=== PATIENT | female | born 1945 | race Caucasian/White ===

== ENCOUNTER → 2018-03-28 15:00 | Outpatient (CLI) | payer MEDICARE, SELFPAY ==
--- NOTE | 2018-03-28 15:30 | DI.RPTCT_ITS ---
SYMPTOMS/DIAGNOSIS: ACCIDENTAL FALL, LONG-TERM ANTICOAGULANT USE CRANIAL CT: A non-contrast enhanced examination was performed. There is no evidence of an intra/extra-axial hemorrhage. Atrophic changes consistent with age are demonstrated. Small regions of diminished absorption in the frontoparietal white matter bilaterally would be consistent with small vessel disease. The ventricles are intact. Incidental note is made of a cavum septum pellucidum, which is a normal variant. No skull fractures identified. The paranasal sinuses are unremarkable. The mastoid air cells are intact. SUMMARY: No acute intracranial abnormality is demonstrated. C-SPINE CT: There is straightening of the normal cervical lordosis. There is no evidence of a fracture or dislocation. Disc narrowing and associated degenerative bony changes are identified at C2 through C7. There is no evidence of significant foraminal compromise. The neural canal is widely patent. The posterior elements are intact. The odontoid is intact and is closely applied to the anterior arch of C1. SUMMARY: There is no evidence of a fracture or dislocation. Degenerative changes are noted as described above.
== END ==
PROVIDERS: PCP Internal Medicine Geriatric Medicine; Visit Provider Internal Medicine
DX: I67.9 Cerebrovascular disease, unspecified (principal); G31.1 Senile degeneration of brain, not elsewhere classified; M50.322 Other cervical disc degeneration at C5-C6 level; Z79.01 Long term (current) use of anticoagulants; W19.XXXA Unspecified fall, initial encounter
CPT/HCPCS: 70450; 72125

== ENCOUNTER → 2018-04-09 09:28 | Outpatient (CLI) | payer MEDICARE, SELFPAY | PROVIDERS: PCP Internal Medicine Geriatric Medicine; Visit Provider Orthopaedic Surgery | DX: M17.11 Unilateral primary osteoarthritis, right knee (principal); M16.11 Unilateral primary osteoarthritis, right hip | CPT/HCPCS: 99214 ==

== ENCOUNTER 2018-05-13 07:19 | Day surgery (SDC) | payer MEDICARE, SELFPAY ==
[2018-05-13 07:28] VITALS: BP 141/85; PULSE 89; RESP 16; TEMP 36.7; O2SAT 96
--- NOTE | 2018-05-13 08:37 | DI.RAD_ITS ---
SYMPTOM/DIAGNOSIS: ARTHRITIS RIGHT HIP INJECTION: Fluoroscopy Time: 7.7 seconds Fluoroscopy was utilized by Dr. Deras in the OR. Please refer to the procedure report for complete details.
--- NOTE | 2018-05-13 09:23 | W.PM.DSUDISC ---
Discharge Plan Disposition Patient Disposition: HOME Condition: Improving Discharge Details Attending Provider: Baljinder Deras Primary Care Provider: Ayla Brown Home Meds and New Rx's Prescriptions: No Action thyroid (pork) [[place] Thyroid] 60 MG tablet 90 mg PO DAILY RF: 0 [place]'s wort 150 MG capsule 1 tab PO . NEEDED RF: 0 cholecalciferol (vitamin D3) [Vitamin D3] 1,000 unit Capsule 1,000 unit PO DAILY RF: 0 rivaroxaban [Xarelto] 20 mg Tablet 20 mg PO DAILY RF: 0 cyanocobalamin (vitamin B-12) 1,000 mcg Tablet, Sublingual 5,000 mcg Sublingual DAILY RF: 0 Discharge Instructions Additional Instructions: You may be up today to get something to eat or to go to the bathroom. However try to limit your activity for the next 24 hours. You should notice a significant improvement in your hip and groin pain for the next 5-12 hours secondary to the local anesthetic effect of the injection. When that wears off you may have some return of the hip and groin pain for 24-48 hours until the steroid takes effect, which is usually 24-48 hours. You may use ice over the anterior hip region to help with that discomfort, usually 20-30 minutes every hour as needed. Plain tylenol is also helpful in regular doses. You only need to ice the knee if there is discomfort. The durolane's beneficiial effect takes a few weeks but should last 6 months. Stand Alone Forms: DSU Post op Chastity, Rosi Damon (DSU) Activity:: as described Shower/Bathe:: 24 hours Diet:: As Tolerated Discharge Orders Discharge Orders: Discharge Order (Routine); Ordered 05/13/18 Ordered By: Baljinder Deras
--- NOTE | 2018-05-13 09:32 | PDOC.DSDIS_ITS ---
Discharge Plan Disposition Patient Disposition: HOME Condition: Improving Discharge Details Attending Provider: Baljinder Deras Primary Care Provider: Ayla Brown Home Meds and New Rx's Prescriptions: No Action thyroid (pork) [[place] Thyroid] 60 MG tablet 90 mg PO DAILY RF: 0 [place]'s wort 150 MG capsule 1 tab PO . NEEDED RF: 0 cholecalciferol (vitamin D3) [Vitamin D3] 1,000 unit Capsule 1,000 unit PO DAILY RF: 0 rivaroxaban [Xarelto] 20 mg Tablet 20 mg PO DAILY RF: 0 cyanocobalamin (vitamin B-12) 1,000 mcg Tablet, Sublingual 5,000 mcg Sublingual DAILY RF: 0 Discharge Instructions Additional Instructions: You may be up today to get something to eat or to go to the bathroom. However try to limit your activity for the next 24 hours. You should notice a significant improvement in your hip and groin pain for the next 5-12 hours secondary to the local anesthetic effect of the injection. When that wears off you may have some return of the hip and groin pain for 24-48 hours until the steroid takes effect, which is usually 24-48 hours. You may use ice over the anterior hip region to help with that discomfort, usually 20-30 minutes every hour as needed. Plain tylenol is also helpful in regular doses. You only need to ice the knee if there is discomfort. The durolane's beneficiial effect takes a few weeks but should last 6 months. Stand Alone Forms: DSU Post op Chastity, Rosi Damon (DSU) Activity:: as described Shower/Bathe:: 24 hours Diet:: As Tolerated Discharge Orders Discharge Orders: Discharge Order (Routine); Ordered 05/13/18 Ordered By: Baljinder Deras
[2018-05-13 09:52] VITALS: BP 124/78; PULSE 74; RESP 18; TEMP 36.8; O2SAT 96
--- NOTE | 2018-05-13 10:32 | ROE_ITS ---
DATE OF PROCEDURE: May 13, 2018 PREOPERATIVE DIAGNOSIS: Degenerative arthritis right hip and right knee. POSTOPERATIVE DIAGNOSIS: Same. PROCEDURE: 1. Injection right knee with Durolane 2. Injection right hip under fluoroscopy with Depo-Medrol 80 mg SURGEON: Baljinder Deras M.D. INDICATIONS: This patient is a 72-year-old morbidly obese white female who has a very complicated me dical history. 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 She underwent a left total knee arthroplasty in 2014. That procedure was complicated by a rupture of her posterior c ruciate ligament approximately six weeks after the index operation in 2014. That has left her with s ome instability of the left knee. She's had a recent fall in the winter of where she had inc reasing pain in the right hip and groin and increasing pain in the right knee. X-rays showed an incr easing valgus deformity of the right knee and early degenerative arthritis of the right hip. Unfortu nately the early beginning of this summer she developed another blood clot in the right lower extremi ty, which is where the index clot developed approximately four months after her left total knee arthr oplasty in 2014. This was confirmed on ultrasound. She was recently seen by Hematology at [facility] who cleared her for injection of the right hip and right knee, but the patient will need to be on li felong Xarelto DVT prophylaxis. She also has a history of a thoracic aneurysm, which has been recent ly stable. I have reviewed the procedure with the patient. Because of significant anxiety and poor pain tolerance to injection of the left knee when this was done prior to her knee surgery in 2014, I recommended the use of some modest sedation. This was discussed in detail with [facility] and therefore she was given the oral Midazolam, Ketamine and Ondansetron. After ten minutes she was then brought back to the operating suite. I greeted the patient and her prior to th e sedation and reviewed the planned procedure. They understood and wished to proceed. The patient s igned the consent and I marked her right leg. PROCEDURE: As the patient was feeling comfortable, I elected to inject the right knee. This was don e without difficulty. This was done with Durolane. A small amount of lidocaine, which was preservat fercho-free, was used to mitigate against any potential history of allergies. The patient has had a rep orted allergy to lidocaine, but it has been determined since her total knee arthroplasty that she may have an allergy to methylparaben or the epinephrine that is used in a dental office often with aaron franks. She tolerated that well with no evidence of any allergic reaction. This was done after prepp ing the anteromedial aspect of her left knee. I then brought the fluoroscope into position. I prepped the anterolateral area of her right thigh. Approaching the hip from the lateral aspect I first created an anesthetic wheal with preservative-alexandra e lidocaine with 25 gauge needle. After waiting an appropriate amount of time, I then passed a spina l needle under fluoroscopic control into the hip joint. The 3.5-inch spinal needle was inadequate fo r length and therefore a 6-inch spinal needle was utilized. This caused the patient some discomfort, but I was able to easily place the needle into the hip joint and make contact with the femoral head, indicating appropriate placement. I then injected the hip joint with 5 cc's of Marcaine, preservati ve-free, 0.25% and 80 mg of Depo-Medrol. She tolerated it well with no complications. She had no ne urovascular changes to her right leg or thigh. Aspiration was done prior to injection and there was no blood obtained. Band-aids were applied to both wounds and the patient was taken to the [facility] area in satisfactory condition. We'll get her up ambulating in approximately thirty minutes. She understands that she may have some increasing pain in the groin and hip after 5 to 12 hours after the local anesthetic has worn off. However with the use of ice and Tylenol this should resolve and with in 48 hours she should notice the beneficial effects of the steroid in the hip and the Durolane place d in the knee will take a few weeks to take effect, but often most patients feel better within 7 to10 days.
== END 2018-05-13 10:20 | disposition home or self-care (01) ==
PROVIDERS: PCP Internal Medicine; Visit Provider Orthopaedic Surgery
PROC: (CPT 20610; principal; 2018-05-13 08:30)
DX: M17.11 Unilateral primary osteoarthritis, right knee (principal); M21.061 Valgus deformity, not elsewhere classified, right knee; E66.01 Morbid (severe) obesity due to excess calories; Z86.718 Personal history of other venous thrombosis and embolism
CPT/HCPCS: 20610; 77002; 76000; J7318; 73501; J3490

== ENCOUNTER → 2018-05-13 09:27 | Outpatient (BNVA) | payer MEDICARE, SELFPAY | PROVIDERS: PCP Internal Medicine Geriatric Medicine; Referring Provider Internal Medicine Geriatric Medicine; Visit Provider Orthopaedic Surgery | DX: R69 Illness, unspecified (principal) ==

== ENCOUNTER → 2019-02-06 10:52 | Outpatient (BNVA) | payer MEDICARE, SELFPAY | PROVIDERS: PCP Internal Medicine Geriatric Medicine; Referring Provider Internal Medicine Geriatric Medicine; Visit Provider Orthopaedic Surgery | DX: M25.561 Pain in right knee (principal); G89.29 Other chronic pain; Z47.1 Aftercare following joint replacement surgery; Z79.01 Long term (current) use of anticoagulants | CPT/HCPCS: 99211; 99213 ==

== ENCOUNTER 2019-03-10 12:40 | Emergency (ER) | payer MEDICARE, SELFPAY ==
[2019-03-10 12:44] VITALS: BP 160/76; PULSE 80; RESP 16; TEMP 36.7; O2SAT 96
--- NOTE | 2019-03-10 13:20 | ED.GENADUL_ITS ---
Discharge Plan Disposition Patient Disposition: HOME Condition: Stable Discharge Details Chief Complaint: Orthopedic Clinical Impression: Fracture, humerus Primary Care Provider: Ayla Brown ED Provider: Josefina Garcia Home Meds and New Rx's Prescriptions: New oxycodone 5 mg tablet 5 mg PO Q8H PRN (Reason: pain) Qty: 6 RF: 0 Continued thyroid (pork) [[place] Thyroid] 60 MG tablet 90 mg PO DAILY RF: 0 [place]'s wort 150 MG capsule 1 tab PO . NEEDED RF: 0 cholecalciferol (vitamin D3) [Vitamin D3] 1,000 unit Capsule 1,000 unit PO DAILY RF: 0 cyanocobalamin (vitamin B-12) 1,000 mcg Tablet, Sublingual 5,000 mcg Sublingual DAILY RF: 0 Eliquis 5 mg Tablet 5 mg PO DAILY RF: 0 Discharge Instructions Instructions: Oxycodone, Rapid Release (By mouth), How to Use a Sling (GEN), Proximal Humerus Fracture (ED) Additional Instructions: Please return immediately to the emergency department if you develop any new or worsening symptoms or if you become otherwise concerned. It is extremely important that you call as soon as possible to make an appointment to be seen in follow-up for this visit by your primary care doctor and also by an orthopedic surgeon. Referrals: Baljinder Deras MD [ [facility] STAFF PHYSICIAN] - Ayla Brown [Primary Care Provider] - Discharge Data Discharge Date/Time-TO BE ENTERED AT DEPARTURE: 03/10/19 15:04 Medical Decision Making Carolann Brennan is a 73-year-old woman with a history of pulmonary embolism on Eliquis, hypothyroidism, hypertension who presented to the emergency department with shoulder pain after tripping and falling to the floor. On exam patient is very well and nontoxic appearing. Right shoulder appears edematous as compared to the left. There is tenderness anteriorly over the right shoulder. Radial pulses are intact and symmetric. Pain with active or passive motion, cannot range the shoulder joint. Technology Integration Specialist strength intact and symmetric. Sensation intact. Concern for contusion with possible hemarthrosis given Eliquis versus dislocation versus fracture. No evidence of nerve injury on exam at this time. Exam/history is not consistent with significant intracranial, spinal, thoracoabdominal trauma. Plan for x-rays. Xray shows proximal humerus fx. I discussed Pt presentation and results with Dr. Underwood who reviewed imaging, recommended sling, opiates for pain PRN, no need to stop eliquis. Will see Pt as outpt in f/u. I had a lengthy discussion with the Pt re: RTED precautions, safe opiate use, importance of outpt f/u with PCP and ortho, and home care. Pt verbalized understanding of the plan and was amenable. All questions were answered. Pt was d/katherine to home with clear plan for outpt f/u. Medical Records Medical records reviewed: Yes I reviewed the patient's medical records. Imaging Data Radiologic Study: Attestation: I personally reviewed and interpreted this imaging study as follows: Radiologist's impression: RIGHT SHOULDER: Multiple views. There is a comminuted fracture involving the surgical neck of the right humerus with extension into the greater tuberosity. There is mild displacement of the distal fracture noted. The glenohumeral joint is intact. There are degenerative changes seen at the acromioclavicular joint dystrophic calcifications are seen in the soft tissues superior to the glenoid. This may represent calcific tendinitis. The soft tissues are otherwise unremarkable. IMPRESSION: Comminuted mildly displaced fracture involving the proximal right hu merus. HPI General Mode of arrival: ambulatory . Date/Time Provider Initiated Documentation: 03/10/19 12:53 . Limitations to Documentation: no limitations . Information obtained by: patient, RN notes reviewed and old records reviewed . HPI Narrative: Carolann Brennan is a 73-year-old woman with history of PE on Eliquis, hypothyroidism, hypertension presenting to the emergency department shoulder pain. Patient reports that just prior to arrival she was walking in her house when her foot got caught on a rug and she fell forward landing on her right shoulder. Patient reports that she did not hit her head, did not lose consciousness. She is complaining of pain in the right shoulder, and denies any other pain or injury. She denies shortness of breath, cough, vomiting, numbness, weakness, rash/skin wound. She reports that she was previously in her usual state of health. Denies any symptoms prior to the fall. Related Data Home Medications Medication Instructions Recorded Confirmed thyroid (pork) [[place] Thyroid] 90 mg PO DAILY 01/14/13 03/17/19 [place]'s wort 1 tab PO . NEEDED 01/15/15 03/17/19 cholecalciferol (vitamin D3) 1,000 unit PO DAILY 05/09/18 03/17/19 [Vitamin D3] cyanocobalamin (vitamin B-12) 5,000 mcg SUBLINGUAL DAILY 05/13/18 03/17/19 Eliquis 5 mg PO DAILY 03/10/19 03/17/19 oxycodone 5 mg PO Q8H PRN #6 tab 03/10/19 03/17/19 Previous Rx's Medication Instructions Recorded oxycodone 5 mg PO Q8H PRN #6 tab 03/10/19 Allergies Allergy/AdvReac Type Severity Reaction Status Date / Time Penicillins Allergy unknown Unverified 03/10/19 12:47 epinephrine AdvReac Intermediate passes out Unverified 03/10/19 12:47 ibuprofen AdvReac Intermediate Nausea Unverified 03/10/19 12:47 morphine AdvReac Intermediate vomiting Unverified 03/10/19 12:47 influenza virus vaccine tv AdvReac Unverified 03/10/19 12:47 splt 202 [From Fluvirin] General Stated Complaint: Orthopedic LORETO: 4 Review of Systems Review of Systems Constitutional: denies fevers Eyes: denies eye pain ENT: denies facial pain, dental pain, sore throat Cardiovascular: denies chest pain, lightheadedness Respiratory: denies SOB, cough GI: denies abdominal pain, vomiting, diarrhea : denies flank pain MSK: denies back pain, neck pain, myalgias, reports right shoulder pain Skin: denies rash Neuro: denies headaches, numbness, weakness [facility] Surgical History (Updated 06/05/18 @ 14:35 by [facility]) Replacement of total knee joint (01/20/15) Social History Smoking/Tobacco Use Status: Never Drug use: Never Substance use type: does not use Exam Narrative Exam Narrative: Constitutional: well and [id number], pleasant, conversing normally HENT: head atraumatic/normocephalic/normal inspection, mucous membranes moist Eyes: conjunctiva normal, sclera normal, pupils 3mm b/l Neck: no stridor, normal ROM, trachea midline Chest: normal inspection Resp: normal work of breathing, LCTAB Cardio: normal rate, normal rhythm, no murmur appreciated Back: normal inspection, no rash Skin: warm, dry, normal color, no rash Neuro: alert, not altered, grossly non-focal, normal tone. volcanology teacher 5/5 b/l. Ext: edema over anterior right shoulder without ecchymoses, skin wound. Pt holding right shoulder in abduction, cannot range shoulder 2/2 pain. Normal ROM right wrist and elbow. normal sensation RUE. Radial pulses intact and symmetric, brisk cap refill right digits. Right shoulder diffusely TTP, no clavicular TTP. Psych: normal mood, normal affect, normal behavior Course Vital Signs Temperature 36.7 C 03/10/19 12:44 Pulse 80 03/10/19 12:44 Respiratory Rate 16 03/10/19 12:44 Blood Pressure 160/76 H 03/10/19 12:44 Pulse Oximetry 96 03/10/19 12:44 Temperature 36.7 C 03/10/19 12:44 Temperature Source Skin 03/10/19 12:44 Pulse 80 03/10/19 12:44 Respiratory Rate 16 03/10/19 12:44 Respiratory Effort Non-Labored 03/10/19 12:44 Blood Pressure 160/76 H 03/10/19 12:44 Pulse Oximetry 96 03/10/19 12:44 Oxygen Delivery Method Room Air 03/10/19 12:44 Oxygen Flow Rate 0 03/10/19 12:44 Pain Level 8 03/10/19 12:44
--- NOTE | 2019-03-10 13:38 | DI.RAD_ITS ---
SYMPTOMS/DIAGNOSIS: SHOULDER PAIN, TRAUMA RIGHT SHOULDER: Multiple views. There is a comminuted fracture involving the surgical neck of the right humerus with extension into the greater tuberosity. There is mild displacement of the distal fracture noted. The glenohumeral joint is intact. There are degenerative changes seen at the acromioclavicular joint dystrophic calcifications are seen in the soft tissues superior to the glenoid. This may represent calcific tendinitis. The soft tissues are otherwise unremarkable. IMPRESSION: Comminuted mildly displaced fracture involving the proximal right humerus.
[2019-03-10] MEDS: Acetaminophen 500 MG TAB 1000 MG PO (14:44)
== END 2019-03-10 15:04 | disposition home or self-care (01) ==
PROVIDERS: Emergency Provider Student in an Organized Health Care Education/Training Program; PCP Internal Medicine
DX: S42.291A Other displaced fracture of upper end of right humerus, initial encounter for closed fracture (principal); J81.1 Chronic pulmonary edema; W01.0XXA Fall on same level from slipping, tripping and stumbling without subsequent striking against object, initial encounter; I10 Essential (primary) hypertension; Z79.01 Long term (current) use of anticoagulants
CPT/HCPCS: 99283; 73030; L3650

== ENCOUNTER 2019-03-17 09:45 | Outpatient (CLI) | payer MEDICARE, SELFPAY ==
--- NOTE | 2019-03-17 09:32 | DI.RAD_ITS ---
SYMPTOM/DIAGNOSIS: F/U RT HUMERUS FRACTURE RIGHT SHOULDER: Two views. Comparison 03/10/19 There does not appear to be any significant change in appearance of the comminuted fracture of the proximal right humerus. Degenerative changes are seen at the acromioclavicular joint. The soft tissues are unremarkable
== END 2019-03-17 10:05 ==
PROVIDERS: PCP Internal Medicine; Referring Provider Internal Medicine; Visit Provider Orthopaedic Surgery
DX: S42.301A Unspecified fracture of shaft of humerus, right arm, initial encounter for closed fracture (principal); W19.XXXA Unspecified fall, initial encounter; Z79.01 Long term (current) use of anticoagulants
CPT/HCPCS: 99211; 99213; 73030

== ENCOUNTER 2019-04-01 13:00 | Outpatient (CLI) | payer MEDICARE, SELFPAY ==
--- NOTE | 2019-04-01 12:58 | DI.RAD_ITS ---
SYMPTOMS/DIAGNOSIS: F/U HUMERUS FRACTURE, LT KNEE GIVING OUT LEFT KNEE: Two views were obtained and show total knee joint replacement in position. The components appear well seated. No other significant bony abnormality is seen. RIGHT SHOULDER: Two views were obtained and show previously described comminuted proximal humeral fracture, no gross interval change in alignment of fracture fragments in comparison with the examination of 03/17 allowing for differences in projection. Note is made of inferior subluxation of the humeral head relative to the glenoid.
== END 2019-04-01 13:20 ==
PROVIDERS: PCP Internal Medicine; Referring Provider Internal Medicine; Visit Provider Orthopaedic Surgery
DX: S42.201A Unspecified fracture of upper end of right humerus, initial encounter for closed fracture (principal); Z96.652 Presence of left artificial knee joint; M25.362 Other instability, left knee; X58.XXXA Exposure to other specified factors, initial encounter
CPT/HCPCS: 99211; 99213; 73030; 73560

== ENCOUNTER 2019-04-15 12:10 | Outpatient (CLI) | payer MEDICARE, SELFPAY ==
--- NOTE | 2019-04-15 11:17 | DI.RAD_ITS ---
SYMPTOM/DIAGNOSIS: F/U FRACTURE RIGHT SHOULDER: Comparison is made with April 07. There has been no change in the comminuted fracture proximal humerus. The glenohumeral alignment also appears unchanged. Some inferior subluxation.
== END 2019-04-15 12:30 ==
PROVIDERS: PCP Internal Medicine; Referring Provider Internal Medicine; Visit Provider Orthopaedic Surgery
DX: S42.301A Unspecified fracture of shaft of humerus, right arm, initial encounter for closed fracture (principal); X58.XXXA Exposure to other specified factors, initial encounter
CPT/HCPCS: 99211; 99213; 73030

== ENCOUNTER 2019-05-07 12:00 | Outpatient (CLI) | payer MEDICARE, SELFPAY ==
--- NOTE | 2019-05-07 11:57 | DI.RAD_ITS ---
EXAM: XR SHOULDER RT COMPLETE 2+V INDICATION: F/U HUMERUS FRACTURE. COMPARISON: XR shoulder RT complete 2+V from 03/10/2019 XR shoulder RT complete 2+V from 04/15/2019 TECHNIQUE: 2D digital imaging was performed. FINDINGS: Two views of the shoulder were obtained and show previously described fracture of the proximal humeru s with no gross interval change in alignment of fracture fragments and increased callus formation at the fracture site in comparison with examination of April 15.
== END 2019-05-07 12:20 ==
PROVIDERS: PCP Internal Medicine; Visit Provider Student in an Organized Health Care Education/Training Program
DX: S42.214D Unspecified nondisplaced fracture of surgical neck of right humerus, subsequent encounter for fracture with routine healing (principal); W19.XXXD Unspecified fall, subsequent encounter; M19.011 Primary osteoarthritis, right shoulder; Z96.641 Presence of right artificial hip joint
CPT/HCPCS: 99214; 73030

== ENCOUNTER 2020-02-09 09:35 | Outpatient (CLI) | payer MEDICARE, SELFPAY ==
[2020-02-11 04:06] LABS: SARS-CoV-2 RNA Undetected (Undetected); SARS-CoV-2 Specimen Source Nasopharynx
== END 2020-02-09 09:55 ==
PROVIDERS: PCP Family Medicine; Visit Provider Family Medicine
DX: Z03.818 Encounter for observation for suspected exposure to other biological agents ruled out (principal)
CPT/HCPCS: U0003

== ENCOUNTER 2021-04-04 14:44 | Outpatient (CLI) | payer MEDICARE, SELFPAY ==
--- NOTE | 2021-04-04 11:45 | DI.RAD_ITS ---
Exam(s) XR STANDING ALIGNMENT EXAM: XR STANDING ALIGNMENT CLINICAL HISTORY: right knee DJD TECHNIQUE: COMPARISON: No exams were available for comparison FINDINGS: AP views of the lower extremities were obtained for leg length determination. Note is made of a righ t hip prosthesis and left knee prosthesis in position. There are moderate degenerative changes noted involving the lateral tibiofemoral joint on the right. IMPRESSION: RADIATION DOSE DELIVERED: Total DLP
--- NOTE | 2021-04-04 11:45 | DI.RAD_ITS ---
Exam(s) XR KNEE RT 2V AP,LAT EXAM: XR KNEE RT 2V AP,LAT CLINICAL HISTORY: right knee pain. TECHNIQUE: 2D digital imaging was performed. COMPARISON: CR RIGHT KNEE 3 VIEWS from 05/17/2017 FINDINGS: Single lateral view right knee reveals significant osteoarthritic degenerative changes the visualized compartments. Calcific density seen posteriorly is probably the fabella. Small joint effusion note d. IMPRESSION: DATA REPOSITORY: RADIATION DOSE DELIVERED:
--- NOTE | 2021-04-04 12:00 | DI.RAD_ITS ---
Exam(s) XR LUMBAR SPINE AP, LAT EXAM: XR LUMBAR SPINE AP, LAT CLINICAL HISTORY: lumbar spine spondylosis. TECHNIQUE: 2D digital imaging was performed. COMPARISON: No exams were available for comparison FINDINGS: There is a transitional lumbosacral vertebra. Right hip prosthesis also noted. There is mild scolio sis convex left having its epicenter at L3-4 level where there is advanced narrowing of the right liam e of this disc space with preservation of disc height on the left side of the disc space. There is no evidence fracture nor listhesis nor pars defects. Disc space narrowing at the lower 3 3 levels noted also at L1-2 level. There is relative preservation of disc height at L2-3 level. No os seous lesions evident. Sacroiliac joints appear unremarkable. IMPRESSION: Degenerative scoliosis as described above. Multilevel degenerative disc disease. There is a transitional lumbosacral vertebra here. Right hip prosthesis incidentally noted. DATA REPOSITORY: RADIATION DOSE DELIVERED:
--- OUTSIDE RECORDS SUMMARY | 2021-04-04 14:47 | XMS_ITS ---
:1945 Author Organization [address] Address [address] [place] [address] Care Team Providers Name Role Phone Neeraj Unavailable Unavailable PROBLEMS Type Condition ICD9-CM Code BTB43-CK Code Onset Condition SNO MED Code Dates Status Problem Active Problem History of Z86.711 Active [id number] pulmonary embolism ALLERGIES Substance Reaction Event Type Date Status Epinephrine Unknown Non Drug Allergy Nov, Active ENCOUNTERS Encounter Location Date Diagnosis [place] [address], [address] [place] [phone] [place] [address], Per mike history of [address] [place] [address] colonic polyps Z86.010 ; [id number] Family history o f colon cancer Z80.0 ; H istory of pulmonary emboli sm Z86.711 ; Adenoma determ ined by colorectal biops y D12.6 ; Diarrhea R19.7 a nd Rectal urgency R15.2 [facility] [address] Nov, 2018 Persona l history of [place] colonic poly ps [id number] [place] [address] Nov, 2018 Sonia noma determined by [address] [place] [address] colorect al biopsy D12.6 ; [id number] Family history o f colon cancer Z80.0 and History of pulmonary emb olism Z86.711 IMMUNIZATIONS No Known Immunizations SOCIAL HISTORY Qualifiers Date Former Smoker REASON FOR REFERRAL FUNCTIONAL STATUS PLAN OF CARE Activity Details Follow Up aug 2021 Reason: Future Test OVA AND PARASITES WITH GIARD IA ANTIGEN 20201215 Future Test SALMONELLA AND SHIGELLA, CUL TURE 20201215 Future Test Stool Culture 20201215 Future Test CLOSTRIDIUM DIFFICILE TOXIN/ GDH W/REFL TO PCR 20201215 Future Test PANCREATIC ELASTASE-1 Future Test STOOL CALPROTECTIN 20201213 Future/Pending Procedure Colonoscopy 20181202 VITAL SIGNS Weight 220 lbs 2020-12-13 Weight 248.8 lbs 2018-12-02 Height 68 in 2020-12-13 Height 68 in 2018-12-02 BMI 33.45 kg/m2 2020-12-13 BMI 37.83 kg/m2 2018-12-02 Blood pressure systolic 110 mm Hg 2020-12-13 Blood pressure diastolic 70 mm Hg 2020-12-13 MEDICATIONS Medication Instructions Dosage Frequency Start End Duration Statu s Date Date Eliquis 5 MG as directed Active Winside Thyroid Orally Once a 1 tablet on 24h 30 day( s) Active 90 MG day an empty stomach Suprep Bowel Orally as take 177ml 15 Nov, days Not-Ta kin Prep Kit directed (2 bottles) 2018 g 17.5-3.13-1.6 GM/177ML Vitamin D3 Active PROCEDURES Procedure Date Ordered Result Body Site COLONOSCOPY, FLEXIBLE, PROXIMAL TO SPLENIC FLEXURE; December 11 19 WITH REMOVAL OF TUMOR(S), POLYP(S), OR OTHER LESION(S) BY HOT BIOPSY FORCEPS OR BIPOLAR CAUTERY LEVEL IV - SURGICAL PATHOLOGY, GROSS AND MICROSCOPIC December 11 019 EXAMINATION Colonoscopy 2018-12-11 N/A Recall- Colonoscopy 2018-12-11 N/A RESULTS Name Result Date Reference Range Gastrointestinal 2018-12-11 REASON FOR VISIT voice [phone], Schedule colonoscopy Insurance Providers [facility] Member Patient Patient Patient Patient Patient Subscriber Subscriber Subscriber Group Insurance Plan Plan Plan Plan ID Relationship Address Phone Name Date of ID Name Date of No Type Insurance Insurance Insurance Coverage to Subscriber Address Phone Name Dates MEDICARE B [id number] MEDICARE B self JUSTYNA 1946 [id number] [place] [id number] [place] [facility] [place] [phone] [employer] AARP [phone] AARP self JUSTYNA [id number] [place] [id number] [facility] S MEDICARE [phone] MEDICARE SUPPLE SUPPLE
== END 2021-04-04 14:45 | disposition home or self-care (01) ==
LOC: DIORS 14:44
PROVIDERS: PCP Family Medicine; Referring Provider Family Medicine; Visit Provider Student in an Organized Health Care Education/Training Program
DX: M17.11 Unilateral primary osteoarthritis, right knee (principal); M47.816 Spondylosis without myelopathy or radiculopathy, lumbar region; M41.9 Scoliosis, unspecified; M51.36 Other intervertebral disc degeneration, lumbar region; Z96.653 Presence of artificial knee joint, bilateral; I71.2 Thoracic aortic aneurysm, without rupture; M25.561 Pain in right knee
CPT/HCPCS: 20610; 99213; 72100; 73560; 77073

== ENCOUNTER 2021-04-21 01:17 | Outpatient (CLI) | payer MEDICARE, SELFPAY ==
--- NOTE | 2021-04-21 06:30 | DI.MRI_ITS ---
Exam(s) MR LUMBAR SPINE WO EXAM: MR LUMBAR SPINE WO CLINICAL HISTORY: LUMBAR BACK PAIN, M54.5 TECHNIQUE: Multiplanar multisequence MRI of the Lumbar Spine was performed. CONTRAST MATERIAL: IV Contrast: mL of Dotarem contrast administered. COMPARISON: CR XR LUMBAR SPINE AP, LAT from 04/04/2021 FINDINGS: Bones: The last intervertebral disc space is designated the L5/S1 level for the numbering purpose of this examination. The vertebral body heights are well maintained. Cord: The conus tip ends at the L1 level. It is of normal size and signal intensity. T12-L1: No disc herniations or bulges are present. L1-2: Severe loss of disc height with endplate osteophytes projecting toward the left. Facet degener ative changes, greater on the left. Moderate central canal stenosis. Severe left neural foraminal kamryn rowing. Moderate right neural foraminal narrowing. L2-3: Mild disc bulging eccentric toward the left. Facet degenerative changes and ligamentous hypertr ophy causing mild central canal stenosis. L3-4: Disc space narrowing and endplate osteophytes eccentric toward the right. Facet degenerative c hanges, greater on the right. Nzte-ao-jodsglyp central canal stenosis. Mild right neural foraminal na rrowing. L4-5: Mild loss of disc height and endplate osteophytes, eccentric toward the right. Facet degenerat fercho changes and ligamentous hypertrophy causing moderate central canal stenosis. Moderate to severe b ilateral neural foraminal narrowing by bilaterally. L5-S1: Loss of disc height eccentric toward the left. Mild facet degenerative changes. Mild left zackary ral foraminal narrowing. No significant central canal stenosis. Soft tissues: The visualized SI joints and sacrum are well maintained. There is severe muscle atrophy , particularly of the posterior paraspinal muscles. The aorta is normal in diameter. Visualized porti ons of the kidneys are unremarkable. IMPRESSION: Multilevel degenerative disc changes and facet degenerative changes causing multilevel bilateral neur al foraminal narrowing. Central canal stenosis, greatest at L4-5. No focal disc herniation. DATA REPOSITORY:
== END 2021-04-21 01:37 ==
PROVIDERS: PCP Family Medicine; Visit Provider Student in an Organized Health Care Education/Training Program
DX: M54.5 Low back pain (principal); M51.36 Other intervertebral disc degeneration, lumbar region; M99.73 Connective tissue and disc stenosis of intervertebral foramina of lumbar region; M48.061 Spinal stenosis, lumbar region without neurogenic claudication
CPT/HCPCS: 36415; 80048; 85027; 72148; 83036

== ENCOUNTER 2021-04-21 03:28 | Outpatient (CLI) | payer MEDICARE, SELFPAY ==
[2021-04-21 09:57] LABS: HCT 46.9 % (36.0-46.0); HGB 15.2 g/dL (11.2-15.7); MCH 30.6 pg (27.0-33.0); MCHC 32.4 % (32.0-36.0); MCV 94.4 fL (80-95); MPV 10.2 fL (8.0-11.0); Platelet Count 243 10^3/uL (130-400); RBC 4.97 10^6/uL (3.93-5.22); RDW 12.8 % (11.7-14.6); RDW-SD 44.3 fL; WBC 8.01 10^3/uL (4.4-10.8)
[2021-04-21 10:32] LABS: Hemoglobin A1C 6.8 % (<5.7)
[2021-04-21 11:28] LABS: Anion Gap 12.2 mmol/L (3-11); BUN 11 mg/dL (7-18); CO2 26.8 mmol/L (21.0-32.0); CREATININE 0.8 mg/dL (0.55-1.02); Calcium 9.3 mg/dL (8.5-10.1); Chloride 105 mmol/L (98-107); Glucose 144 mg/dL (74-106); Potassium 4.4 mmol/L (3.5-5.1); Sodium 144 mmol/L (136-145)
== END 2021-04-21 03:29 | disposition home or self-care (01) ==
LOC: LBO 03:29
PROVIDERS: PCP Family Medicine; Visit Provider Student in an Organized Health Care Education/Training Program
DX: M25.561 Pain in right knee (principal); M17.11 Unilateral primary osteoarthritis, right knee; E11.9 Type 2 diabetes mellitus without complications; Z01.818 Encounter for other preprocedural examination; Z01.812 Encounter for preprocedural laboratory examination
CPT/HCPCS: 36415; 80048; 85027; 83036

== ENCOUNTER 2021-04-22 03:29 | Outpatient (CLI) | payer MEDICARE, SELFPAY ==
[2021-04-22 11:16] LABS: Source Nasal/Nares
[2021-04-22 13:49] LABS: COVID-19 PCR Negative (Negative)
== END 2021-04-22 03:30 | disposition home or self-care (01) ==
LOC: LBO 03:29
PROVIDERS: PCP Family Medicine; Visit Provider Student in an Organized Health Care Education/Training Program
DX: Z20.822 Contact with and (suspected) exposure to COVID-19 (principal); Z01.818 Encounter for other preprocedural examination
CPT/HCPCS: 87635

== ENCOUNTER 2021-04-26 06:08 | Day surgery (SDC) | payer MEDICARE, SELFPAY ==
--- NOTE | 2021-04-15 07:45 | W.ANESCON ---
General Date of Service Date of Service: 04/15/21 Reason for Consult Requesting Provider: Elio Melendrez How Consult Conducted:: Chart Review Reason for Consult:: H/O AAA following in [place],, H/O PE, DM Consult Recommendation after Review:: Patient has been seen by providers at this facility and has received an anesthetic here before in 2014. She appeared to do well at this time. Due to her active management of her AAA at the [facility] and less than 4.9 reported measurement from 2019 I believe her risk is moderate to low. We are requesting records from the Clinic which might change this position. At this time she is tentatively cleared to proceed. Meds Allergies and Home Medications Allergies Allergy/AdvReac Type Severity Reaction Status Date / Time Penicillins Allergy Verified 04/04/21 11:15 epinephrine AdvReac Verified 04/04/21 11:15 Home Medication Medication Instructions Recorded cholecalciferol (vitamin D3) 1,000 unit PO DAILY 05/09/18 [Vitamin D3] cyanocobalamin (vitamin B-12) 5,000 mcg SUBLINGUAL DAILY 05/13/18 adjuvant AS01B (PF)vial 1 of 2 0.5 ml IM DAILY #0.5 ml 02/17/20 apixaban 5 mg tablet 5 mg PO BID tab 02/17/20 thyroid (pork) 90 mg tablet 90 mg PO DAILY #90 tab 07/02/20 PFSH Active Problems Active Problems: Problem Status Onset Code Lumbar degenerative disc disease M51.36 Lumbar scoliosis M41.9 Primary osteoarthritis of right knee 05/16/17 M17.11 Lower extremity edema R60.0 Colon polyps K63.5 Aortic stenosis I35.0 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 SVT (supraventricular tachycardia) I47.1 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 Osteoarthritis M19.90 DVT (deep venous thrombosis) I82.409 Diabetes mellitus E11.9 Degenerative arthritis of right shoulder region M19.011 Humerus fracture 03/10/19 S42.309A Knee osteoarthritis 01/20/15 M17.9 Artificial knee joint present 01/20/15 Z96.659 Hypothyroidism E03.9 Acquired valgus deformity knee 01/20/15 M21.069 Medical History Medical History (Updated 04/14/21 @ 14:13 by Rea Chavis) Aortic stenosis Ascending aortic aneurysm Colon polyps Degenerative joint disease (DJD) of hip Lower extremity edema Lumbar degenerative disc disease Lumbar scoliosis Pre-op testing Surgical History Surgical History H/O knee surgery History of hip surgery History of tonsillectomy Replacement of total knee joint (01/20/15) LEFT/ DR. ACUÑA Tobacco Smoking/Tobacco Use Status: Former Tobacco Use Tobacco: How many years used: 20 Passive smoking exposure: No Second hand exposure: No Alcohol Alcohol Intake: current Alcohol intake frequency: 0-2 drinks per day Alcohol type: wine Substance Use Substance use: Rarely Substance use type: marijuana Vital Signs & Lab Results Point of Care Results Nursing Point of Care Results: No Data to Display Lab Results Blood Type / Crossmatch: No Data to Display Complete Blood Count: No Data to Display Complete Metabolic Panel: No Data to Display Liver Function Panel: No Data to Display Coagulation Panel: No Data to Display Cardiac Panel: No Data to Display Arterial Blood Gas: No Data to Display Venous Blood Gas: No Data to Display Pancreas Panel: No Data to Display Thyroid Panel: No Data to Display Infectious Disease: No Data to Display Blood Cultures: No Data to Display Toxicology Panel: No Data to Display
--- NOTE | 2021-04-20 12:02 | ANES.CON_ITS ---
General Date of Service Date of Service: 04/20/21 Reason for Consult Requesting Provider: Elio Melendrez How Consult Conducted:: Chart Review Reason for Consult:: AAA, . Consult Recommendation after Review:: ok to proceed. Meds Allergies and Home Medications Allergies Allergy/AdvReac Type Severity Reaction Status Date / Time Penicillins Allergy Verified 04/19/21 15:13 epinephrine AdvReac Verified 04/19/21 15:13 Home Medication Medication Instructions Recorded cholecalciferol (vitamin D3) 1,000 unit PO DAILY 05/09/18 [Vitamin D3] cyanocobalamin (vitamin B-12) 5,000 mcg SUBLINGUAL DAILY 05/13/18 adjuvant AS01B (PF)vial 1 of 2 0.5 ml IM DAILY #0.5 ml 02/17/20 apixaban 5 mg tablet 5 mg PO BID tab 02/17/20 thyroid (pork) 90 mg tablet 90 mg PO DAILY #90 tab 07/02/20 PFSH Active Problems Active Problems: Problem Status Onset Code Chronic knee pain M25.569, G89.29 Lumbar degenerative disc disease M51.36 Lumbar scoliosis M41.9 Primary osteoarthritis of right knee 05/16/17 M17.11 Lower extremity edema R60.0 Colon polyps K63.5 Aortic stenosis I35.0 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 SVT (supraventricular tachycardia) I47.1 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 Osteoarthritis M19.90 DVT (deep venous thrombosis) I82.409 Diabetes mellitus E11.9 Degenerative arthritis of right shoulder region M19.011 Humerus fracture 03/10/19 S42.309A Knee osteoarthritis 01/20/15 M17.9 Artificial knee joint present 01/20/15 Z96.659 Hypothyroidism E03.9 Acquired valgus deformity knee 01/20/15 M21.069 Medical History Medical History (Updated 04/19/21 @ 15:32 by Shaheen Lee) Aortic stenosis Ascending aortic aneurysm Colon polyps Degenerative joint disease (DJD) of hip Lower extremity edema Lumbar degenerative disc disease Lumbar scoliosis Pre-op testing Surgical History Surgical History H/O knee surgery History of hip surgery History of tonsillectomy Replacement of total knee joint (01/20/15) LEFT/ DR. ACUÑA Tobacco Smoking/Tobacco Use Status: Former Tobacco Use Tobacco: How many years used: 20 Passive smoking exposure: No Second hand exposure: No Alcohol Alcohol Intake: current Alcohol intake frequency: 0-2 drinks per day Alcohol type: wine Substance Use Substance use: Rarely Substance use type: marijuana Vital Signs & Lab Results Point of Care Results Nursing Point of Care Results: No Data to Display Lab Results Blood Type / Crossmatch: No Data to Display Complete Blood Count: No Data to Display Complete Metabolic Panel: No Data to Display Liver Function Panel: No Data to Display Coagulation Panel: No Data to Display Cardiac Panel: No Data to Display Arterial Blood Gas: No Data to Display Venous Blood Gas: No Data to Display Pancreas Panel: No Data to Display Thyroid Panel: No Data to Display Infectious Disease: No Data to Display Blood Cultures: No Data to Display Toxicology Panel: No Data to Display Imaging and Studies Imaging and Studies Echocardiogram Summary: 12/27/2018: LVEF 68%, RV fxn WNL, trace MR, trace TR, Mild AR, mild AoV thickening peak gradient 10 mmHg, Aorta 4.8 cm. Anesthesia Assessment and Plan Exercise Tolerance Exercise Tolerance: Metabolic Equivalents>4 ASA Classification ASA Score: ASA 3 Anesthesia Plan Resuscitation Status: Full Code Pain Management: Surgeon and patient request nerve block Monitors Used: Standard Monitors Preoperative Comments:: 75 yo female for TKA. Sig PMHx: saddle PE from DVT 2014 (on apixaban - to be held for 2 days prior), ascending aortic aneurysm (5.[address] scan during PE, but motion artifact, per ECHO 4.8 cm), obesity, atrial tachycardia, hypothyroidism (on replacement). Her cardiac team from [facility] does not have a plan to repair her aneurysm at this time and feel she is ok to proceed with TKA.
--- NOTE | 2021-04-25 12:22 | W.ANESPRE ---
General Info Height: 5 ft 7.25 in Weight: 104.326 kg Body Mass Index (BMI): 35.7 Surgical Procedure: Operation Date: 04/26/21 07:55 Proposed Procedures Side Surgeon p Knee Total Arthroplasty Right Elio Melendrez MD Meds Allergies and Home Medications Allergies Allergy/AdvReac Type Severity Reaction Status Date / Time Penicillins Allergy Verified 04/22/21 12:28 epinephrine AdvReac Verified 04/22/21 12:28 Lidocaine Preservatives AdvReac Mild Other (See Uncoded 04/22/21 12:29 Comment) Home Medication Medication Instructions Recorded cholecalciferol (vitamin D3) 1,000 unit PO DAILY 05/09/18 [Vitamin D3] cyanocobalamin (vitamin B-12) 5,000 mcg SUBLINGUAL DAILY 05/13/18 adjuvant AS01B (PF)vial 1 of 2 0.5 ml IM DAILY #0.5 ml 02/17/20 apixaban 5 mg tablet 5 mg PO BID tab 02/17/20 thyroid (pork) 90 mg tablet 90 mg PO DAILY #90 tab 07/02/20 Current Visit Medications: Current Medications Generic Name Dose Route Start Last Admin Trade Name Freq PRN Reason Stop Dose Admin Acetaminophen 1,000 mg 04/26/21 06:00 Acetaminophen 500 Mg Tab PO 04/26/21 16:00 PREOP VINH Celecoxib 400 mg 04/26/21 06:00 Celecoxib 200 Mg Cap PO 04/26/21 16:00 PREOP VINH Gabapentin 300 mg 04/26/21 06:00 Gabapentin 300 Mg Cap PO 04/26/21 16:00 PREOP VINH Tranexamic Acid 1,000 mg/ 60 mls @ 360 mls/hr 04/26/21 06:00 Sodium Chloride IVPB 04/26/21 16:00 PREOP VINH Ringer's Solution 1,000 mls @ 80 mls/hr 04/26/21 06:00 IV 05/22/21 23:59 INFUSION VINH Cefazolin Sodium 2,000 mg/ 100 mls @ 200 mls/hr 04/26/21 06:00 Sodium Chloride IVPB 04/26/21 23:59 PREOP VINH IV Miscellaneous Supplies 1 each 04/26/21 06:00 Iv Access IV 05/22/21 23:59 DIRECTED VINH Sodium Chloride 0 ml 04/26/21 06:00 Normal Saline Flush 10 Ml Syr IV 10/03/21 23:59 PRN PRN Sodium Chloride 0 ml 04/26/21 06:00 Normal Saline 10 Ml Vial IJ 05/22/21 23:59 DIRECTED PRN Sterile Water 0 ml 04/26/21 06:00 Water,Injection,Sterile 10 Ml Vial IJ 05/22/21 23:59 DIRECTED PRN PFSH Active Problems Active Problems: Problem Status Onset Code Chronic knee pain M25.569, G89.29 Primary osteoarthritis of right knee 05/16/17 M17.11 Lumbar degenerative disc disease M51.36 Lumbar scoliosis M41.9 Aortic valve regurgitation I35.1 Lower extremity edema R60.0 Colon polyps K63.5 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 SVT (supraventricular tachycardia) I47.1 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 Osteoarthritis M19.90 DVT (deep venous thrombosis) I82.409 Diabetes mellitus E11.9 Degenerative arthritis of right shoulder region M19.011 Humerus fracture 03/10/19 S42.309A Knee osteoarthritis 01/20/15 M17.9 Artificial knee joint present 01/20/15 Z96.659 Hypothyroidism E03.9 Acquired valgus deformity knee 01/20/15 M21.069 Medical History Medical History Ascending aortic aneurysm 12/27/2018: 4.8cm Colon polyps Degenerative joint disease (DJD) of hip Lower extremity edema Lumbar degenerative disc disease Lumbar scoliosis Pre-op testing Surgical History Surgical History H/O knee surgery History of hip surgery History of tonsillectomy Replacement of total knee joint (01/20/15) LEFT/ DR. ACUÑA Tobacco Smoking/Tobacco Use Status: Former Tobacco Use Tobacco: How many years used: 20 Passive smoking exposure: No Second hand exposure: No Alcohol Alcohol Intake: current Alcohol intake frequency: 0-2 drinks per day Alcohol type: wine Substance Use Substance use: Rarely Substance use type: marijuana Vital Signs and Lab Results Lab Results Blood Type / Crossmatch: No Data to Display Complete Blood Count: White Blood Count 8.01 10^3/uL (4.4-10.8) 04/21/21 09:51 04/21/21 Red Blood Count 4.97 10^6/uL (3.93-5.22) 04/21/21 09:51 04/21/21 Hemoglobin 15.2 g/dL (11.2-15.7) 04/21/21 09:04/21/21 Hematocrit 46.9 % (36.0-46.0) H 04/21/21 09:04/21/21 Platelet Count 243 10^3/uL (130-400) 04/21/21 09:04/21/21 Complete Metabolic Panel: Sodium Level 144 mmol/L (136-145) 04/21/21 09:04/21/21 Potassium Level 4.4 mmol/L (3.5-5.1) 04/21/21 09:04/21/21 Chloride Level 105 mmol/L (98-107) 04/21/21 09:04/21/21 Carbon Dioxide Level 26.8 mmol/L (21.0-32.0) 04/21/21 09:04/21/21 Blood Urea Nitrogen 11 mg/dL (7-18) 04/21/21 09:04/21/21 Creatinine 0.8 mg/dL (0.55-1.02) 04/21/21 09:04/21/21 Estimated GFR/1.73 m2 >= 60.00 (mL/min/1.73m2) 04/21/21 09:04/21/21 Calcium Level 9.3 mg/dL (8.5-10.1) 04/21/21 09:04/21/21 Glucose Level 144 mg/dL (74-106) H 04/21/21 09:04/21/21 Hemoglobin A1c 6.8 % (<5.7) H 04/21/21 09:04/21/21 Liver Function Panel: No Data to Display Coagulation Panel: No Data to Display Cardiac Panel: No Data to Display Arterial Blood Gas: No Data to Display Venous Blood Gas: No Data to Display Pancreas Panel: No Data to Display Thyroid Panel: No Data to Display Infectious Disease: Coronavirus (COVID-19)(PCR) Negative (Negative) 04/22/21 10:26 04/22/21 Coronavirus 2019 Source Nasal/Nares 04/22/21 10:04/22/21 Blood Cultures: No Data to Display Toxicology Panel: No Data to Display Imaging and Studies Imaging and Studies Echocardiogram Summary: 12/27/2018: LVEF 68%, RV fxn WNL, trace MR, trace TR, Mild AR, mild AoV thickening peak gradient 10 mmHg, Aorta 4.8 cm. Anesthesia Assessment and Plan Anesthesia History Personal History: No History of Anesthesia Complications Family History: No Family History of Anesthesia Complications Exercise Tolerance Exercise Tolerance: Metabolic Equivalents>4 Pertinent Negatives Pertinent Negatives: No Symptoms of GERD Cardiac & Pulmonary Exam Cardiac Exam: Normal S1/S2 Heart Sounds Pulmonary Exam: Clear Bilateral Breath Sounds Airway Exam Known Difficult Airway: No Mallampati Class: 2 Mouth Opening: Normal (> 3cm) Thyromental Distance: Greater than 3 cm Neck Range of Motion: Full ROM Neck Circumference: Normal Teeth Condition: Normal Dentition ASA Classification ASA Score: ASA 3 NPO Status NPO Status: NPO Clears >2 hours, Solids >8 hours Anesthesia Plan Resuscitation Status: Full Code Anesthesia Technique: Spinal Anesthesia (Pt understands my be technically difficultor impossible and GA may be necessary) Airway Planned: Natural Airway Pain Management: Surgeon and patient request nerve block (Right adductor) Monitors Used: Standard Monitors Preoperative Comments:: 75 yo female for TKA. Sig PMHx: saddle PE from DVT 2014 (on apixaban - to be held for 2 days prior), ascending aortic aneurysm (5.[address] scan during PE, but motion artifact, per ECHO 4.8 cm), obesity, atrial tachycardia, hypothyroidism (on replacement). Her cardiac team from [facility] does not have a plan to repair her aneurysm at this time and feel she is ok to proceed with TKA.
[2021-04-26] VITALS (10 sets, daily range): BP systolic 104–145; BP diastolic 60–75; PULSE 58–68; RESP 9–16; TEMP 36–36.2; O2SAT 96–99; BMI 35.7
--- NOTE | 2021-04-26 06:49 | W.ANESPRE ---
General Info Height: 5 ft 7.25 in Weight: 104.3 kg Body Mass Index (BMI): 35.7 Surgical Procedure: Operation Date: 04/26/21 07:55 Proposed Procedures Side Surgeon p Knee Total Arthroplasty Right Elio Melendrez MD Meds Allergies and Home Medications Allergies Allergy/AdvReac Type Severity Reaction Status Date / Time Penicillins Allergy Verified 04/22/21 12:28 epinephrine AdvReac Verified 04/22/21 12:28 Lidocaine Preservatives AdvReac Mild Other (See Uncoded 04/22/21 12:29 Comment) Home Medication Medication Instructions Recorded cholecalciferol (vitamin D3) 1,000 unit PO DAILY 05/09/18 [Vitamin D3] cyanocobalamin (vitamin B-12) 5,000 mcg SUBLINGUAL DAILY 05/13/18 adjuvant AS01B (PF)vial 1 of 2 0.5 ml IM DAILY #0.5 ml 02/17/20 apixaban 5 mg tablet 5 mg PO BID tab 02/17/20 thyroid (pork) 90 mg tablet 90 mg PO DAILY #90 tab 07/02/20 Current Visit Medications: Current Medications Generic Name Dose Route Start Last Admin Trade Name Freq PRN Reason Stop Dose Admin Acetaminophen 1,000 mg 04/26/21 06:00 Acetaminophen 500 Mg Tab PO 04/26/21 16:00 PREOP VINH Celecoxib 400 mg 04/26/21 06:00 Celecoxib 200 Mg Cap PO 04/26/21 16:00 PREOP VINH Gabapentin 300 mg 04/26/21 06:00 Gabapentin 300 Mg Cap PO 04/26/21 16:00 PREOP VINH Tranexamic Acid 1,000 mg/ 60 mls @ 360 mls/hr 04/26/21 06:00 Sodium Chloride IVPB 04/26/21 16:00 PREOP VINH Ringer's Solution 1,000 mls @ 80 mls/hr 04/26/21 06:00 IV 05/22/21 23:59 INFUSION VINH Cefazolin Sodium 2,000 mg/ 100 mls @ 200 mls/hr 04/26/21 06:00 Sodium Chloride IVPB 04/26/21 23:59 PREOP VINH IV Miscellaneous Supplies 1 each 04/26/21 06:00 Iv Access IV 05/22/21 23:59 DIRECTED VINH Sodium Chloride 0 ml 04/26/21 06:00 Normal Saline Flush 10 Ml Syr IV 10/03/21 23:59 PRN PRN Sodium Chloride 0 ml 04/26/21 06:00 Normal Saline 10 Ml Vial IJ 05/22/21 23:59 DIRECTED PRN Sterile Water 0 ml 04/26/21 06:00 Water,Injection,Sterile 10 Ml Vial IJ 05/22/21 23:59 DIRECTED PRN PFSH Active Problems Active Problems: Problem Status Onset Code Chronic knee pain M25.569, G89.29 Primary osteoarthritis of right knee 05/16/17 M17.11 Lumbar degenerative disc disease M51.36 Lumbar scoliosis M41.9 Aortic valve regurgitation I35.1 Lower extremity edema R60.0 Colon polyps K63.5 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 SVT (supraventricular tachycardia) I47.1 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 Osteoarthritis M19.90 DVT (deep venous thrombosis) I82.409 Diabetes mellitus E11.9 Degenerative arthritis of right shoulder region M19.011 Humerus fracture 03/10/19 S42.309A Knee osteoarthritis 01/20/15 M17.9 Artificial knee joint present 01/20/15 Z96.659 Hypothyroidism E03.9 Acquired valgus deformity knee 01/20/15 M21.069 Medical History Medical History Ascending aortic aneurysm 12/27/2018: 4.8cm Colon polyps Degenerative joint disease (DJD) of hip Lower extremity edema Lumbar degenerative disc disease Lumbar scoliosis Pre-op testing Surgical History Surgical History H/O knee surgery History of hip surgery History of tonsillectomy Replacement of total knee joint (01/20/15) LEFT/ DR. ACUÑA Tobacco Smoking/Tobacco Use Status: Former Tobacco Use Tobacco: How many years used: 20 Passive smoking exposure: No Second hand exposure: No Alcohol Alcohol Intake: current Alcohol intake frequency: 0-2 drinks per day Alcohol type: wine Substance Use Substance use: Rarely Substance use type: marijuana Vital Signs and Lab Results Manually Entered Vital Signs Most Recent Manually Entered Vital Signs: Adult Blood Pressure: 134/85 Heart Rate: 81 Respirations: 14 Oxygen Saturation (%): 96 Temperature (C): 36.4 C Pain Score (0-10 Scale): 2 Lab Results Blood Type / Crossmatch: No Data to Display Complete Blood Count: White Blood Count 8.01 10^3/uL (4.4-10.8) 04/21/21 09:51 04/21/21 Red Blood Count 4.97 10^6/uL (3.93-5.22) 04/21/21 09:51 04/21/21 Hemoglobin 15.2 g/dL (11.2-15.7) 04/21/21 09:04/21/21 Hematocrit 46.9 % (36.0-46.0) H 04/21/21 09:04/21/21 Platelet Count 243 10^3/uL (130-400) 04/21/21 09:51 04/21/21 Complete Metabolic Panel: Sodium Level 144 mmol/L (136-145) 04/21/21 09:04/21/21 Potassium Level 4.4 mmol/L (3.5-5.1) 04/21/21 09:04/21/21 Chloride Level 105 mmol/L (98-107) 04/21/21 09:04/21/21 Carbon Dioxide Level 26.8 mmol/L (21.0-32.0) 04/21/21 09:04/21/21 Blood Urea Nitrogen 11 mg/dL (7-18) 04/21/21 09:04/21/21 Creatinine 0.8 mg/dL (0.55-1.02) 04/21/21 09:04/21/21 Estimated GFR/1.73 m2 >= 60.00 (mL/min/1.73m2) 04/21/21 09:04/21/21 Calcium Level 9.3 mg/dL (8.5-10.1) 04/21/21 09:04/21/21 Glucose Level 144 mg/dL (74-106) H 04/21/21 09:04/21/21 Hemoglobin A1c 6.8 % (<5.7) H 04/21/21 09:04/21/21 Liver Function Panel: No Data to Display Coagulation Panel: No Data to Display Cardiac Panel: No Data to Display Arterial Blood Gas: No Data to Display Venous Blood Gas: No Data to Display Pancreas Panel: No Data to Display Thyroid Panel: No Data to Display Infectious Disease: Coronavirus (COVID-19)(PCR) Negative (Negative) 04/22/21 10:04/22/21 Coronavirus 2019 Source Nasal/Nares 04/22/21 10:04/22/21 Blood Cultures: No Data to Display Toxicology Panel: No Data to Display Imaging and Studies Imaging and Studies Echocardiogram Summary: 12/27/2018: LVEF 68%, RV fxn WNL, trace MR, trace TR, Mild AR, mild AoV thickening peak gradient 10 mmHg, Aorta 4.8 cm. Anesthesia Assessment and Plan Anesthesia History Personal History: No History of Anesthesia Complications Family History: No Family History of Anesthesia Complications Airway Exam Known Difficult Airway: No Mallampati Class: 2 Mouth Opening: Normal (> 3cm) Thyromental Distance: Greater than 3 cm Neck Range of Motion: Full ROM Neck Circumference: Normal Teeth Condition: Normal Dentition
--- NOTE | 2021-04-26 06:52 | W.ANESPRE ---
General Info Date of Service Date Performed: 04/26/21 Height: 5 ft 7.25 in Weight: 104.3 kg Body Mass Index (BMI): 35.7 Surgical Procedure: Operation Date: 04/26/21 07:55 Proposed Procedures Side Surgeon p Knee Total Arthroplasty Right Elio Melendrez MD Meds Allergies and Home Medications Allergies Allergy/AdvReac Type Severity Reaction Status Date / Time Penicillins Allergy Verified 04/22/21 12:28 epinephrine AdvReac Verified 04/22/21 12:28 Lidocaine Preservatives AdvReac Mild Other (See Uncoded 04/22/21 12:29 Comment) Home Medication Medication Instructions Recorded cholecalciferol (vitamin D3) 1,000 unit PO DAILY 05/09/18 [Vitamin D3] cyanocobalamin (vitamin B-12) 5,000 mcg SUBLINGUAL DAILY 05/13/18 adjuvant AS01B (PF)vial 1 of 2 0.5 ml IM DAILY #0.5 ml 02/17/20 apixaban 5 mg tablet 5 mg PO BID tab 02/17/20 thyroid (pork) 90 mg tablet 90 mg PO DAILY #90 tab 07/02/20 Current Visit Medications: Current Medications Generic Name Dose Route Start Last Admin Trade Name Freq PRN Reason Stop Dose Admin Acetaminophen 1,000 mg 04/26/21 06:00 Acetaminophen 500 Mg Tab PO 04/26/21 16:00 PREOP VINH Celecoxib 400 mg 04/26/21 06:00 Celecoxib 200 Mg Cap PO 04/26/21 16:00 PREOP VINH Gabapentin 300 mg 04/26/21 06:00 Gabapentin 300 Mg Cap PO 04/26/21 16:00 PREOP VINH Tranexamic Acid 1,000 mg/ 60 mls @ 360 mls/hr 04/26/21 06:00 Sodium Chloride IVPB 04/26/21 16:00 PREOP VINH Ringer's Solution 1,000 mls @ 80 mls/hr 04/26/21 06:00 IV 05/22/21 23:59 INFUSION VINH Cefazolin Sodium 2,000 mg/ 100 mls @ 200 mls/hr 04/26/21 06:00 Sodium Chloride IVPB 04/26/21 23:59 PREOP VINH IV Miscellaneous Supplies 1 each 04/26/21 06:00 Iv Access IV 05/22/21 23:59 DIRECTED VINH Sodium Chloride 0 ml 04/26/21 06:00 Normal Saline Flush 10 Ml Syr IV 05/22/21 23:59 PRN PRN Sodium Chloride 0 ml 04/26/21 06:00 Normal Saline 10 Ml Vial IJ 05/22/21 23:59 DIRECTED PRN Sterile Water 0 ml 04/26/21 06:00 Water,Injection,Sterile 10 Ml Vial IJ 05/22/21 23:59 DIRECTED PRN PFSH Active Problems Active Problems: Problem Status Onset Code Chronic knee pain M25.569, G89.29 Primary osteoarthritis of right knee 05/16/17 M17.11 Lumbar degenerative disc disease M51.36 Lumbar scoliosis M41.9 Aortic valve regurgitation I35.1 Lower extremity edema R60.0 Colon polyps K63.5 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 SVT (supraventricular tachycardia) I47.1 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 Osteoarthritis M19.90 DVT (deep venous thrombosis) I82.409 Diabetes mellitus E11.9 Degenerative arthritis of right shoulder region M19.011 Humerus fracture 03/10/19 S42.309A Knee osteoarthritis 01/20/15 M17.9 Artificial knee joint present 01/20/15 Z96.659 Hypothyroidism E03.9 Acquired valgus deformity knee 01/20/15 M21.069 Medical History Medical History Ascending aortic aneurysm 12/27/2018: 4.8cm Colon polyps Degenerative joint disease (DJD) of hip Lower extremity edema Lumbar degenerative disc disease Lumbar scoliosis Pre-op testing Surgical History Surgical History H/O knee surgery History of hip surgery History of tonsillectomy Replacement of total knee joint (01/20/15) LEFT/ DR. ACUÑA Tobacco Smoking/Tobacco Use Status: Former Tobacco Use Tobacco: How many years used: 20 Passive smoking exposure: No Second hand exposure: No Alcohol Alcohol Intake: current Alcohol intake frequency: 0-2 drinks per day Alcohol type: wine Substance Use Substance use: Rarely Substance use type: marijuana Vital Signs and Lab Results Lab Results Blood Type / Crossmatch: No Data to Display Complete Blood Count: White Blood Count 8.01 10^3/uL (4.4-10.8) 04/21/21 09:51 04/21/21 Red Blood Count 4.97 10^6/uL (3.93-5.22) 04/21/21 09:51 04/21/21 Hemoglobin 15.2 g/dL (11.2-15.7) 04/21/21 09:04/21/21 Hematocrit 46.9 % (36.0-46.0) H 04/21/21 09:04/21/21 Platelet Count 243 10^3/uL (130-400) 04/21/21 09:51 04/21/21 Complete Metabolic Panel: Sodium Level 144 mmol/L (136-145) 04/21/21 09:04/21/21 Potassium Level 4.4 mmol/L (3.5-5.1) 04/21/21 09:04/21/21 Chloride Level 105 mmol/L (98-107) 04/21/21 09:04/21/21 Carbon Dioxide Level 26.8 mmol/L (21.0-32.0) 04/21/21 09:51 04/21/21 Blood Urea Nitrogen 11 mg/dL (7-18) 04/21/21 09:04/21/21 Creatinine 0.8 mg/dL (0.55-1.02) 04/21/21 09:04/21/21 Estimated GFR/1.73 m2 >= 60.00 (mL/min/1.73m2) 04/21/21 09:04/21/21 Calcium Level 9.3 mg/dL (8.5-10.1) 04/21/21 09:04/21/21 Glucose Level 144 mg/dL (74-106) H 04/21/21 09:51 04/21/21 Hemoglobin A1c 6.8 % (<5.7) H 04/21/21 09:04/21/21 Liver Function Panel: No Data to Display Coagulation Panel: No Data to Display Cardiac Panel: No Data to Display Arterial Blood Gas: No Data to Display Venous Blood Gas: No Data to Display Pancreas Panel: No Data to Display Thyroid Panel: No Data to Display Infectious Disease: Coronavirus (COVID-19)(PCR) Negative (Negative) 04/22/21 10:26 04/22/21 Coronavirus 2019 Source Nasal/Nares 04/22/21 10:26 04/22/21 Blood Cultures: No Data to Display Toxicology Panel: No Data to Display Imaging and Studies Imaging and Studies Echocardiogram Summary: 12/27/2018: LVEF 68%, RV fxn WNL, trace MR, trace TR, Mild AR, mild AoV thickening peak gradient 10 mmHg, Aorta 4.8 cm. Anesthesia Assessment and Plan Anesthesia History Personal History: No History of Anesthesia Complications Family History: No Family History of Anesthesia Complications Exercise Tolerance Exercise Tolerance: Metabolic Equivalents>4 Pertinent Negatives Pertinent Negatives: No Symptoms of GERD Cardiac & Pulmonary Exam Cardiac Exam: Normal S1/S2 Heart Sounds Pulmonary Exam: Clear Bilateral Breath Sounds Airway Exam Known Difficult Airway: No Mallampati Class: 2 Mouth Opening: Normal (> 3cm) Thyromental Distance: Greater than 3 cm Neck Range of Motion: Full ROM Neck Circumference: Normal Teeth Condition: Normal Dentition ASA Classification ASA Score: ASA 3 Emergency Case?: No NPO Status NPO Status: NPO Clears >2 hours, Solids >8 hours Anesthesia Plan Resuscitation Status: Full Code Anesthesia Technique: Spinal Anesthesia Airway Planned: Natural Airway Monitors Used: Standard Monitors
[2021-04-26] MEDS: Celecoxib 200 MG CAP 400 MG PO (07:03)
[2021-04-26] MEDS: Acetaminophen 500 MG TAB 1000 MG PO (07:03)
[2021-04-26] MEDS: Gabapentin 300 MG CAP PO (07:03)
[2021-04-26] MEDS: Lactated Ringers 1,000 ML 80 ML IV (07:10)
--- NOTE | 2021-04-26 07:10 | W.ANESNERVE ---
Nerve Block Single Injection Procedure Date and Time Date Performed: 04/26/21 Procedure Start: 07:10 Location Where Procedure Performed Procedure Location: PACU Reason Performed: Postoperative Analgesia Requesting Provider: Elio Melendrez Timeout Performed Timeout Performed: Yes Monitoring Used ECG, Blood Pressure and SpO2 Sterility Sterility: Hand Hygiene, Surgical Cap, Surgical Mask, Sterile Gloves and Chlorhexidine Sedation Given During Procedure Sedation Given (Indicate Dose Given): Versed IV Dose:: 2mg Patient Mental Status Patient Mental Status: Sedate with meaningful communication Nerve Block 1st Nerve Block: Laterality: Right Block Type: Adductor Canal Needle / Catheter Used: 100mm SonoPlex II Local Anesthetic Bolus (Indicate Dose Given): Lidocaine used for local infiltration of skin (2 % used without preservative taken from OR cart), Injected in 3-5ml increments after negative blood aspiration and Bupivacaine 0.25% Dose:: 20 ml Additives (Indicate Dose Given): None Ultrasound: Sterile probe cover and gel used Ultrasound Image Saved?: Yes Nerve Stimulator: Not Used Paresthesia: None Post Procedure Pain score (0-10): 0 Procedure Tolerated: No Complications and Patient tolerated well Procedure Outcome: Successful Performed By: Ketan Nieves Other (not listed above): tata Pretty crna
[2021-04-26] MEDS: ceFAZolin 2,000 MG in Normal Saline 100 ML 200 MG IVPB (07:28)
[2021-04-26] MEDS: Ketorolac 30 MG/ML VIAL (08:10)
[2021-04-26] MEDS: Bupivacaine 0.25% Pres-Free 30 ML VIAL (08:10)
[2021-04-26] MEDS: Normal Saline 20 ML VIAL (08:10)
--- NOTE | 2021-04-26 09:54 | PDOC.DSDIS_ITS ---
Documented by User: YARON Colbert 04/26/21 14:02 Discharge Plan Disposition Patient Disposition: HOME Condition: Good Discharge Details Reason For Visit: R TKA Attending Provider: Elio Melendrez Primary Care Provider: Shaheen Lee Home Meds and New Rx's Prescriptions: New acetaminophen 500 mg capsule 1,000 mg PO Q8H PRN PRNQty: 90 RF: 0 celecoxib 200 mg capsule 200 mg PO BID Qty: 60 RF: 0 gabapentin 300 mg capsule 300 mg PO QHS Qty: 14 RF: 0 oxycodone 5 mg tablet 5 mg PO Q4H MDD 6 tabs PRN (Reason: pain) Qty: 20 RF: 0 pantoprazole 40 mg tablet,delayed release (DR/EC) 40 mg PO DAILY Qty: 30 RF: 0 Continued Shingrix Adjuvant Component-PF Suspension 0.5 ml IM DAILY Qty: 0.5 RF: 1 thyroid (pork) [[place] Thyroid] 90 mg tablet 90 mg PO DAILY Qty: 90 RF: 3 cholecalciferol (vitamin D3) [Vitamin D3] 1,000 unit Capsule 1,000 unit PO DAILY RF: 0 cyanocobalamin (vitamin B-12) 1,000 mcg Tablet, Sublingual 5,000 mcg Sublingual DAILY RF: 0 Eliquis 5 mg tablet 5 mg PO BID RF: 0 Discharge Instructions Additional Instructions: Total Knee Discharge Instructions Activity: The most important activity is to walk. You should try to take short walks a few times a day. It is important that when resting you work on keeping the knee straight. Avoid putting a pillow behind the knee as this will encourage flexion. You should prioritize the work on the bike and try to do this everyday, understanding some days you won't be able to do as much due to pain and swelling. Incorporate range of motion exercises as provided by Physical Therapy as tolerated, but don't try to do too much. - Start outpatient physical therapy within 2-3 weeks. - You should wear the TRENTON hose on both legs for 2 weeks. You may remove these at night. You may also use any compression sock in place of the TRENTON hose. Dressing: You may remove the Arnav wrap on your leg 1-2 days after your surgery and put on the TRENTON stocking given to you from the hospital. Keep the surgical dressing (underneath- the ARNAV wrap) in place for at least one week. After the first week it may be removed and replaced with light gauze and tape or nothing. The wound and dressing may get wet after 3 days but avoid soaking the dressing or otherwise it will need to be changed. Many people prefer covering the dressing with cling wrap (saran wrap) to minimize it from getting soaked. If it gets wet, just pat dry. If it starts to peel off then it will need to be changed. Medications: - You should take Tylenol and anti-inflammatory Celebrex as your primary pain control medications. If the Celebrex is too expensive or not covered, please call the office for another alternative (Advil/Ibuprofen or Naproxen/Aleve) - You have been prescribed a stronger pain medication Oxycodone for breakthrough pain, take as needed as prescribed. - You have also been prescribed a stomach acid reduction agent Pantoprozole to help reduce stomach acid and reflux. - You have been prescribed Gabapentin to take at night for restlessness and nerve pain. - You will be taking your apixaban for DVT prevention; restart this medication tomorrow morning (04/27). - If you have constipation you should take Colace or Miralax (both [id number]). It takes most people 3-4 days to have a bowel movement. Follow-up: 2 weeks If you have any acute concerns or questions, please do not hesitate to contact the office at [phone]. You may contact Dr. Melendrez with any questions after hours through the hospital at [phone] or on his cell phone at [phone]. 1. Encounter Date and Reason I certify that Carolann Brennan was seen by Elio Melendrez MD on 04/26/21 and that I had a [id number] encounter with this patient that meets the physician face to face encounter requirements. 2. Clinical Findings Supporting Skilled Need and Homebound Status I certify that home health services are medically necessary, include either intermittent alf and/or physical/speech therapy, and that this patie nt is homebound in that absences from the home require considerable and taxing effort and are infrequent or of short duration, or are attributable to the need to receive medical care. [X] (a) Attached documentation from encounter provides clinical findings supporting skilled need and homebound status (including what assistance patient requires to leave the home). The encounter with the patient was in whole, or in part, for the following medical condition, which is the primary reason for home health care: R TKA Mcfp: Physical Therapy: Carolann would benefit from home health physical therapy to address motion restriction, weakness, and gait abnormalities following right knee replacement. She is weight-bearing as tolerated with assistive devices. Speech Therapy: Homebound: Carolann is unable to leave her home unassisted. She has significant weakness and gait abnormalities. 3. Certification and Authentication I certify that I composed the above information based on my clinical judgement relating to this patient's medical condition and, if applicable, clinical findings communicated to me by the NPP or inpatient physician who performed the Home Health Referral. All further orders will be obtained through Dr. Melendrez. Stand Alone Forms: Anesthesia Discharge Inst., Anes.Nerve Block Instructions Referrals: Elio Melendrez MD [ [facility] STAFF PHYSICIAN] - 05/12/21 9:45 am Equipment/Supplies: Walker Activity:: Activity as Tolerated Remove Dressings/Wound Care:: Do Not Remove Shower/Bathe:: 72 hours Diet:: As Tolerated Discharge Orders Discharge Orders: Discharge Order (Routine); Ordered 04/26/21 Ordered By: Asa Mcdonald DS: Diagnosis Discharge Diagnosis (1) Primary osteoarthritis of right knee: Status: Acute Documented by User: Elio Melendrez MD 04/26/21 14:16 Discharge Plan Disposition Patient Disposition: HOME Condition: Good Discharge Details Reason For Visit: R TKA Attending Provider: Elio Melendrez Primary Care Provider: Shaheen Lee Home Meds and New Rx's Prescriptions: New acetaminophen 500 mg capsule 1,000 mg PO Q8H PRN PRNQty: 90 RF: 0 celecoxib 200 mg capsule 200 mg PO BID Qty: 60 RF: 0 gabapentin 300 mg capsule 300 mg PO QHS Qty: 14 RF: 0 oxycodone 5 mg tablet 5 mg PO Q4H MDD 6 tabs PRN (Reason: pain) Qty: 20 RF: 0 pantoprazole 40 mg tablet,delayed release (DR/EC) 40 mg PO DAILY Qty: 30 RF: 0 Continued Shingrix Adjuvant Component-PF Suspension 0.5 ml IM DAILY Qty: 0.5 RF: 1 thyroid (pork) [[place] Thyroid] 90 mg tablet 90 mg PO DAILY Qty: 90 RF: 3 cholecalciferol (vitamin D3) [Vitamin D3] 1,000 unit Capsule 1,000 unit PO DAILY RF: 0 cyanocobalamin (vitamin B-12) 1,000 mcg Tablet, Sublingual 5,000 mcg Sublingual DAILY RF: 0 Eliquis 5 mg tablet 5 mg PO BID RF: 0 Discharge Instructions Additional Instructions: Total Knee Discharge Instructions Activity: The most important activity is to walk. You should try to take short walks a few times a day. It is important that when resting you work on keeping the knee straight. Avoid putting a pillow behind the knee as this will encourage flexion. You should prioritize the work on the bike and try to do this everyday, understanding some days you won't be able to do as much due to pain and swelling. Incorporate range of motion exercises as provided by Physical Therapy as tolerated, but don't try to do too much. - Start outpatient physical therapy within 2-3 weeks. - You should wear the TRENTON hose on both legs for 2 weeks. You may remove these at night. You may also use any compression sock in place of the TRENTON hose. Dressing: You may remove the Arnav wrap on your leg 1-2 days after your surgery and put on the TRENTON stocking given to you from the hospital. Keep the surgical dressing (underneath- the ARNAV wrap) in place for at least one week. After the first week it may be removed and replaced with light gauze and tape or nothing. The wound and dressing may get wet after 3 days but avoid soaking the dressing or otherwise it will need to be changed. Many people prefer covering the dressing with cling wrap (luisan wrap) to minimize it from getting soaked. If it gets wet, just pat dry. If it starts to peel off then it will need to be changed. Medications: - You should take Tylenol and anti-inflammatory Celebrex as your primary pain control medications. If the Celebrex is too expensive or not covered, please call the office for another alternative (Advil/Ibuprofen or Naproxen/Aleve) - You have been prescribed a stronger pain medication Oxycodone for breakthrough pain, take as needed as prescribed. - You have also been prescribed a stomach acid reduction agent Pantoprozole to help reduce stomach acid and reflux. - You have been prescribed Gabapentin to take at night for restlessness and nerve pain. - You will be taking your apixaban for DVT prevention; restart this medication tomorrow morning (04/27). - If you have constipation you should take Colace or Miralax (both [id number]). It takes most people 3-4 days to have a bowel movement. Follow-up: 2 weeks If you have any acute concerns or questions, please do not hesitate to contact the office at [phone]. You may contact Dr. Melendrez with any questions after hours through the hospital at [phone] or on his cell phone at [phone]. 1. Encounter Date and Reason I certify that Carolann Brennan was seen by Elio Melendrez MD on 04/26/21 and that I had a [id number] encounter with this patient that meets the physician face to face encounter requirements. 2. Clinical Findings Supporting Skilled Need and Homebound Status I certify that home health services are medically necessary, include either intermittent alf and/or physical/speech therapy, and that this patient is homebound in that absences from the home require considerable and taxing effort and are infrequent or of short duration, or are attributable to the need to receive medical care. [X] (a) Attached documentation from encounter provides clinical findings supporting skilled need and homebound status (including what assistance patient requires to leave the home). The encounter with the patient was in whole, or in part, for the following medical condition, which is the primary reason for home health care: R TKA Mcfp: Physical Therapy: Carolann would benefit from home health physical therapy to address motion restriction, weakness, and gait abnormalities following right knee replacement. She is weight-bearing as tolerated with assistive devices. Speech Therapy: Homebound: Carolann is unable to leave her home unassisted. She has significant weakness and gait abnormalities. 3. Certification and Authentication I certify that I composed the above information based on my clinical judgement relating to this patient's medical condition and, if applicable, clinical findings communicated to me by the NPP or inpatient physician who performed the Home Health Referral. All further orders will be obtained through Dr. Melendrez. Stand Alone Forms: Anesthesia Discharge Inst., Anes.Nerve Block Instructions Referrals: Elio Melendrez MD [ [facility] STAFF PHYSICIAN] - 05/12/21 9:45 am Equipment/Supplies: Walker Activity:: Activity as Tolerated Remove Dressings/Wound Care:: Do Not Remove Shower/Bathe:: 72 hours Diet:: As Tolerated Discharge Orders Discharge Orders: Discharge Order (Routine); Ordered 04/26/21 Ordered By: Asa Mcdonald
[2021-04-26] MEDS: oxyCODONE 5 MG TAB PO (10:24)
--- NOTE | 2021-04-26 12:27 | W.ANESPOSTOP ---
Postoperative Evaluation Date, Time and Location Date Performed: 04/26/21 Time Performed: 12:28 Patient Location: Day Surgery Unit Vital Signs Most Recent Imported Vital Signs: Most Recent Vital Signs Temp Pulse Resp BP Pulse Ox 36 C L 67 16 120/72 96 04/26/21 11:51 04/26/21 11:51 04/26/21 11:51 04/26/21 11:51 04/26/21 11:51 Pain Score Most Recent Pain Score: Most Recent Pain Score Pain Level 1 04/26/21 11:51 Assessment Mental Status: Awake (Alert & Oriented to Patient Baseline) Airway and Respiratory Function: Patent airway with normal (patient baseline) respiratory exam Cardiovascular Function: Hemodynamically Stable Hydration Status: Adequately Hydrated Nausea & Vomiting: No Nausea or Vomiting Pain: Pain is tolerable per patient Peripheral Nerve Block: Regional nerve block not resolved at time of post operative discharge
--- NOTE | 2021-04-26 12:42 | PT.INIE ---
Date of service: 04/26/21 Time of Service: 13:12 PT Notes Visit Reasons: R TKA Physical Therapy Day Surgery Initial Evaluation Date: 04/26/2021 Referring Doctor: Elio Melendrez MD PT Orders: PT CONSULT: Urgent. Status post Ortho surgery Precautions: WBAT on right LE. Patient Profile/Admitting Diagnosis: Carolann is a 75-year-old female with primary osteoarthritis of the right knee and is status post right total knee arthroplasty on postoperative day 0. PMHX: Medical History (Updated 04/04/21 @ 16:42 by Danae Abreu) Aortic stenosis Ascending aortic aneurysm Colon polyps Degenerative joint disease (DJD) of hip Lower extremity edema Lumbar degenerative disc disease Lumbar scoliosis Surgical History H/O knee surgery History of hip surgery History of tonsillectomy Replacement of total knee joint (01/20/15) LEFT/ DR. ACUÑA Social History/Home Situation: Lives with in a private home with 4 steps to enter with B rails that are far apart. Equipment Owned/DME: None Subjective: Agreeable to PT consult. Denies headache, chest pain or dizziness throughout session. Hopeful to get home health PT services to continue to assess safety and perform exercise progression as needed. Objective: General Observation: Supine DSU bed. TRESSA wraps on right LE. Cryocuff on right knee. Mental Status: Alert and oriented x4 Pain: 2/10 pain with weightbearing ROM: Right Lower Extremity: Hip flexion WFL. Hip abduction WFL. Knee flexion 110 degrees. Knee extension 0 degrees. Ankle dorsiflexion WFL. Ankle plantarflexion WFL. Left Lower Extremity: Hip flexion WFL. Hip abduction WFL. Knee flexion WFL. Ankle dorsiflexion WFL. Ankle plantarflexion WFL. Strength: Right Lower Extremity: Hip flexors 4/5. Hip abductors 4/5. Knee flexors 3-/5. Knee extensors 4/5. Ankle dorsiflexors 5/5. Ankle plantarflexors 5/5. Left Lower Extremity:Hip flexors 5/5. Hip abductors 5/5. Knee flexors 5/5. Knee extensors 5/5. Ankle dorsiflexors 5/5. Ankle plantarflexors 5/5. Sensation: Intact as to pain and light pressure on bilateral lower extremities Bed Mobility/Transfers: Supine to sit contact-guard assist Sit to stand contact-guard assist Stand to sit contact-guard assist Bed to chair contact-guard assist Gait: Patient tolerated level surface ambulation 100 feet using front wheeled walker with step-to gait pattern with contact-guard assist and wheelchair follow from nurse Rock. No increase in pain complaint reported. Stairs: Tolerated up-and-down 12 x 4-inch steps times 6 x 6-inch steps while holding onto 1 rail with one hand and using a single-point cane on the other hand requiring contact-guard assist with step to gait pattern. Balance: Static Sitting: Normal Dynamic Sitting: Normal Static Standing: Fair Dynamic Standing: Fair Special Tests: Mobility Limitations Standardized Measure [facility] 6 clicks Basic Mobility Inpatient Short Form: Raw Score: 18 CMS Score: 47% deficit Informed Consent/Education: Patient instructed in purpose of PT consult. Packet containing TKA exercise protocol has been given to patient. Education and training on initial set of exercises that can be done at home have been completed with patient. Assessment: Carolann requires the use of a front wheel walker for mobility performance to maximize independence and reduce fall risk at home. Patient presents with clinical signs and symptoms consistent with current/admitting diagnoses that have resulted to mobility limitations, gait instability, generalized weakness, and impairment of motor control as demonstrated by the following impairment level findings: 1. Decreased strength to right knee major muscle groups 2. Impaired standing balance Impairments are contributing to the following functional limitations: 1. Inability to safely ambulate without assistive device 2. Increase completion time for mobility ADL performance 3. Increased fall risk Patient is assessed as a [id number] moderate complexity based on the following: History: 75-year-old female with impairment level findings, functional limitations, and past medical history as indicated above Examination: Demonstrable impairment in strength, balance, and mobility level with underlying impairments and functional limitations as documented above Presentation: Evolving Decision Makin moderate complexity Goals: N/A. PT evaluation and 1-2 treatment sessions only for functional mobility training using recommended AD and for HEP instruction. Plan of Care/Treatment Plan: N/A. PT evaluation and 1-2 treatment session only for functional mobility training using recommended AD and for HEP instruction. DISCHARGE RECOMMENDATIONS: Home when medically cleared by orthopedic surgeon. Home health PT services progressing to outpatient PT services in order to increase functional mobility independence. TREATMENT CODE/TIME: 52709 x 30 minutes, 57525 x 23 minutes beginning at 13:12 PM. Thank you for the opportunity to participate in the care of this patient. Evelyn Joseph PT, DPT, CLT [facility] [place], [place]
--- NOTE | 2021-04-26 19:01 | W.PM.OP ---
Date of service: 04/26/21 Time of Service: 09:46 Operative Note Operative Note DATE OF PROCEDURE: 04/26/21 PRE-OP DIAGNOSIS: Right Knee Osteoarthritis POST-OP DIAGNOSIS: same PROCEDURE: Right Total Knee Replacement SURGEON: Elio Melendrez BOBBIN HANDLER: Yoly Mcdonald ANESTHESIA TYPE: Spinal Refer to Anesthesia Record ESTIMATED BLOOD LOSS: 150 PATHOLOGY: none sent TOURNIQUET TIME: 34 COMPLICATIONS: None Patient was transported to: PACU Patient's condition: stable Implants: 1. Depuy Attune Posterior Stabilized Femoral Component, Size 7 2. Depuy Attune Rotating Platform Tibial Component, Size 6 3. Depuy Attune 7x8mm RP/PS Poly 4. Depuy Attune Patellar Component, Size 35 Indications: I have seen Carolann in clinic for symptoms of RIGHT knee arthritis, confirmed with radiographic findings. She has exhausted nonoperative methods and was having significant limitations in daily function and desired better function and less pain. I discussed the technical details of a knee replacement. I explained the risks of the procedure to include, but not limited to, bleeding, infection, pain, stiffness, fracture, damage to nerves and vessels, damage to muscles and tendons, loosening, need for repeat procedure, blood clot and cardiopulmonary demise. Despite these risks, Carolann elected to proceed. Findings: There was significant signs of arthritis throughout the knee. There was notable wear of the lateral femur and the posterior lateral tibia. However, arthritic changes and osteophytes were present throughout all 3 compartments. Procedure Description: Carolann was greeted in the preoperative holding area where the correct side was identified and marked. The consent was reviewed with the patient and signed. The history and physical was updated. All questions were answered. Preoperative mediacations were administered: Acetaminophen 1000mg, Celebrex 400mg, and Gabapentin 300mg. An adductor canal block was then administered by the anesthesia team in the PACU. She was taken back to the operating room. A spinal anesthestic was then administered. The patient was placed into the supine position on the operating room table. A nonsterile tourniquet was placed high onto the leg but only used for cementing. Posts were placed for positioning during the procedure. All bony prominences were well padded. Prophylactic antibiotics in the form of Cefazolin were administered. 1g of Tranxemic Acid was given intravenously within 30 minutes of incision. The right leg was then prepped with Chloraprep and draped in a standard fashion with impervious stockinette. A second prep with Chloraprep was performed prior to application of Iodine impregnated skin protection. A timeout to confirm correct identity, side and site, procedure, allergies, anesthesia, and medical concerns was performed. With the knee in some flexion, a midline incision was made overlying the knee. Full thickness skin flaps were raised once the extensor mechanism was encountered. These were raised medially and laterally. Any bleeding was controlled with electrocautery. Once the extensor mechanism was fully exposed, a medial parapatellar arthrotomy was performed in a flexed position. All bleeding from the arthrotomy and the geniculate arteries was coagulated. A medial subperiosteal peel was performed with electrocautery to the midcoronal plane. The fat pad was removed while keeping the patellar tendon protected. The anterior distal femur synovium was removed for later visualization. The ACL and PCL were resected and the anterior horn of the lateral meniscus was transected. The knee was then flexed with the patella everted. Large osteophytes from the tibia were removed. Large osteophytes from the femur were removed. There was a notable divot of the posterior-lateral tibia and grooves of the lateral femur. Using a step drill, and based on preoperative templating, the femoral canal was entered. This was done with a step drill without any difficulty. The intramedullary distal femoral cut guide was inserted, set to a 5 degree valgus cut and 8mm cut thickness. There was some hypoplasia of the lateral femoral condyle and any remnant cartilage of the medial femoral condyle was removed for appropriate thickness. The distal femoral cut guide was then held in position and pinned. With the soft tissues protected, the distal cut was performed. This was passed over a few times to ensure a planar cut. I then turned attention to the tibia. The extramedullary guide was placed onto the leg. The distal aspect was slid medial to adjust for position of center of ankle and stay in line with shaft of the tibia. Approximately 3 degrees of posterior slope was kept in the proximal cutting guide. The center of the guide was aligned with the PCL. The stylus was used to assess cut thickness. The lateral side, most involved side, was set for a 2mm cut from the low point of the posterior lateral tibia. This was then held in position and pinned into place with 2 additional pins and a cross pin for stability. The medial and lateral collateral ligaments were protected and the cut was performed. With this completed, it was assessed and noted to be of appropriate dimensions. The guide was removed. A spacer block was inserted and the knee was brought into extension. The 8mm spacer block provided full extension, without hyperextension and with stability of both the medial and lateral collateral ligaments was assessed. The pins from the femur and the tibia were then removed. The distal femur was then sized. The anterior stylus was placed onto the lateral ridge of the anterior femur. This indicated a size 7 femur. The external rotation of the guide was adjusted to 5 degrees to match the epicondylar axis, perpendicular to Central?s line. The 4-in-1 cutting guide was the placed. The posterior medial femur cut was evaluated and appeared of good thickness. The spacer block was inserted underneath the cutting guide and stability was confirmed in 90 degrees of flexion. An nandini wing was used to confirm appropriate position of the anterior cut to avoid notching. This cutting guide was ensured to be flush on the cut surface and then pinned into place with headed pins. While protecting the soft tissues, quad tendon, and collateral ligaments, the anterior and posterior cuts were performed with a saw. The central two pins were removed and the posterior and anterior chamfers were cut next. The notch-cutting guide was placed. This was pinned to lateralize the femoral component as much as possible while keeping it flush on the cut surface. This was then pinned into position. A reciprocating saw was used to make the notch cut. A rasp smoothed the cut surfaces. A trial posterior stabilized femoral component was then inserted, impacted down to the cut surfaces, and the lug holes were drilled. A provisional trial tibial component was placed and the knee was brought through range of motion. There was noted to be excellent extension and flexion. There was no significant instability however slight assymetry by 1-2mm in valgus stress. The patella was tracking without thumbs. The tibial cut surface was fully exposed. The medial and lateral menisci were removed. The tibia was then sized as a 6. The tibia had been previously marked during trialing to correspond to the center of the tibial component to help with rotation. The trial was aligned to this yoly, approximately rotated to the medial 1/3rd of the tibial tubercle. The trial was pinned into place. The tibia was prepared with a reamer and a keel punch. The knee was then brought into extension and the patella was measured as 22mm. Using the patellar clamp and cut guide, this was resected to a flat surface with at least 13mm of thickness remaining. The size 35 patella fit the best. This was oriented and then clamped into position. The lugs were drilled. The trial components were removed. The final components, except for the polyethylene were opened on the back table. The periosteal and capsular tissues, especially posteriorly, around the knee were then systematically injected with a periarticular cocktail consisting of 50cc 0.25% Marcaine, 30mg Ketorolac, 20cc of Exparal and 50cc of injectable saline. The tourniquet was then inflated to 275mmHg. The knee was thoroughly irrigated with a pulse lavage and dried. On the back table, with the implants opened, the cement was mixed. 2 batches of medium viscosity cement were prepared with vacuum assistance. After the cement was ready a small amount was placed on to the back side of the tibial component at the keel. A small amount was placed onto the posterior flange of the femur. Cement was manual pressurized and impregnated into the cut surface of the tibia. The tibial component was then inserted into the cut surface and impacted into position. Excess cement was removed and the component was reimpacted. Again, excess cement was removed and our attention was then turned to the femur. The femoral cut surface was once again dried and cement was manually impacted into the cut surface. The femoral component was lined with the lug holes and impacted. Excess cement was removed. It was ensured to be down against the cut surface. The trial polyethylene was then inserted and the leg was brought out into full extension for the duration of the cement curing process, approximately 18min. Cement was lastly manually impacted into the cut surface of the patella and the patellar button was clamped into position and held. During this process attention was turned to the gutters of the knee and for all interfaces for any excess cement. While the cement was hardening, the knee was irrigated with Irrisept chlorhexadine solution. This was allowed to sit in the knee for 3 minutes. After the cement had finally cured, approximately 18min, the clamp was removed from the patella and the knee was taken through range of motion. A size 8mm polyethylene component provided the best range of motion and stability with less than 2mm gapping with medial and lateral stress and full extension without significant hyperextension. The patella was tracking with a no-thumbs technique. The trial poly was removed and once again the knee was checked for any loose, excess, or errant cement. The poly component was then inserted and impacted into position after cleaning and drying the tibial tray. The capsule was then reapproximated with a No. 1 Vicryl at multiple locations. The capsule was finally closed with a No. 2 Stratafix, barbed suture. The tourniquet was then released and the arthrotomy appeared watertight without significant bleeding. The second dose of 1g TXA was started. Deep tissues were then reapproximated with 0 Vicryl and 2-0 Vicryl. The skin was closed with a running 3-0 Monocryl in a subcuticular fashion. This was reinforced with skin glue. A Mepilex silver dressing was applied along with a odpp-qu-iknus TRESSA wrap. A CryoCuff was applied. Carolann was transferred to the hospital bed without difficulty an suffering no apparent complication. Carolann has a good prognosis. Physical therapy will start today and without restrictions, weight-bearing as tolerated. She will resume Eliquis for DVT prophylaxis.
== END 2021-04-26 14:55 | disposition home or self-care (01) ==
PROVIDERS: PCP Family Medicine; Visit Provider Student in an Organized Health Care Education/Training Program
PROC: (CPT 27447; principal; 2021-04-26 07:45)
DX: M17.11 Unilateral primary osteoarthritis, right knee (principal); I35.0 Nonrheumatic aortic (valve) stenosis; E11.9 Type 2 diabetes mellitus without complications; I47.1 Supraventricular tachycardia; G89.18 Other acute postprocedural pain; Z96.651 Presence of right artificial knee joint
CPT/HCPCS: 27447; C1776; 97162; 97530; J0690; J1885; J2250; J2405; J2704; J3010

== ENCOUNTER 2021-05-12 14:01 | Outpatient (CLI) | payer MEDICARE, SELFPAY ==
--- NOTE | 2021-05-12 09:45 | DI.RAD_ITS ---
Exam(s) XR STANDING ALIGNMENT EXAM: XR STANDING ALIGNMENT CLINICAL HISTORY: 1ST POST OP R TKA. TECHNIQUE: 2D digital imaging was performed. COMPARISON: CR XR STANDING ALIGNMENT from 04/04/2021 FINDINGS: There has been interval placement of a right knee prosthesis. Components appear to be satisfactory p osition. No fracture or loosening evident. There are now bilateral hip prostheses. Right hip prost hesis again noted. Left hip appears unremarkable. Ankles unremarkable. No osseous lesions. Talar domes appear unremarkable. Sacroiliac joints appear unremarkable. IMPRESSION: DATA REPOSITORY: RADIATION DOSE DELIVERED:
--- NOTE | 2021-05-12 09:45 | DI.RAD_ITS ---
Exam(s) XR KNEE RT 1V EXAM: XR KNEE RT 1V CLINICAL HISTORY: 1st post op R TKA. TECHNIQUE: 2D digital imaging was performed. COMPARISON: CR XR KNEE RT 2V AP,LAT from 04/04/2021 FINDINGS: Single lateral view of the right knee reveals satisfactory position of the components of the prosthes is. No fracture or loosening evident on this single view. There is prepatellar soft tissue swelling evident. IMPRESSION: DATA REPOSITORY: RADIATION DOSE DELIVERED:
--- OUTSIDE RECORDS SUMMARY | 2021-05-12 14:06 | XMS_ITS ---
:1945 Author Organization [address] Address [address] [place] [address] Care Team Providers Name Role Phone Neeraj Unavailable Unavailable PROBLEMS Type Condition ICD9-CM Code MCB45-ON Code Onset Condition SNO MED Code Dates Status Problem Active Problem History of Z86.711 Active [id number] pulmonary embolism ALLERGIES Substance Reaction Event Type Date Status Epinephrine Unknown Non Drug Allergy Nov, Active ENCOUNTERS Encounter Location Date Diagnosis [place] [address] [place] [address] [place] [address], Per mike history of [place] colonic polyps Z86.010 ; [address] Family history o f colon cancer Z80.0 ; H istory of pulmonary emboli sm Z86.711 ; Adenoma determ ined by colorectal biops y D12.6 ; Diarrhea R19.7 a nd Rectal urgency R15.2 [facility] [place] [address] Nov, 2018 Persona l history of [place] colonic poly ps Z86.010 [id number] [place] [address] Nov, 2018 Sonia noma determined by [place] colorec [place] biopsy D12.6 ; [address] Family history o f colon cancer Z80.0 [...] Date Eliquis 5 MG as directed Active Rosalia Thyroid Orally Once a 1 tablet on 24h 30 day( s) Active 90 MG day an empty stomach Suprep Bowel Orally as take 177ml 15 Nov, Not-Ta kin Prep Kit directed (2 bottles) [...] [facility] 2018-12-11 REASON FOR VISIT voice [phone], Schedule colonoscopy Insurance Providers [facility] Member Patient Patient Patient Patient Patient Subscriber Subscriber Subscriber Group Insurance Plan Plan Plan Plan ID Relationship Address Phone Name Date of ID Name Date of No Type Insurance Insurance Insurance Coverage to Subscriber Address Phone Name Dates MEDICARE B [phone] MEDICARE B self JUSTYNA 1946 [id number] [place] [id number] [place] [facility] [place] [address] OPT[employer] AARP [phone] AARP self JUSTYNA [id number] [facility] [id number] [facility] MEDICARE [id number] MEDICARE SUPPLE SUPPLE
--- OUTSIDE RECORDS SUMMARY | 2021-05-12 14:06 | XMS_ITS | Continuity of Care Document ---
:1945 Author Organization [facility] Address [address] [place] [address] Phone Care Team Providers Name Role Phone [facility] Unavailable Unavailable Procedures Procedure Date LESION REMOVE COLONOSCOPY All - No [place], [place], Wrong Site/event Or Trans Patient without preoperative order for IV antibiot Nov Advance Directives Directive Yes / No Effective Date File Name No Information Encounters Encounter Practice Location Reason(s) Diagnoses Date Provider Provide rs Description For Visit Copied on Encounter [facility] No Center Referring Gastrointestin Gastrointesti Information For Provider: al Endoscopy, nal Endoscopy 7 [place] [address], [place]. Neeraj SOLANO , [place], [place], [address] [address] [facility] [id number], [facility] tel:[phone] [address], [facility], [id number]. [place], tel:[phone] , . tel:[phone] Family History Family Member Type Diagnosis Age At Onset No Information Payers Payer name Insurance type Covered libertarian ID Authorization(s ) Medicare [place]-- [place] [id number] AAR-- [place] [id number] Social History Type Description Quantity Date Captured Comments Sex Female Smoking Status No Information Chief Complaint And Reason For Visit No Information Plan Of Treatment Date Type Action Status No Information History Of Present Illness Encounter Date Complaint History Of Present I llness No Information Instructions Date Instruction Additional Informati on No Information Assessments Type Assessment Date No Information
--- OUTSIDE RECORDS SUMMARY | 2021-05-12 14:07 | XMS_ITS | Continuity of Care Document ---
:1945 Author Organization Healthcare, [facility] Address [address] [place] [address] Phone Care Team Providers Name Role Phone Janene Bennett CRNA, CRNA Unavailable Unavailable Procedures Procedure Date ANESTH, LOW INTESTINE SCOPE Advance Directives Directive Yes / No Effective Date File Name No Information Encounters Encounter Practice Location Reason(s) Diagnoses Date Provider Provide rs Description For Visit Copied on Encounter [facility] No [facility] Healthcare, Gastrointestin Information MAL back: [facility], [facility] al Endoscopy [address] [place] [address] Shivma Pickard MD, [place] [address], [id number], [id number]. [place], [place], tel:[phone] tel:[phone] 4. [phone] tel:[phone] Family History Family Member Type Diagnosis Age At Onset No Information Payers Payer name Insurance type Covered republican ID Authorization(s ) [place]-- [id number] [facility]-- CI [id number] Social History Type Description Quantity Date Captured [...]
== END 2021-05-12 14:02 | disposition home or self-care (01) ==
LOC: DIORS 14:02
PROVIDERS: PCP Family Medicine; Referring Provider Family Medicine; Visit Provider Student in an Organized Health Care Education/Training Program
DX: Z96.651 Presence of right artificial knee joint (principal); Z47.1 Aftercare following joint replacement surgery
CPT/HCPCS: 73560; 77073

== ENCOUNTER 2021-06-03 10:43 | Outpatient (CLI) | payer MEDICARE, SELFPAY ==
--- NOTE | 2021-06-03 08:30 | DI.RAD_ITS ---
Exam(s) XR KNEE RT 2V AP,LAT EXAM: XR KNEE RT 2V AP,LAT CLINICAL HISTORY: eval new R TKA pain. TECHNIQUE: 2D digital imaging was performed. COMPARISON: CR XR KNEE RT 1V from 05/12/2021 FINDINGS: BONES: Stable appearance of total knee prosthesis. No acute fracture is present. No bony destructive lesion is seen. JOINTS: The knee is normally aligned. A large joint effusion is seen. SOFT TISSUE: Stable anterior soft tissue swelling. IMPRESSION: Joint effusion and anterior soft tissue swelling. Unremarkable prosthesis and surrounding bone. DATA REPOSITORY: RADIATION DOSE DELIVERED:
== END 2021-06-03 10:44 | disposition home or self-care (01) ==
LOC: DIORS 10:43
PROVIDERS: PCP Family Medicine; Referring Provider Family Medicine; Visit Provider Student in an Organized Health Care Education/Training Program
DX: Z96.651 Presence of right artificial knee joint (principal); Z47.1 Aftercare following joint replacement surgery; M17.11 Unilateral primary osteoarthritis, right knee; M25.561 Pain in right knee
CPT/HCPCS: 73560

== ENCOUNTER → 2021-06-20 11:32 | Outpatient (BNVA) | payer MEDICARE, SELFPAY | PROVIDERS: PCP Family Medicine; Visit Provider Student in an Organized Health Care Education/Training Program | DX: Z47.1 Aftercare following joint replacement surgery (principal); Z96.651 Presence of right artificial knee joint; T84.84XS Pain due to internal orthopedic prosthetic devices, implants and grafts, sequela ==

== ENCOUNTER 2021-07-07 14:15 | Outpatient (CLI) | payer MEDICARE, SELFPAY ==
--- NOTE | 2021-07-07 09:15 | DI.RAD_ITS ---
Exam(s) XR KNEE RT 2V AP,LAT EXAM: XR KNEE RT 2V AP,LAT CLINICAL HISTORY: RIGHT KNEE PAIN S/P TKA. TECHNIQUE: 2D digital imaging was performed. COMPARISON: CR XR KNEE RT 2V AP,LAT from 06/03/2021 FINDINGS: There is continued stable appearance of the prosthesis. No fracture or loosening evident. Anterior soft tissue swelling is again noted. IMPRESSION: DATA REPOSITORY: RADIATION DOSE DELIVERED:
== END 2021-07-07 14:16 | disposition home or self-care (01) ==
LOC: DIORS 14:16
PROVIDERS: PCP Family Medicine; Referring Provider Family Medicine; Visit Provider Student in an Organized Health Care Education/Training Program
DX: Z96.651 Presence of right artificial knee joint; Z47.1 Aftercare following joint replacement surgery; T84.84XD Pain due to internal orthopedic prosthetic devices, implants and grafts, subsequent encounter
CPT/HCPCS: 73560

== ENCOUNTER → 2022-04-14 10:55 | Outpatient (BNVA) | payer MEDICARE, SELFPAY | PROVIDERS: PCP Family Medicine; Referring Provider Family Medicine; Visit Provider Student in an Organized Health Care Education/Training Program | DX: S76.011A Strain of muscle, fascia and tendon of right hip, initial encounter (principal); X58.XXXA Exposure to other specified factors, initial encounter; R26.89 Other abnormalities of gait and mobility; M19.012 Primary osteoarthritis, left shoulder; Z96.651 Presence of right artificial knee joint | CPT/HCPCS: 99213 ==

== ENCOUNTER → 2022-04-21 00:59 | Outpatient (CLI) | payer MEDICARE, SELFPAY ==
--- OUTSIDE RECORDS SUMMARY | 2022-04-21 01:01 | XMS_ITS | Encounter Summary ---
:1945 Author Organization [facility] Address [address] [place] [address] Care Team Providers Name Role Phone Ayla Brown MD Primary Care Provider Encounter Details Date Type Department Care Team Description 05/01/2018 Orders Only Hematology and Charla Guerra Acute d eep vein Oncology at [facility] [place] thrombosis (DVT) of [facility] fem oral vein of right [place] [address] HEMATOLOGY/ONCOLOG (Primary Dx) [phone] Y DEPT. [place], [place] [address] Social History Tobacco Use Types Packs/Day Years Used Date Former Smoker Quit: 03/06/19 80 Smokeless Tobacco: Never Used Alcohol Use Standard Drinks/Week Comments Yes 5 (1 standard drink = 0.6 oz pure alcoho l) Sex Assigned at Date Recorded Not on file documented as of this encounter Plan of Treatment Not on filedocumented as of this encounter Visit Diagnoses Diagnosis Acute deep vein thrombosis (DVT) of femo ral vein of right lower extremity - Primary documented in this encounter Care Teams Bead Wire Taper Relationship Specialty Start Date End Date Ayla Brown MD PCP - General Internal Medicine 02/27/18 [address] [id number] documented as of this encounter
--- OUTSIDE RECORDS SUMMARY | 2022-04-21 01:01 | XMS_ITS | Encounter Summary ---
:1945 Author Organization [facility] [place] [address] Care Team Providers Name Role Phone Ayla Brown MD Primary Care Provider Encounter Details Date Type Department Care Team Description 03/11/2019 Telephone [place] [facility] Ella Loera, [place] [address] Social History Tobacco Use Types Packs/Day Years Used Date Former Smoker Quit: 03/06/19 79 Smokeless Tobacco: Never Used Alcohol Use Standard Drinks/Week Comments Yes 5 (1 standard drink = 0.6 oz pure alcoho l) Sex Assigned at Date Recorded Not on file documented as of this encounter Miscellaneous Notes Telephone Encounter - Ella Loera RN - 03/11/2019 2:38 PM EDT TC with patient who stated she spoke with her PCP who recommended she hold her Eliquis in the evening of March 10 and resume it the following morning. Patient instructed to keep her arm in a sling for now. Surgery not recommended. Ella Loera MSN RN From: Zahra Monson Sent: Sunday, March 10, 2019 4:09 PM To: Ella Loera <[email or web address]> Subject: Rosalia Brennan 43 Hi, Carolann called because she broke her shoulder and has questions on possible bleeding in her shoulder and if she should continue her Eliquis as normal. She can be reached in about a 1/2hour @ [phone] [phone] Thanks, Zahra documented in this encounter Plan of Treatment Not on filedocumented as of this encounter Visit Diagnoses Not on filedocumented in this encounter Care Teams Research Nutritionist Relationship Specialty Start Date End Date Ayla Brown MD PCP - General Internal Medicine 02/27/18 [address] [address] documented as of this encounter
--- OUTSIDE RECORDS SUMMARY | 2022-04-21 01:01 | XMS_ITS | Encounter Summary ---
:1945 Author Organization [facility] [place] [address] Care Team Providers Name Role Phone Ayla Brown MD Primary Care Provider Encounter Details Date Type Department Care Team Description 04/29/2018 Telephone Hematology and Oncol ogy at [facility] Ella Loera, [place] [address] Social History Tobacco Use Types Packs/Day Years Used Date Former Smoker Quit: 03/06/19 80 Smokeless Tobacco: Never Used Alcohol Use Standard Drinks/Week Comments Yes 5 (1 standard drink = 0.6 oz pure alcoho l) Sex Assigned at Date Recorded Not on file documented as of this encounter Miscellaneous Notes Telephone Encounter - Ella Loera, RN - 04/29/2018 10:43 AM EDT TC to residence. Detailed message left with instructions and contact information to return call to review plan. Ella Loera MSN RN 04/30/[address] Guerra talked with her surgeon and relayed Anticoagulation (AC) recommendationsfor surgery. Decision if she should have a steroid injection done first and then have the surgery ([place] in [place] or [place] this winter) needs to be further discussed between the patient and her surgeon. Patient verbalized agreement with the plan. Dr. Guerra has a drafted AC recommendations for whenever she decides to have her surgery and can be faxed to her surgeon at that time for review. Will RTC on 05/07 to have blood drawn for additional studies per Dr Guerra request and RTC on 05/22 for a f/u shira't with Dr. Guerra to discuss lab findings. Ella Loera MSN RN Thrombosis Attending Physician I have reviewed this patient's care with Ella Loera, RN, MSN and concur with the recommendations and plan as outlined in her note above. Charla Guerra MD [facility] From: Charla Guerra Sent: Sunday, April 29, 2018 10:18 AM To: Ella Loera <[email or web address]> Subject: Regarding NICOLASA Jaramillo, Actually she is coming next week or so to see PT.- She can also hold rivaroxaban 2 days before and walk in for the Lupus anticoagulant testing and resume rivaroxaban after lab draw. That way I have her final result by the time I see her back. Carolann Brennan Female, 72 y.o., 1945 documented in this encounter Plan of Treatment Not on filedocumented as of this encounter Visit Diagnoses Not on filedocumented in this encounter Care Teams Coal Wheeler Relationship Specialty Start Date End Date Ayla Brown MD PCP - General Internal Medicine 02/27/18 [address] [address] documented as of this encounter
--- OUTSIDE RECORDS SUMMARY | 2022-04-21 01:01 | XMS_ITS | Encounter Summary ---
:1945 Author Organization [facility] [place] [address] Care Team Providers Name Role Phone Ayla Brown MD Primary Care Provider Encounter Details Date Type Department Care Team Description 08/26/2018 Telephone Hematology [place] [facility] [place]era, [place] [address] Social History Tobacco Use Types Packs/Day Years Used Date Former Smoker Quit: 03/06/19 80 Smokeless Tobacco: Never Used Alcohol Use Standard Drinks/Week Comments Yes 5 (1 standard drink = 0.6 oz pure alcoho l) Sex Assigned at Date Recorded Not on file documented as of this encounter Miscellaneous Notes Telephone Encounter - Ella Loera, RN - 08/26/2018 11:02 AM EST TC to patient. Reviewed questions outlined below. Dr. Guerra reviewed and recommended the followin. Last dose 09/14/18 @ 10AM. (72 hours before surgery. 2. Restart 09/17/18 ~ 12 hours post op if no bleeding complications noted. 3. Ok to travel 3 hours on 09/17 - wear compression stockings and move around/stand up during travel for 5-10 minutes. 4. Epidural catheter. Advised anesthesiologist would advise her on this. Could be considered, if catheter removed at time procedure is completed. Patient appreciative of information. Ella Loera MSN RN Thrombosis Attending Physician I have reviewed this patient's care with Ella Loera RN, MSN and concur with the recommendations and plan as outlined in her note above. Charla Guerra MD [facility] From: Carolann Brennan [[email or web address]] Sent: Tuesday, August 21, 2018 2:25 PM To: Ella Loera < > Subject: QUESTIONS FOR DR. GUERRA. External Hi. Will you please ask Dr. Guerra the EXACT timing of stopping the 5 mg Eliquis treatment dose prior to my scheduled hip replacement surgery? Since she wrote up her report, I have as we discussed migrated from Xarelto to Eliquis. Thus I am now taking 5 mg Eliquis twice a day, at 10:00 AM and 10:00 PM. My surgery is scheduled for the morning of September 17. My surgeon is Abdirahman Pineda MD, ([phone]). I have provided him with a copy of your report fromour May visit. He will be doing the ???anterior?? surgical approach, at [facility] in [facility]. PLEASE TELL ME THE EXACT DAY AND TIME I AM TO TAKE MY LAST PILL, AND THEN WHEN TO RESUME FOLLOWING SURGERY. FOR EXAMPLE: 10:00 PM SundayAugust (OR WHATEVER TIME AND DATE YOU RECOMMEND) I WOULD TAKE A PILL, THEN NO MORE AFTER THAT UNTIL I RESTART AFTER SURGERY (TELL ME WHEN - TIME AND DATE OF FIRST PILL). SHOULD I BE PUT ON HEPARIN WHILE IN THE HOSPITAL AFTER SURGERY? LOVENOX? I will likely only be in the hospital a day or two at the most. IMPORTANT QUESTION: If I am to stop sooner than the 10:00 PM Friday 09/15 time and date, dare I plan to return home from a getaway trip - a [address] - on that Sunday? Or should I return home sooner while still on the Eliquis, if you are telling me to stop sooner. I don???t wish to take a risk here. Also, question regarding the operation itself: Dr. Pineda is suggesting a spinal for my anesthesia. Is that OK with the Eliquis treatment I will be resuming following? Please respond as soon as possible, as I am making reservations for our pre operation break???. Thanks. Carolann documented in this encounter Plan of Treatment Not on filedocumented as of this encounter Visit Diagnoses Not on filedocumented in this encounter Care Teams Irrigation Equipment Installer Relationship Specialty Start Date End Date Ayla Brown MD PCP - General Internal Medicine 02/27/18 [address] [address] documented as of this encounter
--- OUTSIDE RECORDS SUMMARY | 2022-04-21 01:01 | XMS_ITS | Encounter Summary ---
:1945 Author Organization [facility] [place] [address] Care Team Providers Name Role Phone Ayla Brown MD Primary Care Provider Encounter Details Date Type Department Care Team Description 08/08/2018 [facility] Daniel sheppard HEMATOLOGY/[place] [address] DEPT. [phone] [place] [id number] (Wo rk) Social History Tobacco Use Types Packs/Day Years [...] on filedocumented in this encounter Care Teams Harmonica Maker Relationship Specialty Start Date End Date Ayla Brown MD PCP - General Internal Medicine 02/27/18 [address] [place] [address] documented as of this encounter
--- OUTSIDE RECORDS SUMMARY | 2022-04-21 01:01 | XMS_ITS | Encounter Summary ---
:1945 Author Organization [facility] [place] [address] Care Team Providers Name Role Phone Ayla Brown MD Primary Care Provider Encounter Details Date Type Department Care Team Description 08/09/2018 Telephone [place] [facility] [place], [place] [address] Social History Tobacco Use Types Packs/Day Years Used Date Former Smoker Quit: 03/06/19 80 Smokeless Tobacco: Never Used Alcohol Use Standard Drinks/Week Comments Yes 5 (1 standard drink = 0.6 oz pure alcoho l) Sex Assigned at Date Recorded Not on file documented as of this encounter Miscellaneous Notes Telephone Encounter - Ella Loera RN - 08/09/2018 9:36 AM EST TC to patient and relayed Dr. Guerra's recommendations outlined below. Patient appreciative of information provided. Ella WINTERS RN From: Charla Guerra Sent: Thursday, August 09, 2018 7:40 AM To: Ella Loera <[email or web address] Subject: FW: Rosalia ParkerMika-returned your call Ella, I will be at the dentist today. Can you call her back and let her know that I do not have an expertise in marijuana use. But this should be ok from hematology standpoint. If needed, ok to use NSAIDs PRN for short course, but not long-term. Thanks, Charla Parkerlius (the one who lives in [place]- in [facility]). From: Zahra Monson Sent: July 3:50 PM To: Charla Guerra <[email or web address]> Subject: Rosalia Brennan-returned your call Hi, Please give Carolann a call. she got your message but still has questions about marijuana use [phone] documented in this encounter Plan of Treatment Not on filedocumented as of this encounter Visit Diagnoses Not on filedocumented in this encounter Care Teams Asset Management Coordinator Relationship Specialty Start Date End Date Ayla Brown MD PCP - General Internal Medicine 02/27/18 [address] [address] documented as of this encounter
--- OUTSIDE RECORDS SUMMARY | 2022-04-21 01:01 | XMS_ITS | Encounter Summary ---
:1945 Author Organization [facility] [place] [address] Care Team Providers Name Role Phone Ayla Brown MD Primary Care Provider Encounter Details Date Type Department Care Team Description 12/03/2018 Telephone Hematology and Oncol [place] at [facility] Ella Loera, [place] [address] Social History Tobacco Use Types Packs/Day Years Used Date Former Smoker Quit: 03/06/19 79 Smokeless Tobacco: Never Used Alcohol Use Standard Drinks/Week Comments Yes 5 (1 standard drink = 0.6 oz pure alcoho l) Sex Assigned at Date Recorded Not on file documented as of this encounter Miscellaneous Notes Telephone Encounter - Ella Loera RN - 12/03/2018 9:05 AM EDT TC to patient and reviewed Dr. Guerra's recommendations outlined below. Ella Loera MSN RN From: Charla Guerra Sent: Sunday, December 02, 2018 4:47 PM To: Ella Loera < > Subject: RE: Rosalia Brennan 43 Ella I recommend to hold eliquis 2 days before colonoscopy and resume the following day. Charla Ramirez From: Zahra Monson Sent: Sunday, December 02, 2018 10:09 AM To: Charla Guerra < > Subject: Rosalia Brennan 43 JesseCarolann called because she is having a colo on 12/11 and needs to know the protocol for her Eliquis. She can be reached @ [phone] Thanks, Zahra documented in this encounter Plan of Treatment Not on filedocumented as of this encounter Visit Diagnoses Not on filedocumented in this encounter Care Teams Safety Supervisor Relationship Specialty Start Date End Date Ayla Brown MD PCP - General Internal Medicine 02/27/18 [address] [place] [address] documented as of this encounter
--- OUTSIDE RECORDS SUMMARY | 2022-04-21 01:01 | XMS_ITS | Encounter Summary ---
:1945 Author Organization [facility] [place] [address] Care Team Providers Name Role Phone Ayla Brown MD Primary Care Provider Encounter Details Date Type Department Care Team Description 01/21/2019 Office Visit Hematology and Charla Guerra VTE (venou s thromboembolism) (Primary Dx); Oncology at [facility] MD Venu Prothrombin gene mutation; [facility] tank terminal gauger current use of anticoagulant [facility] [address] [place] H[place]ATOLOGY/[place] [id number] [place] DEPT. [phone] [place], [place] [address] Social History Tobacco Use Types Packs/Day Years Used Date Former Smoker Quit: 03/06/19 80 Smokeless Tobacco: Never Used Alcohol Use Standard Drinks/Week Comments Yes 5 (1 standard drink = 0.6 oz pure alcoho l) Sex Assigned at Date Recorded Not on file documented as of this encounter Last Filed Vital Signs Vital Sign Reading Time Taken Comments Blood Pressure 134/86 01/21/2019 10:59 AM EDT Pulse 83 01/21/2019 10:59 AM EDT Temperature 36.4 ??C (97.6 ??F) 01/21/2019 10:59 AM EDT Respiratory Rate 18 01/21/2019 10:59 AM EDT Oxygen Saturation 99% 01/21/2019 10:59 AM EDT Inhaled Oxygen Concentration - - Weight 114.3 kg (252 lb) 01/21/2019 10:59 AM EDT Height 168 cm (5' 6.14) 01/21/2019 10:59 AM EDT Body Mass Index 40.5 01/21/2019 10:59 AM EDT documented in this encounter Progress Notes Charla Guerra MD - 01/21/2019 11:00 AM EDT Images from the original note were not included. [facility] [place] [address] THROMBOSIS FOLLOW-UP DATE OF VISIT 01/21/2019 Patient Carolann Brennan 1945 REFERRING PHYSICIAN Aneudy Cortez MD PRIMARY CARE PHYSICIAN Ayla Brown MD ORTHOPEDIC SURGEON Baljinder Deras MD ORTHOPEDIC SURGEON in [place] Sorin Rojas MD THROMBOSIS PROBLEM LIST 1. Jul 2015 saddle pulmonary embolism and right leg DVT, possible travel associated and also decreased mobility 2nd to knee injury Tx: rivaroxaban treatment dose for 6 months, then reduced to 10 mg PO daily for secondary VTE prophylaxis for 6 months -> aspirin 81 mg PO daily Follow-up ultrasound doppler of right leg: resolution of DVT 2. 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 She thinks that rivaroxaban contributed to her hyperglycemia. 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 At that time she was hospitalized in [place] where she usually spends wintertime there. 6 months prior to her saddle PE she underwent a left TKA which went uncomplicated. She recovered nicely at 6-week postoperative yoly. However, during physical therapy aid apy session she injured the posterior cruciate ligament of her left knee which caused a set back in recovery. Her left knee became unstable and she has never fully recovered from the injury. She was able to ambulate but needs to use cane to support because of the instability of the knee. Between May/Jun 2015 (2 month prior to her saddle PE), [place] then to [place] by plane (5- hour flight) and returned back to [place] mid Jun 2018 before she developed acute shortness of breath, feeling that she was going to faint around 2014. She was treated with rivaroxaban 20 mg PO daily for 6 months, then to 10 mg PO daily for another 6 months. She was seen by a maintenance supervisor in [place] who recommended to stop rivaroxaban after 1 year of anticoagulation and switched to low dose aspirin 81 mg PO daily. It was felt that her saddle pulmonary embolism was likely provoked by travel and period of immobility 2nd to her left knee injury. No thrombophilia testing was performed at that time. She was recommended to use DOAC as needed around travel for VTE prophylaxis. In Jun 2017 she travelled to [place] by car as usual. In Aug 2017 she went to an auction and fell ismael hard marble floor and injured her left knee. There was no fracture or dislocation. However, the injury set her back again. She was off cane for several months, then reverted back to use the cane again. After the fall she also noticed that she has had difficulty lifting her right leg up. Recent X-rayof the right hip and knee showed significant osteoarthritis. Her surgeon Dr. Deras has recommended a total hip arthroplasty first, and possible TKA at later point. She was initially scheduled to undergo a TKA, but then was diagnosed with a recurrent DVT in January 2018, therefore the surgery was cancelled for now. In January 2018 she has noticed some swelling in the right calf area associated with sensation of hardness in the calf. Ultrasound doppler showed DVT in the distal femoral vein, popliteal vein and the calf which is new because she had an interim ultrasound in 2016 of the leg which showed noevidence of DVT at that time. However, the echogenicity of the clot appeared to be chronic in some part. She stated that she was initially treated with apixaban, but then switched to rivaroxaban because of the concern of apixaban failure due to concern of progression of DVT. However, when I reviewed her ultrasound doppler about 2 weeks after initial ultrasound early January 2018 - ultrasound showed persistent DVT, but not progression. She is currently on rivaroxaban 20 mg PO daily. In interim, she has had another two follow-up ultrasound which showed improvement of DVT. INTERIM HISTORY She returns for follow-up today after returning from [place]. She underwent a right DANYA on 09/17/2018in [place]. She is pleased with the outcome of her surgery. There was no complication. She held her anticoagulation 3 days before surgery and resume ~ 12 hours after. There was no unexpected bleeding co mplication except minor bruising. She has recovered quiet well from her surgery. She still has mild residual swelling along her right hip. She does have mild bilateral leg edema, left ankle is slightlyworse than right. She has worn compression stocking, but not on daily basis. She switched her anticoagulant from rivaroxaban to apixaban because she felt that her overall glucose level was higher on while on rivaroxaban. She has not had her HgA1c and glucose level checked since switching her anticoagulant. She stated that the morning of her scheduled DANYA the anethesiologist asked her to see a local thoracic surgeon for preoperative clearance of her aortic aneurysm. She was able to see a thoracic surgeon on the same day and got a preop clearance for the surgery. Her surgery was delayed to the same afternoon. Her thoracic surgeon recommended to follow up annually. She was recently seen by Dr. Yoly Sharif, final finisher at [facility] for paroxysmal atrial tachycardia. He recommend her to stay on apixaban at 5 mg twice daily in case she develops atrial fibrillation then she would be protected. She has a pending imaging of her right knee and she may need another knee surgery depending on the imaging. Today she asked if she can reduce her apixaban dose to 2.5 mg twice daily for long-term use. PAST MEDICAL HISTORY Patient Active Problem List Diagnosis Code ??? 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 H/O total knee replacement Z96.659 ??? Acute deep vein thrombosis (DVT) of femoral vein of right lower extremity I82.411 ??? Acute saddle pulmonary embolism I26.92 ??? Osteoarthritis of hip M16.9 ??? Osteoarthritis of knee M17.10 ??? Hypothyroidism E03.9 History of saddle pulmonary embolism Hypothyroidism OPERATIVE PROCEDURES S/p tonsillectomy S/p right knee replacement S/p right total hip arthroplasty OBSTETRIC HISTORY 1 miscarriage early MEDICATIONS Outpatient Medications Marked as Taking for the 01/21/19 encounter (Office Visit) with Magdy Guerra MD Medication Sig Dispense Refill ??? amitriptyline (ELAVIL) 10 mg Tablet Take 10 mg by mouth nightly. ??? apixaban (ELIQUIS) 5 mg Tablet Take by mouth 2 times daily. ??? cyanocobalamin, vitamin B-12, (VITAMIN B-12) 1,000 mcg Tablet Take 1,000 mcg by mouth daily. ??? calcium carbonate/vitamin D3 (VITAMIN D-3 ORAL) Take by mouth. ??? Thyroid, Pork, (ARMOUR THYROID) 90 mg Tablet Take 90 mg by mouth daily. ADVERSE DRUG REACTIONS Allergies as of 01/21/2019 - Review Complete 05/25/2018 Allergen Reaction Noted ??? Epinephrine 03/06/2016 ??? Anesthesia tray 03/06/2016 ??? Penicillins 03/06/2016 FAMILY HISTORY Mother at lymphoma at 99. 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 Former smoker, quit 1989 Alcohol wine 2 glass/day Spends summer time here in [place] and wintertime in [place] REVIEW OF SYSTEMS Fevers/chills/sweats No Recent infections No Unexplained weight loss No Headache/lightheadedness/syncope No Sinus pain/pressure No Oral sores/lesions/bleeding No Sore throat/dysphagia No Nosebleeds No Cough/SOB/chest pain/heart racing No Nausea/vomiting/dyspepsia No Abdominal pain No Diarrhea/constipation No Urinary pain, burning, incontinence No Hematuria No Vaginal discharge/bleeding No Skin rashes/ulcers No Back/joint pain/swelling Bilateral knee pain, Left knee instability. Right hip pain improved. Leg swelling/pain/redness Mild chronic bilateral leg swelling, today left ankle worse than right Bruising/petechiae/bleeding/melena No Sensory/motor No Polydipsia/polyuria/heat/cold intol No Lumps/bumps/swollen glands No Other Negative except as above PHYSICAL EXAMINATION BP 134/86 (Patient Position: Sitting) Pulse 83 Temp 36.4 ??C (97.6 ??F) (Temporal) Resp 18 Ht 168 cm (5' 6.14) Wt 114.3 kg (252 lb) SpO2 99% BMI 40.50 kg/m?? GENERAL: Well-appearing, articulate white female. HEENT: Oropharynx clear; no mucosal lesions, petechiae, bleeding, thrush or ulcers. NECK: Supple; no cervical, supraclavicular or submental adenopathy. BREASTS: Exam deferred. CHEST/LUNGS: Clear to auscultation/percussion. No rales, rhonchi, wheezes. HEART: Regular rate and rhythm; no murmur, rub, gallop GASTROINTESTINAL: Abdomen soft, non-tender, GENITOURINARY: Exam deferred. EXTREMITIES: No clubbing, cyanosis. 1+ pitting edema left worse than right. + venous insufficiency and skin discoloration. No erythema, tenderness or palpable cords. MUSCULOSKELETAL: Spine nontender. Right knee mildly swollen. Right hip good range of motion SKIN: No ecchymoses, petechiae, ulcers or rashes. LYMPH: No palpable lymph nodes. NEUROLOGIC: Alert, oriented. Speech clear, coherent. No focal deficits noted. PSYCHIATRIC: Appropriate affect, no apparent distress. LABORATORY STUDIES Ref. Range 05/07/2018 11:30 dRVVT Latest Ref Range: <=1.20 IU/mL 1.29 (H) Silica Clotting Time Latest Ref Range: <=1.16 ratio 1.04 Ref. Range 05/22/2018 13:12 Glucose Fasting Latest Ref Range: 65 - 99 mg/dL 145 (H) Hemoglobin A1C Latest Ref Range: 4.3 - 5.6 % 7.3 (H) Est Avg Gluc Latest Units: mg/dL See note RADIOGRAPHIC STUDIES None IMPRESSION Carolann Brennan is a 73 y.o. woman with history of recurrent VTE, heterozygous prothrombin gene mutation who is here for follow-up after DANYA. She may also have a pending knee surgery in the near future. In brief, Mrs. Brennan developed first unprovoked saddle pulmonary embolism & right leg DVT [id number]. She was treated with anticoagulation for a year. Unfortunately she developed a recurrent DVT in 2018. She has been on chronic anticoagulation since then. She has switched from rivaroxaban to apixaban because of concern of hyperglycemia. She has noticed that her glucose level is higher while taking rivaroxaban. Hyperglycemia is not a common side effect of rivaroxaban that I am aware of but it has been reported in internet. Previously her PCP told her that she has pre-DM. It will be good to [id number] recheck again with her PCP soon regardless of type of anticoagulant that she is on. She is currently on apixaban 5 mg twice daily. She asked if she can reduce the dose to 2.5 mg twice daily for long-term use. I told her that I would prefer to stay on 5 mg twice daily because her recent diagnosis of atrial tachycardia. Her final finisher has recommended her to stay on apixaban 5 mg twice daily just in case she develops atrial fibrillation. The recommended dose of apixaban for stroke prevention in the setting of atrial fibrillation is 5 mg PO twice daily. The other reasons that I prefer her to stay on this dose is because of her obesity. I reassured her that the risk of life-threatening bleeding on apixaban 5 mg twice daily is <1%/year. Also I would like to repeat her lupus anticoagulant testing off apixaban for at least a week to makesure that she does not have antiphospholipid syndrome. Previously her LA was mildly positive. At that time she held her rivaroxban for 3 days which should generally be adequate. However, I want to makesure that there is no residual apixaban that would interfere with testing. I asked her to held apixaban longer this time (7 days). PLAN/RECOMMENDATIONS 1. Continue long-term anticoagulation apixaban 5 mg twice daily for secondary VTE prophylaxis She will also benefit to be on this dose for stroke prevention if in case she develops atrial fibrillation. She was recently diagnosed with paroxysmal atrial tachycardia 2. Repeat lupus anticoagulant in the future - stop apixaban a week before lab testing 3. Follow-up with PCP regarding her hyperglycemia Carolann Brennan had the opportunity to ask questions and indicated that all her questions were answered to her satisfaction. I will call her with result of lupus anticoagulant testing. Charla Guerra MD documented in this encounter Plan of Treatment Not on filedocumented as of this encounter Visit Diagnoses Diagnosis VTE (venous thromboembolism) - Primary Embolism and thrombosis of unspecified s ite Prothrombin gene mutation Primary hypercoagulable state tank terminal gauger current use of anticoagulant Encounter for long-term (current) use of anticoagulants documented in this encounter Care Teams Industrial Radiographer Relationship Specialty Start Date End Date Ayla Brown MD PCP - General Internal Medicine 02/27/18 [address] [address] documented as of this encounter
--- OUTSIDE RECORDS SUMMARY | 2022-04-21 01:01 | XMS_ITS | Encounter Summary ---
:1945 Author Organization [facility] Address [facility] [place] [address] Care Team Providers Name Role Phone Ayla Brown MD Primary Care Provider Reason for Referral Physical Therapy (Routine) - Closed Specialty Diagnoses / Procedures Referred By Contact Refer red To Contact Physical Therapy Diagnoses Post-thrombotic syndrome Charla Guerra MD [facility] Pt Rehab [facility] HEMATOLOGY/[place] [address] [place] [address] Referral ID Status Reason Start Date Expiration Date Visits V isits Requested Authorized [id number] Closed Evaluate and 04/26/2018 04/26/2019 1 1 Treat Reason for Visit Consultation (Routine) - Closed Specialty Diagnoses / Procedures Referred By Contact Refer red To Contact Hematology and Diagnoses Acute deep vein thrombosis (DVT) of femoral vein of right lower extremity Mari Lezama Monic R, Oncology Yasmeen Aguirre MD MD [facility] [place] [address] HEMATOLOGY/ONCOLOGY DEPT. [place], [place] [address] Phone: Fax: Referral ID Status Reason Start Date Expiration Date Visits V isits Requested Authorized [id number] Closed Consult, 04/17/2018 04/17/2019 1 1 Test & Treat Encounter Details Date Type Department Care Team Description 04/23/2018 Office Visit Hematology and Charla Guerra VTE (ve nous thromboembolism) (Primary Dx); Oncology at [facility] Post-thrombotic syndrome [facility] [address] [place] HEMATOLOGY/ONCOLOG [address] [address] DEPT. [phone] [place], [place] [address] Social History Tobacco Use Types Packs/Day Years Used Date Former Smoker Quit: 03/06/19 80 Smokeless Tobacco: Never Used Alcohol Use Standard Drinks/Week Comments Yes 5 (1 standard drink = 0.6 oz pure alcoho l) Sex Assigned at Date Recorded Not on file documented as of this encounter Last Filed Vital Signs Vital Sign Reading Time Taken Comments Blood Pressure 139/79 04/23/2018 9:04 AM EDT Pulse 84 04/23/2018 9:04 AM EDT Temperature 36.5 ??C (97.7 ??F) 04/23/2018 9:04 AM EDT Respiratory Rate 17 04/23/2018 9:04 AM EDT Oxygen Saturation 98% 04/23/2018 9:04 AM EDT Inhaled Oxygen Concentration - - Weight 112 kg (247 lb) 04/23/2018 9:04 AM EDT Height 168 cm (5' 6.14) 04/23/2018 9:04 AM EDT Body Mass Index 39.7 04/23/2018 9:04 AM EDT documented in this encounter Progress Notes Charla Guerra MD - 04/23/2018 9:00 AM EDT Images from the original note were not included. [facility] [place], [place] [address] THROMBOSIS CONSULTATION DATE OF VISIT 04/23/2018 Patient Justyna Dhaliwal 1945 REFERRING PHYSICIAN Aneudy Cortez MD PRIMARY CARE PHYSICIAN Ayla Brown MD ORTHOPEDIC SURGEON Baljinder Deras MD REASON FOR CONSULTATION Evaluation of thrombophilia, duration of anticoagulation and perioperative anticoagulation management prior to DANYA HISTORY OF THE PRESENT ILLNESS Justyna Dhaliwal is a 72 y.o. woman with history of recurrent VTE, who is seen in consultation at the request of Dr. Cortez for evaluation of thrombophilia, duration of anticoagulation and perioperative anticoagulation management prior to DANYA.The history is obtained from the patient, and I have reviewed extensive medical records provided by the referring physician and located in the electronic medical record to fill in gaps in the patient's recollection of events, treatments and outcomes. Mrs. 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 At that time she was hospitalized in [place] where she usually spends wintertime there. 6 months prior to her saddle PE she underwent a left TKA which went uncomplicated. She recovered nicely at 6-week postoperative yoly. 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 She was treated with rivaroxaban 20 mg PO daily for 6 months, then to 10 mg PO daily for another 6 months. She was seen by a chemist organic in [place] who recommended to stop rivaroxaban after 1 [...] prophylaxis. In Jun 2017 she travelled to [place] by car as usual. In Aug 2017 [...] a total hip arthroplasty first, and possible left TKA at later point. She was initially scheduled to undergo a left TKA, but then was diagnosed with a recurrent DVT in January 2018, therefore the surgery was cancelled for now. In January 2018 she has noticed some swelling in the right calf area associatedwith sensation of hardness in the calf. Ultrasound doppler showed DVT in the distal femoral vein, popliteal vein and the calf which is new because she had an interim ultrasound in 2016 of the leg whichshowed no evidence of DVT at that time. However, the echogenicity of the clot appeared to be chronicin some part. She stated that she was initially treated with apixaban, but then switched to rivaroxaban because of the concern of apixaban failure due to concern of progression of DVT. However, when I reviewed her ultrasound doppler about 2 weeks after initial ultrasound early January 2018 - ultrasound sh owed persistent DVT, but not progression. She is currently on rivaroxaban 20 mg PO daily. In interim, she has had another two follow-up ultrasound which showed improvement of DVT. Last ultrasound was on 04/17/2018 which she was seen by vascular surgery team. THROMBOSIS RISK FACTORS Risk Factor Comment Obesity (BMI >30 kg/m2) V/A Y Body mass index is 39.7 kg/(m^2). Diabetes V/A Current smoker V/A Estrogen or estrogen/progestin V/A V/A Inflammatory disease V/A Recent surgery (<3 months) V Recent hospitalization (<3 mo) V Recent travel (<3 mo) V Period of immobility V Y Decreased immobility due to knee injury and also OA Documented thrombophilia V Accident/Trauma V/A Cancer or treatment for cancer V/A Blood transfusion V/A Central venous catheter V Family history (1st degree) V/A Y Mother with injury related DVT - at 96 Varicose veins/venous insuff. V Y Hypertension A Hyperlipidemia A Vascular disease A V: Risk factor for venous thrombosis; A: Risk factor for arterial thrombosis PAST MEDICAL HISTORY Patient Active Problem List Diagnosis Code ??? 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 H/O total knee replacement Z96.659 ??? Acute deep vein thrombosis (DVT) of femoral vein of right lower extremity I82.411 History of saddle pulmonary embolism Hypothyroidism OPERATIVE PROCEDURES S/p tonsillectomy S/p right knee replacement OBSTETRIC HISTORY 1 miscarriage early MEDICATIONS Current Outpatient Prescriptions on File Prior to Visit Medication Sig Dispense Refill ??? Thyroid, Pork, (ARMOUR THYROID) 90 mg Tablet Take 90 mg by mouth daily. ??? rivaroxaban (XARELTO) 20 mg Tablet Take 20 mg by mouth daily. No current facility-administered medications on file prior to visit. ADVERSE DRUG REACTIONS Allergies as of 04/23/2018 - Review Complete 04/23/2018 Allergen Reaction Noted ??? Epinephrine 03/06/2016 ??? Anesthesia tray 03/06/2016 ??? Penicillins 03/06/2016 FAMILY HISTORY Mother at lymphoma at 99. 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 Former smoker, quit 1989 Alcohol wine 2 glass/day Spends summer time here in [place] and wintertime in [place] REVIEW OF SYSTEMS Fevers/chills/sweats No Recent infections No Unexplained weight loss No Headache/lightheadedness/syncope No Sinus pain/pressure No Oral sores/lesions/bleeding No Sore throat/dysphagia No Nosebleeds No Cough/SOB/chest pain/heart racing No Nausea/vomiting/dyspepsia No Abdominal pain No Diarrhea/constipation No Urinary pain, burning, incontinence No Hematuria No Vaginal discharge/bleeding No Skin rashes/ulcers No Back/joint pain/swelling Bilateral knee pain, left hip pain. Left knee instability Leg swelling/pain/redness Bilateral leg swelling, today left worse than right - overall right leg swelling improved Bruising/petechiae/bleeding/melena No Sensory/motor No Polydipsia/polyuria/heat/cold intol No Lumps/bumps/swollen glands No Other Negative except as above PHYSICAL EXAMINATION BP 139/79 (Patient Position: Sitting) Pulse 84 Temp 36.5 ??C (97.7 ??F) (Temporal) Resp 17 Ht 168 cm (5' 6.14) Wt 112 kg (247 lb) SpO2 98% BMI 39.7 kg/m2 GENERAL: Well-appearing, articulate white female. HEENT: Oropharynx [...] discoloration. No erythema, tenderness or palpable cords. No venous varicosities. MUSCULOSKELETAL: Spine nontender. No acute knee effusion. Using cane SKIN: No ecchymoses, petechiae, ulcers or rashes. LYMPH: No palpable lymph nodes. NEUROLOGIC: Alert, oriented. Speech clear, coherent. No focal deficits noted. PSYCHIATRIC: Appropriate affect, no apparent distress. LABORATORY STUDIES Thrombophilia testing pending RADIOGRAPHIC STUDIES Ultrasound doppler 01/18/2018 RIGHT: DVT in the femoral, popliteal and lesser saphenous veins. The findinds are new since 03/26/17 but there is some increased echogenicity in the visible thrombus which could mean that the thrombus isat least in part chronic Ultrasound doppler 01/28/2018 RIGHT: Thrombus is visible in the mid femoral vein including the popliteal vein. The posterior tibial veins appear free of thrombus. Thrombus is also visible in the lesser saphenous vein. The findings are not grossly changed from the previous exam of Jan [address] Chest 02/05/2018 No evidence of PE Ascending aortic aneurysm measuring 5.3 cm. The aneurysm has increased when compared with 2016 when it measured 4.6 cm but does not appear significantly changed from 2017 Ultrasound doppler 02/27/2018 RIGHT: There is mostly occlusive thrombus identified for a short segment in the femoral vein in the very distal thigh. There is also non-occlusive thrombus identified in the mid to above knee popliteal vein. Interpretation: RIGHT Lower extremity DVT of indeterminate age (distal femoral and popliteal veins). Cannot exclude additional non-occlusive DVT in the peroneal veins in the calf due to suboptimal visualization. No evidence of common femoral, proximal to mid femoral or posterior tibial DVT. Ultrasound doppler 04/17/2018 RIGHT: Persistent non-occlusive thrombus in the popliteal vein, as seen on previous exam. Chronic thrombus in the SSV. No evidence of CFV, FV, PTV and mid/distal calf peroneal vein lower extremity deep venous thrombosis. Cannot exclude non-occlusive thrombus in the proximal calf peroneal veins. Improvement in femoral vein thrombus, it appears to have resolved compared to previous exam. No identifiable change to popliteal vein thrombus compared to previous exam (02/27/2018). Ultrasound doppler today LEFT leg: no evidence of DVT IMPRESSION Justyna Dhaliwal is a 72 y.o. woman with history of recurrent VTE who was referred to our Thrombosis clinic for evaluation of thrombophilia, anticoagulation management around upcoming DANYA, and possible TKA, and recommendation regarding duration of anticoagulation. In brief, Mrs. Dhaliwal developed first pulmonary embolism which appeared to be extensive (saddle PE per her report) and right leg DVT in Jul 2015. While decreased mobility due to her knee injury and travel history could contribute to thrombosis risk at that time, I felt that those were minor risk factors. Therefore, I would estimate her risk for VTE recurrence more like patients with idiopathic VTE. I explained to her that the risk for VTE recurrence in idiopathic VTE is as high as 10%/year after discontinuation of anticoagulation, whereas the risk for VTE recurrence in patients with surgical related DVT is lower ~ 1%/year. Her second recurrent DVT in the right leg again occurred several months after her recurrent knee injury and decreased mobility, I explained to her although her mobility was decreased, but this was not to the point that she is bedridden. I again would consider her recent DVTrather unprovoked. I also reviewed her clinical risk factors for VTE which include obesity and venous insufficiency. We discussed that because of recurrent nature of her VTE without major associated provoked risk factors, I recommend her to stay on long-term anticoagulation for secondary VTE prophylaxis. I explained to her that her estimate risk for VTE recurrence is ~ 10%/year and anticoagulation reduces the risk for recurrence down to 1%/year and the life-threatening risk of bleeding on rivaroxaban is < 1%/year. I think that the risk/benefit favors her to stay on it long-term, regardless of thrombophilia. There is a family history of VTE. Her mother developed an injury related DVT in her 90s. I told her that she may have a low risk thrombophilia or may not. She understands that the result of thrombophilia won't immediately affect my recommendation regarding DANYA and duration of anticoagulation. She would like to proceed with the testing. We then discussed that now that she is 3 months out from her recent DVT, she can schedule an elective surgery such as DANYA or TKA at anytime point from now. I also reviewed her latest ultrasound dopplerof the right leg which showed persistent residual DVT in the right leg. 1/3 of DVT fail to recanalize and residual clot is not at risk of progression to PE and it becomes scarring on the blood vessel. There is also no indication for prophylactic IVC filter for chronic DVT. Today I also performed ultrasound of the left leg for leg edema which was NEG. She herself is undecided whether she should consider a corticosteroid injection to the hip and knee joint and delay her DANYA. I told her that she should discuss with Dr. Deras what treatment would be best for her. From hematologic standpoint, she can undergo a DANYA anytime as she has completed a minimal duration for acute DVT already. There is a benefit of proceeding with the surgery sooner to shorten the time of decreased mobility. However, she should know that DANYA is associated with risk for recurrent VTE, therefore it is important to resume her anticoagulation as soon as 8-12 hours postoperatively. I think her leg edema is due to post thrombotic syndrome and also venous insufficiency. I have a different opinion than her previous chemist organic regarding use of compression stocking. I strongly encourage her to wear them during waking hours to reduce leg edema and for DVT prophylaxis. She can either consider below knee compression stocking or panty hose. (20-30 mmHg) She is leaning toward panty hose. I will make a referral to PT for compression stocking fitting. Finally I encourage her to watch her diet and weight gain. I reminded her that obesity is associatedup to 6-fold risk for VTE. With her overall decreased mobility, she should make sure that she does not continue to gain weight. PLAN/RECOMMENDATIONS 1. Thrombophilia testing - Will need to perform lupus anticoagulant at follow-up visit after holding rivaroxaban for 2 days 2. Patient can schedule DANYA or joint injection anytime from now on Perioperative anticoagulation management - stop rivaroxaban 2 days before surgery and resume at 8-12 hours after surgery. Consider reducing rivaroxaban dose to 10 mg PO daily for the first 24-48 hours if concern of postoperative bleeding risk. - no indication for prophylactic IVC filter 3. Compression stocking for post thrombotic syndrome and venous insufficiency and DVT prophylaxis - referral to PT for stocking fitting. 4. Weight loss Justyna Dhaliwal had the opportunity to ask questions and indicated that all her questions were answered to her satisfaction. She will follow up with me in approximately three weeks to discuss the results of the thrombosis testing, and I will finalize my recommendations at that time. I personally called her orthopedic surgeon's office Dr. Deras and left message for a return call. Charla Guerra MD documented in this encounter Plan of Treatment Scheduled Referrals Name Type Priority Associated Diagnoses Order S chedule Referral to Outpatient Referral Routine Post-thrombotic Order ed: Physical Therapy syndrome 04/26/2018 documented as of this encounter Results Duplex for DVT, Leg, Unilat (04/23/2018 11:12 AM EDT) Component Value Ref Test Analysis Performed At [facility] Notable [employer] Range Method Time Signature VB Text Department: Vascular Surgery Lab VASCUBASE Report Patient: [id number] (JUSTYNA DHALIWAL) CPT: 69395 ICD10: M79.89;I82.90;Z86.718 Referring Physician: CHARLA ODELL ?? Phone: Indications: Patient with LEFT leg swelling, h/o right DVT, ? LEFT DVT ICD10 Diagnosis Code: M79.89, I82.90, Z86.718 LEFT: Patent common femoral vein and popliteal vein with spo ntaneous, respirophasic Doppler wavefo devon that respond normally to augmentation maneuvers. The common femoral vein, sap henofemoral junction, femoral vein through the thigh and popliteal vein are fully compressible. Patent posterior tibial veins with no evidence of thrombus. Peroneal veins are patent but were not adequately visualized to exclude non-occlusive thrombus. Interpretation: No evidence of LEFT femoral, popliteal, or posterior tibial deep vein thrombus. Peroneal veins are patent but were not adequately visualized to exclude non-occlusive thrombus. Comparison: ??No previous study in our vascular lab da tabase for comparison. Comment: Consider follow-up exam if signs or symptoms suggestive of DVT persist or worsen. 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
--- OUTSIDE RECORDS SUMMARY | 2022-04-21 01:01 | XMS_ITS | Encounter Summary ---
:1945 Author Organization [facility] Address [facility] [place] [address] Care Team Providers Name Role Phone Ayla Brown MD Primary Care Provider Encounter Details Date Type Department Care Team Description 05/07/2018 Hospital Encounter Hematology and Acute d eep vein Oncology at [facility] thrombosis (DVT) of [facility] femoral v ein of [place] [address] Social History Tobacco Use Types Packs/Day Years Used Date Former Smoker Quit: 03/06/19 80 Smokeless Tobacco: Never Used Alcohol Use Standard Drinks/Week Comments Yes 5 (1 standard drink = 0.6 oz pure alcoho l) Sex Assigned at Date Recorded Not on file documented as of this encounter Medications at Time of Discharge Medication Sig Dispensed Refills Start Date End Date Thyroid, Pork, (ARMOUR Take 90 mg by mouth 0 THYROID) 90 mg Tablet daily. rivaroxaban (XARELTO) 20 mg Take 20 mg by mouth 0 Tablet daily. documented as of this encounter Plan of Treatment Not on filedocumented as of this encounter Procedures Procedure Name Priority Date/Time Associated Comments Diagnosis LUPUS ANTICOAGULANT Routine 05/07/2018 11:30 Acute deep vein AM EDT thrombosis (DVT) of femoral vein of right lower extremity SILICA CLOTTING TIME Routine 05/07/2018 11:30 Acute deep vein Results for this AM EDT thrombosis (DVT) of procedur e are in femoral vein of the results right lower section. extremity DRVVT Routine 05/07/2018 11:30 Acute deep vein Results for this AM EDT thrombosis (DVT) of procedur e are in femoral vein of the results right lower section. extremity documented in this encounter Results Silica Clotting Time (05/07/2018 11:30 AM EDT) P athologist Signature Silica 1.04 <=1.16 HUBERT KIMBERLY Clotting Time ratio [facility] Comment: A result greater than 1.16 TR is consist ent with the presence of lupus anticoagulant. Values of 1.16 to 1.24 in this assay are not definitively positive or negative for the presence of a lupus anticoagulant. The SCT ratio may be falsely elevated in patients on a nticoagulants, especially heparins and direct oral anticoagulants. An abnormal test result in an anticoagulated patient must therefore be interpreted wi th caution, and repeat testing after discontinuing anticoagulation may be shira ropriate. Specimen Anatomical Collection Method Collection Time Receive d Time (Source) Location / / Volume Laterality Blood specimen 05/07/2018 11:30 8 (specimen) AM EDT 11:56 AM EDT Resulting Agency Comment Spec In Lab Charla Guerra MD HEMATOLOGY ORDERABLES Performing Organization Address City/[facility] [place] [address] (ABNORMAL) dRVVT (05/07/2018 11:30 AM EDT) P athologist Signature dRVVT 1.29 (H) <=1.20 HUBERT KIMBERLY IU/mL [facility] Comment: A result greater than 1.20 TR is consist ent with the presence of lupus anticoagulant. Values of 1.20 to 1.30 in this assay are not definitively positive or negative for the presence of a lupus anticoagulant. The DRVVT ratio may be falsely elevated in patients on a nticoagulants, especially heparins and direct oral anticoagulants. An abnormal test result in an anticoagulated patient must therefore be interpreted wi th caution, and repeat testing after discontinuing anticoagulation may be shira ropriate. Specimen Anatomical Collection Method Collection Time Receive d Time (Source) Location / / Volume Laterality Blood specimen 05/07/2018 11:30 8 (specimen) AM EDT 11:56 AM EDT Resulting Agency Comment Spec In Lab Charla Guerra MD HEMATOLOGY ORDERABLES Performing Organization Address City/[facility] [place] [address] documented in this encounter Visit Diagnoses Diagnosis Acute deep vein thrombosis (DVT) of femo ral vein of right lower extremity documented in this encounter Care Teams Vacuum Cleaner Repairer Relationship Specialty Start Date End Date Ayla Brown MD PCP - General Internal Medicine 02/27/18 [address] [place] [address] documented as of this encounter
--- OUTSIDE RECORDS SUMMARY | 2022-04-21 01:01 | XMS_ITS | Encounter Summary ---
:1945 Author Organization [facility] [place] [address] Care Team Providers Name Role Phone Ayla Brown MD Primary Care Provider Encounter Details Date Type Department Care Team Description 04/23/2018 Hospital Encounter Hematology and VTE (ve nous Oncology at [facility] thromboembolism) [place] [address] Social History Tobacco Use Types Packs/Day [...] Procedure Name Priority Date/Time Associated Comments Diagnosis TT Routine 04/23/2018 11:05 VTE (venous Results for this AM EDT thromboembolism) procedure a re in the results section. PTT Routine 04/23/2018 11:05 VTE (venous Results for this AM EDT thromboembolism) procedure a re in the results section. PT Routine 04/23/2018 11:05 VTE (venous Results for this AM EDT thromboembolism) procedure a re in the results section. PLAT Routine 04/23/2018 11:05 VTE (venous Results for this AM EDT thromboembolism) procedure a re in the results section. FIBR Routine 04/23/2018 11:05 VTE (venous Results for this AM EDT thromboembolism) procedure a re in the results section. THROMBOSIS SCREEN Routine 04/23/2018 11:05 VTE (venous AM EDT thromboembolism) THS REPORT Routine 04/23/2018 11:05 VTE (venous Results for this AM EDT thromboembolism) procedure a re in the results section. PROTEIN S ACTIVITY Routine 04/23/2018 11:05 Resul ts for this AM EDT procedure are i n the results section. APC RESISTANCE Routine 04/23/2018 11:05 Results f or this AM EDT procedure are i n the results section. PROTHROMBIN GENE Routine 04/23/2018 11:05 Results for this MUTATION AM EDT procedure are i n the results section. BETA-2 GLYCOPROTEIN Routine 04/23/2018 11:05 VTE (venous Resu lts for this ANTIBODIES AM EDT thromboembolism) procedure a re in the results section. PROTEIN C ACTIVITY Routine 04/23/2018 11:05 Resul ts for this AM EDT procedure are i n the results section. CARDIOLIPIN ANTIBODY Routine 04/23/2018 11:05 VTE (venous Res ults for this SCREEN AM EDT thromboembolism) procedure a re in the results section. ANTITHROMBIN Routine 04/23/2018 11:05 Results for this AM EDT procedure are i n the results section. HOMOCYSTEINE TOTAL, Routine 04/23/2018 11:05 VTE (venous Resu lts for this PLASMA AM EDT thromboembolism) procedure a re in the results section. THROMBOSIS SCREEN Routine 04/23/2018 10:56 Result s for this REPORT AM EDT procedure are i n the results section. documented in this encounter Results Prothrombin gene mutation (04/23/2018 11:05 AM EDT) Component Value Ref Test Analysis Performed At [facility] Method Time Signature Prothrombin Heterozygous [facility] Mutation [facility] Prothrombin RESULT: HETEROZYGOUS POSITIV E for the Factor II 44867G>A variant in the 3' [facility] [place] untranslated region of the prothrombin gene [facility] INTERPRETATION: The Factor II 00069O>A variant ([id number] 1:g.[id number]>A, [facility] [id number]) is associated with elevated prothrombin levels. Heterozygous LABORATORY positive results have been l inked with a 2- to 5-fold increased risk for venous thrombosis and increased risk for obstetric complications. 2 0210G>A heterozygosity has a most a modest effect on recurrence risk after initial treatment of a first VTE, and many studies have shown no i ncreased risk for recurrent venous thromboembolism. The pr esence or absence of other concomitant risk factors for thrombosis may modify the overall relative risk. Clinical correlation is recommended. METHODS: The region of interest in the Prothrombin gene (202 10G>A) is interrogated using a TaqMan allelic discrimination assay. [facility] DNA was isolated from the submitted peripheral blood specimen. Real- time PCR was performed to amplify a short region spanning the variant site, and genotyping was performed by allelic discrimination using a mixture of f luorescently labeled probes, one of which is specific for the reference sequence, the other specific for the variant allele. This test was developed and its performance jaime acteristics determined by the [facility] ([facility]) Laboratory at [facility]. It has not been cleared or approved by the FDA. The laboratory is regulated under CLIA as qualified to perform high-complexity testing. This donato t is used for clinical purposes. It should not be regarded as investigational or fo r research. Comment: [VERIFIED DATE]04.30.18 Verified By:Renee SOLANO, Rakesh Castro Hematopathologist (Electronic Signature) Specimen Anatomical Collection Method Collection Time Receive d Time (Source) Location / / Volume Laterality Blood specimen Venous Draw / 04/23/2018 11:05 04/25/20 18 8:55 (specimen) Unknown AM EDT AM EDT Resulting Agency Comment Spec In Lab Charla Guerra MD HEMATOLOGY ORDERABLES Performing Organization Address City/State/ZIP Code Phon e Number [address] (ABNORMAL) Protein S Activity (04/23/2018 11:05 AM EDT) [facility] Method Time Signature Protein S Act >150 (H) 64 - 149 % [facility] LABORATORY Specimen Anatomical Collection Method Collection Time Receive d Time (Source) Location / / Volume Laterality Blood specimen Venous Draw / 04/23/2018 11:05 04/23/20 18 (specimen) Unknown AM EDT 11:15 AM EDT Resulting Agency Comment Spec In Lab Charla Guerra MD HEMATOLOGY ORDERABLES Performing Organization Address City/[facility]/[place]IP [place] [address] (ABNORMAL) Protein C activity (04/23/2018 11:05 AM EDT) Analysis Performed At Patho logist Time Signature Protein C Act >150 (H) 70 - 140 % [facility] Specimen Anatomical Collection Method Collection Time Receive d Time (Source) Location / / Volume Laterality Blood specimen Venous Draw / 04/23/2018 11:05 04/23/20 18 (specimen) Unknown AM EDT 11:15 AM EDT Resulting Agency Comment Spec In Lab Charla Guerra MD HEMATOLOGY ORDERABLES Performing Organization Address City/State/ZIP Code Phon e Number [address] Antithrombin (04/23/2018 11:05 AM EDT) P athologist Signature Antithrombin 113 83 - 128 % [facility] Specimen Anatomical Collection Method Collection Time Receive d Time (Source) Location / / Volume Laterality Blood specimen Venous Draw / 04/23/2018 11:05 04/23/20 18 (specimen) Unknown AM EDT 11:15 AM EDT Resulting Agency Comment Spec In Lab Charla Guerra MD HEMATOLOGY ORDERABLES Performing Organization Address City/State/ZIP Code Phon e Number [address] APC resistance (04/23/2018 11:05 AM EDT) P athologist Signature APC Resistance 3.01 >=2.17 [facility] Specimen Anatomical Collection Method Collection Time Receive d Time (Source) Location / / Volume Laterality Blood specimen Venous Draw / 04/23/2018 11:05 04/23/20 18 (specimen) Unknown AM EDT 11:15 AM EDT Resulting Agency Comment Spec In Lab Charla Guerra MD HEMATOLOGY ORDERABLES Performing Organization Address City/[facility]/ZIP Code Phon e Number [address] Beta-2 glycoprotein antibodies (04/23/2018 11:05 AM EDT) Patholo gist Method Time Signature B2GPI IgG <9.4 <=20.0 [facility] unit(s) [facility] B2GPI IgM <9.4 <=20.0 [facility] unit(s) [facility] B2GPI Interp See Thrombosis [facility]ERT screen [facility] Specimen Anatomical Collection Method Collection Time Receive d Time (Source) Location / / Volume Laterality Blood specimen 04/23/2018 11:05 8 1:02 (specimen) AM EDT PM EDT Resulting Agency Comment Spec In Lab Charla Guerra MD IMMUNOLOGY ORDERABLES Performing Organization Address City/[facility]/ZIP Code Phon e Number [address] Homocysteine Total, Plasma (04/23/2018 11:05 AM EDT) P athologist Signature Homocyst Tot 8 <=15 [facility] LABORATORY Specimen Anatomical Collection Method Collection Time Receive d Time (Source) Location / / Volume Laterality Blood specimen 04/23/2018 11:05 8 (specimen) AM EDT 11:15 AM EDT Resulting Agency Comment Spec In Lab Charla Guerra MD CHEMISTRY ORDERABLES Performing Organization Address City/State/ZIP Code Phon e Number [address] Cardiolipin Antibody Screen (04/23/2018 11:05 AM EDT) P athologist Signature Cardiolipin IgG <9.4 <=14.9 GPL [facility] unit(s) [facility] Comment: Ranges ?? GPL ------ ?? --- Negative ?? <=14.9 Indeterminate ??15.0 - 20.0 Low/Medium Positive 20.1 - 80.0 High Positive ??>80.0 Cardiolipin IgM <9.4 <=12.5 MPL unit(s) [facility] Comment: Ranges ?? MPL ------ ?? --- Negative ?? <=12.5 Indeterminate ??12.6 - 20.0 Low/Medium Positive 20.1 - 80.0 High Positive ??>80.0 Specimen Anatomical Collection Method Collection Time Receive d Time (Source) Location / / Volume Laterality Blood specimen 04/23/2018 11:05 8 1:02 (specimen) AM EDT PM EDT Resulting Agency Comment Spec In Lab Charla Guerra MD IMMUNOLOGY ORDERABLES Performing Organization Address City/State/ZIP Code Phon e Number [address] THS Report (04/23/2018 11:05 AM EDT) Analysis Performed At Patho logist Time Signature THS Report See Comment [facility] Comment: See Thrombosis Screen Report [id number] under Hematopathology Reports. Specimen Anatomical Collection Method Collection Time Receive d Time (Source) Location / / Volume Laterality Blood specimen 04/23/2018 11:05 8 (specimen) AM EDT 11:15 AM EDT Resulting Agency Comment Spec In Lab Charla Guerra MD HEMATOLOGY ORDERABLES Performing Organization Address City/[facility]/ZIP Code Phon e Number [address] Plat (04/23/2018 11:05 AM EDT) P athologist Signature Platelets 226 145 - 357 [facility] x10(3)/[facility] LABORATORY Plat Immature 2.0 0.0 - 7.4 [facility] % % [facility] Comment: Limitation of the Immature Platelet Frac tion (IPF)-May be less reliable when the platelet count is less than 76u908/u L due to statistical imprecision. The IPF value provides an assessment of the Bone Marrow production status. ??It is useful in differentiating Thrombocyto penia caused by platelet destruction/consumption versus decreased production. It also helps to determine the imminent release of platelets and ca n be therefore a helpful parameter in Chemotherapy and Bone marrow transplant patients. ELEVATED IPF value: ?? When the bone marrow is in a state of over production such as when increased destruction and consumption are the unde rlying issue. ?? When the marrow is recovering post ch emotherapy or bone marrow transplant. LOW to NORMAL IPF value: ?? When the bone marrow in not respondin g and is in a decreased state of production. References: [employer] The Clinical Value of the Immature Platelet Fraction (IPF) in Cell Recovery Document Number [id number] 01/2011 [employer] The Role of the Imm ature Platelet Fraction (IPF) in the Differential Diagnosis of Thrombocytopen ia, Document [id number] V05 P012/31 Specimen Anatomical Collection Method Collection Time Receive d Time (Source) Location / / Volume Laterality Blood specimen 04/23/2018 11:05 8 (specimen) AM EDT 11:15 AM EDT Resulting Agency Comment Spec In Lab Charla Guerra MD HEMATOLOGY ORDERABLES Performing Organization Address City/[facility]/ZIP Code Phon e Number [address] TT (04/23/2018 11:05 AM EDT) P athologist Signature Thrombin Time 12 10 - 17 [facility] LABORATORY Comment: A prolongation in the thrombin time (>20 seconds) may be indicative of hypofibrinogenemia or dysfibrinogenemia. The thrombin time will be prolonged, often markedly so, by the presence of he cecilia or direct thrombin inhibitors (argatroban, bivalirudin, dabigatran) in the specimen. Specimen Anatomical Collection Method Collection Time Receive d Time (Source) Location / / Volume Laterality Blood specimen 04/23/2018 11:05 8 (specimen) AM EDT 11:15 AM EDT Resulting Agency Comment Spec In Lab Charla Guerra MD HEMATOLOGY ORDERABLES Performing Organization Address City/[facility]/ZIP Code Phon e Number [address] FIBR (04/23/2018 11:05 AM EDT) P athologist Signature Fibrinogen 353 200 - 393 [facility] mg/dL [facility] Comment: A fibrinogen level >100 mg/dL is adequat e for hemostasis in most patients without underlying bleeding disorders. Specimen Anatomical Collection Method Collection Time Receive d Time (Source) Location / / Volume Laterality Blood specimen 04/23/2018 11:05 8 (specimen) AM EDT 11:15 AM EDT Resulting Agency Comment Spec In Lab Charla Guerra MD HEMATOLOGY ORDERABLES Performing Organization Address City/[facility]/ZIP Code Phon e Number [address] PTT (04/23/2018 11:05 AM EDT) P athologist Signature PTT 30 25 - 37 sec [facility] Comment: The PTT is NOT appropriate for heparin m onitoring. Use the Anti-Xa level for heparin monitoring (HEP UFH) or LMWH mon itoring (HEP LMW). A PTT less than 37 seconds generally indicates adequate hem ostasis. Specimen Anatomical Collection Method Collection Time Receive d Time (Source) Location / / Volume Laterality Blood specimen 04/23/2018 11: 8 (specimen) AM EDT 11:15 AM EDT Resulting Agency Comment Spec In Lab Charla Guerra MD HEMATOLOGY ORDERABLES Performing Organization Address [facility] [place] [address] PT (04/23/2018 11:05 AM EDT) P athologist Signature PT 11.6 9.4 - 12.5 [facility] LABORATORY INR 1.0 [facility] Comment: An INR <2.0 indicates adequate procoagul ant activity for hemostasis in most patients without underlying bleeding dis orders, though the INR may not adequately reflect hemostatic capacity i n patients with liver disease and synthetic impairment. The recommended ta rget INR range for therapeutic anticoagulation is 2.0 ? 3.0 for most applications, though lower and higher ranges may be appropriate depending on c linical circumstances. Specimen Anatomical Collection Method Collection Time Receive d Time (Source) Location / / Volume Laterality Blood specimen 04/23/2018 11:05 8 (specimen) AM EDT 11:15 AM EDT Resulting Agency Comment Spec In Lab Charla Guerra MD HEMATOLOGY ORDERABLES Performing Organization Address City/[facility]/[place] [address] Thrombosis Screen Report (04/23/2018 10:56 AM EDT) Component Value Ref Test Analysis Performed At [facility] gist Range Method Time Signature Thrombosis [id number] ? Location: HUBERT Velazquez Report KIMBERLY The signing pathologist has (i) examined the relevant preparation(s) for the [facility] specimen(s) and (ii) rendered or confirmed the diagnosis(es) . HOSPITAL LABORATORY . ? Throm bosis Screen DIAGNOSIS Heterozygous Prothrombin gene mutation. ?? see discussion Electronically signed by: ??Juan Saunders MD Verified: ??05/06/2018 ?Hematopathologist Performed at: ??-[facility] Dept. of Pathology, [place], [place] ADDITIONAL STUDIES TEST ?? RESULT ?REFERENCE RANGE Platelet count ?? 226 ? (145-357k/mcL) PT ?? 11.6 ? ( 9.4 - 12.5 sec) PTT ?? 30 ? ( 25 - 37 seconds) Fibrinogen ?? 353 ? (200 ??- 393 mg/dL) TT ?? 12 ? (10 ??- 17 seconds) APC Resistance (normalized ratio) ? 3.01 ? ( > 2.17) Anti-thrombin ?? 113 ? (83 ??- 128%) Protein C* ?? >150 ? (70 ??- 140%) Protein S* ?>150 ? (64 ??- 149%) Lupus anticoagulant (DRVVT ratio) ? NOT DONE ?(<1.20) Lupus anticoagulant (SCT ratio) ? NOT DONE ?(<1.16) Anticardiolipin antibodies ?<9.4 ? (IgG ??< 23 GPL) Anticardiolipin antibodies ?<9.4 ? (IgM ??< 11 MPL) Beta-2 glycoprotein-1 antibody ?<9.4 ? (IgG ??< 21 units) Beta-2 glycoprotein-1 antibody ?<9.4 ? (IgM ??< 21 units) Homocysteine, random, plasma ?8 ? ( ? to 15 mcmol/L) if APCR < 2.0 FV Leiden muta tion ?NOT DONE ?(negative) Prothrombin (86159 G ? A) mutation heterozygous ? (negative) ??* Functional assay for protein C and protein S DISCUSSION Lupus anticoagulant test not performed as the patient is on rivaroxaban. ? Factor Xa inhibitors such as rivaroxa ban, apixaban, and edoxaban can cause a false positive LA test. ??Levels of protei n C and protein S may be overestimated in the presence of rivaroxaban or apixaban. If there is strong suspicion for a deficiency of one of these proteins, suggest repeat testing after discontinuation of the potentially interfering medication for at least 48 hours. The screening test for resis tance to activated protein C (APC) is normal, DNA assay for Factor V Leiden mutation is not indicated. The heterozygous prothrombin 51428E mutation is associated with an approximately 4-fold increased risk of ve nous thromboembolic disease when compared with non- carriers of the mutation. ?? Dontae Huerta, et. al. ?Combined Effect of Factor V Leiden and Prothrombin 27662I on t he Risk of Venous Thromboembolism ?, Thromb Haemost, 2001; 86; 809 CLINICAL INFORMATION DVT on rivaroxaban Specimen (Source) Anatomical Collection Method Collection Time Re ceived Time Location / / Volume Laterality 04/23/2018 10:56 AM EDT Charla Guerra MD PATHOLOGY/CYTOLOGY ORDERABLE S Performing Organization Address City/State/ZIP Code Phon e Number [place] [id number] documented in this encounter Visit Diagnoses Diagnosis VTE (venous thromboembolism) Embolism and thrombosis of unspecified s ite documented in this encounter Care Teams Radiation Control Health Physicist Relationship Specialty Start Date End Date Ayla Brown MD PCP - General Internal Medicine 02/27/18 [address] [address] documented as of this encounter
--- OUTSIDE RECORDS SUMMARY | 2022-04-21 01:01 | XMS_ITS | Encounter Summary ---
:1945 Author Organization [facility] [place] [address] Care Team Providers Name Role Phone Ayla Brown MD Primary Care Provider Encounter Details Date Type Department Care Team Description 05/30/2018 Telephone Hematology and [facility]col [facility] at [facility] Ella [place]era, [place] [address] Social History Tobacco Use Types Packs/Day Years Used Date Former Smoker Quit: 03/06/19 79 Smokeless Tobacco: Never Used Alcohol Use Standard Drinks/Week Comments Yes 5 (1 standard drink = 0.6 oz pure alcoho l) Sex Assigned at Date Recorded Not on file documented as of this encounter Miscellaneous Notes Telephone Encounter - Ella Loera RN - 05/30/2018 3:02 PM EDT TC to patient. Detailed message left. A copy of US results, labs and clinic note mailed to pt address. A copy of Dr. Guerra's clinic note faxed to Dr. Sorin Rojas, patient's orthopedic surgeon in [facility]. Confirmation of fax received. Ella WINTERS RN ===View-only below this line=== ----- Message ----- From: Charla Guerra MD Sent: 05/30/2018 2:31 PM To: Ella Loera RN PS: f/u in 5-6 months when she returns from [place]. Ella: can you please call her and review lab result? She was concerned about her glucose level. Although hyperglycemia is not a common side effect of rivaroxaban, she has noticed that her glucose level is higher on rivaroxaban. Her fasting glucose is high at 145 and HgA1c is high at 7.3. She should follow- up with her PCP in [place] once she is there regarding her glucose level. If she wishes to switch to apixaban, I am happy to write her script for apixaban. Can you please print result of all ultrasound doppler, my last note and thrombophilia result (under thrombosis screen - hematopathology) and mail to her house. Thanks, Charla documented in this encounter Plan of Treatment Not on filedocumented as of this encounter Visit Diagnoses Not on filedocumented in this encounter Care Teams Courtesy Car Driver Relationship Specialty Start Date End Date Ayla Brown MD PCP - General Internal Medicine 02/27/18 [address],[facility] [address] [place] [address] documented as of this encounter
--- OUTSIDE RECORDS SUMMARY | 2022-04-21 01:01 | XMS_ITS | Encounter Summary ---
:1945 [place] [address] Care Team Providers Name Role Phone Ayla Brown MD Primary Care Provider Encounter Details Date Type Department Care Team Description 05/22/2018 Hospital Encounter [place]ematology [place] [facility] [place] [address] Social History Tobacco Use Types Packs/Day Years Used Date Former Smoker Quit: 03/06/19 80 Smokeless Tobacco: Never Used Alcohol Use Standard Drinks/Week Comments Yes 5 (1 standard drink = 0.6 oz pure alcoho l) Sex Assigned at Date Recorded Not on file documented as of this encounter Medications at Time of Discharge Medication Sig Dispensed Refills Start Date End Date calcium carbonate/vitamin Take by mouth. 0 D3 (VITAMIN D-3 ORAL) Thyroid, Pork, (ARMOUR Take 90 mg by mouth 0 THYROID) 90 mg Tablet daily. rivaroxaban (XARELTO) 20 Take 20 mg by mouth 0 mg Tablet daily. rivaroxaban (XARELTO) 20 Take 1 tablet by 90 tablet 3 05/2208/20/2018 mg TabletIndications: VTE mouth daily for 90 (venous thromboembolism) days. documented as of this encounter Plan of Treatment Not on filedocumented as of this encounter Procedures Procedure Name Priority Date/Time Associated Diagnosis Comme nts HEMOGLOBIN A1C Routine 05/22/2018 1:12 PM Pre-diabetes Result s for this EDT procedure are i n the results section. GLUCOSE, FASTING Routine 05/22/2018 1:12 PM Pre-diabetes Resul ts for this EDT procedure are i n the results section. documented in this encounter Results (ABNORMAL) Hemoglobin A1c (05/22/2018 1:12 PM EDT) Analysis Performed At Patho logist Time Signature Hemoglobin A1C 7.3 (H) 4.3 - 5.6 [facility] Comment: Reference Range: 4.3 - 5.6% 5.7 - 6.4% - Increased Risk of Developin g Diabetes Mellitus >=6.5% - Consistent with diagnosis of Di abetes Mellitus In the absence of hyperglycemia (i.e. pl asma glucose > 200 mg/dL) or classic symptoms of hyperglycemia a repeat measu rement of HbA1c should be performed on a separate sample to confirm the diagnos is. Diagnosis and Classification of Diabetes Mellitus, Diabetes Care 2013; 36: Suppl. 1, S67-74 Est Avg Gluc See note mg/dL [facility] Comment: Estimated Average Glucose not appropriat e for patients over 70 years of age. eAG equivalents for HbA1c percentages: HbA1c(%) ?eAG(mg/dL) 6.0 ?126 6.5 ?140 7.0 ?154 7.5 ?169 8.0 ?183 8.5 ?197 9.0 ?212 9.5 ?226 10.0 ? 240 Limitations: The eAG calculation has not been validated on women, individuals below 18 years old and above 70 years old, and individuals with hemoglobinopathies. Additional resources are available on ADA website. Abel WATERS, Jailene J, Sharan R, et al. ??Tr anslating the A1C assay into estimated average glucose values. ??Diabetes Care 2008:31(8):2361-9513. Specimen Anatomical Collection Method Collection Time Receive d Time (Source) Location / / Volume Laterality Blood specimen 05/22/2018 1:12 PM 018 1:21 (specimen) EDT PM EDT Resulting Agency Comment Spec In Lab Charla Guerra MD CHEMISTRY ORDERABLES Performing Organization Address City/[facility]/[place] [address] (ABNORMAL) Glucose, fasting (05/22/2018 1:12 PM EDT) athologist Signature Glucose 145 (H) 65 - 99 [facility] Fasting mg/dL [facility] Comment: ?Fasting* Glucose Interpretive C riteria Normal ?65-99 mg/dL Impaired Fasting glucose ?100-125 mg/dL Consistent with Diabetes Mellitus ? >or= 126 mg/dL *Fasting is defined as no caloric intake for at least 8 hours In the absence of unequivocal hypergly cemia a plasma glucose value of >or= 126 mg/dL should be repeated on a subseq u day. Diagnosis and Classification of Diabetes Mellitus, Position Statement from the [place] [employer]. ??Diabete s Care, Volume 33, Supplement 1, Aug 2009 Specimen Anatomical Collection Method Collection Time Receive d Time (Source) Location / / Volume Laterality Blood specimen 05/22/2018 1:12 PM 018 1:21 (specimen) EDT PM EDT Resulting Agency Comment Spec In Lab Charla Guerra MD CHEMISTRY ORDERABLES Performing Organization Address City/[facility]/[place] [address] documented in this encounter Visit Diagnoses Diagnosis Pre-diabetes Other abnormal glucose documented in this encounter Care Teams Vehicle Fuel Systems Converter Relationship Specialty Start Date End Date Ayla Brown MD PCP - General Internal Medicine 02/27/18 [address] [place] [address] documented as of this encounter
--- OUTSIDE RECORDS SUMMARY | 2022-04-21 01:01 | XMS_ITS | Encounter Summary ---
:1945 Author Organization [facility] [place] [address] Care Team Providers Name Role Phone Ayla Brown MD Primary Care Provider Reason for Visit Consultation (Routine) - Closed Specialty Diagnoses / Procedures Referred By Contact Refer red To Contact Vascular Surgery Diagnoses Deep Vein Thrombosis (I82.49) Ayla [place], [facility] [place] Procedures Deep Vein Thrombosis [facility] [address] [address] [place], [place] Phone: [phone] Referral ID Status Reason Start Date Expiration Date Visits V isits Requested Authorized [id number] Closed Consult, 02/06/2018 02/06/2019 3 3 Test & Treat Encounter Details Date Type Department Care Team Description 04/17/2018 Hospital Encounter Vascular Lab at [facility] Acute deep vein [facility] J, RVT thrombosi s (DVT) of [place] [address] Social History Tobacco Use Types Packs/Day Years [...] Name Priority Date/Time Associated Diagnosis Comme nts DUPLEX FOR DVT, Routine 04/17/2018 9:10 AM Acute deep vein Res ults for this LEG, UNILAT EDT thrombosis (DVT) of procedur e are in femoral vein of the results right lower section. extremity documented in this encounter Results Duplex for DVT, Leg, Unilat (04/17/2018 9:10 AM EDT) Component Value Ref Test Analysis Performed At [facility] Range Method Time Signature VB Text Department: Vascular Surgery Lab [facility] Report Patient: [id number] (JUSTYNA DHALIWAL) CPT: 07034 ICD10: I82.431 Referring Physician: MATILDA CORTEZ M.D. ?? Phone: Indications: hx right femoral and popliteal DVT, palpable cord in calf, ? DVT ICD10 Diagnosis Code: I82.431 RIGHT: Non-occlusive thrombus in the popliteal vein wi th deep venous reflux. Non-occlusive chronic thromb us in the short saphenous vein in the mid calf; this is a new finding, however short saphenous vein was not mentioned in previous exam. Otherwise, patent common femoral vein with spont aneous, respirophasic Doppler waveforms that respond normally to augmentation maneuvers. The common femoral vein, saphenofemoral junction and femoral vein through the t high are fully compressible. Patent posteri or tibial and peroneal veins (mid/distal calf) with no evidence of thrombus. Peroneal veins not well visualize d in the proximal calf, cannot exclude non-occlusive thrombus. Interpretation: RIGHT: Persistent non-occlusive thrombus in the popliteal ve in, as seen on previous exam. Chronic thrombus in the SSV. No evidence of CFV, FV, PTV and mid/distal calf peroneal vein lower extremity deep venous thrombosis. Cannot exclude non-occlu sive thrombus in the proximal calf peroneal veins. Improvement in femoral vein thrombus, it appears to have resolved compared to previous exam. No identifiable change to popliteal vei n thrombus compared to previous exam (02/27/2018). Electronically Signed by: MATILDA CORTEZ M.D. on 2018-04-17 12 :20:33 PM VB Text End of Report [facility] Report Specimen (Source) Anatomical Collection Method Collection Time Re ceived Time Location / / Volume Laterality 04/17/2018 9:10 AM EDT Narrative This result has an attachment that is no t available. Matilda Cortez MD VASCULAR ORDERABLES Performing Organization Address City/State/ZIP Code Phon e Number [facility] documented in this encounter Visit Diagnoses Diagnosis Acute deep vein thrombosis (DVT) of femo ral vein of right lower extremity documented in this encounter Care Teams Obstetrics And Gynecology Professor Relationship Specialty Start Date End Date Ayla Brown MD PCP - General Internal Medicine 02/27/18 [address] [place] [address] documented as of this encounter
--- OUTSIDE RECORDS SUMMARY | 2022-04-21 01:01 | XMS_ITS | Encounter Summary ---
:1945 Author Organization [facility] Address [address] [place] [address] Care Team Providers Name Role Phone Ayla Brown MD Primary Care Provider Reason for Visit Reason Comments Establish Care Encounter Details Date Type Department Care Team Description 02/27/2018 Office Visit Vascular Surgery at [facility] Ac ute deep vein [facility] [place] thrombosis (DVT) of [facility] fem oral vein of right Drive Dr lower extremity [place] [address] 6 [address] [phone] Social History Tobacco Use Types Packs/Day Years Used Date Former Smoker Quit: 03/06/19 79 Smokeless Tobacco: Never Used Alcohol Use Standard Drinks/Week Comments Yes 5 (1 standard drink = 0.6 oz pure alcoho l) Sex Assigned at Date Recorded Not on file documented as of this encounter Last Filed Vital Signs Vital Sign Reading Time Taken Comments Blood Pressure 127/79 02/27/2018 1:28 PM EDT Pulse 81 02/27/2018 1:28 PM EDT Temperature - - Respiratory Rate - - Oxygen Saturation - - Inhaled Oxygen Concentration - - Weight 102.1 kg (225 lb) 02/27/2018 1:28 PM EDT Height 172.7 cm (5' 8) 02/27/2018 1:28 PM EDT Body Mass Index 34.21 02/27/2018 1:28 PM EDT documented in this encounter Progress Notes [facility] PA - 02/27/2018 1:00 PM EDT VASCULAR SURGERY OUTPATIENT NOTE 72 yo female referred to Vascular Surgery for further evaluation and assessment of RLE DVT. Patient reports h/o provoked RLE DVT following L TKA in 2016, complicated by PE, completed 1 year course of anticoagulation. Provoked RLE DVT following long plane flight in December currently on Xarelto 20mg daily. H/o Eliquis use but was transitioned to Xarelto as it was thought that the clot burden had increased while on Eliquis. Patient reports intermittent swelling of the LE with positional pain. CTA chest r/oPE last month. Anxiety regarding physical activity limitations. Does not use compression hose. PCP and [facility] in [place]. PMHx: Past Medical History: Diagnosis Date ??? Acute deep vein thrombosis (DVT) of femoral vein of right lower extremity 02/27/2018 PSxHx: L TKA Family Hx: Family History Problem Relation Age of Onset ??? Lymphoma Mother ??? Cancer Sister Breast Social Hx: Social History Substance Use Topics ??? Smoking status: Former Smoker Quit date: 03/06/1980 ??? Smokeless tobacco: Never Used ??? Alcohol use 3.0 - 6.0 oz/week 5 - 10 Glasses of wine per week Medications: Medications 02/27/18 1427 Medication Sig Taking? Thyroid, Pork, (ARMOUR THYROID) 90 mg Tablet Take 90 mg by mouth daily. rivaroxaban (XARELTO) 20 mg Tablet Take 20 mg by mouth daily. triamterene-hydrochlorothiazide (DYAZIDE) 37.5-25 mg Capsule Take 1 capsule by mouth daily as needed(takes a couple times per week). Allergies: Allergies Allergen Reactions ??? Epinephrine Pass out and needs O2 ??? Anesthesia Tray States very sensitive, Less is better ??? Penicillins Had reaction as a child was told not to take it anymore Review of Systems: Constitutional (weight change, fever) - Denies Neuro (dizziness, seizures, numbness, tingling) - Denies Eyes (vision) - Denies Ears, nose, throat (hearing) - Denies Cardiovascular (CP) - Denies Respiratory (SOB) - Denies GI (abd pain, nausea, emesis, blood in stool) - Denies (hematuria, dysuria, frequency) - Denies Muscoloskeletal (extremity pain, weakness) - per HPI Skin (ulcers, rashes) - per HPI All other ROS negative Physical Exam: Vitals: Most Recent Vitals: 02/27/18 1328 BP: 127/79 Pulse: 81 PainSc: 5 NAD, resting comfortably on exam table Supportive spouse at bedside Non-labored breathing on RA RRR RLE with trace peripheral edema, palpable DP/DP, FROM of ankle, calf minimally tender Labs/Studies: LE duplex (02/27/18): RIGHT: There is mostly occlusive thrombus identified for a short segment in the femoral vein in the very distal thigh. There is also non-occlusive thrombus identified in the mid to above knee popliteal vein. Patent common femoral vein and popliteal vein with spontaneous, respirophasic Doppler waveforms that respond normally to augmentation maneuvers. The common femoral vein, saphenofemoral junction, and femoral vein proximal through mid thigh are fully compressible. Patent posterior tibial veins with no evidence of thrombus. Peroneal veins are patent but were not adequately visualized to exclude non-occlusive thrombus. Interpretation: RIGHT: Lower extremity DVT of indeterminate age (distal femoral and popliteal veins). Cannot exclude additional non-occlusive DVT in the peroneal veins in the calf due to suboptimal visualization. No evidence of common femoral, proximal to mid femoral or posterior tibial DVT. Comparison: ??No previous study in our vascular lab database for comparison. Comment: Patient is being anticoagulated and has a consultation with YARON Richardson in Vascular Clinic immediately following this exam. Assesment/Plan: 72 yo female with provoked RLE DVT x2, stable when compared with images from [facility], currently on anticoagulation. Would recommend continuation of anticoagulation; consider lifelong versus 6 months followed by hematologic work up. Elevation and compression hose (scripts provided). Activity as tolerated. Patient requesting records from [facility], referred her to Medical Records/Vascular Lab for actual images. RTC prn. Greater than 50% of this 45 minute visit was spent in patient counseling/education. Case discussed with Dr. Rose. documented in this encounter Plan of Treatment Not on filedocumented as of this encounter Visit Diagnoses Diagnosis Acute deep vein thrombosis (DVT) of femo ral vein of right lower extremity documented in this encounter Care Teams Medical Sales Consultant Relationship Specialty Start Date End Date Ayla Brown MD PCP - General Internal Medicine 02/27/18 [address] [place] [address] documented as of this encounter
--- OUTSIDE RECORDS SUMMARY | 2022-04-21 01:02 | XMS_ITS | Encounter Summary ---
:1945 [place] [address] Care Team Providers Name Role Phone Karin Vasquez MD Primary Care Provider Encounter Details Date Type Department Care Team Description 03/26/2017 Hospital Encounter Radiology Library at [place], Daniel Cardenas MD [facility] [place] [address] [place] [address] [phone] (Wo rk) Social History Tobacco Use Types [...] Procedure Name Priority Date/Time Associated Comments Diagnosis FILM LIBRARY STORAGE Routine 03/26/2017 12:00 AM Results for this ONLY ULTRASOUND EDT procedure greg singh in STUDY the results section. documented in this encounter Results Film Library- Storage Only Ultrasound Study (03/26/2017 12:00 AM EDT) Specimen (Source) Anatomical Location Collection Method / Collectio n Time Received Time / Laterality Volume Narrative RAD - 02/27/2018 3:20 PM EDT This exam is for storage only and is aut o-finalizing. Aneudy Cortez MD IMG FILM LIBRARY ORDERABLES Performing Organization Address City/State/ZIP Code Phon e Number [facility] [place], [place] documented in this encounter Visit Diagnoses Not on filedocumented in this encounter Care Teams Cloth Carrier Relationship Specialty Start Date End Date Karin Vasquez MD PCP - General Gerontology 03/06/16 02/26/[address] [place] [address] documented as of this encounter
--- OUTSIDE RECORDS SUMMARY | 2022-04-21 01:02 | XMS_ITS | Encounter Summary ---
:1945 [place] [address] Care Team Providers Name Role Phone Karin Vasquez MD Primary Care Provider Encounter Details Date Type Department Care Team Description 01/28/2018 Hospital Encounter Radiology Library at [place], Daniel Cardenas MD [facility] [place] [address] [place] [address] [phone] (Wo rk) Social History Tobacco Use Types [...] Associated Comments Diagnosis FILM LIBRARY STORAGE Routine 01/28/2018 12:00 AM Results for this ONLY ULTRASOUND EDT procedure greg singh in STUDY the results section. documented in this encounter Results Film Library- Storage Only Ultrasound Study (01/28/2018 12:00 AM EDT) Specimen (Source) Anatomical Location Collection Method / Collectio n Time Received Time / Laterality Volume Narrative RAD - 02/27/2018 3:22 PM EDT This exam is for storage only and is aut o-finalizing. Aneudy Cortez MD IMG FILM LIBRARY ORDERABLES Performing Organization Address City/State/ZIP Code Phon e Number [facility] [place], [place] documented in this encounter Visit Diagnoses Not on filedocumented in this encounter Care Teams Burrer Operator Relationship Specialty Start Date End Date Karin Vasquez MD PCP - General Gerontology 03/06/16 02/26/[address] [place] [address] documented as of this encounter
--- OUTSIDE RECORDS SUMMARY | 2022-04-21 01:02 | XMS_ITS | Encounter Summary ---
:1945 [place] [address] Care Team Providers Name Role Phone Karin Vasquez MD Primary Care Provider Encounter Details Date Type Department Care Team Description 02/05/2018 Hospital Encounter [facility] [place] [facility] [place] [address] [place] [address] [phone] (Wo rk) Social History Tobacco Use Types [...] Name Priority Date/Time Associated Diagnosis Comme nts FILM LIBRARY Routine 02/05/2018 12:00 AM Results for this STORAGE ONLY CT EDT procedure ar e in CHEST the results section. documented in this encounter Results Film Library- Storage Only CT Chest (02/05/2018 12:00 AM EDT) Specimen (Source) Anatomical Location Collection Method / Collectio n Time Received Time / Laterality Volume Narrative RAD - 02/27/2018 3:23 PM EDT This exam is for storage only and is aut o-finalizing. Aneudy Cortez MD IMG FILM LIBRARY ORDERABLES Performing Organization Address City/State/ZIP Code Phon e Number RAD [place], [place] documented in this encounter Visit Diagnoses Not on filedocumented in this encounter Care Teams Risk Control Consultant Relationship Specialty Start Date End Date Karin Vasquez MD PCP - General Gerontology 03/06/16 02/26/[address] [place] [address] documented as of this encounter
--- OUTSIDE RECORDS SUMMARY | 2022-04-21 01:02 | XMS_ITS | Encounter Summary ---
:1945 Author Organization [facility] [place] [address] Care Team Providers Name Role Phone Karin Vasquez MD Primary Care Provider Reason for Visit Reason Comments Left Knee Pain S/P Lt TKA DOS 01/19/15 Consultation (Routine) - Closed Specialty Diagnoses / Procedures Referred By Contact Refer red To Contact Orthopaedics Diagnoses s/p left total knee instability Baljinder Deras MD Moschetti, Wayne E, MD [address] [place] [address] [address] [place], [place] ORTHOPA[facility]IC SURGERY [id number] [place] [phone] Fax: Referral ID Status Reason Start Date Expiration Visits Visits Date Requested Authorized [id number] Closed Connection 01/27/2016 01/26/2017 1 1 Center PCP Updated and/or Approved Encounter Details Date Type Department Care Team Description 03/06/2016 Office Visit Orthopaedics at [facility] Bob Shields H/O total knee replacement, left; [facility] MD Yanelis Instability of knee joint, [place] [address] CENTER [phone] ORTHOPAEDIC SURGERY [place] [address] Social History Tobacco Use Types Packs/Day Years Used Date Former Smoker Quit: 03/06/19 80 Smokeless Tobacco: Never Used Alcohol Use Standard Drinks/Week Comments Yes 5 (1 standard drink = 0.6 oz pure alcoho l) Sex Assigned at Date Recorded Not on file documented as of this encounter Last Filed Vital Signs Vital Sign Reading Time Taken Comments Blood Pressure 119/77 03/06/2016 10:28 AM EDT Pulse 91 03/06/2016 10:28 AM EDT Temperature - - Respiratory Rate - - Oxygen Saturation - - Inhaled Oxygen Concentration - - Weight 90.7 kg (200 lb) 03/06/2016 10:28 AM verbal, Pt declined EDT Height 172.7 cm (5' 8) 03/06/2016 10:28 AM verbal, Pt declined EDT Body Mass Index 30.41 03/06/2016 10:28 AM EDT documented in this encounter Progress Notes Sorin Marie PA - 03/06/2016 10:00 AM EDT Patient Name: Carolann Brennan : 1945 MR#: [id number] Case Date: 01/19/15 Surgeon: Baljinder Burleson Procedure: left total knee replacement HPI: Carolann Brennan is a very pleasant 70 y.o. year-old female who presents for knee instability s/p TKA. The patient has been doing very well and her pain is markedly improved over preoperative status. No fevers, chills, nausea, vomiting, or symptoms of infection. Carolann has been ambulating with a cane and working with PT. Patient stated that she was doing well until 6 weeks postop at PT when doing a deep knee bend wall slide she heard a pop in her left knee, she felt instant pain and stopped her PT. She rested for half an hour before driving home. The progress she has made during her recuperation and PT was also lost. She states that shortly after she was diagnosed with PE and thoracic aortic ascending aneurysm 4.6 cm. She is taking Zerelto presently. Physical Exam: Well-appearing female in no acute distress. Alert and Oriented x 3 and answers all questions appropriately. The incision is well healed, with no signs of infection. Knee Exam: Left Knee ROM: Extension:hyperextension Flexion: 100 and 120 Alignment: 0-4 degrees Neutral Stability: A/P Translation 5-10mm Varus <5mm Valgus <5mm Extension La degrees or less Patella Tracking: Normal Pulses Palpable: Left PT:Yes Left DP:Yes Motor/Sensory: Distal Motor: Normal Distal Sensory: Normal Quadriceps Strength: 4 X-RAYS: Multiple radiographic views were obtained at my request and reviewed with the patient. X-rays show a well-placed prosthesis with no evidence of fracture or loosening. ASSESSMENT/PLAN: Patient is one years post-op TKA with evidence of instabiity. Continue weightbearing as tolerated and working on muscle strengthening. She will try swimming, biking and walking as tolerated. We discussed the benefit of surgery; at this time the patient seemed to be inclined to waiting tillnexsummer. She lives in [place] in the summer and [place] in the winter months. Signed: YARON Zuniga 03/06/2016 Bob Shields MD - 03/06/2016 10:00 AM EDT Images from the original note were not included. Department of Orthopaedics Division of Adult Joint Reconstructive Surgery March 06, 2016 I had the pleasure of evaluating Carolann Brennan in clinic in conjunction with one of my associate providers. In brief, this is a 70-year-old female who underwent a left total knee replacement approximately [address] Deras in [facility]. She has what sounds like a profound valgus knee which was replaced with a cruciate retaining total knee. She reports for the first 6 weeks after surgery she did quite well. She had a dramatic improvement in her pain and she was advancing her activities with physical therapy. She was doing wall squats with therapy about 6 weeks out from surgery and felt a pop in the knee. Ever since then she has had increasing pain and sense of instability in the knee. She has tried physical therapy and bracing with little relief. Unfortunately, in the fall after traveling both out to [place] and then to [place] she ended up with profound shortness of breath for several days. She was seen by her primary care doctor in [place] and subsequently sent to the emergency department after some EKG changes were identified. She was noted to have a large saddle emboli after presentation to the ED and was bridged with what sounds like heparin to Xarelto. She is now maintained on Xarelto for anticoagulation and follows with a food safety director in [place]. On the CT of her chest she was also noted to have a thoracic aortic aneurysm and this is being followed by a vascular doctor down in [place] as well. She is scheduled for a repeat CT scan of her chest in July. Radiographically she has what appears to be a well positioned cruciate retaining cemented rotating platform total knee replacement. There is no radiographic evidence of some sinus loosening or periprosthetic complication. On exam, she has a well healed incision. She has 1 to 2+ edema in her lower extremities. She has palpable pulses. She has profound instability of the knee with about 5 to 10 degrees of hyperextension and global instability throughout the flexion arch. ASSESSMENT AND PLAN: Carolann is a 70-year-old female with a history of a saddle emboli treated on Xarelto as well as having a thoracic aortic aneurysm who presents with a globally unstable left knee replacement. We discussed how to address this surgically. She has had about a year of therapy and clearly is an exhausted therapy as an option. She certainly at high risk for surgery secondary to her medical comorbidities specifically her history of an emboli. She did have a DVT in the nonoperative leg which was thought to have led to the saddle emboli and continues to be on Xarelto. We discussed starting by up-sizing the polyethylene component and using a curved insert, but unfortunately I do not think this will address her global instability. We discussed conversion of her knee replacement to a posterior stabilized implant, likely having to use a TC3 and provide more constraints. Certainly this would help address her instability, but she would still need to work on therapy to increase the overall muscle tone around the knee. We addressed her being at high-risk and we need her to see Dr. Saul her medical doctor preoperatively for clearance to help with coordination of her anticoagulation from her food safety director. She only lives in [place] for the summer and heads back to [place] around so the timing of surgery would also be an issue. I outlined she would need at least 4 to 6 weeks to recover before she would feel like traveling and I would like to see her at her first postoperative visit before she headed back to [place]. She would like to think things over with her and talk with her food safety director before scheduling surgery. Certainly if she had to wait to the spring I do not think this is totally unreasonable, but I did caution her about falling and having an injury should the knee give out. At this point all questions were answered and she was given the contact information for my access registrar if she would like to proceed with surgery. Bob Shields MD, MS Chief, Division of Adult Reconstructive Grain MerchandiserGang Investigator of Orthopaedics Department of Orthopaedics [facility] [phone] [email or web address] documented in this encounter Plan of Treatment Not on filedocumented as of this encounter Visit Diagnoses Diagnosis H/O total knee replacement, left Instability of knee joint, left documented in this encounter Care Teams Computer Engineering Technician Relationship Specialty Start Date End Date Karin Vasquez MD PCP - General Gerontology 03/06/16 02/26/18 [facility] [address] [place] [address] documented as of this encounter
--- OUTSIDE RECORDS SUMMARY | 2022-04-21 01:02 | XMS_ITS | Encounter Summary ---
:1945 [place] [address] Care Team Providers Name Role Phone Ankit Bae MD Primary Care Provider Encounter Details Date Type Department Care Team Description 09/03/2015 Hospital Encounter Radiology Library at Nikolay Shields Pain [facility] [place] [address] ORTHOPAEDIC SURGERY [phone] [place], [place] [address] (Wo rk) Social History Tobacco Use Types Packs/Day Years Used Date Never Assessed Sex Assigned at Date Recorded Not on file documented as of this encounter Plan of Treatment Not on filedocumented as of this encounter Procedures Procedure Name Priority Date/Time Associated Diagnosis Comme nts FILM LIBRARY Routine 09/03/2015 12:00 AM Pain Results for this STORAGE ONLY DX EST procedure ar e in KNEE the results section. documented in this encounter Results Film Library- Storage only DX Knee (09/03/2015 12:00 AM EST) Specimen (Source) Anatomical Location Collection Method / Collectio n Time Received Time / Laterality Volume Narrative RAD - 03/06/2016 9:14 AM EDT This exam is for storage only and is aut o-finalizing. Bob Shields MD IMG FILM LIBRARY ORDERABLES Performing Organization Address City/State/ZIP Code Phon e Number [place], [place] documented in this encounter Visit Diagnoses Diagnosis Pain Generalized pain documented in this encounter Care Teams Road Mender Relationship Specialty Start Date End Date Ankit Bae MD PCP - General 07/12/10 03/05/[address] [place] [address] documented as of this encounter
--- OUTSIDE RECORDS SUMMARY | 2022-04-21 01:02 | XMS_ITS | Encounter Summary ---
:1945 Author Organization [facility] [address] Care Team Providers Name Role Phone Karin Vasquez MD Primary Care Provider Encounter Details Date Type Department Care Team Description 03/06/2016 Hospital Encounter [place] [facility] History of total [address] [facility] [address] Yanelis MD knee arthroplasty, [place], [place] [facility] [address] [place] [phone] [place] [address] Social History Tobacco Use Types Packs/Day Years [...] Name Priority Date/Time Associated Diagnosis Comme nts XR KNEE STANDING Routine 03/06/2016 10:03 AM History of total Results for this ALIGNMENT AP LAT EDT knee arthroplasty, proce dure are in [place] SKYLINE left the result s LEFT section. documented in this encounter Results XR Joint Team Alignment AP Lat [place] Left (03/06/2016 10:03 AM EDT) Anatomical Region Laterality Modality Left Digital Radiography Specimen (Source) Anatomical Location Collection Method / Collectio n Time Received Time / Laterality Volume Impressions 03/06/2016 10:29 AM EDT 1. ??Left knee prosthesis without complication. 2. ??Osteoarthritis of the right knee. Narrative 03/06/2016 10:29 AM EDT EXAMINATION: XR JOINT TEAM ALIGNMENT AP LAT [place] SKYLINE LEFT CLINICAL HISTORY: L KNEE INSTABILITY S/P TKA TECHNIQUE: Separate images of the pelvis , knees and feet were acquired in the AP projection with the patient standing. Th bobby images were stitched together to form a composite image of the pelvis and legs allowing for evaluation of lower extremity alignment in the weight bearin g position. Four additional views were obtained. COMPARISON: September 03, 2015 FINDINGS: A left knee total prosthesis is present. The prosthesis is well-positioned without periprosthetic lucency or fractu re. A small metallic foreign body projecting anterior to the proximal left tibia is unchanged The lateral compartment of the right kne e is narrowed and associated osteophytes are present. Standing alignment There is normal alignment of the left le g and moderate lateral deviation of the weightbearing axis of the right leg. Procedure Note Dayo Carlson MD - 03/06/2016 EXAMINATION: XR JOINT TEAM ALIGNMENT AP LAT [place] SKYLINE LEFT CLINICAL HISTORY: L KNEE INSTABILITY S/P TKA TECHNIQUE: Separate images of the pelvis , knees and feet were acquired in the AP projection with the patient standing. Th bobby images were stitched together to form a composite image of the pelvis and legs allowing for evaluation of lower extremity alignment in the weight bearin g position. Four additional views were obtained. COMPARISON: September 03, 2015 FINDINGS: A left knee total prosthesis is present. The prosthesis is well-positioned without periprosthetic lucency or fractu re. A small metallic foreign body projecting anterior to the proximal left tibia is unchanged The lateral compartment of the right kne e is narrowed and associated osteophytes are present. Standing alignment There is normal alignment of the left le g and moderate lateral deviation of the weightbearing axis of the right leg. IMPRESSION 1. Left knee prosthesis without complica tion. 2. Osteoarthritis of the right knee. Bob Shields MD IMG DX ORDERABLES documented in this encounter Visit Diagnoses Diagnosis History of total knee arthroplasty, left documented in this encounter Care Teams Credit Rating Checker Relationship Specialty Start Date End Date Karin Vasquez MD PCP - General Gerontology 03/06/16 02/26/[address] [place] [address] documented as of this encounter
--- OUTSIDE RECORDS SUMMARY | 2022-04-21 01:02 | XMS_ITS | Encounter Summary ---
:1945 Author Organization [facility] [place] [address] Care Team Providers Name Role Phone Karin Vasquez MD Primary Care Provider Encounter Details Date Type Department Care Team Description 05/09/2016 Hospital [place] [address] Social History Tobacco Use Types Packs/Day [...] Procedure Name Priority Date/Time Associated Diagnosis Comme [facility] SURGICAL PATHOLOGY Routine 05/09/2016 12:00 PM Dena tolentino for this REPORT EDT procedure are i n the results section. documented in this encounter Results Surgical Pathology Report (05/09/2016 12:00 PM EDT) Component Value Ref Test Analysis Performed At [facility] Method Time Signature Surgical [id number] ?Location: [facility] Report The signing pathologist has (i) examined the relevant preparation(s) for the [facility] specimen(s) and (ii) rendered or confirmed the diagnosis(es) . HOSPITAL LABORATORY . ?Surgic al Pathology DIAGNOSIS A - Skin, right anterior thigh, shave biopsy: ?? Invasive squamous cell c arcinoma, well to moderately differentiated, present at the base of the biopsy specimen. B - Skin, presternal chest, shave biopsy: ?? Erosion with mixed infla mmation, dermal fibrosis, adjacent epidermal changes of actinic keratosis and liche n simplex chronicus. ?Basal cell carcinoma is not seen with multiple deeper levels examined. Electronically signed by: ??Ayan SOLANO, PhD, [facility] Verified: ??05/16/2016 ?Dermatopathologist CLINICAL INFORMATION Specimen Submitted: A - Skin, R anterior thigh, shave, (1) B - Skin, presternal chest, shave, (1) Clinical History: A - 8mm keratotic nodule B - 6 mm pearly nodule Clinical Diagnosis: A - SCC? B - BCC? Referring Identifier: ?(not provided) SPECIMEN PROCESSING A - Labeled/Fixative: R. Thigh, formalin. Quantity/Size: Single, 1.2 x 1.0 x 0.1 cm. Tissue Description: Centrally nodular, crusted price-white ski n. Sections/Processing: Inked and quadrisected. (T1) B - Labeled/Fixative: Presternal chest, formalin. Quantity/Size: Single, 0.8 x 0.7 x 0.1 cm. Tissue Description: Shave of yellow-price skin. Sections/Processing: Inked and trisected. (T1) ??ejr Specimen (Source) Anatomical Collection Method Collection Time Re ceived Time Location / / Volume Laterality 05/09/2016 12:00 PM EDT Angelique Last MD PATHOLOGY/CYTOLOGY ORDERABLE S Performing Organization Address City/State/[place] [address] documented in this encounter Visit Diagnoses Not on filedocumented in this encounter Care Teams Service Liaison Representative Relationship Specialty Start Date End Date Karin Vasquez MD PCP - General Gerontology 03/06/16 02/26/[address] [place] [address] documented as of this encounter
--- OUTSIDE RECORDS SUMMARY | 2022-04-21 01:02 | XMS_ITS | Encounter Summary ---
:1945 [place] [address] Care Team Providers Name Role Phone Ankit Bae MD Primary Care Provider Encounter Details Date Type Department Care Team Description 01/20/2015 Hospital Encounter Radiology Library at Nikolay Shields Pain [facility] [place] [address] ORTHOPAEDIC SURGERY [phone] [place], [place] [address] (Wo rk) Social History Tobacco Use Types Packs/Day Years Used Date Never Assessed Sex Assigned at Date Recorded Not on file documented as of this encounter Plan of Treatment Not on filedocumented as of this encounter Procedures Procedure Name Priority Date/Time Associated Diagnosis Comme nts FILM LIBRARY Routine 01/20/2015 12:00 AM Pain Results for this STORAGE ONLY DX EDT procedure ar e in KNEE the results section. documented in this encounter Results Film Library- Storage only DX Knee (01/20/2015 12:00 AM EDT) Specimen (Source) Anatomical Location Collection Method / Collectio n Time Received Time / Laterality Volume Narrative RAD - 01/25/2016 3:28 PM EDT This exam is for storage only and is aut o-finalizing. Bob Shields MD IMG FILM LIBRARY ORDERABLES Performing Organization Address City/State/ZIP Code Phon e Number RAD [place], [place] documented in this encounter Visit Diagnoses Diagnosis Pain Generalized pain documented in this encounter Care Teams Tube Room Cashier Relationship Specialty Start Date End Date Ankit Bae MD PCP - General 07/12/10 03/05/[address] [place] [address] documented as of this encounter
--- OUTSIDE RECORDS SUMMARY | 2022-04-21 01:02 | XMS_ITS | Encounter Summary ---
:1945 [place] [address] Care Team Providers Name Role Phone Karin Vasquez MD Primary Care Provider Encounter Details Date Type Department Care Team Description 01/18/2018 Hospital Encounter Radiology Library at [place], Daniel Cardenas MD [facility] [place] [address] [place] [address] [phone] (Wo rk) Social History Tobacco Use Types [...] Associated Comments Diagnosis FILM LIBRARY STORAGE Routine 01/18/2018 12:00 AM Results for this ONLY ULTRASOUND EDT procedure greg singh in STUDY the results section. documented in this encounter Results Film Library- Storage Only Ultrasound Study (01/18/2018 12:00 AM EDT) Specimen (Source) Anatomical Location Collection Method / Collectio n Time Received Time / Laterality Volume Narrative RAD - 02/27/2018 3:21 PM EDT This exam is for storage only and is aut o-finalizing. Aneudy Cortez MD IMG FILM LIBRARY ORDERABLES Performing Organization Address City/State/ZIP Code Phon e Number [facility] [place], [place] documented in this encounter Visit Diagnoses Not on filedocumented in this encounter Care Teams Farm Equipment Engine Mechanic Relationship Specialty Start Date End Date Karin Vasquez MD PCP - General Gerontology 03/06/16 02/26/[address] [place] [address] documented as of this encounter
--- OUTSIDE RECORDS SUMMARY | 2022-04-21 01:02 | XMS_ITS | Encounter Summary ---
:1945 Author Organization [facility] [place] [address] Care Team Providers Name Role Phone Ayla Brown MD Primary Care Provider Reason for Visit Consultation (Routine) - Closed Specialty Diagnoses / Procedures Referred By Contact Refer red To Contact Vascular Surgery Diagnoses Deep Vein Thrombosis (I82.49) Ayla Brown, [facility] Vascular Surg 3v Procedures Deep Vein Thrombosis [facility] [address] [address] [place], [place] Phone: [phone] Referral ID Status Reason Start Date Expiration Date Visits V isits Requested Authorized [id number] Closed Consult, 02/06/2018 02/06/2019 3 3 Test & Treat Encounter Details Date Type Department Care Team Description 02/27/2018 Hospital Encounter Vascular Lab at [facility] deep vein Karin Buck R, [place] thrombosis (D VT) of [facility] [place] [address] Social History Tobacco Use Types [...] Diagnosis Comme nts DUPLEX FOR DVT, Routine 02/27/2018 12:26 PM Acute deep vein Re sults for this LEG, UNILAT EDT thrombosis (DVT) of procedur e are in distal vein of right the res ults lower extremity section. documented in this encounter Results Duplex for DVT, Leg, Unilat (02/27/2018 12:26 PM EDT) Component Value Ref Test Analysis Performed At [facility] Range Method Time Signature VB Text Department: Vascular Surgery Lab [facility] Report Patient: [id number] (JUSTYNA DHALIWAL) CPT: 98798 ICD10: I82.4Z1 Referring Physician: RICKEY GOMEZ ?? Indications: ??Recent histor y right lower extremity DVT from OSH, patient being anticoagulated, reassess clot burden ICD10 Diagnosis Code: I82.4Z1 RIGHT: There is mostly occlu sive thrombus identified for a short segment in the femoral vein in the very distal thigh. There is also non-o cclusive thrombus identified in the mid to above knee popliteal vein. Patent common femoral vein and popliteal vein wi th spontaneous, respirophasic Doppler waveforms that respond normally to augme ntation maneuvers. The common femoral vein, saphenofemoral junction, and femoral vei n proximal through mid thigh are fully compressible . Patent posterior tibial veins with no evidence of thrombus. Peroneal veins are patent but were not adequately visualized to exclude non-occlusive thrombus. Interpretation: RIGHT Lower extremity DV T of indeterminate age (distal femoral and popliteal veins). Cannot exclude additional non-occlusiv e DVT in the peroneal veins in the calf due to suboptimal visualization. No evidence of common femoral, proximal to mid femoral or posterior tibial DVT. Comparison: ??No previous study in our vascular lab da tabase for comparison. Comment: Patient is anticoagulated and h as a consultation with YARON Richardson in Vascular Clinic immediately following this exam. Electronically Signed by: JOHNATHAN FERRER on 2018-03-01 07:12: 13 PM VB Text End of Report [facility] Report Specimen (Source) Anatomical Collection Method Collection Time Re ceived Time Location / / Volume Laterality 02/27/2018 12:26 PM EDT Rickey Gomez MD VASCULAR ORDERABLES Performing Organization Address City/State/ZIP Code Phon e Number [facility] documented in this encounter Visit Diagnoses Diagnosis Acute deep vein thrombosis (DVT) of dist al vein of right lower extremity documented in this encounter Care Teams Site Safety Manager Relationship Specialty Start Date End Date Ayla Brown MD PCP - General Internal Medicine 02/27/18 [address] [place] [address] documented as of this encounter
--- OUTSIDE RECORDS SUMMARY | 2022-04-21 01:02 | XMS_ITS | Encounter Summary ---
:1945 [place] [address] Care Team Providers Name Role Phone Ankit Bae MD Primary Care Provider Encounter Details Date Type Department Care Team Description 04/20/2015 Hospital Encounter Radiology Library at Nikolay Shields Pain [facility] [place] [phone] ORTHOPAEDIC SURGERY [phone] [place], [place] [address] (Wo rk) Social History Tobacco Use Types Packs/Day Years Used Date Never Assessed Sex Assigned at Date Recorded Not on file documented as of this encounter Plan of Treatment Not on filedocumented as of this encounter Procedures Procedure Name Priority Date/Time Associated Diagnosis Comme nts FILM LIBRARY Routine 04/20/2015 12:00 AM Pain Results for this STORAGE ONLY DX EDT procedure ar e in KNEE the results section. documented in this encounter Results Film Library- Storage only DX Knee (04/20/2015 12:00 AM EDT) Specimen (Source) Anatomical Location Collection Method / Collectio n Time Received Time / Laterality Volume Narrative RAD - 01/25/2016 3:29 PM EDT This exam is for storage only and is aut o-finalizing. Bob Shields MD IMG FILM LIBRARY ORDERABLES Performing Organization Address City/State/ZIP Code Phon e Number RAD [place], [place] documented in this encounter Visit Diagnoses Diagnosis Pain Generalized pain documented in this encounter Care Teams Consumer Studies Professor Relationship Specialty Start Date End Date Ankit Bae MD PCP - General 07/12/10 03/05/[address] [place] [address] documented as of this encounter
--- OUTSIDE RECORDS SUMMARY | 2022-04-21 01:02 | XMS_ITS | Encounter Summary ---
:1945 Author Organization [facility] [place] [address] Care Team Providers Name Role Phone Ayla Brown MD Primary Care Provider Encounter Details Date Type Department Care Team Description 02/13/2018 Orders Only Vascular Surgery at [place] deep vein [facility], RN thrombosis (DVT) of [facility] distal ve in of [place] [phone] Social History Tobacco Use Types Packs/Day Years Used Date Former Smoker Quit: 03/06/19 79 Smokeless Tobacco: Never Used Alcohol Use Standard Drinks/Week Comments Yes 5 (1 standard drink = 0.6 oz pure alcoho l) Sex Assigned at Date Recorded Not on file documented as of this encounter Plan of Treatment Not on filedocumented as of this encounter Results Duplex for DVT, Leg, Unilat (02/27/2018 12:26 PM EDT) Component Value Ref Test Analysis Performed At [facility] Method Time Signature VB Text Department: Vascular Surgery Lab VASCU[facility] Report Patient: [id number] (JUSTYNA DHALIWAL) CPT: 01819 ICD10: I82.4Z1 Referring Physician: RICKEY GOMEZ ?? [...] extremity documented in this encounter Care Teams Urban Gardening Specialist Relationship Specialty Start Date End Date Ayla Brown MD PCP - General Internal Medicine 02/27/18 [address] [place] [address] documented as of this encounter
--- OUTSIDE RECORDS SUMMARY | 2022-04-21 01:03 | XMS_ITS | Encounter Summary ---
:[address] [facility] Address [address] [place] [address] Care Team Providers Name Role Phone Unavailable Primary Care Provider Unavailable Encounter Details Date Type Department Care Team Description 01/13/2009 Hospital Encounter [facility] - Vinod Ramos, Other [place] 111 [facility] [address] [place] [address] [address] [place] [address] (Wo rk) Social History Tobacco Use Types Packs/Day Years Used Date Never Assessed Sex Assigned at Date Recorded Not on file documented as of this encounter Discharge Disposition Disposition Code Departure Means Destination Home or Self Care documented in this encounter Plan of Treatment Upcoming Encounters Date Type Specialty Care Team Description 06/02/2022 Nurse Only Dermatology Photodynamic Therapy, Derm documented as of this encounter Visit Diagnoses Not on filedocumented in this encounter
--- OUTSIDE RECORDS SUMMARY | 2022-04-21 01:03 | XMS_ITS | Encounter Summary ---
:1945 Author Organization [facility] Address [address] [place] [address] Care Team Providers Name Role Phone Ankit Bae MD Primary Care Provider Unavailable Encounter Details Date Type Department Care Team Description 03/19/2009 Orders Only [facility] - Ankit Huddleston MD [place] [address] [place] [address] Social History Tobacco Use Types Packs/Day Years Used Date Never Assessed Sex Assigned at Date Recorded Not on file documented as of this encounter Plan of Treatment Upcoming Encounters Date Type Specialty Care Team Description 06/02/2022 Nurse Only Dermatology Photodynamic Therapy, Derm documented as of this encounter Procedures Procedure Name Priority Date/Time Associated Diagnosis Comme nts MA MAMMO SCREENING 03/10/2009 11:14 Resul ts for this DIGITAL EDT procedure are i n the results section. documented in this encounter Results MA MAMMO SCREENING DIGITAL (03/10/2009 11:14 EDT) Anatomical Region Laterality Modality Other Specimen Narrative [facility] RADIOLOG[facility] - 03/11/2009 17:19 EDT Comparison is made to films from 007 (bilateral) and films from 03/01/2006 (bilateral) and films fr om 02/28/2005 (bilateral) and films from 03/04/2004. Bilateral Breast Findings: (CAD used to interpret routine digital): The breasts are almost entirely fat. No significant masses, calcifications or other abnormalities ar e seen. IMPRESSION: BILATERAL BREASTS - CATEGORY 1, NEGATIVE Negative, no evidence of malignancy. Nor mal interval follow-up is recommended in 12 months. OVERALL ASSESSMENT - NEGATIVE END OF IMPRESSION The patient will be notified of her/his breast imaging results via a lay letter from Radiology. ??Radiology w ill contact the patient directly regarding any findings which re quire additional imaging (Category 0) at this time. Procedure Note 03/11/2009 Comparison is made to films from 007 (bilateral) and films from 03/01/2006 (bilateral) and films fr om 02/28/2005 (bilateral) and films from 03/04/2004. Bilateral Breast Findings: (CAD used to interpret routine digital): The breasts are almost entirely fat. No significant masses, calcifications or other abnormalities ar e seen. IMPRESSION: BILATERAL BREASTS - CATEGORY 1, NEGATIVE Negative, no evidence of malignancy. Nor mal interval follow-up is recommended in 12 months. OVERALL ASSESSMENT - NEGATIVE END OF IMPRESSION The patient will be notified of her/his breast imaging results via a lay letter from Radiology. Radiology chris l contact the patient directly regarding any findings which re quire additional imaging (Category 0) at this time. Performing Organization Address City/State/ZIP Code Phon e Number [facility] RADIOLOGY S [facility] documented in this encounter Visit Diagnoses Not on filedocumented in this encounter Care Teams Press Set Up Relationship Specialty Start Date End Date Ankit Bae MD PCP - General 01/15/09 1 documented as of this encounter
--- OUTSIDE RECORDS SUMMARY | 2022-04-21 01:03 | XMS_ITS | Encounter Summary ---
:1945 Author Organization [facility] Address [address] [place] [address] Care Team Providers Name Role Phone Pop Sood DO Primary Care Provider Encounter Details Date Type Department Care Team Description 07/28/2011 Results Only [facility] Oscar Real MD Laboratory Services - [address] [facility] [address] [facility] [address] [place] [phone] (Wo rk) Social History Tobacco Use Types Packs/Day Years Used Date Never Assessed Sex Assigned at Date Recorded Not on file documented as of this encounter Plan of Treatment Upcoming Encounters Date Type Specialty Care Team Description 06/02/2022 Nurse Only Dermatology Photodynamic Therapy, Derm documented as of this encounter Procedures Procedure Name Priority Date/Time Associated Diagnosis Comme [facility] SURGICAL PATHOLOGY Routine 07/28/2011 0:00 EST Re sults for this procedure are i n the results section. documented in this encounter Results SURGICAL PATHOLOGY (07/28/2011 0:00 EST) Pathology SURGICAL PATHOLOGY REPORT [facility] Report: Reports generated via electronic interface contain blaise ginal data; LAB however they are lacking the format of the original re port. Caution should be taken when reading/interpreting unfo rmatted reports. Name: ? JUSTYNA DHALIWAL ? Accession #: ? [id number] ? : ? 1945 (Age: 65) ??F ? Collect Date: ? 07/28/2011 ? Location: ? [facility] ? Receive Date: ? 011 ? Provider: OSCAR REAL MD Copy to: ? Final Pathologic Diagnosis: A. ?Skin of pubis, punch biopsy: 1. 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 ??See comment. B. ?Skin of sacrum, punch biopsy: 1. ?Epidermal ulceration with reactive ch anges and mild chronic inflammation. Comment: ? Numerous sections of both biopsies were reviewed. ??The biopsy from pubis (A) primarily shows features of lichen s implex chronicus with marked epidermal hyperplasia, hyperkeratosis, and scale crust. ??At one edge of the biopsy, there are features of excoriation. ??The biopsy from sacrum (B) shows similar features, although the degre e of epidermal hyperplasia is much less. ??In both of the biopsies, the inflammati on appears to be in proportion, and likely secondary to, the excoriation. ??There is no appreciable deep de rmal inflammation or eosinophils to suggest arthropod assault reaction. ??( Dr. Hernandez)/[facility] Microscopic Description: ? (A) Sections consist of a partially fragmented, punch biopsy of skin to the superficial reticular dermis. ??The stratum corneum price ve marked compact orthohyperkeratosis with ecc entric parakeratosis and scale crust. ??The epidermis is markedly hyperplastic wit h an irregular rete ridge pattern. ??At one edge of the biopsy, beneath the crust, there is superfic ial erosion/ulceration. ??The hyperplastic epidermis shows reactive nuclear changes with a thickened granular layer. ??The interface is ge nerally intact. ??There is mild intercellular edema with exocytosis of a small number of inflammatory cell s beneath the area of crust. ??In this region, the dermis has a modera tely dense mixed inflammatory infiltrate. ??There is a reactive vascular proliferati on. ??Other areas show widening of the dermal papil lae by thick bundles of collagen. ??Multiple deeper sections show similar features. (B) Sections consist of a punch biopsy of skin to the deep reticular dermis. There is a central focus of parakeratosis. ??In this region, the epidermis shows reactive changes with a somewhat tapered rete ri dge pattern. ??The underlying dermis has granulation tissue and subepi dermal fibrin deposition. ??There is a sparse dermal infiltrate ilana t is composed primarily of small lymphocytes. ??The infiltrate is more prominent in the area of reactive changes and does not extend appreciably into the deep de rmis. ??Deeper sections show similar features. ??(Dr. Hernandez)/[facility] Document reviewed and electronically signed by: WILLIAMS HERNANDEZ MD Report ??Date: 08/02/2011 15:31 By the signature above, the attending physician certif ies that he/she has personally conducted a gross and/or microscopic examin ation of the described specimens and rendered or confirmed the above diagnosi s. Specimen(s) Received: A. ?Pubis punch (#1) B. ? Sacrum (#2) Clinical History: ? Itchy bumps x yrs; Bites, LSC, other; cli nical diagnosis code: ??238.2 Gross Description: ? Received in formalin labelled [place], Justyna and pubis is an ovoid punch biopsy of white, focal ly ulcerated skin measuring 0.3 x 0.2 cm in diameter and 0.2 cm in thickness. ??The specimen is submitted i ntact as (A). Received in formalin labelled [place], Justyna and sacrum is a circular punch biopsy of white skin m easuring 0.3 cm in diameter and 0.3 cm in thickness. There is a slightly eccentric 0.1 x 0.1 by less than 0.1 cm circular, price, crusted papule. ??The specimen is submitted intact as (B). ??(A. Saravia)/kmm End of Report Specimen Performing Organization Address City/State/ZIP Code Phon e Number [facility] [address] [place] [address] [facility] [address] [place] [address] documented in this encounter Visit Diagnoses Not on filedocumented in this encounter Care Teams Flight Test Mechanic Relationship Specialty Start Date End Date Pop Sood DO PCP - General 04/07/11 01/09/[address] [place] [phone] documented as of this encounter
--- OUTSIDE RECORDS SUMMARY | 2022-04-21 01:03 | XMS_ITS | Encounter Summary ---
:1945 Author Organization [facility] Address [address] [place] [address] Care Team Providers Name Role Phone Pop Sood Primary Care Provider Encounter Details Date Type Department Care Team Description 04/14/2013 Results Only Imaging [facility]- Estefanía Sood DO [place] [address] [phone] [address] [place] [phone] (Wo rk) Social History Tobacco Use Types Packs/Day Years Used Date Never Assessed Sex Assigned at Date Recorded Not on file documented as of this encounter Plan of Treatment Upcoming Encounters Date Type Specialty Care Team Description 06/02/2022 Nurse Only Dermatology Photodynamic Therapy, Derm documented as of this encounter Procedures Procedure Name Priority Date/Time Associated Diagnosis Comme nts MA MAMMO SCREENING 04/25/2013 11:16 Resul ts for this DIGITAL EDT procedure are i n the results section. documented in this encounter Results MA MAMMO SCREENING DIGITAL (04/25/2013 11:16 EDT) Anatomical Region Laterality Modality Other Specimen Narrative [facility] RADIOLOGY - 04/28/2013 10:08 EDT Comparison has been made to previous images. Bilateral Breast Findings: (Routine digi georges views with CAD) The breasts are almost entirely fat (les s than 25% fibroglandular). No significant masses, calcifications or other abnormalities are seen. IMPRESSION: BILATERAL BREASTS: Negative, no evidence of malignancy. Normal interval follow-up is recommended in 12 months. OVERALL ASSESSMENT - CATEGORY 1 - NEGATI VE END OF IMPRESSION These results will be communicated to yo ur patient via a lay letter from Radiology. If any additional imagin g is needed we will contact your patient directly. Procedure Note 04/28/2013 Comparison has been made to previous caleb ges. Bilateral Breast Findings: (Routine digi georges views with CAD) The breasts are almost entirely fat (les s than 25% fibroglandular). No significant masses, calcifications or other abnormalities are seen. IMPRESSION: BILATERAL BREASTS: Negative, no evidence of malignancy. Normal interval follow-up is recommended in 12 months. OVERALL ASSESSMENT - CATEGORY 1 - NEGATI VE END OF IMPRESSION These results will be communicated to yo ur patient via a lay letter from Radiology. If any additional imagin g is needed we will contact your patient directly. Performing Organization Address City/State/ZIP Code Phon e Number [facility] RADIOLOGY S [facility] documented in this encounter Visit Diagnoses Not on filedocumented in this encounter Care Teams Pattern Designer Relationship Specialty Start Date End Date Pop Sood DO PCP - General 04/07/11 01/09/[address] [place] [phone] documented as of this encounter
--- OUTSIDE RECORDS SUMMARY | 2022-04-21 01:03 | XMS_ITS | Encounter Summary ---
:1945 Author Organization [facility] Address [address] [place] [address] Care Team Providers Name Role Phone Karin Vasquez MD Primary Care Provider Unavailable Encounter Details Date Type Department Care Team Description 01/12/2016 Results Only Imaging [facility]- Karin Vasquez MD [place] [address] [phone] [place] [address] Social History Tobacco Use Types Packs/Day Years Used Date Never Assessed Sex Assigned at Date Recorded Not on file documented as of this encounter Plan of Treatment Upcoming Encounters Date Type Specialty Care Team Description 06/02/2022 Nurse Only Dermatology Photodynamic Therapy, Derm documented as of this encounter Procedures Procedure Name Priority Date/Time Associated Diagnosis Comme nts MA 2D/3D BILATERAL 01/12/2016 11:49 Resul ts for this ANGY ROUTINE EDT procedure are i n SCREENING MAMMO the results section. documented in this encounter Results MA 2D/3D BILATERAL ANGY ROUTINE SCREENING MAMMO (01/12/2016 11:49 EDT) Anatomical Region Laterality Modality Other Specimen Narrative [facility] RADIOLOGY S PROSPECT - 01/12/2016 16:54 EDT Comparison has been made to previous images. Bilateral Breast Findings: (Routine digi georges views with CAD and 3D images with Tomosynthesis) The breasts are almost entirely fat (les [...] needed we will contact your patient directly. I have personally reviewed the images an d the above interpretation and agree with the findings. Procedure Note Ankit Min MD - 01/12/2016 Comparison has been made to previous caleb ges. Bilateral Breast Findings: (Routine digi georges views with CAD and 3D images with Tomosynthesis) The breasts are almost entirely fat (les [...] needed we will contact your patient directly. I have personally reviewed the images an d the above interpretation and agree with the findings. Performing Organization Address City/State/ZIP Code Phon e Number [facility] RADIOLOGY S [facility]OS[facility] documented in this encounter Visit Diagnoses Not on filedocumented in this encounter Care Teams Supervisor Cell Operation Relationship Specialty Start Date End Date Karin Vasquez MD PCP - General 01/10/16 05/29/[address] [place] [address] documented as of this encounter
--- OUTSIDE RECORDS SUMMARY | 2022-04-21 01:03 | XMS_ITS | Encounter Summary ---
:1945 Author Organization [facility] Address [address] [place] [address] Care Team Providers Name Role Phone Ankit Bae MD Primary Care Provider Unavailable Pop Sood DO Primary Care Provider Karin Vasquez MD Primary Care Provider Unavailable Ayla Brown Primary Care Provider Mary Ann Ruby MD Primary Care Provider Encounter Details Date Type Department Care Team Description 05/01/2006 Hospital Encounter [facility] - Karin Freitas MD [address] [facility] [address] [place], [place] [address] [place] [phone] (Wo rk) Social History Tobacco Use Types Packs/Day Years Used Date Never Assessed Sex Assigned at Date Recorded Not on file documented as of this encounter Plan of Treatment Upcoming Encounters Date Type Specialty Care Team Description 06/02/2022 Nurse Only Dermatology Photodynamic Therapy, Derm documented as of this encounter Procedures Procedure Name Priority Date/Time Associated Diagnosis Comme nts MA MAMMO SCREENING 03/07/2007 11:42 Resul ts for this DIGITAL EDT procedure are i n the results section. documented in this encounter Results MA MAMMO SCREENING DIGITAL (03/07/2007 11:42 EDT) Anatomical Region Laterality Modality Other Specimen Narrative [facility] - 02/17/2009 13 :44 EDT routine Comparison is made to films from 006 (bilateral) and films from 02/28/2005 (bilateral). Bilateral Breast Findings: (CAD used to interpret routine digital): The breasts are almost entirely fat. No significant masses, calcifications or other abnormalities ar e seen. IMPRESSION: BILATERAL BREASTS - CATEGORY 1 Negative, no evidence of malignancy. Nor mal interval follow-up is recommended in 12 months. OVERALL ASSESSMENT - NEGATIVE END OF IMPRESSION The patient will be notified of her/his breast imaging results via a lay letter from Radiology. ??Radiology w ill contact the patient directly regarding any findings which re quire additional imaging (Category 0) at this time. Procedure Note Arianna Ham MD - 02/17/2009 routine Comparison is made to films from 006 (bilateral) and films from 02/28/2005 (bilateral). Bilateral Breast Findings: (CAD used to interpret routine digital): The breasts are almost entirely fat. No significant masses, calcifications or other abnormalities ar e seen. IMPRESSION: BILATERAL BREASTS - CATEGORY 1 Negative, no evidence of malignancy. Nor mal [...] Organization Address City/State/ZIP Code Phon e Number [facility] RADIOLOGY [address] [facility] [id number] [place] [address] RADIOLOGY [address] [place], [place] [address] documented in this encounter Visit Diagnoses Not on filedocumented in this encounter Care Teams Classification Officer Relationship Specialty Start Date End Date Ankit Bae MD PCP - General 01/15/09 1 Pop Sood DO PCP - General 04/07/11 01/09/[address] [place] [phone] Karin Vasquez MD PCP - General 01/10/16 05/29/[address] [place] [address] Ayla Brown PCP - General 05/30/17 01/23/22 [address] [place] [address] Mary Ann Ruby MD PCP - General Internal Medicine - 01/24/[address] Primary Care [facility] [place] [address] documented as of this encounter
--- OUTSIDE RECORDS SUMMARY | 2022-04-21 01:03 | XMS_ITS | Encounter Summary ---
:1945 Author Organization [facility] Address [address] [place] [address] Care Team Providers Name Role Phone Pop Sood DO Primary Care Provider Encounter Details Date Type Department Care Team Description 04/17/2012 Hospital Encounter [facility] - S Pop Sood DO [place] [address] [place], [place] [address] [place] [phone] (Wo rk) Social History Tobacco Use Types Packs/Day Years Used Date Never Assessed Sex Assigned at Date Recorded Not on file documented as of this encounter Discharge Disposition Disposition Code Departure Means Destination Auto Discharge Home documented in this encounter Plan of Treatment Upcoming Encounters Date Type Specialty Care Team Description 06/02/2022 Nurse Only Dermatology Photodynamic Therapy, Derm documented as of this encounter Visit Diagnoses Not on filedocumented in this encounter Care Teams Filemaker Developer Relationship Specialty Start Date End Date Pop Sood DO PCP - General 04/07/11 01/09/[address] [place] [address] [address] [place] [phone] documented as of this encounter
--- OUTSIDE RECORDS SUMMARY | 2022-04-21 01:03 | XMS_ITS | Encounter Summary ---
:1945 Author Organization [facility] Address [address] [place] [address] Care Team Providers Name Role Phone Mary Ann Ruby MD Primary Care Provider Reason for Visit Reason Onset Date Comments Wound Care 04/04/2022 Encounter Details Date Type Department Care Team Description 04/04/2022 Telephone [facility] Rachid Saldivar MD Wound Care Dermatology - [facility] amp [address] [address] [address], [place] [address] (Wo rk) Social History Tobacco Use Types Packs/Day Years Used Date Never Assessed Sex Assigned at Date Recorded Not on file documented as of this encounter Miscellaneous Notes Telephone Encounter - Quynh Clayton RN - 04/04/2022 1359 EDT Patient requests information regarding PDT. She has an upcoming appointment. Patient education provided verbally and will send patient information through [employer]. QUYNH CLAYTON RN 04/04/2022 14:02 elephone Encounter - Jade Chaparro - 04/04/2022 1147 EDT Patient is calling to ask if there is special care that is needed after her photodynamic therapy on 05/26/22. Please advise. documented in this encounter Plan of Treatment Upcoming Encounters Date Type Specialty Care Team Description 06/02/2022 Nurse Only Dermatology Photodynamic Therapy, Derm documented as of this encounter Visit Diagnoses Not on filedocumented in this encounter Care Teams Promotions Officer Relationship Specialty Start Date End Date Mary Ann Ruby MD PCP - General Internal Medicine - 01/24/[address] [address] documented as of this encounter
--- OUTSIDE RECORDS SUMMARY | 2022-04-21 01:03 | XMS_ITS | Encounter Summary ---
:1945 Author Organization [facility] Address [address] [place] [address] Care Team Providers Name Role Phone Pop Sood DO Primary Care Provider Encounter Details Date Type Department Care Team Description 04/07/2011 Hospital Encounter [facility] - Kwasi Haro MD [place], William, DO [address] [place] [phone] [address] [place], [place] [address] Social History Tobacco Use Types Packs/Day Years Used Date Never Assessed Sex Assigned at Date Recorded Not on file documented as of this encounter Discharge Disposition Disposition Code Departure Means Destination Home or Self Nursing Home documented in this encounter Plan of Treatment Upcoming Encounters Date Type Specialty Care Team Description 06/02/2022 Nurse Only Dermatology Photodynamic Therapy, Derm documented as of this encounter Visit Diagnoses Not on filedocumented in this encounter Care Teams Buffer Copper Relationship Specialty Start Date End Date Pop Sood DO PCP - General 04/07/11 01/09/[address] [place] [phone] documented as of this encounter
--- OUTSIDE RECORDS SUMMARY | 2022-04-21 01:03 | XMS_ITS | Encounter Summary ---
:1945 Author Organization [facility] Address [address] [place] [address] Care Team Providers Name Role Phone Unavailable Primary Care Provider Unavailable Encounter Details Date Type Department Care Team Description 03/01/2006 Hospital Encounter [facility] [address] [facility] [address] [place] [address] [address] [place] [address] (Wo rk) Social History Tobacco Use Types Packs/Day Years Used Date Never Assessed Sex Assigned at Date Recorded Not on file documented as of this encounter Discharge Disposition Disposition Code Departure Means Destination Auto Discharge documented in this encounter Plan of Treatment Upcoming Encounters Date Type Specialty Care Team Description 06/02/2022 Nurse Only Dermatology Photodynamic Therapy, Derm documented as of this encounter Visit Diagnoses Not on filedocumented in this encounter
--- OUTSIDE RECORDS SUMMARY | 2022-04-21 01:03 | XMS_ITS | Encounter Summary ---
:1945 Author Organization [facility] Address [address] [place] [address] Care Team Providers Name Role Phone Unavailable Primary Care Provider Unavailable Encounter Details Date Type Department Care Team Description 05/23/2000 Hospital Encounter [facility] - Tess Licea MD Maple conversion [address] [place] [phone] Social History Tobacco Use Types Packs/Day Years [...] Procedure Name Priority Date/Time Associated Comments Diagnosis MA MAMMOGRAPHIC Routine 05/23/2000 11:45 Results for this SCREEN GILDA EDT procedure are i n the results section. documented in this encounter Results MA MAMMOGRAPHIC SCREEN GILDA (05/23/2000 11:45 EDT) Anatomical Region Laterality Modality Other Specimen Impressions [facility] - 06/29/2009 15 :13 EST IMPRESSION: BILATERAL BREASTS - Category 1 Negative, no evidence of malignancy. Nor mal interval follow-up is recommended in 12 months. OVERALL ASSESSMENT - NEGATIVE END OF IMPRESSION Narrative [facility] - 06/29/2009 15 :13 EST ROUTINE GILDA SCREEN. ??(PCP THELMA LICEA) Comparison is made to films from 997 (bilateral). Bilateral Breast Findings: There are scattered fibroglandular densi ties. No masses, significant calcifications or other abnormalities ar e seen. Procedure Note Estefanía Ro PT / Maik Ham MD - 06/29/2009 ROUTINE GILDA SCREEN. (PCP THELMA LICEA) Comparison is made to films from 997 (bilateral). Bilateral Breast Findings: There are scattered fibroglandular densi ties. No masses, significant calcifications or other abnormalities ar e seen. IMPRESSION IMPRESSION: BILATERAL BREASTS - Category 1 Negative, no evidence of malignancy. Nor mal interval follow-up is recommended in 12 months. OVERALL ASSESSMENT - NEGATIVE END OF IMPRESSION Performing Organization Address City/State/ZIP Code Phon e Number [facility] 111 [facility], [facility] [address] [facility] [address] [place], [place] [address] documented in this encounter Visit Diagnoses Not on filedocumented in this encounter
--- OUTSIDE RECORDS SUMMARY | 2022-04-21 01:03 | XMS_ITS | Encounter Summary ---
:1945 Author Organization [facility] Address [address] [place] [address] Care Team Providers Name Role Phone Ayla Brown Primary Care Provider Mary Ann Ruby MD Primary Care Provider Reason for Visit Reason Onset Date Comments Wound Care 01/18/2021 Encounter Details Date Type Department Care Team Description 01/18/2021 Telephone [facility] Rachid Saldivar MD Wound Care Dermatology - [facility] [address] [address] [address], [place], [place] [phone] (Wo rk) Social History Tobacco Use Types Packs/Day Years Used Date Never Assessed Sex Assigned at Date Recorded Not on file documented as of this encounter Miscellaneous Notes Telephone Encounter - Katie Aly RN - 01/18/2021 1304 EDT Recommended that she continue with the Vaseline dressing until the open area on the nose has a layerof shiny pink skin and no drainage on the dressing. KATIE ALY RN elephone Encounter - Amanda Allison - 01/18/2021 1256 EDT Patient states she came in on 12/21 and had Mohs surgery. She states Dr. Saldivar left the middle of her nose opened and not stitched as he felt it would heal better without the stitches. She states the wound looks like it has healed as it is no longer oozing. She is wondering if that means she can stop placing Vaseline and bandages on the wound? Please advise. documented in this encounter Plan of Treatment Upcoming Encounters Date Type Specialty Care Team Description 06/02/2022 Nurse Only Dermatology Photodynamic Therapy, Derm documented as of this encounter Visit Diagnoses Not on filedocumented in this encounter Care Teams Evidence Technician Relationship Specialty Start Date End Date Ayla Brown PCP - General 05/30/17 01/23/[address] [phone] Mary Ann Ruby MD PCP - General Internal Medicine - 01/24/[address] Primary Care [place], [place] [id number] documented as of this encounter
--- OUTSIDE RECORDS SUMMARY | 2022-04-21 01:03 | XMS_ITS | Encounter Summary ---
:1945 Author Organization [facility] Address [address] [place] [address] Care Team Providers Name Role Phone Unavailable Primary Care Provider Unavailable Encounter Details Date Type Department Care Team Description 06/30/2002 Hospital Encounter [facility] - Liliane Arnold, Americale conversion LIDDER [address] [facility] [address] [place] [address] [place], [place] [phone] (Wo rk) Social History Tobacco Use Types [...] Date/Time Associated Comments Diagnosis MA MAMMOGRAPHIC Routine 06/30/2002 10:58 Results for this SCREEN GILDA EST procedure are i n the results section. documented in this encounter Results MA MAMMOGRAPHIC SCREEN GILDA (06/30/2002 10:58 EST) Anatomical Region Laterality Modality Other Specimen Impressions [facility] - 05/17/2009 2: 13 EDT IMPRESSION: BILATERAL BREASTS - Category 1 Negative, no evidence of malignancy. Nor mal interval follow-up is recommended in 12 months. OVERALL ASSESSMENT - NEGATIVE END OF IMPRESSION Narrative [facility] - 05/17/2009 2: 13 EDT ROUTINE ?? [PCP JB HARRIS ??PHILLIP ARNOLD] Comparison is made to films from 999 (bilateral). Bilateral Breast Findings: There are scattered fibroglandular densi ties. No significant masses, calcifications or other abnormalities ar e seen. Procedure Note Johnathan Min MD - 05/17/2009 ROUTINE [PCP JOHNATHAN LOPEZ, JB BELLO] Comparison is made to films from 999 (bilateral). Bilateral Breast Findings: There are scattered fibroglandular densi ties. No significant masses, calcifications or other abnormalities ar e seen. IMPRESSION IMPRESSION: BILATERAL BREASTS - Category 1 Negative, no evidence of malignancy. Nor mal interval follow-up is recommended in 12 months. OVERALL ASSESSMENT - NEGATIVE END OF IMPRESSION Performing Organization Address City/State/ZIP Code Phon e Number [facility] 111 [facility], [facility] [address] [facility] [address] [place], [place] [address] documented in this encounter Visit Diagnoses Not on filedocumented in this encounter
--- OUTSIDE RECORDS SUMMARY | 2022-04-21 01:03 | XMS_ITS | Encounter Summary ---
:1945 Author Organization [facility] Address [address] [place] [address] Care Team Providers Name Role Phone Ankit Bae MD Primary Care Provider Unavailable Encounter Details Date Type Department Care Team Description 03/10/2009 Hospital Encounter [facility] - Kwasi Haro [place] [address] [place] [address] Social History Tobacco Use Types Packs/Day Years [...] on filedocumented in this encounter Care Teams Loading Machine Operator Relationship Specialty Start Date End Date Ankit Bae MD PCP - General 01/15/09 1 documented as of this encounter
--- OUTSIDE RECORDS SUMMARY | 2022-04-21 01:03 | XMS_ITS | Encounter Summary ---
:1945 Author Organization [facility] Address [address] [place] [address] Care Team Providers Name Role Phone Pop Sood DO Primary Care Provider Encounter Details Date Type Department Care Team Description 04/07/2013 Abstract [facility] ENT - Estefanía Sood DO [place] [address] [place] [address] [place] [phone] (Wo rk) Social History Tobacco Use Types Packs/Day Years Used Date Never Assessed Sex Assigned at Date Recorded Not on file documented as of this encounter Plan of Treatment Upcoming Encounters Date Type Specialty Care Team Description 06/02/2022 Nurse Only Dermatology Photodynamic Therapy, Derm documented as of this encounter Visit Diagnoses Not on filedocumented in this encounter Historical Medications This list may reflect changes made after this encounter. Medication Sig Dispensed Refills Start Date End Date thyroid, Pork, (ARMOUR Take 60 mg by mouth 0 THYROID) 60 mg tablet daily. added in this encounter Care Teams Pharmaceutical Detailer Relationship Specialty Start Date End Date Pop Sood DO PCP - General 04/07/11 01/09/16 [address] [facility] [address] [place] [phone] documented as of this encounter
--- OUTSIDE RECORDS SUMMARY | 2022-04-21 01:03 | XMS_ITS | Encounter Summary ---
:1945 Author Organization [facility] Address [address] [place] [address] Care Team Providers Name Role Phone Unavailable Primary Care Provider Unavailable Encounter Details Date Type Department Care Team Description 06/18/2001 Hospital Encounter [facility] - Liliane Arnold, Americale conversion TELEGRAPHER AGENT [address] [facility] [address] [place] [address] [place], [place] [phone] (Wo rk) Social History Tobacco Use Types [...] Date/Time Associated Comments Diagnosis MA MAMMOGRAPHIC Routine 06/18/2001 8:21 Results f or this SCREEN GILDA EST procedure are i n the results section. documented in this encounter Results MA MAMMOGRAPHIC SCREEN GILDA (06/18/2001 8:21 EST) Anatomical Region Laterality Modality Other Specimen Impressions [facility] - 06/30/2009 0: 56 EST IMPRESSION: BILATERAL BREASTS - Category 1 Negative, no evidence of malignancy. Nor mal interval follow-up is recommended in 12 months. OVERALL ASSESSMENT - NEGATIVE END OF IMPRESSION Narrative [facility] - 06/30/2009 0: 56 EST ROUTINE ?[PCP PHILLIP ARNOLD] Comparison is made to films from 998 (bilateral). Bilateral Breast Findings: There are scattered fibroglandular densi ties. No masses, significant calcifications or other abnormalities ar e seen. Procedure Note Leef, Johnsey, MD / Vanessa Ritter MD / Mariela Kent MD - 06/30/2009 ROUTINE [PCP PHILLIP ARNOLD] Comparison is made to films from 998 (bilateral). Bilateral Breast Findings: There are scattered fibroglandular densi ties. No masses, significant calcifications or other abnormalities ar e seen. IMPRESSION IMPRESSION: BILATERAL BREASTS - Category 1 Negative, no evidence of malignancy. Nor mal interval follow-up is recommended in 12 months. OVERALL ASSESSMENT - NEGATIVE END OF IMPRESSION Performing Organization Address City/State/ZIP Code Phon e Number [facility] 111 [facility], [facility] [address] [facility] [address] [place], [place] [address] documented in this encounter Visit Diagnoses Not on filedocumented in this encounter
--- OUTSIDE RECORDS SUMMARY | 2022-04-21 01:03 | XMS_ITS | Encounter Summary ---
:1945 Author Organization [facility] Address [address] [place] [address] Care Team Providers Name Role Phone Unavailable Primary Care Provider Unavailable Encounter Details Date Type Department Care Team Description 04/15/2004 Hospital Encounter [facility] - Liliane Arnold, Other AIRPORT ATTENDANT [address] [facility] [address] [place], [place] [phone] [place] [phone] (Wo rk) Social History Tobacco Use Types [...] Name Priority Date/Time Associated Diagnosis Comme nts RAD US YULISSA BREAST Routine 04/15/2004 8:43 EDT Re sults for this UNILAT OR BILAT procedure ar e in the results section. documented in this encounter Results RAD US YULISSA BREAST UNILAT OR BILAT (04/15/2004 8:43 EDT) Anatomical Region Laterality Modality Other Specimen Narrative [facility] - 05/04/2009 9: 27 EDT DX UNI US RT ?RT BR MOBILE MASS @ 1:00 APPROX 2CM [PCP JOHNATHAN LOPEZ , REQ PHILLIP ARNOLD] ??NEG MAMMO 02/17 01/21 ?? DATE PER PATIENT * ULTRASOUND RIGHT BREAST The clinically palpable, moveable lump i n the right breast at about 1 o'clock corresponds to an ovoid, slightl y hyperechoic, well- encapsulated nodule measuring 8 x 25 mm. This is located at 1 o'clock, 14 cm out from the nipple. It i s most consistent with a lipoma, which I believe it represents. IMPRESSION RIGHT BREAST ULTRASOUND: BI-R ADS Category 2, BENIGN RECOMMENDATION: Continue routine annual screening mammog keisha. OVERALL ASSESSMENT - BENIGN /[facility] Procedure Note Johnathan Min MD - 05/04/2009 DX UNI US RT RT BR MOBILE MASS @ 1:00 AP PROX 2CM [PCP JOHNATHAN LOPEZ , REQ PHILLIP ARNOLD] NEG MAMMO DATE PER PATIENT * ULTRASOUND RIGHT BREAST The clinically palpable, moveable lump i n the right breast at about 1 o'clock corresponds to an ovoid, slightl y hyperechoic, well- encapsulated nodule measuring 8 x 25 mm. This is located at 1 o'clock, 14 cm out from the nipple. It i s most consistent with a lipoma, which I believe it represents. IMPRESSION RIGHT BREAST ULTRASOUND: BI-R ADS Category 2, BENIGN RECOMMENDATION: Continue routine annual screening mammog keisha. OVERALL ASSESSMENT - BENIGN /[facility] Performing Organization Address City/State/ZIP Code Phon e Number [facility] 111 [facility] [address] [facility] [address] [place], [place] [address] documented in this encounter Visit Diagnoses Not on filedocumented in this encounter
--- OUTSIDE RECORDS SUMMARY | 2022-04-21 01:03 | XMS_ITS | Encounter Summary ---
:1945 Author Organization [facility] Address [address] [place] [address] Care Team Providers Name Role Phone Pop Sood DO Primary Care Provider Encounter Details Date Type Department Care Team Description 04/28/2014 Hospital Encounter [facility] - S Pop Sood DO [place] [address] [facility] 2 [place] [address] [place], [place] [phone] (Wo rk) Social History Tobacco Use Types Packs/Day Years Used Date Never Assessed Sex Assigned at Date Recorded Not on file documented as of this encounter Discharge Diagnoses Diagnosis V76.11 SCREENING MAMMOGRAM FOR HIGH-RISK PATIENT, MALIGNANT NEOPLASM OF BREAST[ICD-9-CM] V15.89 PERS HX HEALTH HAZARDS NEC[ICD-9- CM] V16.3 FAMILY HX-BREAST MALIG[ICD-9-CM] documented in this encounter Medications at Time of Discharge Medication Sig Dispensed Refills Start Date End Date thyroid, Pork, (ARMOUR Take 60 mg by mouth 0 THYROID) 60 mg tablet daily. documented as of this encounter Discharge Disposition Disposition Code Departure Means Destination Auto Discharge Home documented in this encounter Plan of Treatment Upcoming Encounters Date Type Specialty Care Team Description 06/02/2022 Nurse Only Dermatology Photodynamic Therapy, Derm documented as of this encounter Visit Diagnoses Not on filedocumented in this encounter Care Teams Tubing Mill Operator Relationship Specialty Start Date End Date Pop Sood DO PCP - General 04/07/11 01/09/16 246 [facility] 2 [place] [phone] documented as of this encounter
--- OUTSIDE RECORDS SUMMARY | 2022-04-21 01:03 | XMS_ITS | Encounter Summary ---
:1945 Author Organization [facility] Address [address] [place] [address] Care Team Providers Name Role Phone Pop Sood DO Primary Care Provider Encounter Details Date Type Department Care Team Description 04/25/2013 Hospital Encounter [facility] - S Pop Sood DO [place] [address] 1 [facility] 2 [place], [place] [address] [place] [phone] (Wo rk) Social History Tobacco Use Types [...] Code Departure Means Destination Home or Self [facility] documented in this encounter Plan of Treatment Upcoming Encounters Date Type Specialty Care Team Description 06/02/2022 Nurse Only Dermatology Photodynamic Therapy, Derm documented as of this encounter Procedures Procedure Name Priority Date/Time Associated Diagnosis Comme nts MA MAMMO. SCREENING 04/28/2014 10:59 Resu lts for this ANGY EDT procedure are i n the results section. documented in this encounter Results MA MAMMO. SCREENING ANGY (04/28/2014 10:59 EDT) Anatomical Region Laterality Modality Other Specimen Narrative [facility] - 04/28/2014 17:40 EDT Comparison has been made to previous [...] will contact your patient directly. Procedure Note 04/28/2014 Comparison has been made to previous caleb [...] Organization Address City/State/ZIP Code Phon e Number [facility] S [facility] documented in this encounter Visit Diagnoses Not on filedocumented in this encounter Care Teams Sausage Stringer Relationship Specialty Start Date End Date Ppo Sood DO PCP - General 04/07/11 01/09/[address] [place] [phone] documented as of this encounter
--- OUTSIDE RECORDS SUMMARY | 2022-04-21 01:03 | XMS_ITS | Encounter Summary ---
:1945 Author Organization [facility] Address [address] [place] [address] Care Team Providers Name Role Phone Ankit Bae MD Primary Care Provider Unavailable Encounter Details Date Type Department Care Team Description 03/08/2011 Results Only [facility] [place] [phone] [place] [address] (Wo rk) Social History Tobacco Use Types Packs/Day Years Used Date Never Assessed Sex Assigned at Date Recorded Not on file documented as of this encounter Plan of Treatment Upcoming Encounters Date Type Specialty Care Team Description 06/02/2022 Nurse Only Dermatology Photodynamic Therapy, Derm documented as of this encounter Procedures Procedure Name Priority Date/Time Associated Diagnosis Comme nts MA MAMMO SCREENING 04/07/2011 11:26 Resul ts for this DIGITAL EDT procedure are i n the results section. documented in this encounter Results MA MAMMO SCREENING DIGITAL (04/07/2011 11:26 EDT) Anatomical Region Laterality Modality Other Specimen Narrative [facility] - 04/07/2011 16:33 EDT Comparison is made to images from 03/15/2010 (bilateral) and images from 03/10/2009 (bilateral) and images f rom 02/25/2008 (bilateral) and images from 03/07/2007 (bilateral) a nd images from 03/01/2006 (bilateral) and images from 02/28/2005 ( bilateral) and images from 03/04/2004. Bilateral Breast Findings: (CAD used to interpret routine digital) The breasts are almost entirely fat (les s than 25% fibroglandular). No significant masses, calcifications or other abnormalities are seen. IMPRESSION: BILATERAL BREASTS: Negative, no evidence of malignancy. Normal interval follow-up is recommended in 12 months. OVERALL ASSESSMENT - CATEGORY 1 - NEGATI VE END OF IMPRESSION The patient will be notified of her/his breast imaging results via a lay letter from Radiology. Radiology chris l contact the patient directly regarding any findings which re quire additional imaging (Category 0) at this time. Procedure Note 04/07/2011 Comparison is made to images from 2009 (bilateral) and images from 03/10/2009 (bilateral) and images f rom 02/25/2008 (bilateral) and images from 03/07/2007 (bilateral) a nd images from 03/01/2006 (bilateral) and images from 02/28/2005 ( bilateral) and images from 03/04/2004. Bilateral Breast Findings: (CAD used to interpret routine digital) The breasts are almost entirely fat (les s than 25% fibroglandular). No significant masses, calcifications or other abnormalities are seen. IMPRESSION: BILATERAL BREASTS: Negative, no evidence of malignancy. Normal interval follow-up is recommended in 12 months. OVERALL ASSESSMENT - CATEGORY 1 - NEGATI VE END OF IMPRESSION The patient will be notified of her/his breast imaging results via a lay letter from Radiology. Radiology chris l contact the patient directly regarding any findings which re quire additional imaging (Category 0) at this time. Performing Organization Address City/State/ZIP Code Phon e Number [facility] S [place] documented in this encounter Visit Diagnoses Not on filedocumented in this encounter Care Teams Sand Bobber Relationship Specialty Start Date End Date Ankit Bae MD PCP - General 01/15/09 1 documented as of this encounter
--- OUTSIDE RECORDS SUMMARY | 2022-04-21 01:03 | XMS_ITS | Encounter Summary ---
:1945 Author Organization [facility] Address [address] [place] [address] Care Team Providers Name Role Phone Pop Sood DO Primary Care Provider Encounter Details Date Type Department Care Team Description 01/20/2015 Results Only [facility] [place] [facility]- Baljinder Bell MD [phone] [facility] [facility] [place] [phone] (Wo rk) Social History Tobacco Use Types Packs/Day Years Used Date Never Assessed Sex Assigned at Date Recorded Not on file documented as of this encounter Plan of Treatment Upcoming Encounters Date Type Specialty Care Team Description 06/02/2022 Nurse Only Dermatology Photodynamic Therapy, Derm documented as of this encounter Procedures Procedure Name Priority Date/Time Associated Diagnosis Comme [facility] SURGICAL PATHOLOGY Routine 01/20/2015 20:49 Resul ts for this EDT procedure are i n the results section. documented in this encounter Results SURGICAL PATHOLOGY (01/20/2015 20:49 EDT) Pathology Report: SURGICAL PATHOLOGY REPORT [facility] Reports generated via electronic interface contain blasie ginal data; LABORATORY however they are lacking the format of the original re port. SERVICES Caution should be taken when reading/interpreting unfo rmatted reports. Name: ? JUSTYNA DHALIWAL ? Accession #: ? [id number] ? : ? 1945 (Age: 6 0) ??F ? Collect Date: ? 01/20/2015 ? Location: ? [facility] ? Receive Date: ? 5 ? Provider: BALJINDER ACUÑA MD Copy to: HUBERT LOBATO MD ? Final Pathologic Diagnosis: SYNOVIUM, LEFT KNEE, ARTHROPLASTY: - ??Reactive synovial tissue. See comment. - ??No evidence of rheumatoid arthritis. Comment: Microscopic examination reveals synovial proliferation and edema, consistent with reactive changes. There is no significant lymphoi d follicle formation, plasma cell infiltrate or villous hypert rophy to suggest rheumatoid arthritis. Dr. Mota 01/22/2015 11:26 AM Document reviewed and electronically signed by: DOROTHY ESQUIVEL MD Report ??Date: 01/22/2015 13:44 By the signature above, the attending physician certif ies that he/she has personally conducted a gross and/or microscopic examin ation of the described specimens and rendered or confirmed the above diagnosi s. Specimen(s) Received: Left knee synovium Clinical History: End state osteoarthritis lef t knee, total knee arthroplasty for DJD, some aspect of synovium consistent with RA; rule out rheumatoid ar thritis Gross Description: ? Received in formalin labelled with proper patient identification (initials C, K) and knee synovium rule out rheumatoid arthritis is an aggregate of fibrous and fibrofatty tissue (1.8 x 1.2 x 0.8 cm). Th e surface is focally smooth and stringy. ??Entirely submitted in 1 and 2. Any Fernando 01/21/2015 8:27 AM End of Report Specimen Performing Organization Address City/State/ZIP Code Phon e Number [facility] [address] [place] [address] SERVICES documented in this encounter Visit Diagnoses Not on filedocumented in this encounter Care Teams Registered Representative Relationship Specialty Start Date End Date Pop Sood DO PCP - General 04/07/11 01/09/[address] [place] [phone] documented as of this encounter
--- OUTSIDE RECORDS SUMMARY | 2022-04-21 01:03 | XMS_ITS | Encounter Summary ---
:1945 Author Organization [facility] Address [address] [place] [address] Care Team Providers Name Role Phone Ankit Bae MD Primary Care Provider Unavailable Encounter Details Date Type Department Care Team Description 02/11/2008 Results Only [facility] - Oscar Galdamez MD conversion [address] [facility] [address] [place] [address] [place], [place] [phone] (Wo rk) Social History Tobacco Use Types Packs/Day Years Used Date Never Assessed Sex Assigned at Date Recorded Not on file documented as of this encounter Plan of Treatment Upcoming Encounters Date Type Specialty Care Team Description 06/02/2022 Nurse Only Dermatology Photodynamic Therapy, Derm documented as of this encounter Procedures Procedure Name Priority Date/Time Associated Diagnosis Comme nts SURGICAL PATHOLOGY Routine 02/11/2008 0:00 EDT Re sults for this procedure are i n the results section. documented in this encounter Results SURGICAL PATHOLOGY (02/11/2008 0:00 EDT) Pathology SURGICAL PATHOLOGY REPORT [facility] Report: Reports generated via electronic interface contain blaise ginal data; LAB however they are lacking the format of the original re port. Caution should be taken when reading/interpreting unfo rmatted reports. Name: ? JUSTYNA DHALIWAL ? Accession #: ? [id number] ? : ? 1945 (Age: 62) ??F ? Collect Date: ? 02/11/2008 ? Location: ? [facility] ? Receive Date: ? 008 ? Provider: OSCAR LOUIS MD Copy to: ??Kay Navarrete MD [facility] [address] [place] [address] ? Final Pathologic Diagnosis: ? Skin of leg, left lower, shave biopsy: - Seborrheic keratosis, inflamed. ?? Microscopic Description: ? Orthohyperkeratosis a nd focal parakeratosis thicken the stratum corneum. There is formation of horn pseudocysts. ??The epidermi s is hyperplastic with acanthosis and papillomatosis. ??The keratinocyt es have a basaloid appearance with squamous eddies in many areas. ??Wi thin the dermis, there is a moderately dense lymphohistiocytic infi ltrate. ??The infiltrate extends into the epidermis with concomitant vacuolar change and keratinocyte necr osis. ??(Dr. Hernandez)/[facility] Document reviewed and electronically signed by: Nichole Hernandez MD Report ??Date: 02/12/2008 16:50 By the signature above, the attending physician certif ies that he/she has personally conducted a gross and/or microscopic examin ation of the described specimens and rendered or confirmed the above diagnosi s. Specimen(s) Received: ? L lower leg Clinical History: ? R/O SCC; clinical diagnosis code: ??238.2 Gross Description: ? Received in formalin labelled Girard and L lower leg is a 0.5 x 0.3 x 0.1 cm shave biopsy of price-pink firm skin. ??The spe cimen is bisected and submitted entirely in one cassette. (Dr. Martinez)/[facility] End of Report Specimen Performing Organization Address City/State/ZIP Code Phon e Number [facility] [address] [place] [address] SERVICES [facility] [address] [place] [address] documented in this encounter Visit Diagnoses Not on filedocumented in this encounter Care Teams Sky Line Yarder Relationship Specialty Start Date End Date Ankit Bae MD PCP - General 01/15/09 1 documented as of this encounter
--- OUTSIDE RECORDS SUMMARY | 2022-04-21 01:03 | XMS_ITS | Encounter Summary ---
:1945 Author Organization [facility] Address [address] [place] [address] Care Team Providers Name Role Phone Ankit Bae MD Primary Care Provider Unavailable Encounter Details Date Type Department Care Team Description 05/01/2006 Before [facility] - Tung Freitas MD Converted Visit Maple conversion [address] [facility] [address] [facility] [address] [place], [place] [address] [place] [phone] (Wo rk) Social History Tobacco Use Types Packs/Day Years Used Date Never Assessed Sex Assigned at Date Recorded Not on file documented as of this encounter Consult Notes Karin Freitas MD - 08/26/2009 0876 EST OF SURGICAL ONCOLOGY - BREAST CARE CENTER CONSULTATION - S: Carolann is a 60-year-old woman a family history of breast cancer who presents with a right breast lump. This had been evaluated in 2003 and was noted by ultrasound to be a 2.5 cm lipoma. She thinks that it has increased in size. It is nontender and does not bother her. Consultation is requested by YARON Brooks. The patient noticed this lump about 20 years ago and it has never showed up on her mammogram. Past medical history:Excellent health. Former smoker. Occasional alcohol, 2 red brian a day. Medicalproblems are hypothyroidism and periodic edema of her ankles. Surgical history: Tonsillectomy as a child. D & C in her 20s. Medications: [place] Thyroid and Synthroid. She uses [facility] in [place]. Allergies: EPINEPHRINE, PENICILLIN and states that she is generally adverse to most drugs. Denies latex or tape allergy. The patient expresses pain which is chronic in her right hip. Social history: She has a college education. She is retired. She is and lives at home with her . Review of systems: Significant for glasses to read, tear of her gluteus preston from working out, and right hip pain. She also has sup-tu-ygogpsqg thyroid problems. 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 Menses began at age 10. Her last menses was about 20 years ago. Menopause was natural. She was on control pills for about 10 years in the past. Family history: Significantfor DCIS in her sister at age 58 (Melinda Smith), lung cancer in her paternal uncle is his 80s, colon cancer in her maternal aunt in her 80s, and colon cancer in her maternal grandmother at 93. O: On physical examination Carolann is well-appearing. Hercolor is good, and her skin is warm and dry. Her sclerae are anicteric. She has no cervical, supraclavicular, or axillary lymphadenopathy. Her breasts are examined in the sitting and supine positions. There are no skin or nipple changes. Careful pa lpation in the right breast upper inner quadrant a firm but mobile lipomatous- type mass. It measuresabout 2.5 cm. It is not appear clinically worrisome. It is nontender. There are no other areas of palpable concern. Mammography is reviewed and she is noted to have scattered fibroglandular densities. Ultrasound: Office ultrasound is performed using the 12 megahertz transducer. examination in the area of the patients palpable change, upper inner quadrant, right breast, is performed. Here she has a 2.7 x 0.8 x 1.9 cm lipomatous mass. It is isogenic with surrounding fat tissue but has an echogenic rim and is most consistent with an ovoid benign lipoma. It is not viewed with concern. I have reassuredthe patient that this is a lipoma. Indications for excision would be increase in size. It appears maame stable when compared to 2004 ultrasound in our radiology department when it measured 2.5 cm. Overall, this is reassuring. I have not recommended excision unless it becomes uncomfortable for herand she is in agreement with that. Carolann will return on a p.r.n. basis. Signed by Karin Freitas MD 05/03/2006 16:22 Brian Power MD Karin Freitas MD - Karin Freitas MD Altaf adan Job ID: [id number] Document ID: [id number] cc: YARON Brooks - Altaf Freitas MD Altaf adan Job ID: [id number] Document ID: [id number] cc: YARON Brooks documented in this encounter Plan of Treatment Upcoming Encounters Date Type Specialty Care Team Description 06/02/2022 Nurse Only Dermatology Photodynamic Therapy, Derm documented as of this encounter Visit Diagnoses Not on filedocumented in this encounter Care Teams Doctor Of Dental Medicine Relationship Specialty Start Date End Date Ankit Bae MD PCP - General 01/15/09 1 documented as of this encounter
--- OUTSIDE RECORDS SUMMARY | 2022-04-21 01:03 | XMS_ITS | Encounter Summary ---
:1945 Author Organization [facility] Address [address] [place] [address] Care Team Providers Name Role Phone Unavailable Primary Care Provider Unavailable Encounter Details Date Type Department Care Team Description 02/25/2008 Hospital Encounter [facility] - Ankit Bae, Itz SOLANO [address] [place] [address] Social History Tobacco Use Types Packs/Day Years [...] Procedure Name Priority Date/Time Associated Comments Diagnosis GLUCOSE, PLASMA Routine 01/13/2009 10:00 Results for this EDT procedure are i n the results section. TSH Routine 01/13/2009 10:00 Results for this EDT procedure are i n the results section. T4 FREE Routine 01/13/2009 10:00 Results for this EDT procedure are i n the results section. HEMOGLOBIN A1C Routine 01/13/2009 10:00 Results f or this EDT procedure are i n the results section. CYTOPATHOLOGY Routine 01/13/2009 0:00 Results for this EDT procedure are i n the results section. STEPHANIE DX GILDA DIG 02/25/2008 9:44 Results fo r this EMERGENCY EDT procedure are i n the results section. documented in this encounter Results TSH (01/13/2009 10:00 EDT) Pathologist Sig nature TSH 0.70 0.35 - 5.00 uIU/ml [facility] Specimen Performing Organization Address City/State/ZIP Code Phon e Number [facility] [address] [place] [phone] SERVICES [facility] [address] [place] [address] HEMOGLOBIN A1C (01/13/2009 10:00 EDT) Hemoglobin A1C 6.2 % [facility] Comment: Reference Range: <6% Normal Range ADA guidelines: The A1c goal for non adults in general is <7% The A1c goal for selected individual patients is as close to normal (<6%) as possible without significant hypoglycemia. Est Avg Glucose 131 mg/dl [facility] Comment: eAG represents the A1c result expressed as average glucose in mg/dl. Specimen Performing Organization Address [facility] Phon e Number [facility] [address] [place] [address] SERVICES [facility] [address] [place] [address] (ABNORMAL) GLUCOSE, PLASMA (01/13/2009 10:00 EDT) Pathologist Sig nature Glucose, Plasma 104 (H) 70 - 100 mg/dl [facility] Specimen Performing Organization Address [facility] Phon e Number [facility] [address] [place] [address] SERVICES [facility] [address] [place] [address] T4 FREE (01/13/2009 10:00 EDT) Pathologist Sig nature Free T4 0.9 0.8 - 1.8 ng/dL [facility] Specimen Performing Organization Address [facility] Phon e Number [facility] [address] [place] [address] SERVICES [facility] [address] [place] [address] CYTOPATHOLOGY (01/13/2009 0:00 EDT) Pathology Report: CYTOPATHOLOGY REPORT ? [facility] ? [facility] Reports generated via electr onic interface contain original data; ? however they are lacking the format of the original report. ? Caution should be taken when reading/interpreting unformatted reports. ? Name: ? CAROLANN DHALIWAL ? Accession #: ? [id number] ? : ? 1945 (Age: 63) ??F ?Collect Date: ? 01/13/2009 ? Location: ? [facility] ? Receive Date: ? 01/13/2009 ? Provider: ?VIVIAN EL TABBAKH PA ? Copy to: ? Specimen/Source: ? Pap Test, Cervix/Endocervix, ThinPrep Imaging System ? with manual evaluation ? Last Menstrual Period: ? Other: ? HPVA - HPV testing requested if ASC-US on the current ThinPrep Pap test. ? SPECIMEN ADEQUACY ? Satisfactory for Eval uation ? - transformation zone compon ent absent ? GENERAL CATEGORIZATION ? Negative for Intraepi thelial Lesion or Malignancy ? Document reviewed and electr onically signed by: ? Lynan Sonny, CT(ASCP) ? Report Date: ??05/29/ 2009 16:03 ? End of Report ? Specimen Performing Organization Address City/State/ZIP Code Phon e Number [facility] [address] [place] [address] SERVICES [facility] [address] [place] [address] STEPHANIE DX GILDA DIG EMERGENCY (02/25/2008 9:44 EDT) Anatomical Region Laterality Modality Other Specimen Narrative [facility] - 01/31/2009 11 :25 EDT left br lump @ 11:00 x 1 month, screen right, u/s will be done by dr. hood per fly Procedure: Bilateral diagnostic mammogra phy 02/25/2008. History: Left breast lump upper inner qu adrant. Dr. Karin Hood to do ultrasound. Comparison: 03/07/2007, and older yearly mammograms dating back to 2003, as well as right breast ultrasound 04/15/2004 showing a lipoma at the site of a palpable lump in the on e o'clock position on the right. Left breast findings: CC and MLO views w ith CAD are obtained, as well as magnified CC and true lateral views. A triangular marker is placed on the site of the lump. The breast tiss ue is almost entirely fatty, with only a scant amount of glandular ti ssue in the retroareolar region. There is no evidence of mass, ar chitectural distortion or suspicious calcifications. In particular , no mass or any thin capsule can be seen at the site of the mass, but this does not rule out a lipoma or prominent fat lobule. Subtle i nvasive lobular carcinoma can also present this way. There are no calc ifications of concern throughout the breast. Right breast findings: CC and MLO views with CAD are obtained. Breast tissue is almost entirely fatty. There i s a normal, stable intramammary lymph node in the upper-out er quadrant. Otherwise, the breast is unremarkable. Impression left: Bi-Rads category 0 - ne eds further evaluation. 1. Ultrasound of the upper inner quadran t is recommended at the site of the lump. This is to be done by Dr. Violet Hood in her office. 2. Mammographic screening is recommended yearly. Impression right breast: Bi-Rads categor y 1-negative. Mammographic screening is recommended yearly. Results and recommendations were discuss ed with the patient by the technologist at the time of examination. Overall assessment: Incomplete. The patient will be notified of her/his breast imaging results via a lay letter from Radiology. Radiology chris l contact the patient directly regarding any findings which re quire additional imaging (Category 0) at this time. Addendum Begins Addendum by Dr. Yesica Salmon 03/24/2008. Clinical note of Dr. Karin Hood on is reviewed. Her clinical examination and ultrasound exam ination were consistent with lipoma versus normal lobule of breast fa t at the site of the lump in the upper inner quadrant of the left dmitry ast. I do not have images to review. However, this was resolved to Dr Juan Hood's satisfaction. Yearly screening mammography of the left breast is now recommended. This changes the assessment of the left breast to BI-RADS Category 2-benign. The patient will be notified of her/his breast imaging results via a lay letter from Radiology. Radiology chris l contact the patient directly regarding any findings which re quire additional imaging (Category 0) at this time. D: ??03/24/2008 T: ??03/24/2008/dw Addendum Ends Procedure Note Yesica Salmon MD - 01/31/2009 left br lump @ 11:00 x 1 month, screen right, u/s will be done by dr. hood per fly Procedure: Bilateral diagnostic mammogra phy 02/25/2008. History: Left breast lump upper inner qu adrant. Dr. Karin Hood to do ultrasound. Comparison: 03/07/2007, and older yearly mammograms dating back to 2003, as well as right breast ultrasound 04/15/2004 showing a lipoma at the site of a palpable lump in the on e o'clock position on the right. Left breast findings: CC and MLO views w ith CAD are obtained, as well as magnified CC and true lateral views. A triangular marker is placed on the site of the lump. The breast tiss ue is almost entirely fatty, with only a scant amount of glandular ti ssue in the retroareolar region. There is no evidence of mass, ar chitectural distortion or suspicious calcifications. In particular , no mass or any thin capsule can be seen at the site of the mass, but this does not rule out a lipoma or prominent fat lobule. Subtle i nvasive lobular carcinoma can also present this way. There are no calc ifications of concern throughout the breast. Right breast findings: CC and MLO views with CAD are obtained. Breast tissue is almost entirely fatty. There i s a normal, stable intramammary lymph node in the upper-out er quadrant. Otherwise, the breast is unremarkable. Impression left: Bi-Rads category 0 - ne eds further evaluation. 1. Ultrasound of the upper inner quadran t is recommended at the site of the lump. This is to be done by Dr. Violet Hood in her office. 2. Mammographic screening is recommended yearly. Impression right breast: Bi-Rads categor y 1-negative. Mammographic screening is recommended yearly. Results and recommendations were discuss ed with the patient by the technologist at the time of examination. Overall assessment: Incomplete. The patient will be notified of her/his breast imaging results via a lay letter from Radiology. Radiology chrsi ackerman contact the patient directly regarding any findings which re quire additional imaging (Category 0) at this time. Addendum Begins Addendum by Dr. Yesica Salmon 03/24/2008. Clinical note of Dr. Karin Hodo on is reviewed. Her clinical examination and ultrasound exam ination were consistent with lipoma versus normal lobule of breast fa t at the site of the lump in the upper inner quadrant of the left dmitry ast. I do not have images to review. However, this was resolved to Dr Juan Hood's satisfaction. Yearly screening mammography of the left breast is now recommended. This changes the assessment of the left breast to BI-RADS Category 2-benign. The patient will be notified of her/his breast imaging results via a lay letter from Radiology. Breezy ackerman contact the patient directly regarding any findings which re quire additional imaging (Category 0) at this time. /sohan Addendum Ends Performing Organization Address City/State/ZIP Code Phon e Number [facility] [address] [facility] [address] [facility] [address] [place], [place] [address] documented in this encounter Visit Diagnoses Not on filedocumented in this encounter
--- OUTSIDE RECORDS SUMMARY | 2022-04-21 01:03 | XMS_ITS | Encounter Summary ---
:1945 Author Organization [facility] Address [address] [place] [address] Care Team Providers Name Role Phone Unavailable Primary Care Provider Unavailable Encounter Details Date Type Department Care Team Description 04/22/1999 Hospital Encounter [facility] - Tess Licea MD [address] [place] [phone] Other Unknown, Provider, [address] [place] [address] Social History Tobacco Use Types Packs/Day Years [...]
--- OUTSIDE RECORDS SUMMARY | 2022-04-21 01:03 | XMS_ITS | Encounter Summary ---
:1945 Author Organization [facility] Address [address] [place] [address] Care Team Providers Name Role Phone Ankit Bae MD Primary Care Provider Unavailable Pop Sood DO Primary Care Provider Karin Vasquez MD Primary Care Provider Unavailable Ayla Brown Primary Care Provider Mary Ann Ruby MD Primary Care Provider Encounter Details Date Type Department Care Team Description 02/01/2005 Hospital Encounter [facility] - Richard, Vinod hogan, Other [place] [address] [facility] [address] [place] [address] ,[address] [place] [address] (Wo rk) Social History Tobacco Use Types Packs/Day Years Used Date Never Assessed Sex Assigned at Date Recorded Not on file documented as of this encounter Plan of Treatment Upcoming Encounters Date Type Specialty Care Team Description 06/02/2022 Nurse Only Dermatology Photodynamic Therapy, Derm documented as of this encounter Visit Diagnoses Not on filedocumented in this encounter Care Teams Residential Worker Relationship Specialty Start Date End Date Ankit Bae MD PCP - General 01/15/09 1 Pop Sood DO PCP - General 04/07/11 01/09/[address] [place] [address] [address] [place] [phone] Karin Vasquez MD PCP - General 01/10/16 05/29/17 [address] [place] [address] Ayla Brown PCP - General 05/30/17 01/23/22 [address] [place] [address] Mary Ann Ruby MD PCP - General Internal Medicine - 01/24/[address] [place] [address] documented as of this encounter
--- OUTSIDE RECORDS SUMMARY | 2022-04-21 01:03 | XMS_ITS | Encounter Summary ---
:1945 Author Organization [facility] Address [address] [place] [address] Care Team Providers Name Role Phone Ankit Bae MD Primary Care Provider Unavailable Pop Sood DO Primary Care Provider Karin Vasquez MD Primary Care Provider Unavailable Ayla Brown Primary Care Provider Encounter Details Date Type Department Care Team Description 01/24/2010 Historical Results [facility] - Ze Mcclain, Only [facility] Lab - Main [address] [facility] [address] [place] [address] [place] [phone] (Wo rk) Social History Tobacco Use Types Packs/Day Years Used Date Never Assessed Sex Assigned at Date Recorded Not on file documented as of this encounter Plan of Treatment Upcoming Encounters Date Type Specialty Care Team Description 06/02/2022 Nurse Only Dermatology Photodynamic Therapy, Derm documented as of this encounter Procedures Procedure Name Priority Date/Time Associated Diagnosis Comme nts SURGICAL PATHOLOGY Routine 01/24/2010 Results f or this procedure are i n the results section . documented in this encounter Results SURGICAL PATHOLOGY (01/24/2010) Specimen Narrative [facility] - 010 10:08 EDT Name: JUSTYNA DHALIWAL ?: 43 ?Age/Sex: 73/F ?Unit#: [id number] ? Loc: END ? Status: DEP CLI ?? Reg Date: 01/24/10 ? Pt.Phone Number : ? Specimen: [id number] ? STA TUS: SOUT ?Spec Date:01/24/10 ? Physician Copies: ?Ze Mcclain MD ?? Tissues: A ?? Gastrointestinal Tract (CE CUM) ? Ankit Bae ?? CPT: 60461 ?? Units: ??1 ?FINAL DIAGNOSIS ? Cecum, polyps, biopsy; ? - Tubular adenomas. ? GROSS DESCRIPTION ? Received in [place]'s labeled with the patient's name and polyps, cecum, cold ? snare x 1, hot snare x 1 are fou r mucosal fragments. ??The two largest are ? polypoid and measure 0.7 and 0.6 cm. ??The smaller two average about 0.2 cm ? each. ??The larger pieces are bis ected, e.s. 1. ??CP ?? PREOP DX/CLINICAL HISTORY ?History of polyps. Signed ____(signature on file)____ Ashley Sherman M.D. 01/25/10 By the signature above, the attending ph ysician certifies that he/she has personally conducted a gross and/or microscopic exa mination of the described specimens and rendered or confirmed the above diagnosi s. Test Performed by [facility], [address] [place] [address] Electric Shaver Mechanic: Ashley Magana MD PHD Performing Organization Address City/State/[facility] Code Phon e Number [facility] [address] [place] [address] LAB documented in this encounter Visit Diagnoses Not on filedocumented in this encounter Care Teams Bed Laborer Relationship Specialty Start Date End Date Ankit Bae MD PCP - General 01/15/09 1 Pop Sood DO PCP - General 04/07/11 01/09/[address] [place] [phone] Karin Vasquez MD PCP - General 01/10/16 05/29/[address] [place] [address] Ayla Brown PCP - General 05/30/17 01/23/[address] [place] [address] documented as of this encounter
--- OUTSIDE RECORDS SUMMARY | 2022-04-21 01:03 | XMS_ITS | Encounter Summary ---
:1945 Author Organization [facility] Address [address] [place] [address] Care Team Providers Name Role Phone Ankit Bae MD Primary Care Provider Unavailable Encounter Details Date Type Department Care Team Description 03/15/2010 Orders Only [facility]- Karin Slaughter MD [phone] [place] [address] (Wo rk) Social History Tobacco Use Types Packs/Day Years Used Date Never Assessed Sex Assigned at Date Recorded Not on file documented as of this encounter Plan of Treatment Upcoming Encounters Date Type Specialty Care Team Description 06/02/2022 Nurse Only Dermatology Photodynamic Therapy, Derm documented as of this encounter Procedures Procedure Name Priority Date/Time Associated Diagnosis Comme nts MA MAMMO SCREENING 03/15/2010 10:38 Resul ts for this DIGITAL EDT procedure are i n the results section. documented in this encounter Results MA MAMMO SCREENING DIGITAL (03/15/2010 10:38 EDT) Anatomical Region Laterality Modality Other Specimen Narrative [facility] - 03/16/2010 10:15 EDT Comparison is made to films from 009 (bilateral) and films from 02/25/2008 (bilateral) and films fr om 03/07/2007 (bilateral) and films from 03/01/2006 (bilateral) and fi lms from 02/28/2005 (bilateral) and films from 03/04/2004. Bilateral [...] additional imaging (Category 0) at this time. I have personally reviewed the images an d the above interpretation and agree with the findings. Procedure Note Ankit Presley MD / Ankit Presley MD / Ankit Presley MD - 03/16/2010 Comparison is made to films from 009 (bilateral) and films from 02/25/2008 (bilateral) and films fr om 03/07/2007 (bilateral) and films from 03/01/2006 (bilateral) and fi lms from 02/28/2005 (bilateral) and films from 03/04/2004. Bilateral [...] additional imaging (Category 0) at this time. I have personally reviewed the images an d the above interpretation and agree with the findings. Performing Organization Address City/State/ZIP Code Phon e Number [facility] S PROSPECT [facility] documented in this encounter Visit Diagnoses Not on filedocumented in this encounter Care Teams Anesthetic Assistant Relationship Specialty Start Date End Date Ankit Bae MD PCP - General 01/15/09 1 documented as of this encounter
--- OUTSIDE RECORDS SUMMARY | 2022-04-21 01:03 | XMS_ITS | Encounter Summary ---
:1945 Author Organization [facility] Address [address] [place] [address] Care Team Providers Name Role Phone Ayla Brown Primary Care Provider Reason for Visit Reason Comments Suture / Staple Removal nasal bridge Encounter Details Date Type Department Care Team Description 12/29/2020 Nurse Only [facility] Nursing Team, 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 Wash wound daily with soap and water ??? this can be done while showering. Do not let the shower stream hit the wound directly. If you bathe in a tub, the bath should be brief. 2. Pat wound dry. 3. Apply a thin layer of vaseline to the wound. 4. Cover wound with a Band-Aid or a non-stick gauze pad and secure with tape. 5. Continue doing wound care until there is no more drainage. It is an old wives??? tale that a wound heals faster if it is exposed to air and allowed to dry out.The wound will heal faster and with a better cosmetic result if it is kept moist with ointment and covered with a bandage. Do not let the wound dry out. If the procedure required sutures, the suture line will be dark pink at first and the edges of the wound will be reddened. This will lighten up day by day and will be less tender. The suture line may also be firm, especially on the lip/chin area and will also fade with time. It may take up to 6-12 months for redness and firmness to fade. Numbness in the surgical area is expected. It might take 12-18 months for the feeling to return to normal. During this time, sensations of itchiness, tingling, and occasional sharp pains might be noted. These feelings are normal and will subside once the nerves have completely healed. Begin to massage the area 6 weeks after surgery. Massaging the area will help the scar soften and fade quicker. To massage, apply pressure directly and firmly over the scar with the fingertips and movelengthwise along the scar or in a circular motion. Massage the area for up to 10 minutes several times a day. About 6-8 weeks after surgery it is not uncommon to see tender 'pimple-like' bumps along the scar. This is normal as the scar continues to mature and the stitches underneath the skin begin to dissolve.Do not pick or squeeze ??? this will resolve on its own. Should one break open producing a small amount of drainage, apply polysporin or bacitracin ointment a few times a day until it is completely healed. CONTACT THE OFFICE If the wound becomes increasingly red, warm to touch, increased pain, drainage with a foul odor, rapid swelling of the wound, and/or if you develop a fever or chills, please call our office [phone] or . documented in this encounter Ordered Prescriptions Prescription Sig Dispensed Refills Start Date End Date mometasone (ELOCON) 0.1 % Apply to facial rash 30 g 0 12/29/2020 cream twice daily as needed documented in this encounter Progress Notes Juli Cardoza MA - 12/29/2020 1300 EDT Images from the original note were not included. 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 SUBJECTIVE: Patient reports tender to touch OBJECTIVE: There were no vitals taken for this visit. Wound edges: well-approximated center healing by second intention Wound Site: Mid incision line: Granulation tissue Drainage: serosanguineous PLAN: Wound cleansed from center outward with normal saline Sutures: all sutures removed Dressing: vaseline dressing applied and steristrips applied FOLLOW UP Patient advised to return to follow-up care on as planned or sooner if concern Post suture removal wound care instructions given to patient Note: I was supervised by Jeanette Saldivar MD who was present and immediately available in the office suite. 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
--- OUTSIDE RECORDS SUMMARY | 2022-04-21 01:03 | XMS_ITS | Encounter Summary ---
:1945 Author Organization [facility] Address [address] [place] [address] Care Team Providers Name Role Phone BrownAyla light Primary Care Provider Reason for Visit Reason Comments Squamous Cell Carcinoma nose Consult (Routine) - Authorization Not Required Specialty Diagnoses / Procedures Referred By Contact Refer red To Contact Dermatology Diagnoses Squamous cell carcinoma in situ (SCCIS) Hyacinth Hall MD Goldman, Glenn David, MD [address] [facility] [place] [phone] [place] [address] Fax: Referral ID Status Reason Start Expiration Visits Visits Date Date Requested Authorized [id number] Authorization Not 1 1 Required Encounter Details Date Type Department Care Team Description 12/22/2020 Office Visit [facility] Mina Saldivar s cell Dermatology - Abram Amado MD carcinoma in situ [place] [address] [place] [address] (SCCIS) of skin of [address] [place] [address] nose (Primary Dx) [place], [place] [id number] [place] [address] [facility] [address] [place] [address] (Wo rk) Social History Tobacco Use Types Packs/Day Years Used Date Never Assessed Sex Assigned at Date Recorded Not on file documented as of this encounter Last Filed Vital Signs Vital Sign Reading Time Taken Comments Blood Pressure 135/79 12/22/2020 0739 EDT Pulse 64 12/22/202039 EDT Temperature 36.6 ??C (97.8 ??F) 12/22/2020738 EDT Respiratory Rate - - Oxygen Saturation - - Inhaled Oxygen Concentration - - Weight - - Height - - Body Mass Index - - documented in this encounter Patient Instructions Patient InstructionsRenataKristysudhakarositoPARUL - 12/22/2020 7:30 EDT WOUND CARE INSTRUCTIONS FOR SKIN SURGERY (SUTURED OR OPEN WOUND) BANDAGE: Leave the bandage in place for 24 hours. You may shower or bathe after 24 hours. Remove thebandage and replace it after the showering (see below). DISCOMFORT: Expect discomfort. Take acetaminophen (for example, TylenolTM) as directed. If this doesnot provide sufficient relief, take ibuprofen (AdvilTM), up to 600 mg every 8 hours). You may take both of these together or alternate them. We do not routinely prescribe narcotic pain medications. If pain is severe and not relieved by the above measures, please call the office. BLEEDING: Some blood seeping into the bandage is NORMAL. If the bleeding soaks through the dressing,remove the dressing, and apply firm, steady pressure with a moist clean wash cloth for fifteen minutes. If the bleeding stops, redress the wound. If not, call our office. ACTIVITY: No strenuous activity for the first 48 hours after surgery. Keep your head elevated. APPEARANCE: Swelling and bruising are normal. Some redness is normal, but the wound should not be red, hot and tender. If the wound rapidly swells up or becomes increasingly inflamed, warm, or drains pus, please call our office. WOUND CARE: ?? Change the dressing daily and/or when it becomes wet. ?? Wash hands with soap and water and clean the wound with soap and warm water. ?? Apply a thin layer of sterile petroleum jelly over the wound. ?? Cover with Telfa or similar non-stick dressing or bandage ?? Tape in place with Hypafix or paper tape ?? Mild tenderness, pinpoint bleeding and a thin mucous-like discharge are normal. ?? Keep all sutured wounds covered daily for a full 7 days. ?? Open wounds will need to be covered for much longer. ?? If you have sutures that require removal, you will receive specific instructions regarding when and where to have them removed. ?? If you have dissolving sutures they will fall apart and be gone in 10-14 days. OPEN WOUND HEALING (Wound without sutures): If your wound was left open to heal on its own, approximately one week after surgery a pink/red halo will form around the outside of the wound; this is new skin. The center of the wound will appear yellowish white and produce some drainage. The pink halo will slowly migrate toward the center of the wound until the wound is covered with new shiny pink skin. There will be a mucus-like drainage on the dressing and there will be no more drainage when the woundis completely healed. WHEN TO CONTACT YOUR PHYSICIAN: Contact you physician if your wound becomes increasingly sore, tender, red, or warm, or if the surgery site rapidly swells. Please call our office [phone] or if you have any questions or concerns. documented in this encounter Ordered Prescriptions Prescription Sig Dispensed Refills Start Date End Date cephalexin (KEFLEX) 500 mg Take 1 Cap by mouth 9 Cap 0 12/22/2020 12/25/2020 capsule 3 times daily for 3 days. documented in this encounter Progress Notes Familia Dowell PA-C - 12/22/2020 3111 EDT Images from the original note were not included. MOHS SURGERY POST-OP SUMMARY Carolann Brennan is a 75 y.o. year old female who underwent Mohs surgery today 12/22/2020. The following is a summary of the operative findings: Lesion 1 Squamous cell carcinoma in situ Location Nasal bridge Size Preop (cm) 1.5 cm x 1.4 cm Size Postop (cm) 1.5 cm x 1.4 cm Stages 1 Depth of Excision muscle Repair complex linear repair Ms. Brennan was discharged from the operative suite in good condition. She was carefully instructed in postoperative wound care both verbally and in writing. The patient will follow up with nursing on 12/29/2020 for suture removal and will return to see me as needed. Note: ANTIBIOTIC: Keflex 500mg PO TID for 3 days prescribed for infection prophylaxis. Familia Dowell PA-C 12/22/2020 7:40 Iwona Cho MD 12/22/2020 9:51 Attestation statement: I performed or was present during the mitchell or critical portions of the visit and participated in the management of the patient. I agree with the findings and plan of care documented in the resident's/fellow's note. Mina Saldivar MD Chief of Dermatology [facility] MOHS EVALUATION NOTE Chief Complaint Patient presents with ??? Basal Cell Carcinoma forehead Subjective: Carolann Brennan is a 75 y.o. year old female who is referred to me for evaluation and treatment ofa skin cancer by Dr. Hall. The patient is referred to consider Mohs surgery versus other treatment options. The patient notes that this lesion has been present for approximately 1 year, and reports nosymptoms. Risk factors: Pacemaker/ICD: none Anticoagulants: apixaban (Eliquis) Total joint replacements/valves: total knee replacement (left, 2014) and total hip replacement (right, 2019) Allergies: Patient is allergic to epinephrine and penicillins. Immunosuppression: none Smoking status: non-smoker For full Medical, Surgical, Family, and Social histories as well as Review of Systems, Medications and Allergies please see those sections of this encounter in the electronic chart which I have personally reviewed. Objective: The following data was reviewed: external note(s) from referring provider and pathology report. Examination of the affected area revealed the following: ?? 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 Ms. Brennan and I discussed the meaning of the diagnosis of skin cancer and the options for treatment. Due to the need for a high cure rate and optimum functional and aesthetic outcome, I feel that Mohs surgery is indicated. The risks of Mohs surgery and potential reconstructive surgery, including: bleeding, infection, scarring, recurrence, injury to functionally or cosmetically important nerve structures and an unsatisfactory cosmetic result were reviewed. The patient was given an opportunity to ask questions, and I believe that all of her questions were answered satisfactorily. Ms. Brennanunderstands that following Mohs surgery an operative repair may be required and may involve substantial suturing. We have jointly planned to have me repair the wound at the day of surgery if needed. She understands that it typically takes 4 to 6 months for wounds to heal before a decision can be made about the final cosmetic result and that in some cases a revision may be necessary to optimize the outcome. I explained to Ms. Brennan that in addition to the risk of recurrence from her skin cancer she has an increased risk of developing additional new skin cancers elsewhere. For that reason, followup for ongoing skin surveillance examinations, after surgery, will be imperative. The patient has been scheduled to undergo surgery today. Note: None Familia Dowell PA-C 12/22/2020 7:40 Iwona Cho MD 12/22/2020 9:51 Attestation statement: I performed or was present during the mitchell or critical portions of the visit and participated in the management of the patient. I agree with the findings and plan of care documented in the resident's/fellow's note. Mina Saldivar MD Chief of Dermatology [facility] MOHS OPERATIVE REPORT Patient Name: Carolann Brennan Date of Service: December 22, 2020 Surgeon: Mina Saldivar MD I personally performed the procedure Mina Saldivar MD Chief of Dermatology [facility] Pickers Material Handlers: Familia Dowell PA-C and Rasheed Godinez MD and Iwona Cho MD Case #: [id number] Mohs AUC Score: 8 (APPROPRIATE) Preoperative Diagnosis: Squamous cell carcinoma in situ Preoperative Procedure: Mohs micrographic surgery Location of Lesion: Nasal bridge Preoperative Lesion Size: 1.5 cm x 1.4 cm Preoperative Procedure: Mohs microscopically-controlled fresh tissue excision Indications: The patient presents with a skin cancer. Because of the histologic and clinical nature of the lesion, as well as its location, the need to achieve the highest cure rate while providing maximum tissue preservation warranted tumor extirpation via microscopically-controlled excision using the Mohs fresh tissue technique. Alternate therapeutic options were discussed on several occasions prior to surgery. After informed consent was obtained and appropriate instruction was provided, the patient underwent tumor extirpation by the Mohs fresh tissue technique as follows: PROCEDURE - INITIAL STAGE: Patient position: seated Anesthesia: 1% plain lidocaine Prep: Povodine Iodine Patient Vitals for the past 24 hrs: BP Temp Pulse 12/22/20 0739 135/79 36.6 ??C (97.8 ??F) 64 The patient was brought to the operative suite. The lesion was identified and was prepped in a sterile fashion. The area was infiltrated with lidocaine/epinephrine to achieve complete anesthesia and toaugment hemostasis. The Mohs procedure was then carried out by Dr. Saldivar as follows: An initial beveled excision was performed through the epidermis and dermis with a #15 scalpel blade. A hash was created in the specimen and within the adjacent epidermis for marking purposes. The Mohs specimen was then excised in a sharp manner, and carefully placed in proper orientation on the surgical tray. Hemost asis of the operative wound was obtained with careful spot electrocoagulation. A sterile non-adherent dressing was applied to the operative wound. The Mohs tissue specimen was carefully transferred to the lab where the tissue was divided, and color inked for orientation. These specimens were mapped and then handed personally by the doctor to the traffic signal technician for frozen sectioning. The tissue was embedded so that the deep and surface margins lay inthe same plane, and sections were made through this plane. Once the slide preparation was complete Dr. Saldivar performed histologic evaluation and interpretation of all sections. A summary of the findings may be found below. Stage 1 findings: Wound Depth muscle Sections Created 2 Number of Sections Containing Tumor 0 (NORMAL SKIN: Sections consist of a portion of normal appearing skin, including epidermis, dermis, and subcutis. The epidermis and dermis are unremarkable. There is no evidence of malignancy). ADDITIONAL STAGES: None With the patient clear of microscopic tumor, surgery was considered complete. The wound was repairedwith a COMPLEX LINEAR closure as detailed in the separate linear repair procedure note below. Postoperative Wound Size: 1.5 cm x 1.4 cm Final Diagnosis: Squamous cell carcinoma in situ Final Procedure: Mohs micrographic surgery Blood Loss: Minimal Operative Time: 30 minutes Complications: None Note: ANTIBIOTIC: Keflex 500mg PO TID for 3 days prescribed for infection prophylaxis. COMPLEX LINEAR REPAIR Patient Information: Carolann Brennan 75 y.o. female Referring Provider: Hyacinth Hall MD Surgeon: Mina Saldivar MD I personally performed the procedure Mina Saldivar MD Chief of Dermatology [facility] Pickers Material Handlers: Iwona Cho MD Preoperative Diagnosis: Defect following microscopically controlled excision of squamous cell carcinoma in situ Preoperative Procedure: Complex Linear Closure Wound Location: Nasal bridge Wound Dimensions: 1.5 cm x 1.4 cm INDICATIONS: The patient presents with an operative wound following tumor removal. After careful consideration and discussion of all repair options, it was determined that, given the location and nature of the defect, a multilayered complex linear closure offered the best chance for preservation of normal anatomicand functional relationships. Alternate options were discussed and the patient was encouraged to askquestions, which, I believe, were answered appropriately. Informed consent was obtained in writing. After informed consent was obtained and appropriate instruction was provided, the patient underwent operative repair as follows. PROCEDURE: Patient Position: seated Anesthesia: 1% lidocaine plain local infiltration Prep: Povodine Iodine The Mohs operative defect was identified, and the area was infiltrated with lidocaine/epinephrine to achieve complete anesthesia and to augment hemostasis. The area was prepped in the usual sterile fashion and was draped with sterile drapes. A complex linear closure was designed with care to place the operative repair within functional and cosmetic lines to minimize the postoperative distortion of normal tissues. The wound edges were prepared using a # 15 scalpel blade to precisely delineate the operative repair and were then extensively undermined with combined blunt and, as needed, sharp dissection taking great care to avoid functionally important vessels and nerves. Undermining was carried outat the level of the muscle. Hemostasis of the operative wound was obtained with careful spot electrocoagulation, and ligature as indicated. The wound edges were then approximated using 5.0 Vicryl (polyglactin 910) buried interrupted sutures at the level of the subcutis and dermis. The epidermis was then approximated using 6.0 Fast absorbing plain gut. The final wound length was 3.5 cm Final Diagnosis: Defect following microscopically controlled excision. Final Procedure: Complex linear closure Blood Loss: minimal Operative Time: 45 minutes Complications: none Complex repair criteria met for this repair: Exposure of cartilage. Note: ANTIBIOTIC: Keflex 500mg PO TID for 3 days prescribed for infection prophylaxis. Small wound to heal by second intention. Repair complicated by prior accident and horizontal distal scar with some tip elevation along with inelastic skin and atrophy. Nonetheless we were able to repair the majority of the wound, allowing just a small, shallow wound to heal secondarily. Familia Dowell PA-C 12/22/2020 7:40 Iwona Cho MD 12/22/2020 9:50 Attestation statement: I performed or was present during the mitchell or critical portions of the visit and participated in the management of the patient. I agree with the findings and plan of care documented in the resident's/fellow's note. Mina Saldivar MD Chief of Dermatology [facility] documented in this encounter Plan of Treatment Upcoming Encounters Date Type Specialty Care Team Description 06/02/2022 Nurse Only Dermatology Photodynamic Therapy, Derm documented as of this encounter Procedures Procedure Name Priority Date/Time Associated Diagnosis Comme nts PROCEDURE REPORTS - 01/03/2021 12:08 Resu lts for this SCANNED EDT procedure are i n the results section. documented in this encounter Results PROCEDURE REPORTS - SCANNED (01/03/2021 12:08 EDT) Specimen Narrative This result has an attachment that is no t available. 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 Medication Sig Dispensed Refills Start Date End Date apixaban (ELIQUIS ORAL) Take by mouth. 0 added in this encounter Care Teams Retail Wireless Sales Representative Relationship Specialty Start Date End Date Ayla Brown PCP - General 05/30/17 01/23/22 [address] [place] [phone] documented as of this encounter
--- OUTSIDE RECORDS SUMMARY | 2022-04-21 01:03 | XMS_ITS | Encounter Summary ---
:1945 Author Organization [facility] Address [address] [place] [address] Care Team Providers Name Role Phone Unavailable Primary Care Provider Unavailable Encounter Details Date Type Department Care Team Description 02/28/2005 Hospital Encounter [facility] - Johnathan Lopez, Itz SOLANO [address] [place] [address] Social History Tobacco Use Types Packs/Day Years [...] Associated Diagnosis Comme nts MA MAMMO SCREENING 02/28/2005 9:13 EDT Re sults for this DIGITAL procedure are i n the results section. documented in this encounter Results MA MAMMO SCREENING DIGITAL (02/28/2005 9:13 EDT) Anatomical Region Laterality Modality Other Specimen Narrative [facility] - 03/25/2009 4: 05 EDT ROUTINE [PCP JOHNATHAN LOPEZ, JB BRAN] Comparison is made to films from 004 and films from 06/30/2002. Bilateral Breast Findings: (cad used to interpret routine digital): The breasts are almost entirely fat. ??N o significant masses, calcifications or other abnormalities ar e seen. IMPRESSION: BILATERAL BREAST - CATEGORY 1 Negative, no evidence of malignancy. Nor mal interval follow-up is recommended in 12 months. OVERALL ASSESSMENT - NEGATIVE END OF IMPRESSION Procedure Note Johnathan Min MD - 03/25/2009 ROUTINE [PCP JOHNATHAN LOPEZ, JB MASON] Comparison is made to films from 004 and films from 06/30/2002. Bilateral Breast Findings: (cad used to interpret routine digital): The breasts are almost entirely fat. No significant masses, calcifications or other abnormalities ar e seen. IMPRESSION: BILATERAL BREAST - CATEGORY 1 Negative, no evidence of malignancy. Nor mal interval follow-up is recommended in 12 months. OVERALL ASSESSMENT - NEGATIVE END OF IMPRESSION Performing Organization Address City/State/ZIP Code Phon e Number [facility] [address] [facility], [facility] [address] [facility] [address] [place], [place] [address] documented in this encounter Visit Diagnoses Not on filedocumented in this encounter
--- OUTSIDE RECORDS SUMMARY | 2022-04-21 01:03 | XMS_ITS | Encounter Summary ---
:1945 Author Organization [facility] Address [address] [place] [address] Care Team Providers Name Role Phone Pop Sood DO Primary Care Provider Encounter Details Date Type Department Care Team Description 07/28/[address] En[address] [facility] - S Daniela Real MD [address] [place] [address] [address] [place] [address] (Wo rk) Social History Tobacco Use Types [...] on filedocumented in this encounter Care Teams Avid Editor Relationship Specialty Start Date End Date Pop Sood DO PCP - General 04/07/11 01/09/[address] [place] [address] [address] [place] [phone] documented as of this encounter
--- OUTSIDE RECORDS SUMMARY | 2022-04-21 01:03 | XMS_ITS | Encounter Summary ---
:1945 Author Organization [facility] Address [address] [place] [address] Care Team Providers Name Role Phone Unavailable Primary Care Provider Unavailable Encounter Details Date Type Department Care Team Description 03/01/2006 Hospital Encounter [facility] - Vinod Ramos, Other [place] [address] [place] [address] [address] [place] [address] (Wo rk) Social History Tobacco Use Types [...] Associated Diagnosis Comme nts MA MAMMO SCREENING 03/01/2006 9:49 EDT Re sults for this DIGITAL procedure are i n the results section. documented in this encounter Results MA MAMMO SCREENING DIGITAL (03/01/2006 9:49 EDT) Anatomical Region Laterality Modality Other Specimen Narrative [facility] - 03/06/2009 11 :22 EDT ROUTINE Comparison is made to films from 005 (bilateral) and films from 06/30/2002. Bilateral Breast Findings: (CAD used to interpret routine digital): The breasts are almost entirely fat. ??N o significant masses, calcifications or other abnormalities ar e seen. IMPRESSION: BILATERAL BREASTS - CATEGORY 1 Negative, no evidence of malignancy. Nor mal interval follow-up is recommended in 12 months. OVERALL ASSESSMENT - NEGATIVE END OF IMPRESSION Procedure Note Britany Benavides MD - 03/06/2009 ROUTINE Comparison is made to films from 005 (bilateral) and films from 06/30/2002. Bilateral Breast Findings: (CAD used to interpret routine digital): The breasts are almost entirely fat. No significant masses, calcifications or other abnormalities ar e seen. IMPRESSION: BILATERAL BREASTS - CATEGORY 1 Negative, no evidence of malignancy. Nor mal interval follow-up is recommended in 12 months. OVERALL ASSESSMENT - NEGATIVE END OF IMPRESSION Performing Organization Address City/State/ZIP Code Phon e Number [facility] [address] [facility], [facility] [address] [facility] [address] [place], [place] [address] documented in this encounter Visit Diagnoses Not on filedocumented in this encounter
--- NOTE | 2022-04-21 08:30 | DI.MRI_ITS ---
Exam(s) MR LOWER JOINT RT WO EXAM: MR LOWER JOINT RT WO CLINICAL HISTORY: PAIN, RUPTURE OF HIP ABDUCTOR TENDON, S76.019A. TECHNIQUE: Multiplanar multisequence MRI was performed. COMPARISON: No exams were available for comparison FINDINGS: MR examination of the right hip was performed according to the usual protocol. No abnormality seen in the internal pelvis, unremarkable appearance of visualized uterus wrists, blad janis, and bowel. No adenopathy seen. There is hip joint replacement in position on the right. There is some metallic artifact present whic h obscures the region of the superior femoral neck, inferior femoral neck, and greater trochanter of the femur to some degree. There is no retracted tendon tear of the right hit. There is no bony signal abnormality to suggest fr acture. There are areas of mildly abnormal signal in the distal gluteus medius and gluteus minimus te ndons suggesting tendinosis without evidence of a discrete tear. Mildly abnormal signal also seen ass ociated with superiorgemellus Obturator internus, and piriformis tendons also consistent with tendinosis. again, no evidence of a discrete tear or retraction. No gross hip joint effusion seen. Unremarkable examination of the left hip. IMPRESSION: Findings consistent with tendinosis involving multiple right hip tendons as described above. Please s ee above discussion. No evidence of tendon tear or retracted tendon. DATA REPOSITORY:
== END ==
PROVIDERS: PCP Family Medicine; Visit Provider Student in an Organized Health Care Education/Training Program
DX: S76.011A Strain of muscle, fascia and tendon of right hip, initial encounter; M25.551 Pain in right hip; Z96.641 Presence of right artificial hip joint; M76.01 Gluteal tendinitis, right hip
CPT/HCPCS: 73721

== ENCOUNTER 2023-02-13 02:09 | Outpatient (CLI) | payer MEDICARE, SELFPAY ==
[2023-02-13 14:11] LABS: Abs Immature Grans 0.03 10^3/uL (0.0-0.06); Absolute Basophil Count 0.04 10^3/uL (0.0-0.2); Absolute Eosinophil Count 0.11 10^3/uL (0.0-0.7); Absolute Lymphocyte Count 1.84 10^3/uL (1.2-3.4); Absolute Monocyte Count 0.61 10^3/uL (0.1-0.8); Absolute Neutrophil Count 5.55 10^3/uL (1.2-6.7); Basophils % 0.5; Eosinophils % 1.3; HCT 44.6 % (36.0-46.0); HGB 14.9 g/dL (11.2-15.7); Immature Grans % 0.4; Lymphocytes % 22.5; MCH 32.1 pg (27.0-33.0); MCHC 33.4 % (32.0-36.0); MCV 96 fL (80-95); MPV 10.3 fL (8.0-11.0); Monocytes % 7.5; Neutrophils % 67.8; Platelet Count 224 10^3/uL (130-400); RBC 4.64 10^6/uL (3.93-5.22); RDW 13.1 % (11.7-14.6); RDW-SD 46.3 fL; WBC 8.18 10^3/uL (4.4-10.8)
[2023-02-13 14:49] LABS: Hemoglobin A1C 6.4 % (<5.7)
[2023-02-13 15:29] LABS: ALT 25 U/L (14-59); AST 14 U/L (15-37); Albumin 3.9 g/dL (3.4-5.0); Alkaline Phosphatase 59 U/L (46-116); Anion Gap 8.8 mmol/L (3-11); BUN 12 mg/dL (7-18); Bilirubin, Total 0.6 mg/dL (0.2-1.0); CO2 30.2 mmol/L (21.0-32.0); Calcium 9.3 mg/dL (8.5-10.1); Chloride 103 mmol/L (98-107); Estimated GFR 57.66 (mL/min/1.73m2); Glucose 131 mg/dL (74-106); Potassium 4.1 mmol/L (3.5-5.1); Sodium 142 mmol/L (136-145); TSH 0.71 uIU/mL (0.36-3.74); Total Protein 7.3 g/dL (6.4-8.2)
[2023-02-13 16:19] LABS: Calculated LDL 123 mg/dL (<100); Cholesterol 231 mg/dL (<200); HDL Cholesterol 83 mg/dL (40-60); Triglyceride 129 mg/dL (<150)
[2023-02-13 16:20] LABS: Vitamin B12 > 2000 pg/mL (193-986)
[2023-02-14 21:23] LABS: T3,Free 5.1 pg/mL (2.8-5.3)
[2023-02-15 09:23] LABS: Kappa Free Light Chain 1.21 mg/dL (0.33-1.94); Lambda Free Light Chain 1.03 mg/dL (0.57-2.63)
[2023-02-15 15:03] LABS: Albumin 61.6 % (55.8-66.1); Albumin g/dL 4.3 g/dL (3.6-5.2); Immunotyping, Serum (See Note); Monoclonal Spike 2.5 % (None Seen); Monoclonal Spike g/dL 0.2 g/dL (None Seen)
[2023-02-16 09:44] LABS: CA 125 9 U/mL (<30)
== END 2023-02-13 02:10 | disposition home or self-care (01) ==
PROVIDERS: PCP Family Medicine
DX: E78.49 Other hyperlipidemia (principal); E11.9 Type 2 diabetes mellitus without complications; E55.9 Vitamin D deficiency, unspecified; R97.1 Elevated cancer antigen 125 [CA 125]; D64.9 Anemia, unspecified; E03.9 Hypothyroidism, unspecified; D51.0 Vitamin B12 deficiency anemia due to intrinsic factor deficiency; Z80.9 Family history of malignant neoplasm, unspecified; R92.8 Other abnormal and inconclusive findings on diagnostic imaging of breast; Z15.01 Genetic susceptibility to malignant neoplasm of breast; D47.2 Monoclonal gammopathy
CPT/HCPCS: 36415; 80053; 80061; 82306; 86304; 82607; 83036; 83883; 84155; 84165; 84439; 84443; 84481; 85025; 86320

== ENCOUNTER → 2023-06-14 02:06 | Outpatient (CLI) | payer MEDICARE, SELFPAY ==
--- NOTE | 2023-06-14 | DI.CT_ITS ---
Exam(s) CT HEAD FACIAL WO EXAM: CT HEAD FACIAL WO CLINICAL HISTORY: ACUTE FACIAL PAIN, R51.9,HEADACHES,R51.9,CLOSED FX ZYGOMATIC ARCH,S02.402A. TECHNIQUE: Imaging Protocol: Axial computed tomography images with coronal and sagittal reformatted images were created and reviewed COMPARISON: CT HEAD AND CSPINE W/O CONTRAST from 03/28/2018 FINDINGS: CT Head: Ventricles and Extra axial spaces: Normal in size and morphology for the patient's age. Normal vari ant patent cavum septum pellucidum. Hemorrhage: None. Cerebral parenchyma: Normal. Midline shift: None. Brainstem/Cerebellum: Normal. Calvarium: Normal. Visualized Paranasal sinuses/Mastoids: Clear. Soft Tissues: Unremarkable. CT Face: Facial Bones: No fracture is noted in facial bones. Sinuses and Mastoids: Unremarkable. Nasal cavity is clear. Globes, extraocular muscles, optic nerves and retrobulbar fat: Normal. Upper aerodigestive tract: Normal. Mandible and bilateral temporomandibular joints: Normal. Soft tissues: Normal. IMPRESSION: 1. No acute intracranial process. 2. No acute facial fracture. No evidence of sinus disease. RADIATION DOSE DELIVERED: Total DLP DATA REPOSITORY: All CT scans at this facility are submitted to the National Radiology Data Registry (NRDR) Dose Index Registry (DIR) with the [employer] (ACR). RADIATION OPTIMIZATION: All CT scans at this facility use at least one of these dose optimization te chniques: automated exposure control; mA and/or kV adjustment per patient size (includes targeted exa ms where dose is matched to clinical indication); or iterative reconstruction.
== END ==
PROVIDERS: PCP Family Medicine; Visit Provider Internal Medicine
DX: R51.9 Headache, unspecified (principal); S02.402D Zygomatic fracture, unspecified side, subsequent encounter for fracture with routine healing; X58.XXXD Exposure to other specified factors, subsequent encounter
CPT/HCPCS: 70450; 70486

== ENCOUNTER → 2024-02-08 00:08 | Outpatient (CLI) | payer MEDICARE, SELFPAY ==
--- OUTSIDE RECORDS SUMMARY | 2024-02-08 00:12 | XMS_ITS | Continuity of Care Document ---
Author Name Unknown Organization [id number] Address [address] [place] [address] Phone Care Team Providers Care Cotton Stomper Name Role Phone Alejo Mcallister MD Unavailable Unavailable Procedures Procedure Date HOSPITAL INITIAL EM COMPREHENSIVE/HIGH 7 0 MINS Advance Directives Directive Yes / No Effective Date File Name No Information Encounters Encounter Description Practice Location Reason(s) For Visit Diagnoses Date Provider Providers Copied on Encounter HOSPITAL INITIAL EM COMPREHENSIVE /HIGH 70 MINS [id number] [facility], [address], [place], [address], [place] tel:[phone] [facility] No Information Ary Dhillon. [address] [place] [address], [id number], . tel:[phone] Referring Provider: Alejo Mcallister, [address] [place] [address], [address] . tel:[phone] Family History Family Member Type Diagnosis Age At Onset No Information Payers Payer name Insurance type Covered libertarian ID Authoriza tion(s) Medicare Part B Participatin g Providers [id number] [facility] [id number] Social History Type Description Quantity Date Captured Comments Sex Female Smoking Status No Information Chief Complaint And Reason For Visit No Information Reason For Referral Reason For Referral No Information History Of Present Illness Encounter Date Complaint History Of Prese nt Illness No Information Functional Status Date Functional Assessmen t No Information Instructions Date Instruction Additional Infor mation No Information Assessments Type Assessment Date No Information Patient Care Teams Name Effective Dates (start - stop) Status Members No Information
[2024-02-08 13:02] LABS: Abs Immature Grans 0.01 10^3/uL (0.0-0.06); Absolute Basophil Count 0.02 10^3/uL (0.0-0.2); Absolute Eosinophil Count 0.02 10^3/uL (0.0-0.7); Absolute Lymphocyte Count 1.43 10^3/uL (1.2-3.4); Absolute Monocyte Count 0.41 10^3/uL (0.1-0.8); Absolute Neutrophil Count 2.27 10^3/uL (1.2-6.7); Basophils % 0.5 %; Eosinophils % 0.5 %; HCT 36.5 % (36.0-46.0); Immature Grans % 0.2 %; Lymphocytes % 34.4 %; MCHC 32.9 % (32.0-36.0); MCV 103 fL (80-95); MPV 8.8 fL (8.0-11.0); Monocytes % 9.9 %; Neutrophils % 54.5 %; Platelet Count 266 10^3/uL (130-400); RBC 3.53 10^6/uL (3.93-5.22); RDW 17.4 % (11.7-14.6); WBC 4.16 10^3/uL (4.4-10.8)
[2024-02-08 13:19] LABS: ALT 20 U/L (14-59); AST 12 U/L (15-37); Albumin 3.8 g/dL (3.4-5.0); Alkaline Phosphatase 71 U/L (46-116); Anion Gap 7.8 mmol/L (3-11); BUN 9 mg/dL (7-18); Bilirubin, Total 0.49 mg/dL (0.2-1.0); CO2 31.2 mmol/L (21.0-32.0); CREATININE 0.8 mg/dL (0.55-1.02); Calcium 8.9 mg/dL (8.5-10.1); Chloride 105 mmol/L (98-107); Glucose 146 mg/dL (74-106); Potassium 3.6 mmol/L (3.5-5.1); Sodium 144 mmol/L (136-145); Total Protein 7.3 g/dL (6.4-8.2)
[2024-02-08] MEDS: Omnipaque 350 MG/ML 100 ML BTL IJ (14:50)
[2024-02-08] MEDS: Normal Saline - Diluent 50 ML VIAL IJ (14:51)
[2024-02-08] MEDS: Barium Sulfate 2% W/V-Creamy Vanilla Smoothie 450 ML BTL PO ×2 (14:52→14:53)
--- NOTE | 2024-02-08 14:56 | DI.CT_ITS ---
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 TECHNIQUE: Imaging Protocol: Axial computed tomography images with coronal and sagittal reformatted images were created and reviewed CONTRAST MATERIAL: Intravenous: Omnipaque 350 Contrast volume:100 ml Oral: 900 mL barium PO COMPARISON: CT CHEST FOR PULMONARY EMBOLUS from 02/05/[address] abdomen pelvis 03 October 2023 images not available. No recent chest CT image s or reports available. FINDINGS: CHEST: Tracheobronchial tree: Patent. Pulmonary parenchyma: No consolidation or dominant measurable mass. Pleura: No effusion or pneumothorax. Lymph nodes: Within normal limits. Aorta: Ascending aorta measures 5.3 x 4.9 cm. This appears stable from 2018. Mild atherosclerotic ch anges. Descending aorta tortuous. Heart: Normal size. No pericardial effusion. Bones: Unremarkable degenerative disc changes. No lytic or blastic lesions.No compression fractures. Soft tissues: Unremarkable. ABDOMEN and PELVIS: Exam mildly limited by motion. Liver: Normal density. No measurable mass. Gallbladder and biliary tract: No evidence of stones or wall thickening. No biliary dilatation. Pancreas: Normal density, no abnormal calcifications or inflammatory process. Spleen: Normal. Kidneys: Normal size, contour and axis. No radiodense stones. No obstructive uropathy. No suspicious masses seen. Adrenal glands: No masses seen. Aorta: Abdominal portion non-dilated. Atherosclerotic changes. Lymph nodes: Within normal limits. Soft tissues: Fatty containing umbilical hernia. Small area of scarring in the anterior midline fat a salome the level of the umbilicus. Bladder: Nearly empty. Unremarkable. Bowel: Mild sigmoid diverticulosis. No evidence of diverticulitis. No obstruction or bowel wall thick ening. Peritoneal cavity: No ascites. No focal collection. No mesenteric inflammatory response. Bones: Right hip prosthesis creates artifact. Degenerative changes and scoliosis noted in the spine. Reproductive organs: Status post hysterectomy. IMPRESSION: No evidence of metastatic disease or other acute abnormality in the chest, abdomen or pelvis.. RADIATION DOSE DELIVERED: 2,558.73mGy.cm Total DLP DATA REPOSITORY: All CT scans at this facility are submitted to the National Radiology Data Registry (NRDR) Dose Index Registry (DIR) with the [employer] (ACR). RADIATION OPTIMIZATION: All CT scans at this facility use at least one of these dose optimization te chniques: automated exposure control; mA and/or kV adjustment per patient size (includes targeted exa ms where dose is matched to clinical indication); or iterative reconstruction.
[2024-02-09 07:07] LABS: Lab Add On Test DONE
[2024-02-09 07:49] LABS: Hemoglobin A1C 7.4 % (<5.7)
[2024-02-11 11:09] LABS: CA 125 11 U/mL (<30)
== END ==
PROVIDERS: PCP Family Medicine; Visit Provider Obstetrics & Gynecology
DX: C57.01 Malignant neoplasm of right fallopian tube (principal); E11.9 Type 2 diabetes mellitus without complications
CPT/HCPCS: 74177; 80053; 86304; 71260; 83036; 83735; 85025; J3490

== ENCOUNTER 2024-03-19 02:39 | Outpatient (CLI) | payer MEDICARE, SELFPAY ==
--- OUTSIDE RECORDS SUMMARY | 2024-03-19 02:41 | XMS_ITS ---
Author Organization [facility] Address [address] [place] [address] Care Team Providers Care Medical Numerical Control Operator Name Role Phone Autumn SOLANO, Janell Unavailable [phone] REASON FOR VISIT new pt ovary removal consult ; leaves end of may Encounters Encounter Location Date Provider Diagnosis [facility] [address] [place] [address] 02/07/2023 Janell Leyva Plan Of Treatment No Information Progress Notes * MADHURI, KarlaDOB:[birth year] (77 yo F)Acc No.[id number]:02/07/2023 Patient:?Carolann Brennan :1945???Age:77 Y???Sex:Female Address:[address] [place] [address], [address] * true * Date:? Generated for Jennai alicia/Sabrina/eTransmitting on:?03/19/2024 02:41 AM EDT
--- OUTSIDE RECORDS SUMMARY | 2024-03-19 02:42 | XMS_ITS | Encounter Summary ---
Author Organization [facility] Address [address] [place] [address] Care Team Providers Care Cured Meat Packing Supervisor Name Role Phone Pop Sood DO Primary Care Provider [phone] Encounter Details Date Type Department Care Team (Late st Contact Info) Description 04/07/2013 Abstract [facility] [address] [place] [address] Pop Sood DO [address] [phone] Social History Tobacco Use Types Packs/Day Years Used Date Smoking Tobacco: Never Assessed Sex and Gender Information Value Date Recorded Sex Assigned at Not on file Gender Identity Not on file Sexual Orientation Not on file documented as of this encounter Plan of Treatment Not on file documented as of this encounter Visit Diagnoses Not on filedocumented in this encounter Historical Medications * This list may reflect changes made after this encounter. Medication Sig Dispensed Refills Start Date End Date thyroid, Pork, (ARMOUR THYROID) 60 mg tablet Take 60 mg by mouth daily. added in this encounter Care Teams Cured Meat Packing Supervisor Relationship Specialty Start Date End Date Pop Sood DO [address] [phone] PCP - General 04/07/11 01/09/16 documented as of this encounter
--- OUTSIDE RECORDS SUMMARY | 2024-03-19 02:42 | XMS_ITS | Encounter Summary ---
Author Organization [facility] Address [address] [place] [address] Care Team Providers Care Rag Cutting Machine Tender Name Role Phone Pop Sood DO Primary Care Provider [phone] Encounter Details Date Type Department Care Team (Late st Contact Info) Description 07/28/2011 Results Only [facility] [address] [place], [place] [phone] Oscar Real MD [address] [facility] [address] [place] [phone] Social History Tobacco Use Types Packs/Day Years Used Date Smoking Tobacco: Never Assessed Sex and Gender Information Value Date Recorded Sex Assigned at Not on file Gender Identity Not on file Sexual Orientation Not on file documented as of this encounter Plan of Treatment Not on file documented as of this encounter Procedures Procedure Name Priority Date/Time Associated Diagnosis Comments SURGICAL PATHOLOGY Routine 07/28/2011 0:00 EST documented in this encounter Results * SURGICAL PATHOLOGY (07/28/2011 0:00 EST) Pathology Report: SURGICAL PATHOLOGY REPORT Reports generated via electronic interface contain original data; however they are lacking the format of the original report. Caution should be taken when reading/interpreti ng unformatted reports. Name: ? JUSTYNA DHALIWAL ? Accession #: ? [id number] ? : ? 1945 (Age: 65) ??F ? N #: ? [id number] ? Collect Date: ? 07/28/2011 ? Location: ? [facility] ? Receive Date: ? 07/29/2011 ? Provider: OSCAR REAL MD Copy to: ? Final Pathologic Diagnosis: A. ?Skin of pubis, punch biopsy: 1. ?Lichen simplex chronicus with epidermal ulceration, dermal granulation tissue, and inflammation. ??See comment. B. ?Skin of sacrum, punch biopsy: 1. ?Epidermal ulceration with reactive changes and mild chronic inflammation. Comment: ? Numerous sections of both biopsies were reviewed. ??The biopsy from pubis (A) primarily shows features of lichen simplex chronicus with marked epidermal hyperplasia, hyperkeratosis, and scale crust. ??At one edge of the biopsy, there are features of excoriation. ??The biopsy from sacrum (B) shows similar features, although the degree of epidermal hyperplasia is much less. ??In both of the biopsies, the inflammation appears to be in proportion, and likely secondary to, the excoriation. ??There is no appreciable deep dermal inflammation or eosinophils to suggest arthropod assault reaction. ??(Dr. Hernandez)/[facility] Microscopic Description: ? (A) Sections consist of a partially fragmented, punch biopsy of skin to the superficial reticular dermis. ??The stratum corneum have marked compact orthohyperkeratosi s with eccentric parakeratosis and scale crust. ??The epidermis is markedly hyperplastic with an irregular rete ridge pattern. ??At one edge of the biopsy, beneath the crust, there is superficial erosion/ulceration . ??The hyperplastic epidermis shows reactive nuclear changes with a thickened granular layer. ??The interface is generally intact. ??There is mild intercellular edema with exocytosis of a small number of inflammatory cells beneath the area of crust. ??In this region, the dermis has a moderately dense mixed inflammatory infiltrate. ??There is a reactive vascular proliferation. ??Other areas show widening of the dermal papillae by thick bundles of collagen. ??Multiple deeper sections show similar features. (B) Sections consist of a punch biopsy of skin to the deep reticular dermis. There is a central focus of parakeratosis. ??In this region, the epidermis shows reactive changes with a somewhat tapered rete ridge pattern. ??The underlying dermis has granulation tissue and subepidermal fibrin deposition. ??There is a sparse dermal infiltrate that is composed primarily of small lymphocytes. ??The infiltrate is more prominent in the area of reactive changes and does not extend appreciably into the deep dermis. ??Deeper sections show similar features. ??(Dr. Hernandez)/[facility] Document reviewed and electronically signed by: WILLIAMS HERNANDEZ MD Report ??Date: 08/02/2011 15:31 By the signature above, the attending physician certifies that he/she has personally conducted a gross and/or microscopic examination of the described specimens and rendered or confirmed the above diagnosis. Specimen(s) Received: A. ?Pubis punch (#1) B. ? Sacrum (#2) Clinical History: ? Itchy bumps x yrs; Bites, LSC, other; clinical diagnosis code: ??238.2 Gross Description: ? Received in formalin labelled Mika, Justyna and pubis is an ovoid punch biopsy of white, focally ulcerated skin measuring 0.3 x 0.2 cm in diameter and 0.2 cm in thickness. ??The specimen is submitted intact as (A). Received in formalin labelled Mika, Justyna and sacrum is a circular punch biopsy of white skin measuring 0.3 cm in diameter and 0.3 cm in thickness. There is a slightly eccentric 0.1 x 0.1 by less than 0.1 cm circular, price, crusted papule. ??The specimen is submitted intact as (B). ??(Cole Saravia)/[facility] End of Report BETSY LINDO 07/28/2011 07/29/2011 9:1 7 EST Oscar Real MD PATHOLOGY ORDERABLES Performing Organization Address City/State/[facility] Co de Phone Number [facility] [address] [place] [address] documented in this encounter Visit Diagnoses Not on filedocumented in this encounter Care Teams Rag Cutting Machine Tender Relationship Specialty Start Date End Date Pop Sood DO [address] [place] [phone] PCP - General 04/07/11 01/09/16 documented as of this encounter
--- OUTSIDE RECORDS SUMMARY | 2024-03-19 02:42 | XMS_ITS | Encounter Summary ---
Author Organization [facility] Address [address] [place] [address] Care Team Providers Care Computer Numerical Control Operator Name Role Phone Ankit Bae MD Primary Care Provider Stephan gonzales Encounter Details Date Type Department Care Team (Late st Contact Info) Description 03/15/2010 Orders Only [facility] [phone] Karin Freitas MD [address] [place] [address] [place] [phone] Social History Tobacco Use Types Packs/Day Years Used Date Smoking Tobacco: Never Assessed Sex and Gender Information Value Date Recorded Sex Assigned at Not on file Gender Identity Not on file Sexual Orientation Not on file documented as of this encounter Plan of Treatment Not on file documented as of this encounter Procedures Procedure Name Priority Date/Time Associated Diagnosis Comments MA MAMMO SCREENING DIGITAL 03/15/2010 10:38 EDT documented in this encounter Results * MA MAMMO SCREENING DIGITAL (03/15/2010 10:38 EDT) Anatomical Region Laterality Modality Other 03/15/2010 10:3 8 EDT 03/16/2010 10:15 EDT Narrative 03/16/2010 10:15 EDT Comparison is made to films from 03/10/2009 (bilateral) and films from 02/25/2008 (bilateral) and films from 03/07/2007 (bilateral) and films from 03/01/2006 (bilateral) and films from 02/28/2005 (bilateral) and films from 03/04/2004. Bilateral Breast Findings: (CAD used to interpret routine digital): The breasts are almost entirely fat. No significant masses, calcifications or other abnormalities are seen. IMPRESSION: BILATERAL BREASTS - CATEGORY 1, NEGATIVE Negative, no evidence of malignancy. Normal interval follow-up is recommended in 12 months. OVERALL ASSESSMENT - NEGATIVE END OF IMPRESSION The patient will be notified of her/his breast imaging results via a lay letter from Radiology. ??Radiology will contact the patient directly regarding any findings which require additional imaging (Category 0) at this time. I have personally reviewed the images and the above interpretation and agree with the findings. Procedure Note Ankit Presley MD / Ankit Presley MD / Ankit Presley MD - 03/16/2010 Comparison is made to films from 03/10/2009 (bilateral) and films from 02/25/2008 (bilateral) and films from 03/07/2007 (bilateral) and films from 03/01/2006 (bilateral) and films from 02/28/2005 (bilateral) and films from 03/04/2004. Bilateral Breast Findings: (CAD used to interpret routine digital): The breasts are almost entirely fat. No significant masses, calcifications or other abnormalities are seen. IMPRESSION: BILATERAL BREASTS - CATEGORY 1, NEGATIVE Negative, no evidence of malignancy. Normal interval follow-up is recommended in 12 months. OVERALL ASSESSMENT - NEGATIVE END OF IMPRESSION The patient will be notified of her/his breast imaging results via a lay letter from Radiology. Radiology will contact the patient directly regarding any findings which require additional imaging (Category 0) at this time. I have personally reviewed the images and the above interpretation and agree with the findings. Karin Freitas MD IMG MAMMOGRAPHY [facility] documented in this encounter Visit Diagnoses Not on filedocumented in this encounter Care Teams Computer Numerical Control Operator Relationship Specialty Start Date End Date Ankit Bae MD PCP - General 01/15/09 04/06/11 documented as of this encounter
--- OUTSIDE RECORDS SUMMARY | 2024-03-19 02:42 | XMS_ITS | Encounter Summary ---
Author Organization [facility] Address [address] [place] [address] Care Team Providers Care Eyewear Manufacturing Supervisor Name Role Phone Unavailable Primary Care Provider Unavailabl e Encounter Details Date Type Department Care Team (Latest Contact Info) Description 01/13/2009 17:27 EDT - 01/13/2009 17:28 EDT Hospital Encounter [facility] - Other [address] [place] [address] Kasie Ramos, PA [address] [address] Discharge Disposition: Home or Self Care Social History Tobacco Use Types Packs/Day Years [...]
--- OUTSIDE RECORDS SUMMARY | 2024-03-19 02:42 | XMS_ITS | Encounter Summary ---
Author Organization [facility] Address [address] [place] [address] Care Team Providers Care Load Tester Name Role Phone Karin Vasquez MD Primary Care Provider [phone] Encounter Details Date Type Department Care Team (Latest Contact Info) Description 01/12/2016 7:23 EDT - 01/12/2016 23:59 EDT Hospital Encounter [address] [address] Karin Vasquez MD [address] [place] [address] Discharge Disposition: Home or Self Care Social History Tobacco Use Types Packs/Day Years Used Date Smoking Tobacco: Never Assessed Sex and Gender Information Value Date Recorded Sex Assigned at Not on file Gender Identity Not on file Sexual Orientation Not on file documented as of this encounter Discharge Diagnoses Diagnosis Z12.31 Encounter for screening mammogram for malignant neoplasm of breast-Z12.31[ICD-10-CM] Z80.3 Family history of malignant neoplasm of breast-Z80.3[ICD-10-CM] documented in this encounter Medications at Time of Discharge Medication Sig Dispensed Refills Start Date End Date thyroid, Pork, (ARMOUR THYROID) 60 mg tablet Take 60 mg by mouth daily. documented as of this encounter Discharge Disposition Disposition Code Departure Means Destination Home or Self [facility] documented in this encounter Plan of Treatment Not on file documented as of this encounter Visit Diagnoses Not on filedocumented in this encounter Care Teams Load Tester Relationship Specialty Start Date End Date Karin [place] [address] PCP - General 01/10/16 05/29/17 documented as of this encounter
--- OUTSIDE RECORDS SUMMARY | 2024-03-19 02:42 | XMS_ITS | Encounter Summary ---
Author Organization [facility] Address [address] [place] [address] Care Team Providers Care Dental Assistant Teacher Name Role Phone Mary Ann Ruby MD Primary Care Provider [phone] Reason for Visit * Reason Onset Date Comments Wound Care 04/04/2022 Encounter Details Date Type Department Care Team (Late st Contact Info) Description 04/04/2022 Telephone [facility] Dermatology [address] [phone] Mina Saldivar MD [address] [place] [address], [address] [place] [address] Wound Care Social History Tobacco Use Types Packs/Day Years Used Date Smoking Tobacco: Never Assessed Interpersonal Safety Answer Date Record ed Physically Hurt Never 11/24/2020 Verbally Threaten Not on file 11/24/2020 Sex and Gender Information Value Date Recorded Sex Assigned at Not on file Gender Identity Not on file Sexual Orientation Not on file documented as of this encounter Miscellaneous Notes * Telephone Encounter - Quynh Clayton RN - 04/04/2022 8613 EDT Patient requests information regarding PDT. She has an upcoming appointment. Patient education provided verbally and will send patient information through [employer] (E[employer]). QUYNH CLAYTON RN 04/04/2022 14:02 * Telephone Encounter - Jade Chaparro - 04/04/2022 1147 EDT Patient is calling to ask if there is special care that is needed after her photodynamic therapy on05/26/22. Please advise. documented in this encounter Plan of Treatment Not on file documented as of this encounter Visit Diagnoses Not on filedocumented in this encounter Care Teams Dental Assistant Teacher Relationship Specialty Start Date End Date Mary Ann Ruby MD [address] [place] [address] PCP - General Internal Medicine - Primary Care 01/24/22 documented as of this encounter
--- OUTSIDE RECORDS SUMMARY | 2024-03-19 02:42 | XMS_ITS | Encounter Summary ---
Author Organization [facility] Address [address] [place] [address] Care Team Providers Care Cad Engineer Name Role Phone Ankit Bae MD Primary Care Provider Stephan gonzales Encounter Details Date Type Department Care Team (Late st Contact Info) Description 03/08/2011 Results Only Imaging [facility] [phone] Kasie Ramos, PA [address] [address] Social History Tobacco Use Types Packs/Day Years [...] Associated Diagnosis Comments MA MAMMO SCREENING DIGITAL 04/07/2011 11:26 EDT documented in this encounter Results * MA MAMMO SCREENING DIGITAL (04/07/2011 11:26 EDT) Anatomical Region Laterality Modality Other 04/07/2011 11:2 6 EDT 04/07/2011 16:33 EDT Narrative 04/07/2011 16:33 EDT Comparison is made to images from 03/15/2010 (bilateral) and images from 03/10/2009 (bilateral) and images from 02/25/2008 (bilateral) and images from 03/07/2007 (bilateral) and images from 03/01/2006 (bilateral) and images from 02/28/2005 (bilateral) and images from 03/04/2004. Bilateral Breast Findings: (CAD used to interpret routine digital) The breasts are almost entirely fat (less than 25% fibroglandular). No significant masses, calcifications or other abnormalities are seen. IMPRESSION: BILATERAL BREASTS: Negative, no evidence of malignancy. Normal interval follow-up is recommended in 12 months. OVERALL ASSESSMENT - CATEGORY 1 - NEGATIVE END OF IMPRESSION The patient will be notified of her/his breast imaging results via a lay letter from Radiology. Radiology will contact the patient directly regarding any findings which require additional imaging (Category 0) at this time. Procedure Note 04/07/2011 Comparison is made to images from 03/15/2010 (bilateral) and images from 03/10/2009 (bilateral) and images from 02/25/2008 (bilateral) and images from 03/07/2007 (bilateral) and images from 03/01/2006 (bilateral) and images from 02/28/2005 (bilateral) and images from 03/04/2004. Bilateral Breast Findings: (CAD used to interpret routine digital) The breasts are almost entirely fat (less than 25% fibroglandular). No significant masses, calcifications or other abnormalities are seen. IMPRESSION: BILATERAL BREASTS: Negative, no evidence of malignancy. Normal interval follow-up is recommended in 12 months. OVERALL ASSESSMENT - CATEGORY 1 - NEGATIVE END OF IMPRESSION The patient will be notified of her/his breast imaging results via a lay letter from Radiology. Radiology will contact the patient directly regarding any findings which require additional imaging (Category 0) at this time. Kasie MARRUFO IMG MAMMOGRAPHY O RDERABLES documented in this encounter Visit Diagnoses Not on filedocumented in this encounter Care Teams Cad Engineer Relationship Specialty Start Date End Date Ankit Bae MD PCP - General 01/15/09 04/06/11 documented as of this encounter
--- OUTSIDE RECORDS SUMMARY | 2024-03-19 02:42 | XMS_ITS | Encounter Summary ---
Author Organization [facility] Address [address] [place] [address] Care Team Providers Care International Relations Professor Name Role Phone Pop Sood DO Primary Care Provider [phone] Encounter Details Date Type Department Care Team (Latest Contact Info) Description 04/28/2014 10:26 EDT - 04/28/2014 23:59 EDT Hospital Encounter [address] [address] Pop Sood DO [address] [phone] Discharge Disposition: Auto Discharge Social History Tobacco Use Types Packs/Day Years Used Date Smoking Tobacco: Never Assessed Sex and Gender Information Value Date Recorded Sex Assigned at Not on file Gender Identity Not on file Sexual Orientation Not on file documented as of this encounter Discharge Diagnoses Diagnosis V76.11 SCREENING MAMMOGRAM FOR HIGH-RISK PATIENT, MALIGNANT NEOPLASM OF BREAST[ICD-9-CM] V15.89 PERS HX HEALTH HAZARDS NEC[ICD-9-CM] V16.3 FAMILY HX-BREAST MALIG[ICD-9-CM] documented in this [...] on filedocumented in this encounter Care Teams International Relations Professor Relationship Specialty Start Date End Date Pop Sood DO [address] [phone] PCP - General 04/07/11 01/09/16 documented as of this encounter
--- OUTSIDE RECORDS SUMMARY | 2024-03-19 02:42 | XMS_ITS | Referral Summary ---
Author Organization [facility] Address [address] [place] [address] Care Team Providers Care Quality Auditor Name Role Phone Mary Ann Ruby MD Primary Care Provider [phone] Encounters Date Type Department Care Team Description 02/08/2024 Lab Requisition [facility] Pathology & Laboratory Medicine - [address] [address] Outr Resulting Lab, Provider from Last 3 Months Allergies Active Allergy Reactions Criticality Noted Date Comments Epinephrine 04/07/2013 Penicillins 04/07/2013 Medications Medication Sig Dispensed Refills Start Date End Date Status thyroid, Pork, (ARMOUR THYROID) 60 mg tablet Take 60 mg by mouth daily. Active apixaban (ELIQUIS ORAL) Take by mouth. Active mometasone (ELOCON) 0.1 % cream Apply to facial rash twice daily as needed 30 g 12/29/2020 Active Active Problems Problem Noted Date Diagnosed Date Other and unspecified diseases of the oral soft tissues 04/07/2013 Social History Tobacco Use Types Packs/Day Years Used Date Smoking Tobacco: Never Assessed Interpersonal Safety Answer Date Record ed Physically Hurt Never 11/24/2020 Verbally Threaten Not on file 11/24/2020 Sex and Gender Information Value Date Recorded Sex Assigned at Not on file Gender Identity Not on file Sexual Orientation Not on file Last Filed Vital Signs Vital Sign Reading Time Taken Comments Blood Pressure 135/79 12/22/2020 0739 EDT Pulse 64 12/22/2020 0739 EDT Temperature 36.6 ??C (97.8 ??F) 12/22/2020 0739 EDT Respiratory Rate - - Oxygen Saturation - - Inhaled Oxygen Concentration - - Weight 95.3 kg (210 lb) 03/16/2010 0817 EDT Height 172.7 cm (5' 8) 03/16/2010 0817 EDT Body Mass Index 31.93 03/16/2010 08 EDT Plan of Treatment Not on file Procedures Procedure Name Priority Date/Time Associated Diagnosis Comments CA 125 Routine 02/08/2024 12:53 EDT from Last 3 Months Results * CA 125 (02/08/2024 12:53 EDT) CA 125 11 <30 U/mL 02/11/2024 11:04 EDT [facility] Comment: NOTE: Serum CA 125 concentration should not be interpreted as absolute evidence for the presence or absence of malignant disease. Assayed on [employer]iyalifeaur XPT using chemiluminescent technology. ??Values obtained by using different assay methods cannot be used interchangeably. Blood VENOUS BLOOD / Unknown 02/08/2024 12:53 EDT 02/08/2024 22:25 EDT Provider Outr Resulting Lab CHEMISTRY & BLOOD GAS ORDERABLES [facility] [address] [place] [address] from Last 3 Months [address] [place] [address] Carolann Brennan Violet Personal/Family Self [address] [place], [place] [address] [place] [address] Carolann Brennan Personal/Family Self 1945 [address] [place] [address] Carolann Brennan Personal/Family Self 1945 [address] [place] [address] Carolann Brennan Personal/Family Self [address] [place], [place] [address] [place] [address] Carolann Brennan Personal/Family Self 1945 [address] [place] [address] Carolann Brennan Personal/Family Self [address] [place], [place] [address] [place] [address] Carolann Brennan Personal/Family Self [address] [place] [address] [address] [place] [address] Care Teams Quality Auditor Relationship Specialty Start Date End Date Mary Ann Ruby MD [address] [place], [place] [phone] PCP - General Internal Medicine - Primary Care 01/24/22
--- OUTSIDE RECORDS SUMMARY | 2024-03-19 02:42 | XMS_ITS | Encounter Summary ---
Author Organization [facility] Address [address] [place] [address] Care Team Providers Care Plastic [facility] Products Assembler Name Role Phone Pop Sood DO Primary Care Provider [phone]- [phone] Encounter Details Date Type Department Care Team (Latest Contact Info) Description 04/07/2011 10:31 EDT - 04/07/2011 23:59 EDT Hospital Encounter [address] [address] Ankit Bae MD [place], William James, DO [address] [phone] Discharge Disposition: Home or Self Care Social History Tobacco Use Types Packs/Day Years Used Date Smoking Tobacco: Never Assessed Sex and Gender Information Value Date Recorded Sex Assigned at Not on file Gender Identity Not on file Sexual Orientation Not on file documented as of this encounter Discharge Disposition Disposition Code Departure Means Destination Home or Self Assisted documented in this encounter Plan of Treatment Not on file documented as of this encounter Visit Diagnoses Not on filedocumented in this encounter Care Teams Plastic [facility] Products Assembler Relationship Specialty Start Date End Date Pop Sood DO [address] [facility] [address] [place] [phone] PCP - General 04/07/11 01/09/16 documented as of this encounter
--- OUTSIDE RECORDS SUMMARY | 2024-03-19 02:42 | XMS_ITS | Encounter Summary ---
Author Organization [facility] Address [address] [place] [address] Care Team Providers Care Automotive Assembler Name Role Phone Mary Ann Ruby MD Primary Care Provider [phone] Reason for Visit * (Routine/Next Available) - Receiving Office to Obtain Authorization Specialty Diagnoses / Procedures Referred By Contshirley t Referred To Contact Procedures MA OUTSIDE IMAGES MAMMO SCREENING Unknown, Provider, Referral ID Status Reason Start Date Expiration Date Visits Requested Visits Authorized [id number] Receiving Office to Obtain Authorization 01/24/2023 1 1 Encounter Details Date Type Department Care Team (Latest Contact Info) Description 12/29/2022 - 12/29/2022 23:59 EDT Hospital Encounter [facility] [place] [place] Discharge Disposition: Home or Self Care Social [...] Date apixaban (ELIQUIS ORAL) Take by mouth. mometasone (ELOCON) 0.1 % cream Apply to facial rash twice daily as needed 30 g 12/29/2020 thyroid, Pork, (ARMOUR THYROID) 60 mg tablet Take 60 mg by mouth daily. documented as of this encounter Discharge Disposition Disposition Code Departure Means Destination Home or Self Care documented in this encounter Plan of Treatment Not on file documented as of this encounter Procedures Procedure Name Priority Date/Time Associated Diagnosis Comments MA OUTSIDE IMAGES MAMMO SCREENING Routine 12/29/2022 16:57 EDT documented in this encounter Results * MA OUTSIDE IMAGES MAMMO SCREENING (12/29/2022 16:57 EDT) Narrative 01/24/2023 16:57 EDT This is a non-reportable exam. Provider Unknown MD [facility] OTHER IMAGING OR DERABLES documented in this encounter Visit Diagnoses Not on filedocumented in this encounter Care Teams Automotive Assembler Relationship Specialty Start Date End Date Mary Ann Ruby MD [facility] [place] [address] PCP - General Internal Medicine - Primary Care 01/24/22 documented as of this encounter
--- OUTSIDE RECORDS SUMMARY | 2024-03-19 02:42 | XMS_ITS | Encounter Summary ---
Author Organization [facility] Address [address] [place] [address] Care Team Providers Care Automatic Lathe Operator Name Role Phone Mary Ann Ruby MD Primary Care Provider [phone] Encounter Details Date Type Department Care Team (Late st Contact Info) Description 02/14/2023 Lab Requisition [facility] Pathology & Laboratory Medicine - [address] [address] Outr Resulting Lab, Provider Social History Tobacco Use Types Packs/Day Years [...] Procedure Name Priority Date/Time Associated Diagnosis Comments SPEP WITH IMMUNOTYPING PERFORMABLE Today 02/13/2023 13:55 EDT CA 125 Routine 02/13/2023 13:55 EDT SERUM FREE LIGHT CHAINS Routine 02/13/2023 13:55 EDT SPEP WITH IMMUNOTYPING Routine 02/13/2023 13:55 EDT T3 FREE Routine 02/13/2023 13:55 EDT PROTEIN, TOTAL Today 02/13/2023 13:55 EDT documented in this encounter Results * (ABNORMAL) SPEP WITH IMMUNOTYPING PERFORMABLE (02/13/2023 13:55 EDT) Albumin % 61.6 55.8 - 66.1 % 02/15/2023 14:57 [facility] Albumin g/dL 4.3 3.6 - 5.2 g/dL 02/15/2023 14:57 [facility] Alpha-1 % 4.5 2.9 - 4.9 % 02/15/2023 14:57 [facility] Alpha-1 g/dL 0.30 0.15 - 0.40 g/dL 02/15/2023 14:57 [facility] Alpha-2 % 12.7(H) 7.1 - 11.8 % 02/15/2023 14:57 [facility] Alpha-2 g/dL 0.90 0.50 - 1.00 g/dL 02/15/2023 14:57 [facility] Beta % 11.2 8.4 - 13.1 % 02/15/2023 14:57 [facility] Beta g/dL 0.80 0.60 - 1.20 g/dL 02/15/2023 14:57 [facility] Gamma % 10.0(L) 11.1 - 18.8 % 02/15/2023 14:57 [facility] Gamma g/dL 0.70 0.60 - 1.60 g/dL 02/15/2023 14:57 [facility] Monoclonal Luke % 2.5(H) None Seen % 02/15/2023 14:57 [facility] Monoclonal Luke g/dL 0.2(H) None Seen g/dL 02/15/2023 14:57 [facility] SPEP Comment Suspicious pattern, immunotyping to follow. 02/15/2023 14:57 [facility] Comment:See scanned/suppleme ntary report. Immunotyping, Serum Current Interpretation: Monoclonal IgG lambda immunoglobulin identified migrating in the mid gamma region. Reviewed by: Faisal Howard MD 02/15/2023 1427 02/15/2023 14:57 EDT [facility] Total Protein 7.0 6.3 - 8.2 g/dL 02/15/2023 14:57 EDT [facility] Blood VENOUS BLOOD / Unknown 02/13/2023 13:55 EDT 02/14/2023 17:06 EDT Provider Outr Resulting Lab CHEMISTRY & BLOOD GAS ORDERABLES Performing Organization Address [facility] Co de Phone Number [facility] [address] [place] [address] * PROTEIN, TOTAL (02/13/2023 13:55 EDT) Blood VENOUS BLOOD / Unknown 02/13/2023 13:55 EDT 02/14/2023 17:06 EDT Provider Outr Resulting Lab CHEMISTRY & BLOOD GAS ORDERABLES Performing Organization Address [facility]/ZIP Co de Phone Number [facility] [address] [place] [address] * T3 FREE (02/13/2023 13:55 EDT) T3, Free 5.1 2.8 - 5.3 pg/mL 02/14/2023 21:18 EDT [facility] Blood VENOUS BLOOD / Unknown 02/13/2023 13:55 EDT 02/14/2023 17:06 EDT Provider Outr Resulting Lab CHEMISTRY & BLOOD GAS ORDERABLES Performing Organization Address [facility] Co de Phone Number [facility] [address] [place] [address] * SERUM FREE LIGHT CHAINS (02/13/2023 13:55 EDT) [place] Free Lt Chain 1.21 0.33 - 1.94 mg/dL 02/15/2023 9:19 EDT [facility] Lambda Free Lt Chain 1.03 0.57 - 2.63 mg/dL 02/15/2023 9:19 EDT [facility] [place]/Lambda Ratio 1.17 0.26 - 1.65 02/15/2023 9:19 EDT [facility] Blood VENOUS BLOOD / Unknown 02/13/2023 13:55 EDT 02/14/2023 17:06 EDT Provider Outr Resulting Lab CHEMISTRY & BLOOD GAS ORDERABLES Performing Organization Address [facility] Co de Phone Number [facility] [address] [place] [address] * CA 125 (02/13/2023 13:55 EDT) CA 125 9 <30 U/mL 02/16/2023 9:40 EDT [facility] Comment: NOTE: Serum CA 125 concentration should not be interpreted as absolute evidence for the presence or absence of malignant disease. Assayed on [employer] XPT using chemiluminescent technology. ??Values obtained by using different assay methods cannot be used interchangeably. Blood VENOUS BLOOD / Unknown 02/13/2023 13:55 EDT 02/14/2023 17:06 EDT Provider Outr Resulting Lab CHEMISTRY & BLOOD GAS ORDERABLES Performing Organization Address [facility] Co de Phone Number [facility] [address] [place] [address] documented in this encounter Visit Diagnoses Not on filedocumented in this encounter Care Teams Automatic Lathe Operator Relationship Specialty Start Date End Date Mary Ann Ruby MD [address] [place] [address] PCP - General Internal Medicine - Primary Care 01/24/22 documented as of this encounter
--- OUTSIDE RECORDS SUMMARY | 2024-03-19 02:42 | XMS_ITS | Encounter Summary ---
Author Organization [facility] Address [address] [place] [address] Care Team Providers Care Pipe Bowls Paint Trimmer Name Role Phone Pop Sood DO Primary Care Provider [phone] Encounter Details Date Type Department Care Team (Late st Contact Info) Description 04/11/2012 Results Only Imaging [facility] [phone] Pop Sood DO [address] [facility] [address] [place] [phone] Social History Tobacco Use Types Packs/Day Years [...] Associated Diagnosis Comments MA MAMMO SCREENING DIGITAL 04/17/2012 11:25 EDT documented in this encounter Results * MA MAMMO SCREENING DIGITAL (04/17/2012 11:25 EDT) Anatomical Region Laterality Modality Other 04/17/2012 11:2 5 EDT 04/18/2012 17:05 EDT Narrative 04/18/2012 17:05 EDT Comparison has been made to previous images. Bilateral Breast Findings: (Routine digital views with CAD) The breasts are almost entirely fat (less [...] (Category 0) at this time. Procedure Note 04/18/2012 Comparison has been made to previous images. Bilateral Breast Findings: (Routine digital views with CAD) The breasts are almost entirely fat (less [...] additional imaging (Category 0) at this time. Pop Sood DO IMG MAMMOGRAPHY OR DERABLES documented in this encounter Visit Diagnoses Not on filedocumented in this encounter Care Teams Pipe Bowls Paint Trimmer Relationship Specialty Start Date End Date Pop Sood DO [address] [place] [phone] PCP - General 04/07/11 01/09/16 documented as of this encounter
--- OUTSIDE RECORDS SUMMARY | 2024-03-19 02:42 | XMS_ITS | Encounter Summary ---
Author Organization [facility] Address [address] [place] [address] Care Team Providers Care Biology Specialist Name Role Phone Pop Sood DO Primary Care Provider [phone] Encounter Details Date Type Department Care Team (Late st Contact Info) Description 01/20/2015 Results Only [facility] [phone] Baljinder Acuña MD [address] [place] [address] [place] [address] Social History Tobacco Use Types Packs/Day Years Used Date Smoking Tobacco: Never Assessed Sex and Gender Information Value Date Recorded Sex Assigned at Not on file Gender Identity Not on file Sexual Orientation Not on file documented as of this encounter Plan of Treatment Not on file documented as of this encounter Procedures Procedure Name Priority Date/Time Associated Diagnosis Comments SURGICAL PATHOLOGY Routine 01/20/2015 20 :49 EDT documented in this encounter Results * SURGICAL PATHOLOGY (01/20/2015 20:49 EDT) Pathology Report: SURGICAL PATHOLOGY REPORT Reports generated via electronic interface contain original data; however they are lacking the format of the original report. Caution should be taken when reading/interpret ing unformatted reports. Name: ? JUSTYNA DHALIWAL ? Accession #: ? [id number] ? : ? 1945 (Age: 69) ??F ? Collect Date: ? 01/20/2015 ? Location: ? [facility] ? Receive Date: ? 01/20/2015 ? Provider: BALJINDER ACUÑA MD Copy to: HUBERT LOBATO MD ? Final Pathologic Diagnosis: SYNOVIUM, LEFT KNEE, ARTHROPLASTY: - ??Reactive synovial tissue. See comment. - ??No evidence of rheumatoid arthritis. Comment: Microscopic examination reveals synovial proliferation and edema, consistent with reactive changes. There is no significant lymphoid follicle formation, plasma cell infiltrate or villous hypertrophy to suggest rheumatoid arthritis. Dr. Mota 01/22/2015 11:26 AM Document reviewed and electronically signed by: DOROTHY ESQUIVEL MD Report ??Date: 01/22/2015 13:44 By the signature above, the attending physician certifies that he/she has personally conducted a gross and/or microscopic examination of the described specimens and rendered or confirmed the above diagnosis. Specimen(s) Received: Left knee synovium Clinical History: End state osteoarthritis left knee, total knee arthroplasty for DJD, some aspect of synovium consistent with RA; rule out rheumatoid arthritis Gross Description: ? Received in formalin labelled with proper patient identification (initials C, K) and knee synovium rule out rheumatoid arthritis is an aggregate of fibrous and fibrofatty tissue (1.8 x 1.2 x 0.8 cm). The surface is focally smooth and stringy. ??Entirely submitted in 1 and 2. Any Fernando 01/21/2015 8:27 AM End of Report [facility] 01/20/2015 20:4 9 EDT 01/20/2015 20:49 EDT Baljinder Acuña MD PATHOLOGY ORDERABLE S [facility] [address] [place] [address] documented in this encounter Visit Diagnoses Not on filedocumented in this encounter Care Teams Biology Specialist Relationship Specialty Start Date End Date Pop Sood DO [address] [place] [phone] PCP - General 04/07/11 01/09/16 documented as of this encounter
--- OUTSIDE RECORDS SUMMARY | 2024-03-19 02:42 | XMS_ITS | Encounter Summary ---
Author Organization [facility] Address [address] [place] [address] Care Team Providers Care Hide Examiner Name Role Phone Ankit Bae MD Primary Care Provider Stephan gonzales Reason for Visit * Reason Comments Back Pain knees and hips very painful Menopause Encounter Details Date Type Department Care Team (Latest Contact Info) Description 03/16/2010 8:00 EDT Office Visit [facility] Osteoporosis - [address] [address] Josesito Padron MD Rad, Brielle Camejo MD Menopause (Primary Dx) Social History Tobacco Use Types Packs/Day Years Used Date Smoking Tobacco: Never Assessed Sex and Gender Information Value Date Recorded Sex Assigned at Not on file Gender Identity Not on file Sexual Orientation Not on file documented as of this encounter Last Filed Vital Signs Vital Sign Reading Time Taken Comments Blood Pressure - - Pulse - - Temperature - - Respiratory Rate - - Oxygen Saturation - - Inhaled Oxygen Concentration - - Weight 95.3 kg (210 lb) 03/16/2010 0817 EDT Height 172.7 cm (5' 8) 03/16/2010 0817 EDT Body Mass Index 31.93 03/16/2010 0817 EDT documented in this encounter Progress Notes * Josesito Padron MD - 03/25/2010 0305 EDT [facility] [address] March 16, 2010 Referring Provider: Dr. Bae Date of Examination: 03/16/2010 Reason for Study: Menopausal symptoms (627.2) Densitometer: [email or web address] Quality of Study: Spine L1-L2: Adequate for interpretation L3 and L4 excluded due to arthritis or scoliosis. Proximal Femur (hip): Adequate for interpretation Forearm: Adequate for interpretation The results of this study and any comparable previous studies are as follows: Region Scan Date g/cm2 % Young Normal Control % Age Matched T-Score Total Hip (left) 09/25/2000 0.978 98 96 -0.2 Femoral Neck (mean)* 03/16/2010 0.901 92 112 -0.7 Total Hip (left) 03/16/2010 0.915 92 106 -0.7 Change from first to last -0.06 Percent Change from first to last -6% AP Spine L1-L2 09/25/2000 1.250 109 107 0.8 AP Spine L1-L2 03/16/2010 1.203 102 122 0.2 Change from first to last -0.05 Percent Change from first to last -4% Forearm Radius /3 (left) 03/16/2010 0.674 94 110 -0.6 *This site has the lowest bone density in the hip area and therefore is being used for diagnosis. For comparison to prior hip scans, the bone density of the total hip (left) will be used. Compared to the precision error of the densitometer, the bone density of the hip has decreased since the initial study. The bone density of the spine has decreased since the initial study. WHO Classification by T-score The T-score in bone densitometry measures the number of standard deviations the density is below that of a young adult population matched for sex. The World Health Organization (WHO) has classified bone mass using T-score as follows: Normal: T-score of -1 or greater Little risk of fracture Osteopenia: T-score between -1 and -2.5 Low bone mass Osteoporosis: T-score of -2.5 or less Increased risk of fracturing Severe Osteoporosis: Osteoporosis by T-score plus previous fragility fracture Diagnosis by WHO Classification: Normal At this time there is little risk of fracturing. Fracture Risk Calculation The ten year probability of developing a fracture is 8%. This compares to the average 10 year risk for a woman of the same age of 14%. (ref. Shanti TORRES et al, Osteop Int. 2001) Risk Factors Identified by the Patient ?? Family history of osteoporosis ?? Potential for excess thyroid replacement The above listed risk factors are likely to increase the risk of fracture. Patient's Present Therapy and Suggested Treatment Patient's dietary intake of calcium from questionnaire: 350 mg. Patient's calcium supplementation from questionnaire: 1500 mg. NIH Consensus Panel recommendation: 1500 mg. Adequate vitamin D is recommended: 400-800 units daily. These recommendations for calcium and vitamin D intake may not apply to people with chronic kidney disease or who are on dialysis. Patient should also be encouraged to participate in weight bearing exercise. Hormone replacement therapy (HRT) is not indicated for the prevention of bone loss alone but may beprescribed if there are additional indications such as menopausal symptoms. An assessment was made of the risks for such therapy. The following risk factor was identified specific to this individual: ?? Family history of breast cancer In light of the contraindication, hormone replacement therapy is not recommended. Based on the above evaluation, calcium and vitamin D may be adequate at this time to reduce the risk of future fractures. A repeat bone density study may not be necessary unless there is a major change in overall clinical status. The measurement of bone mass cannot diagnose or adequately screen for the presence of metabolic bone disease. Therefore, when clinically indicated, additional studies may be needed. A report of our findings has been sent to your patient. Sincerely, Josesito Padron M.D. Director [facility] 03/17/2010 04:44 PM Autrement (HotelHotel) Document ID: [id number] * Vanessa Ocampo - 03/16/2010 0817 EDT Procedure Date: 03/16/2010 Referring Physician: Ankit Bea Previous Scan Date: ABN Necessary: No Ht 1.727 m (5' 8) Wt 95.255 kg (210 lb) Done AP SPINE yes FEMUR yes TOTAL BODY FOREARM yes LVA/VFA HEEL US PATIENT HISTORY: There is no problem list on file for this patient. No past medical history on file. Additional Comments: Vanessa Ocampo 03/16/2010 8:17 AM documented in this encounter Miscellaneous Notes * Scanned Note-Null - Inpatient, Physician - 03/21/2010 1345 EDT documented in this encounter Plan of Treatment Not on file documented as of this encounter Visit Diagnoses Diagnosis Menopause- Primary Asymptomatic postmenopausal status (age-related) (natural) documented in this encounter Care Teams Hide Examiner Relationship Specialty Start Date End Date Ankit Bae MD PCP - General 01/15/09 04/06/11 documented as of this encounter
--- OUTSIDE RECORDS SUMMARY | 2024-03-19 02:42 | XMS_ITS | Encounter Summary ---
Author Organization [facility] Address [address] [place] [address] Care Team Providers Care Bone Tender Name Role Phone Mary Ann Ruby MD Primary Care Provider [phone] Encounter Details Date Type Department Care Team (Late st Contact Info) Description 02/08/2024 Lab Requisition [facility] Pathology & Laboratory Medicine - [address] [address] Outr Resulting Lab, Provider Social History Tobacco [...] Comments CA 125 Routine 02/08/2024 12:53 EDT documented in this encounter Results * CA 125 (02/08/2024 12:53 EDT) CA 125 11 <30 U/mL 02/11/2024 11:04 EDT [facility] Comment: NOTE: Serum CA 125 concentration should not be interpreted as absolute evidence for the presence or absence of malignant disease. Assayed on Siemens ADVIA Centaur XPT using chemiluminescent technology. ??Values obtained by using different assay methods cannot be used interchangeably. Blood VENOUS BLOOD / Unknown 02/08/2024 12:53 EDT 02/08/2024 22:25 EDT Provider Outr Resulting Lab CHEMISTRY & BLOOD GAS ORDERABLES [facility] [address] [place] [address] documented in this encounter Visit Diagnoses Not on filedocumented in this encounter Care Teams Bone Tender Relationship Specialty Start Date End Date Mary Ann Ruby MD [address] [place] [address] PCP - General Internal Medicine - Primary Care 01/24/22 documented as of this encounter
--- OUTSIDE RECORDS SUMMARY | 2024-03-19 02:42 | XMS_ITS | Encounter Summary ---
Author Organization [facility] Address [address] [place] [address] Care Team Providers Care Research And Insights Executive Name Role Phone Ankit Bae MD Primary Care Provider Stephan gonzales Encounter Details Date Type Department Care Team (Late st Contact Info) Description 03/19/2009 Orders Only [address] [address] Ankit Bae MD Social History Tobacco Use Types Packs/Day Years [...] Associated Diagnosis Comments MA MAMMO SCREENING DIGITAL 03/10/2009 11:14 EDT documented in this encounter Results * MA MAMMO SCREENING DIGITAL (03/10/2009 11:14 EDT) Anatomical Region Laterality Modality Other 03/10/2009 11:1 4 EDT 03/11/2009 17:19 EDT Narrative 03/11/2009 17:19 EDT Comparison is made to films from 03/07/2007 (bilateral) and films from [...] 03/11/2009 Comparison is made to films from 03/07/2007 (bilateral) and films from [...] additional imaging (Category 0) at this time. Ankit Bae MD IM MAMMOGRAPHY [facility] documented in this encounter Visit Diagnoses Not on filedocumented in this encounter Care Teams Research And Insights Executive Relationship Specialty Start Date End Date Ankit Bae MD PCP - General 01/15/09 04/06/11 documented as of this encounter
--- OUTSIDE RECORDS SUMMARY | 2024-03-19 02:42 | XMS_ITS | Patient Health Record ---
Author Organization [facility] Address [address] [place] [address] Support Name Relationship Address Phone Carolann Brennan Guarantor Unknown Reason For Referral No Information Plan Of Treatment No Information Insurance Providers Payer Name Payer Address Payer Phone Subscriber Number Group Number Insured Name Patient Relationship to Insured Coverage Start Date Coverage End Date MEDICARE NHIC [address] [place] [id number] Carolann Jackson Self - patient is the insured
--- OUTSIDE RECORDS SUMMARY | 2024-03-19 02:42 | XMS_ITS | Encounter Summary ---
Author Organization [facility] Address [address] [place] [address] Care Team Providers Care Coating Supervisor Name Role Phone Mary nAn Ruby MD Primary Care Provider [phone] Reason for Visit * Reason Comments Follow-up Encounter Details Date Type Department Care Team (Late st Contact Info) Description 01/24/2022 16:00 EDT Office Visit [facility] Dermatology 5th [address] [address] Mina Saldivar MD [address] [place] [address], [address] [place] [address] Actinic keratosis (Primary Dx); History of squamous cell carcinoma Social History Tobacco Use Types Packs/Day Years Used Date Smoking Tobacco: Never Assessed Interpersonal Safety Answer Date Record ed Physically Hurt Never 11/24/2020 Verbally Threaten Not on file 11/24/2020 Sex and Gender Information Value Date Recorded Sex Assigned at Not on file Gender Identity Not on file Sexual Orientation Not on file documented as of this encounter Progress Notes * Jose Elias Cazares - 01/24/2022 1600 EDT Mohs Follow Up Note Followup for skin cancer Had SCC of nose last year Had a spot on the nose zapped in [place] over winter SPECIALTY COMMENTS No specialty comments available. ELLA Vuong is approximately 1 year status post Mohs surgery and she returns today for follow up. 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 ?? She notes that she has healed well ?? She does have some gritty spots on the face ?? She has no additional concerns she wishes to discuss today. For full Medical, Surgical, Family, and Social histories as well as Review of Systems, Medications and Allergies please see those sections of this encounter in the electronic chart which I have personally reviewed. OBJECTIVE Diffuse multifocal actinic keratosis of face Nasal scar well-healed ASSESSMENT ??? Well healed with no evidence of recurrence following Mohs surgery for SCC ??? Actinic keratosis PLAN ?? SUN PROTECTION AND SELF EXAMS: Patient advised that individuals with a history of skin cancer have an increased risk for development of new skin cancers. Recommended regular self skin examinationsand to call our office for any new, changing or ugly duckling skin lesions prior to next appointment. The importance of sun avoidance and sun protection with clothing and broad spectrum sunscreens (SPF 30 or above) for primary prevention of new skin cancers reviewed. ?? Discussed PDT vs. Topical chemotherapy ?? Discussed usual expected course and side effects She would like to consider PDT in April Jose Elias Cazares 01/23/2022 16:00 Attestation statement: I performed or was present during the mitchell or critical portions of the visit and participated in the management of the patient. I agree with the findings and plan of care documented in the resident's/fellow's note. Mina Saldivar MD Chief of Dermatology documented in this encounter Plan of Treatment Not on file documented as of this encounter Visit Diagnoses Diagnosis Actinic keratosis- Primary History of squamous cell carcinoma Personal history of malignant neoplasm of other site documented in this encounter Orders Nursing Count Last Ordered Date First Orde red Date PHOTODYNAMIC THERAPY (PDT) 1 01/24/2022 documented in this encounter Care Teams Coating Supervisor Relationship Specialty Start Date End Date Mary Ann Ruby MD [address] [place] [address] PCP - General Internal Medicine - Primary Care 01/24/22 documented as of this encounter
--- OUTSIDE RECORDS SUMMARY | 2024-03-19 02:42 | XMS_ITS | Encounter Summary ---
Author Organization [facility] Address [address] [place] [address] Care Team Providers Care Intermediate School Teacher Name Role Phone Ankit Bae MD Primary Care Provider Stephan gonzales Encounter Details Date Type Department Care Team (Latest Contact Info) Description 03/15/2010 10:04 EDT - 03/15/2010 23:59 EDT Hospital Encounter [address] [address] Ankit Bae MD Discharge Disposition: Home or Self Care Social History Tobacco Use Types Packs/Day Years Used Date Smoking Tobacco: Never Assessed Sex and Gender Information Value Date Recorded Sex Assigned at Not on file Gender Identity Not on file Sexual Orientation Not on file documented as of this encounter Discharge Disposition Disposition Code Departure Means Destination Home or Self Snf documented in this encounter Plan of Treatment Not on file documented as of this encounter Visit Diagnoses Not on filedocumented in this encounter Care Teams Intermediate School Teacher Relationship Specialty Start Date End Date Ankit Bae MD PCP - General 01/15/09 04/06/11 documented as of this encounter
--- OUTSIDE RECORDS SUMMARY | 2024-03-19 02:42 | XMS_ITS | Encounter Summary ---
Author Organization [facility] Address [address] [place] [address] Care Team Providers Care Curb Builder Name Role Phone Ankit Bae MD Primary Care Provider Pop Weir DO Primary Care Provider [phone] Karin Vasquez MD Primary Care Provider [phone] Ayla Brown Primary Care Provider [phone] Encounter Details Date Type Department Care Team (Late st Contact Info) Description 01/24/2010 Historical Results Only [facility] [place] Lab - Main [address] [address] Ze Mcclain MD Social History Tobacco Use Types Packs/Day [...] Date/Time Associated Diagnosis Comments SURGICAL PATHOLOGY Routine 01/24/2010 documented in this encounter Results * SURGICAL PATHOLOGY (01/24/2010) 01/24/2010 01/24/2010 15: [address] [facility] - 01/25/2010 10:08 EDT ----- ------- Name: MADHURIAUREJUSTYNA M ?: 43 ?Age/Sex: 73/F ?Unit#: [id number] ? Loc: END ? Status: DEP CLI ?? Reg Date: 01/24/10 ? Pt.Phone Number: ? ----- ------- Specimen: [id number] ? STATUS: SOUT ?Spec Date:01/24/10 ? Physician Copies: ?Ze Mcclain MD ?? Tissues: A ?? Gastrointestinal Tract (CECUM) ? Ankit Bae ?? CPT: 63831 ?? Units: ??1 ?FINAL DIAGNOSIS ? Cecum, polyps, biopsy; ? - Tubular adenomas. ? GROSS DESCRIPTION ? Received in [place]'s labeled with the patient's name and polyps, cecum, cold ? snare x 1, hot snare x 1 are four mucosal fragments. ??The two largest are ? polypoid and measure 0.7 and 0.6 cm. ??The smaller two average about 0.2 cm ? each. ??The larger pieces are bisected, e.s. 1. ??CP ?? PREOP DX/CLINICAL HISTORY ?History of polyps. Signed ____(signature on file)____ Ashley Magana M.D. 01/25/10 By the signature above, the attending physician certifies that he/she has personally conducted a gross and/or microscopic examination of the described specimens and rendered or confirmed the above diagnosis. Test Performed by [facility], [address] [place] [id number] Assembler Piano: Ashley Magana MD PHD ----- ------- Ze Mcclain MD PATHOLOGY ORDERABLES [facility] documented in this encounter Visit Diagnoses Not on filedocumented in this encounter Care Teams Curb Builder Relationship Specialty Start Date End Date Ankit Bae MD PCP - General 01/15/09 04/06/11 Pop Sood DO [address] [place] [phone] PCP - General 04/07/11 01/09/16 Karin Vasquez MD [address] [place] [address] PCP - General 01/10/16 05/29/17 Ayla Brown [address] [place] [address] PCP - General 05/30/17 01/23/22 documented as of this encounter
--- OUTSIDE RECORDS SUMMARY | 2024-03-19 02:42 | XMS_ITS | Encounter Summary ---
Author Organization [facility] Address [address] [place] [address] Care Team Providers Care Application Lead Name Role Phone Pop Sood DO Primary Care Provider [phone] Encounter Details Date Type Department Care Team (Latest Contact Info) Description 04/25/2013 10:43 EDT - 04/25/2013 23:59 EDT Hospital Encounter [address] [address] Pop Sood DO [address] [phone] Discharge Disposition: Home or Self Care Social [...] Name Priority Date/Time Associated Diagnosis Comments MA MAMMO. SCREENING ANGY 04/28/2014 10:59 EDT documented in this encounter Results * MA MAMMO. SCREENING ANGY (04/28/2014 10:59 EDT) Anatomical Region Laterality Modality Other 04/28/2014 10:5 9 EDT 04/28/2014 17:40 EDT Narrative 04/28/2014 17:40 EDT Comparison has been made to previous images. Bilateral Breast Findings: (Routine digital views with CAD and 3D images with Tomosynthesis) The breasts are almost entirely fat (less than 25% fibroglandular). No significant masses, calcifications or other abnormalities are seen. IMPRESSION: BILATERAL BREASTS: Negative, no evidence of malignancy. Normal interval follow-up is recommended in 12 months. OVERALL ASSESSMENT - CATEGORY 1 - NEGATIVE END OF IMPRESSION These results will be communicated to your patient via a lay letter from Radiology. If any additional imaging is needed we will contact your patient directly. Procedure Note 04/28/2014 Comparison has been made to previous images. Bilateral Breast Findings: (Routine digital views with CAD and 3D images with Tomosynthesis) The breasts are almost entirely fat (less than 25% fibroglandular). No significant masses, calcifications or other abnormalities are seen. IMPRESSION: BILATERAL BREASTS: Negative, no evidence of malignancy. Normal interval follow-up is recommended in 12 months. OVERALL ASSESSMENT - CATEGORY 1 - NEGATIVE END OF IMPRESSION These results will be communicated to your patient via a lay letter from Radiology. If any additional imaging is needed we will contact your patient directly. Pop Sood DO IMG MAMMOGRAPHY OR DERABLES documented in this encounter Visit Diagnoses Not on filedocumented in this encounter Care Teams Application Lead Relationship Specialty Start Date End Date Pop Sood DO [address] [place] [phone] PCP - General 04/07/11 01/09/16 documented as of this encounter
--- OUTSIDE RECORDS SUMMARY | 2024-03-19 02:42 | XMS_ITS | Encounter Summary ---
Author Organization [facility] Address [address] [place] [address] Care Team Providers Care Harness Racing Handicapper Name Role Phone Pop Sood DO Primary Care Provider [phone] Encounter Details Date Type Department Care Team (Latest Contact Info) Description 01/20/2015 9:20 EDT - 01/20/2015 23:59 EDT Hospital Encounter [address] [address] Unknown, Provider, Discharge Disposition: Home or Self Care Social [...] Code Departure Means Destination Home or Self Fdc documented in this encounter Plan of Treatment Not on file documented as of this encounter Visit Diagnoses Not on filedocumented in this encounter Care Teams Harness Racing Handicapper Relationship Specialty Start Date End Date Pop Sood DO [address] [place] [phone] PCP - General 04/07/11 01/09/16 documented as of this encounter
--- OUTSIDE RECORDS SUMMARY | 2024-03-19 02:42 | XMS_ITS | Encounter Summary ---
Author Organization [facility] Address [address] [place] [address] Care Team Providers Care Instrumentation Specialist Name Role Phone Pop Sood DO Primary Care Provider [phone] Encounter Details Date Type Department Care Team (Latest Contact Info) Description 07/28/2011 12:35 EST - 07/28/2011 12:36 [facility] Hospital Encounter [address] [address] Daniela Real MD [address] [place] [phone] Discharge Disposition: Home or Self Care Social [...] on filedocumented in this encounter Care Teams Instrumentation Specialist Relationship Specialty Start Date End Date Pop Sood DO [address] [place] [phone] PCP - General 04/07/11 01/09/16 documented as of this encounter
--- OUTSIDE RECORDS SUMMARY | 2024-03-19 02:42 | XMS_ITS | Clinical Summary ---
Author Organization [facility] Address [address] [place] [address] Care Team Providers Care Boiler Tube Blower Name Role Phone Mary Ann Ruby MD Primary Care Provider [phone] Allergies Active Allergy Reactions Criticality Noted Date [...] diseases of the oral soft tissues 04/07/2013 Encounters Date Type Department Care Team Description 02/08/2024 Lab Requisition [facility] Pathology & Laboratory Medicine - [address] [address] Outr Resulting Lab, Provider from Last 3 Months Medical History Medical History Date Comments Squamous cell carcinoma of skin of nose 12/2020 SCC in situ, nose, Mohs 12/2020 Social History Tobacco Use Types Packs/Day Years Used Date Smoking Tobacco: Never Assessed Interpersonal Safety Answer Date Record ed Physically Hurt Never 11/24/2020 Verbally Threaten Not on file 11/24/2020 Sex and Gender Information Value Date Recorded Sex Assigned at Not on file Gender Identity Not on file Sexual Orientation Not on file Obstetrics History Last Filed Vital Signs Vital Sign Reading [...] Body Mass Index 31.93 03/16/2010 0817 EDT Plan of Treatment Health Maintenance Due Date Last Done Comments Hepatitis C Screen 1945 RSV Immunization ( o r 60+ Years) (1 - 1-dose 60+ series) 2004 Fall Risk Screening 2009 COVID-19 Vaccine (2022- season) 2023 Procedures Procedure Name Priority Date/Time Associated Diagnosis Comments CA 125 Routine 02/08/2024 12:53 EDT from Last 3 Months Results * CA 125 (02/08/2024 12:53 EDT) CA 125 11 <30 U/mL 02/11/2024 11:04 EDT [facility] Comment: NOTE: Serum CA [...] Resulting Lab CHEMISTRY & BLOOD GAS ORDERABLES [facility] [address] [place] [address] from Last 3 Months Carolann Brennan Personal/Family Self 1945 [address] [place] [address] Carolann Brennan Personal/Family Self 1945 [address] [place] [address] Carolann Brennan Personal/Family Self 1945 [address] [place] [address] Care Teams Boiler Tube Blower Relationship Specialty Start Date End Date Mary Ann Ruby MD [facility] [place], [place] [phone] PCP - General Internal Medicine - Primary Care 01/24/22
--- OUTSIDE RECORDS SUMMARY | 2024-03-19 02:42 | XMS_ITS | Encounter Summary ---
Author Organization [facility] Address [address] [place] [address] Care Team Providers Care Category Director Name Role Phone Pop Sood DO Primary Care Provider [phone] Encounter Details Date Type Department Care Team (Late st Contact Info) Description 04/14/2013 Results Only Imaging [facility] [phone] Pop Sood DO [address] [facility] [address] [place] [address] Social History Tobacco Use Types [...] Associated Diagnosis Comments MA MAMMO SCREENING DIGITAL 04/25/2013 11:16 EDT documented in this encounter Results * MA MAMMO SCREENING DIGITAL (04/25/2013 11:16 EDT) Anatomical Region Laterality Modality Other 04/25/2013 11:1 6 EDT 04/28/2013 10:08 EDT Narrative 04/28/2013 10:08 EDT Comparison has been made [...] 04/28/2013 Comparison has been made to previous images. [...] on filedocumented in this encounter Care Teams Category Director Relationship Specialty Start Date End Date Pop Sood DO [address] [place] [address] [phone] PCP - General 04/07/11 01/09/16 documented as of this encounter
--- OUTSIDE RECORDS SUMMARY | 2024-03-19 02:42 | XMS_ITS | Encounter Summary ---
Author Organization [facility] Address [address] [place] [address] Care Team Providers Care Application Software Developer Name Role Phone Karin Vasquez MD Primary Care Provider [phone] Encounter Details Date Type Department Care Team (Late st Contact Info) Description 01/12/2016 Results Only Imaging [facility] [phone] Karin Vasquez MD [address] [place] [address] Social History Tobacco Use Types Packs/Day Years Used Date Smoking Tobacco: Never Assessed Sex and Gender Information Value Date Recorded Sex Assigned at Not on file Gender Identity Not on file Sexual Orientation Not on file documented as of this encounter Plan of Treatment Not on file documented as of this encounter Procedures Procedure Name Priority Date/Time Associated Diagnosis Comments MA 2D/3D BILATERAL ANGY ROUTINE SCREENING MAMMO 01/12/2016 11:49 EDT documented in this encounter Results * MA 2D/3D BILATERAL ANGY ROUTINE SCREENING MAMMO (01/12/2016 11:49 EDT) Anatomical Region Laterality Modality Other 01/12/2016 11:4 9 EDT 01/12/2016 16:54 EDT Narrative 01/12/2016 16:54 EDT Comparison has been made [...] directly. I have personally reviewed the images and the above interpretation and agree with the findings. Procedure Note Ankit Min MD - 01/12/2016 Comparison has been made to previous images. [...] directly. I have personally reviewed the images and the above interpretation and agree with the findings. Karin Vasquez MD IM[facility]MOGRAP[facility] documented in this encounter Visit Diagnoses Not on filedocumented in this encounter Care Teams Application Software Developer Relationship Specialty Start Date End Date Karin Vasquez MD [address] [place] [address] PCP - General 01/10/16 05/29/17 documented as of this encounter
--- OUTSIDE RECORDS SUMMARY | 2024-03-19 02:42 | XMS_ITS | Encounter Summary ---
Author Organization [facility] Address [address] [place] [address] Care Team Providers Care Medical Assistant Per Diem Name Role Phone Ayla Brown Primary Care Provider [phone] Reason for Visit * (Routine/Next Available) - Receiving Office to Obtain Authorization Specialty Diagnoses / Procedures Referred By Navid bella Referred To Contact Procedures MA OUTSIDE IMAGES MAMMO SCREENING Unknown, Provider, Referral ID Status Reason Start Date Expiration Date Visits Requested Visits Authorized [id number] Receiving Office to Obtain Authorization 01/24/2023 1 1 Encounter Details Date Type Department Care Team (Latest Contact Info) Description 12/17/2020 - 12/17/2020 23:59 EDT Hospital Encounter [facility] Secondary Reads [place] Discharge Disposition: Home or [...] Comments MA OUTSIDE IMAGES MAMMO SCREENING Routine 12/17/2020 16:57 EDT documented in this encounter Results * MA OUTSIDE IMAGES MAMMO SCREENING (12/17/2020 16:57 EDT) Narrative 01/24/2023 16:57 EDT This is a non-reportable exam. Provider Unknown MD [facility] OTHER IMAGING OR DERABLES documented in this encounter Visit Diagnoses Not on filedocumented in this encounter Care Teams Medical Assistant Per Diem Relationship Specialty Start Date End Date Ayla Brown PCP - General 05/30/17 01/23/22 documented as of this encounter
--- OUTSIDE RECORDS SUMMARY | 2024-03-19 02:42 | XMS_ITS | Encounter Summary ---
Author Organization [facility] Address [address] [place] [address] Care Team Providers Care Product Engineer Name Role Phone Pop Sood DO Primary Care Provider [phone] Encounter Details Date Type Department Care Team (Latest Contact Info) Description 04/17/2012 11:03 EDT - 04/17/2012 23:59 EDT Hospital Encounter [address] [address] Pop Sood DO [address] [phone] Discharge Disposition: Auto Discharge Social History Tobacco [...] on filedocumented in this encounter Care Teams Product Engineer Relationship Specialty Start Date End Date Pop Sood DO [address] [address] PCP - General 04/07/11 01/09/16 documented as of this encounter
--- OUTSIDE RECORDS SUMMARY | 2024-03-19 02:42 | XMS_ITS | Encounter Summary ---
Author Organization [facility] Address [address] [place] [address] Care Team Providers Care Administrative Asst Name Role Phone Ayla Brown Primary Care Provider [phone] Reason for Visit * Reason Comments Squamous Cell Carcinoma nose * Consult (Routine) - Closed Specialty Diagnoses / Procedures Referred By Contac t Referred To Contact Dermatology Diagnoses Squamous cell carcinoma in situ (SCCIS) Hyacinth Hall MD [address] [facility] [address] [place] [address] Mina Saldivar MD [address] [place] [phone] Referral ID Status Reason Start Date Expiration Date Visits Re quested Visits Authorized [id number] Closed 1 1 Encounter Details Date Type Department Care Team (Late st Contact Info) Description 12/22/2020 7:30 EDT Office Visit [facility] Dermatology 5th [address] [address] Mina Saldivar MD [address] [place] [phone] 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 You may shower or bathe after 24 hours. Remove the bandage and replace it after the showering (see below). DISCOMFORT: Expect discomfort. Take acetaminophen (for example, TylenolTM) as directed. If this does not provide sufficient relief, take ibuprofen (AdvilTM), up to 600 mg every 8 hours). You may takeboth of these together or alternate them. We do not routinely prescribe narcotic pain medications. If pain is severe and not relieved by the above measures, please call the office. BLEEDING: Some blood seeping into the bandage is NORMAL. If the bleeding soaks through the dressing, remove the dressing, and apply firm, steady pressure [...] up or becomes increasingly inflamed, warm, or drainspus, please call our office. WOUND CARE: ?? [...] the outside of the wound; this is newskin. The center of the wound will appear yellowish white and produce some drainage. The pink halo will slowly migrate toward the center of the wound until the wound is covered with new shiny pink skin. There will be a mucus-like drainage on the dressing and there will be no more drainage when the wound is completely healed. WHEN TO CONTACT YOUR PHYSICIAN: Contact you physician if your wound becomes increasingly sore, tender, red, or warm, or if the surgery site rapidly swells. Please call our office [phone] or if you have any questions or concerns. documented in this encounter Ordered Prescriptions Prescription Sig Dispensed Refills Start Date End Da te cephalexin (KEFLEX) 500 mg capsule Take 1 Cap by mouth 3 times daily for 3 days. 9 Cap 12/22/2020 12/25/2020 documented in this encounter Progress Notes * Familia Dowell PA-C - 12/22/2020 0730 EDT Images from the original note were [...] writing. The patient will follow up with nursingon 12/29/2020 for suture removal and will return [...] referred to me for evaluation and treatment of a skin cancer by Dr. Hall. The patient is referred to consider Mohs surgery versus other treatment options. The patient notes that this lesion has been present for approximately 1 year, and reportsno symptoms. Risk factors: Pacemaker/ICD: none Anticoagulants: apixaban (Eliquis) [...] of her questions were answered satisfactorily. Ms. Brennan understands that following Mohs surgery an operative repair may be required and may involve garcia bstantial suturing. We have jointly planned to have me repair the wound at the day of surgery if needed. She understands that it typically takes 4 to 6 months for wounds to heal before a decision canbe made about the final cosmetic result and that in some cases a revision may be necessary to optimize the outcome. I explained to Ms. Brennan that in addition to the risk of recurrence from her skin cancer she has an increased risk of developing additional new skin cancers elsewhere. For that reason, follow up for ongoing skin surveillance examinations, after surgery, [...] Chief of Dermatology [facility] Case Packer And Sealer: Familia Dowell PA-C and Rasheed Godinez MD [...] cancer. Because of the histologic and clinical natureof the lesion, as well as its location, the need to achieve the highest cure rate while providing maximum tissue preservation warranted tumor extirpation via microscopically-controlled excision usingthe Mohs fresh tissue technique. Alternate therapeutic options [...] complete anesthesia and to augment hemostasis. The Mohs procedure was then carried [...] in proper orientation on the surgical tray. Hemostasis of the operative wound was obtained with careful spot electrocoagulation. A sterile non-adherent dressing was applied to the operative wound. The Mohs tissue specimen was carefully transferred to the lab where the tissue was divided, and color inked for orientation. These specimens were mapped and then handed personally by the doctor to the nail technician for frozen sectioning. The tissue was embedded so that the deep and surface margins layin the same plane, and sections were made through [...] subcutis. The epidermis and dermis are unremarkable. Thereis no evidence of malignancy). ADDITIONAL STAGES: None With the patient clear of microscopic tumor, surgery was considered complete. The wound was repaired with a COMPLEX LINEAR closure as detailed in [...] Chief of Dermatology [facility] Case Packer And Sealer: Iwona Cho MD Preoperative Diagnosis: Defect following [...] the best chance for preservation of normal anatomic and functional relationships. Alternate options were discussed and the patient was encouraged toask questions, which, I believe, were answered appropriately. Informed [...] important vessels and nerves. Undermining was carried out at the level of the muscle. 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 Medication Sig Dispensed Refills Start Date End Date apixaban (ELIQUIS ORAL) Take by mouth. added in this encounter Care Teams Administrative Asst Relationship Specialty Start Date End Date Ayla Brown PCP - General 05/30/17 01/23/22 documented as of this encounter
--- OUTSIDE RECORDS SUMMARY | 2024-03-19 02:42 | XMS_ITS | Encounter Summary ---
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 Wash wound daily with soap and water - this can be done while showering. Do [...] exposed to air and allowed to dry out. The wound will heal faster and with a better cosmetic result if it is kept moist with ointment andcovered with a bandage. Do not let the wound dry out. If the procedure required sutures, the suture line will be dark pink at first and the edges of the wound will be reddened. This will lighten up day by day and will be less tender. The suture line mayalso be firm, especially on the lip/chin area [...] over the scar with the fingertips and move lengthwise along the scar or in a circular motion. Massage the area for up to 10 minutes several times a day. About 6-8 weeks after surgery it is not uncommon to see tender 'pimple-like' bumps along the scar. This is normal as the scar continues to mature and the stitches underneath the skin begin to dissolve. Do not pick or squeeze - this will resolve on its own. Should [...] fever or chills, please call our office immediately or . documented in this encounter Ordered Prescriptions Prescription Sig Dispensed Refills Start Date End Da te mometasone (ELOCON) 0.1 % cream Apply to facial rash twice daily as needed 30 g 12/29/2020 documented in this encounter Progress Notes * Juli Cardoza MA - 12/29/2020 1300 EDT [...] was present and immediately available in the officesuite. 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
--- OUTSIDE RECORDS SUMMARY | 2024-03-19 02:42 | XMS_ITS | Encounter Summary ---
Author Organization [facility] Address [address] [place] [address] Care Team Providers Care Oil Well Logging Engineer Name Role Phone Ayla Brown Primary Care Provider [phone] Encounter Details Date Type Department Care Team (Late st Contact Info) Description 06/01/2017 Results Only Imaging [facility] [phone] Karin Vasquez MD [address] [place] [address] Social History Tobacco Use Types [...] on filedocumented in this encounter Care Teams Oil Well Logging Engineer Relationship Specialty Start Date End Date Ayla Brown PCP - General 05/30/17 01/23/22 documented as of this encounter
--- OUTSIDE RECORDS SUMMARY | 2024-03-19 02:42 | XMS_ITS | Encounter Summary ---
Author Organization [facility] Address [address] [place] [address] Care Team Providers Care Clerk Telegraph Service Name Role Phone Ayla Brown Primary Care Provider [phone] Mary Ann Ruby MD Primary Care Provider [phone] Reason for Visit * Reason Onset Date Comments Wound Care 01/18/2021 Encounter Details Date Type Department Care Team (Late st Contact Info) Description 01/18/2021 Telephone [facility] Dermatology 3rd Floor [address] [phone] Mina Saldivar MD [address] [place] [address], [address] [place] [address] Wound Care Social History Tobacco [...] encounter Miscellaneous Notes * Telephone Encounter - Katie Aly RN - 01/18/2021 1304 EDT Recommended that she continue with the Vaseline dressing until the open area on the nose has a layer of shiny pink skin and no drainage on the dressing. KATIE ALY RN * Telephone Encounter - Amanda Allison - 01/18/2021 6996 EDT Patient states she came in on 12/21 and had Mohs surgery. She states Dr. Saldivar left the middle of her nose opened and not stitched as he felt it would heal better without the stitches. She states thewound looks like it has healed as it is no longer oozing. She is wondering if that means she can stop placing Vaseline and bandages on the wound? Please advise. documented in this encounter Plan of Treatment Not on file documented as of this encounter Visit Diagnoses Not on filedocumented in this encounter Care Teams Clerk Telegraph Service Relationship Specialty Start Date End Date Ayla Brown PCP - General 05/30/17 01/23/22 Mary Ann Ruby MD [facility] [place] [address] PCP - General Internal Medicine - Primary Care 01/24/22 documented as of this encounter
--- OUTSIDE RECORDS SUMMARY | 2024-03-19 02:42 | XMS_ITS | Encounter Summary ---
Author Organization [facility] Address [address] [place] [address] Care Team Providers Care Company Secretary Name Role Phone Ankit Bae MD Primary Care Provider Stephan gonzales Encounter Details Date Type Department Care Team (Latest Contact Info) Description 03/10/2009 11:08 EDT - 03/10/2009 23:59 EDT Hospital Encounter [address] [address] Ankit Bae MD Discharge Disposition: Auto Discharge Social History Tobacco [...] on filedocumented in this encounter Care Teams Company Secretary Relationship Specialty Start Date End Date Ankit Bae MD PCP - General 01/15/09 04/06/11 documented as of this encounter
--- OUTSIDE RECORDS SUMMARY | 2024-03-19 02:43 | XMS_ITS | Encounter Summary ---
[place] [address] Care Team Providers Care Package Lift Operator Name Role Phone Ayla Brown MD Primary Care Provider [phone] Encounter Details Date Type Department Care Team ([facility] st Contact Info) Description 09/16/2018 Telephone [place]ology [place] [phone] Ella Loera, RN Social History Tobacco Use Types Packs/Day Years Used Date Smoking Tobacco: Former Cigarettes Q uit: 03/06/1980 Smokeless Tobacco: Never Alcohol Use Standard Drinks/Week Comments Yes 5 (1 standard drink = 0.6 oz pur e alcohol) Sex and Gender Information Value Date Recorded Sex Assigned at Not on file Gender Identity Not on file Sexual Orientation Not on file documented as of this encounter Miscellaneous Notes * Telephone Encounter - Ella Loera RN - 09/16/2018 4:39 PM EST TC to surgeon's office and left message to return call regarding rescheduling date for surgery. Abdirahman Pineda MD, ([phone]) TC to patient and reviewed plan. Patient currently off anticoagulation. Plans to see thoracic physician tomorrow. Without knowing what the thoracic physician recommends or the available time frame available from Dr. Pineda's schedule, it's difficult to advise at this time. Will review with Dr. Guerra and call patient back tomorrow with recommendations. Ella Loera MSN RN 09/17/18 TC to patient and Dr. Pineda's office. Voice mail left for both regarding recommendations from thoracic physician an a date and time for surgery. Waiting for a call back and will follow up tomorrow. Ella Loera MSN RN 09/18/18 TC to patient who stated she saw the Thoracic surgeon on 09/17 in the AM and was cleared for surgery. Patient able to have her DANYA later in the day on 09/17 @ [facility] in [place] by Dr. Pineda via general anesthia. No bleeding or thrombosis complications noted to date. Restarted apixaban, 5mg, twice daily, ~ 12 hours post op. Patient anticipates discharge today to home. able to assist at home and will have home health aide x 2 weeks. Will follow up as needed. Ella WINTERS RN From: Zahra Monson Sent: Sunday, September 16, 2018 4:22 PM To: Charla Guerra < >; Ella Loera < > Subject: Zoila Brennan- surgery cancelled [birth year] Hi, Carolann called because they cancelled her surgery for tomorrow because she now needs clearance from thoracic. She has stopped her blood thinner as planned and now is unsure how long she can stay off the blood thinner. She is scheduled to see thoracic tomorrow and is hoping they will do the surgery on Sunday. Please give her a call @ [phone] Thanks, Zahra documented in this encounter Plan of Treatment Not on file documented as of this encounter Visit Diagnoses Not on filedocumented in this encounter Care Teams Package Lift Operator Relationship Specialty Start Date End Date Ayla Brown MD [address] [address] PCP - General Internal Medicine 02/27/18 03/12/23 documented as of this encounter
--- OUTSIDE RECORDS SUMMARY | 2024-03-19 02:43 | XMS_ITS | Encounter Summary ---
[place] [address] Care Team Providers Care Architectural Designer Name Role Phone Ayla Brown MD Primary Care Provider +1- [phone] Encounter Details Date Type Department Care Team ([facility] st Contact Info) Description 08/26/2018 Telephone Hematology [place] [phone] Ella Loera, RN Social History Tobacco Use [...] Telephone Encounter - Ella Loera RN - 08/26/2018 11:02 AM EST TC to patient. Reviewed questions outlined below. Dr. Guerra reviewed and recommended the followin. Last dose 09/14/18 @ 10AM. (72 hours before surgery. 2. Restart 09/17/18 ~ 12 hours post op if no bleeding complications noted. 3. Ok to travel 3 hours on 09/17 - wear compression stockings and move around/stand up during travelfor 5-10 minutes. 4. Epidural catheter. Advised anesthesiologist [...] [facility] From: Carolann Brennan [[email or web address]] Sent: Tuesday, August 21, 2018 2:25 PM To: Ella Loera <[email or web address]> Subject: QUESTIONS FOR DR. GUERRA. External Hi. Will you please ask Dr. Guerra the EXACT timing of stopping the 5 mg Eliquis treatment dose priorto my scheduled hip replacement surgery? Since she wrote up her report, I have as we discussed migrated from Xarelto to Eliquis. Thus I am now taking 5 mg Eliquis twice a day, at 10:00 AM and 10:00 PM. My surgery is scheduled for the morning of September 17. My surgeon is Abdirahman Pineda MD, ([phone]). I have provided him with a copy of your report from our May visit. He will be doing the ???anterior?? surgical approach, at [facility] in [facility]. PLEASE TELL ME THE EXACT DAY AND [...] Friday 09/15 time and date, dare I planto return home from a getaway trip - a [address] - on that Sunday? Or should I return home sooner while still on the Eliquis, if you are telling me to stop sooner. I don???t wish to take a risk here. Also, question regarding the operation itself: Dr. Pineda is suggesting a spinal for my anesthesia.Is that OK with the Eliquis treatment I will be resuming following? Please respond as soon as possible, as I am making reservations for our pre operation break???. Thanks. Carolann documented in this encounter Plan of Treatment Not on file documented as of this encounter Visit Diagnoses Not on filedocumented in this encounter Care Teams Architectural Designer Relationship Specialty Start Date End Date Ayla Brown MD [address] [place] [address] PCP - General Internal Medicine 02/27/18 03/12/23 documented as of this encounter
--- OUTSIDE RECORDS SUMMARY | 2024-03-19 02:43 | XMS_ITS | Encounter Summary ---
[place] [address] Care Team Providers Care Auto Bumper Mechanic Name Role Phone Ayla Brown MD Primary Care Provider +1- [phone] Encounter Details Date Type Department Care Team ([facility] Contact Info) Description 08/09/2018 Telephone [place]ology [place] [phone] Ella Loera, RN Social History Tobacco Use [...] below. Patient appreciative of information provided. Ella Loera MSN RN From: Charla Guerra Sent: Thursday, August 09, 2018 7:40 AM To: Ella Loera <[email or web address]> Subject: FW: Rosalia Brennan-returned your call Ella, I will be at the dentist today. Can you call her back and let her know that I do not have an expertise in marijuana use. But this should be ok from hematology standpoint. If needed, ok to use NSAIDs PRN for short course, but not long-term. Thanks, Charla Carolann Mika (the one who lives in [place]- in [facility]). From: Zahra Monson Sent: July 3:50 PM To: Charla Guerra <[email or web address]> Subject: Rosalia Brennan-returned your call Hi, Please give Carolann a call. she got your message but still has questions about marijuana use [phone] documented in this encounter Plan of Treatment Not on file documented as of this encounter Visit Diagnoses Not on filedocumented in this encounter Care Teams Auto Bumper Mechanic Relationship Specialty Start Date End Date Ayla Brown MD [address] [address] PCP - General Internal Medicine 02/27/18 03/12/23 documented as of this encounter
--- OUTSIDE RECORDS SUMMARY | 2024-03-19 02:43 | XMS_ITS | Encounter Summary ---
Author Organization [facility] [place] [address] Care Team Providers Care Home Security Alarm Installer Name Role Phone Ayla Brown MD Primary Care Provider +1- [phone] Encounter Details Date Type Department Care Team (Late st Contact Info) Description 08/08/2018 Orders Only Hematology [place] [address] Charla Guerra MD [facility] [place] [address] Social History Tobacco Use Types Packs/Day Years [...] on filedocumented in this encounter Care Teams Home Security Alarm Installer Relationship Specialty Start Date End Date Ayla Brown MD [address] [address] PCP - General Internal Medicine 02/27/18 03/12/23 documented as of this encounter
--- OUTSIDE RECORDS SUMMARY | 2024-03-19 02:43 | XMS_ITS | Encounter Summary ---
Author Organization [facility] Address [address] [place] [address] Care Team Providers Care Owner Spa Director Name Role Phone Unavailable Primary Care Provider Unavailabl e Encounter Details Date Type Department Care Team (Latest Contact Info) Description 02/25/2008 9:18 EDT - 02/25/2008 11:59 EDT Hospital Encounter [facility] - Other [address] [place] [address] Ankit Bae MD Discharge Disposition: Auto Discharge [...] Procedure Name Priority Date/Time Associated Diagnosis Comments GLUCOSE, PLASMA Routine 01/13/2009 10:00 EDT TSH Routine 01/13/2009 10:00 EDT T4 FREE Routine 01/13/2009 10:00 EDT HEMOGLOBIN A1C Routine 01/13/2009 10:00 EDT CYTOPATHOLOGY Routine 01/13/2009 0:00 EDT STEPHANIE DX [facility] 02/25/2008 9:44 EDT documented in this encounter Results * TSH (01/13/2009 10:00 EDT) [facility] 0.70 0.35 - 5.00 uIU/ml [facility] 01/13/2009 10:0 0 EDT 01/13/2009 14:41 EDT Vivian MARRUFO CHEMISTRY & BLOOD GAS ORDERABLES Performing Organization Address [facility] de Phone Number [facility] [address] [place] [address] * HEMOGLOBIN A1C (01/13/2009 10:00 EDT) Hemoglobin A1C 6.2 % [facility] Comment: Reference Range: <6% Normal Range ADA guidelines: The A1c goal for non adults in general is <7% The A1c goal for selected individual patients is as close to normal (<6%) as possible without significant hypoglycemia. Est Avg Glucose 131 mg/dl [facility] Comment: eAG represents the A1c result expressed as average glucose in mg/dl. 01/13/2009 10:0 0 EDT 01/13/2009 14:41 EDT Vivian MARRUFO CHEMISTRY & BLOOD GAS ORDERABLES Performing Organization Address [facility] de Phone Number [facility] [address] [place] [address] * (ABNORMAL) GLUCOSE, PLASMA (01/13/2009 10:00 EDT) Pathologist [facility] Glucose, Plasma 104(H) 70 - 100 mg/dl [facility] 01/13/2009 10:0 0 EDT 01/13/2009 14:41 EDT Vivian MARRUFO CHEMISTRY & BLOOD GAS ORDERABLES Performing Organization Address [facility] de Phone Number [facility] [address] [place] [address] * T4 FREE (01/13/2009 10:00 EDT) Free T4 0.9 0.8 - 1.8 ng/dL [facility] 01/13/2009 10:0 0 EDT 01/13/2009 14:41 EDT Vivian MARRUFO CHEMISTRY & BLOOD GAS ORDERABLES [facility] [address] [place] [address] * CYTOPATHOLOGY (01/13/2009 0:00 EDT) Pathology Report: CYTOPATHOLOGY REPORT ? Reports generated via electronic interface contain original data; ? however they are lacking the format of the original report. ? Caution should be taken when reading/interpreti ng unformatted reports. ? Name: ? JUSTYNA DHALIWAL ? Accession #: ? [id number] ? : ? 1945 (Age: 63) ??F ?Collect Date: ? 01/13/2009 ? Location: ? [facility] ? Receive Date: ? 01/13/2009 ? Provider: ?VIVIAN ELTABBAKH PA ? Copy to: ? Specimen/Source: ?Pap Test, Cervix/Endocervix, ThinPrep Imaging System ? with manual evaluation ? Last Menstrual Period: ? Other: ? HPVA - HPV testing requested if ASC-US on the current ThinPrep Pap test. ? SPECIMEN ADEQUACY ? Satisfactory for Evaluation ? - transformation zone component absent ? GENERAL CATEGORIZATION ? Negative for Intraepithelial Lesion or Malignancy ? Document reviewed and electronically signed by: ? Lynan Sonny, CT(ASCP) ? Report Date: ??01/15/2009 16:03 ? End of Report ? [facility] 01/13/2009 01/13/2009 Vivian MARRUFO PATHOLOGY ORDERAB LES [facility] [address] [place] [address] * STEPHANIE DX GILDA DIG EMERGENCY (02/25/2008 9:44 EDT) Anatomical Region Laterality Modality Other 02/25/2008 9:44 EDT Narrative 01/31/2009 11:25 EDT left br lump @ 11:00 x 1 month, screen right, u/s will be done by dr. hood per fly Procedure: Bilateral diagnostic mammography 02/25/2008. History: Left breast lump upper inner quadrant. Dr. Karin Hood to do ultrasound. Comparison: 03/07/2007, and older yearly mammograms dating back to 2003, as well as right breast ultrasound 04/15/2004 showing a lipoma at the site of a palpable lump in the one o'clock position on the right. Left breast findings: CC and MLO views with CAD are obtained, as well as magnified CC and true lateral views. A triangular marker is placed on the site of the lump. The breast tissue is almost entirely fatty, with only a scant amount of glandular tissue in the retroareolar region. There is no evidence of mass, architectural distortion or suspicious calcifications. In particular, no mass or any thin capsule can be seen at the site of the mass, but this does not rule out a lipoma or prominent fat lobule. Subtle invasive lobular carcinoma can also present this way. There are no calcifications of concern throughout the breast. Right breast findings: CC and MLO views with CAD are obtained. Breast tissue is almost entirely fatty. There is a normal, stable intramammary lymph node in the upper-outer quadrant. Otherwise, the breast is unremarkable. Impression left: Bi-Rads category 0 - needs further evaluation. 1. Ultrasound of the upper inner quadrant is recommended at the site of the lump. This is to be done by Dr. Karin Hood in her office. 2. Mammographic screening is recommended yearly. Impression right breast: Bi-Rads category 1-negative. Mammographic screening is recommended yearly. Results and recommendations were discussed with the patient by the technologist at the time of examination. Overall assessment: Incomplete. The patient will be notified of her/his breast imaging results via a lay letter from Radiology. Radiology will contact the patient directly regarding any findings which require additional imaging (Category 0) at this time. Addendum Begins Addendum by Dr. Yesica Salmon 03/24/2008. Clinical note of Dr. Karin Hood on 03/13/2008 is reviewed. Her clinical examination and ultrasound examination were consistent with lipoma versus normal lobule of breast fat at the site of the lump in the upper inner quadrant of the left breast. I do not have images to review. However, this was resolved to Dr. Hood's satisfaction. Yearly screening mammography of the [...] dr. hood per fly Procedure: Bilateral diagnostic mammography 02/25/2008. History: Left breast lump upper inner quadrant. Dr. Karin Hood to do ultrasound. Comparison: 03/07/2007, and older yearly mammograms dating back to 2003, as well as right breast ultrasound 04/15/2004 showing a lipoma at the site of a palpable lump in the one o'clock position on the right. Left breast findings: CC and MLO views with CAD are obtained, as well as magnified CC and true lateral views. A triangular marker is placed on the site of the lump. The breast tissue is almost entirely fatty, with only a scant amount of glandular tissue in the retroareolar region. There is no evidence of mass, architectural distortion or suspicious calcifications. In particular, no mass or any thin capsule can be seen at the site of the mass, but this does not rule out a lipoma or prominent fat lobule. Subtle invasive lobular carcinoma can also present this way. There are no calcifications of concern throughout the breast. Right breast findings: CC and MLO views with CAD are obtained. Breast tissue is almost entirely fatty. There is a normal, stable intramammary lymph node in the upper-outer quadrant. Otherwise, the breast is unremarkable. Impression left: Bi-Rads category 0 - needs further evaluation. 1. Ultrasound of the upper inner quadrant is recommended at the site of the lump. This is to be done by Dr. Karin Hood in her office. 2. Mammographic screening is recommended yearly. Impression right breast: Bi-Rads category 1-negative. Mammographic screening is recommended yearly. Results and recommendations were discussed with the patient by the technologist at the time of examination. Overall assessment: Incomplete. The patient will be notified of her/his breast imaging results via a lay letter from Radiology. Radiology will contact the patient directly regarding any findings which require additional imaging (Category 0) at this time. Addendum Begins Addendum by Dr. Yesica Salmon 03/24/2008. Clinical note of Dr. Karin Hood on 03/13/2008 is reviewed. Her clinical examination and ultrasound examination were consistent with lipoma versus normal lobule of breast fat at the site of the lump in the upper inner quadrant of the left breast. I do not have images to review. However, this was resolved to Dr. Hood's satisfaction. Yearly screening mammography of the left breast is now recommended. This changes the assessment of the left breast to BI-RADS Category 2-benign. The patient will be notified of her/his breast imaging results via a lay letter from Radiology. Radiology will contact the patient directly regarding any findings which require additional imaging (Category 0) at this time. /sohan Addendum Ends Karin Hood MD IMG MAMMOGRAPHY [facility] documented in this encounter Visit Diagnoses Not on filedocumented in this encounter
--- OUTSIDE RECORDS SUMMARY | 2024-03-19 02:43 | XMS_ITS | Encounter Summary ---
Author Organization [facility] Address [address] [place] [address] Care Team Providers [employer] Hazmat Tanker Driver Name Role Phone Unavailable Primary Care Provider Unavailabl e Encounter Details Date Type Department Care Team (Latest Contact Info) Description 04/15/2004 7:13 EDT - 04/15/2004 11:59 EDT Hospital Encounter [facility] - Other [address] [place] [address] Phillip Arnold, [facility] [address] [place] [phone] Discharge Disposition: Auto Discharge Social History Tobacco [...] Procedure Name Priority Date/Time Associated Diagnosis Comments RAD US YULISSA BREAST UNILAT OR BILAT Routine 04/15/2004 8:43 EDT documented in this encounter Results * RAD US YULISSA BREAST UNILAT OR BILAT (04/15/2004 8:43 EDT) Anatomical Region Laterality Modality Other 04/15/2004 8:43 EDT Narrative 05/04/2009 9:27 EDT DX UNI US RT ?RT BR MOBILE MASS @ 1:00 APPROX 2CM [PCP JOHNATHAN LOPEZ , REQ PHILLIP ARNOLD] ??NEG MAMMO 03/04/04 ?? DATE PER PATIENT * ULTRASOUND RIGHT BREAST The clinically palpable, moveable lump in the right breast at about 1 o'clock corresponds to an ovoid, slightly hyperechoic, well- encapsulated nodule measuring 8 x 25 mm. This is located at 1 o'clock, 14 cm out from the nipple. It is most consistent with a lipoma, which I believe it represents. IMPRESSION RIGHT BREAST ULTRASOUND: BI-RADS Category 2, BENIGN RECOMMENDATION: Continue routine annual screening mammography. OVERALL ASSESSMENT - BENIGN /[facility] Procedure Note Johnathan Min MD - 05/04/2009 DX UNI US RT RT BR MOBILE MASS @ 1:00 APPROX 2CM [PCP JOHNATHAN LOPEZ , REQ PHILLIP ARNOLD] NEG MAMMO 03/04/04 DATE PER PATIENT * ULTRASOUND RIGHT BREAST The clinically palpable, moveable lump in the right breast at about 1 o'clock corresponds to an ovoid, slightly hyperechoic, well- encapsulated nodule measuring 8 x 25 mm. This is located at 1 o'clock, 14 cm out from the nipple. It is most consistent with a lipoma, which I believe it represents. IMPRESSION RIGHT BREAST ULTRASOUND: BI-RADS Category 2, BENIGN RECOMMENDATION: Continue routine annual screening mammography. OVERALL ASSESSMENT - BENIGN /[facility] Phillip Arnold TELETYPIST IMG US ORDERABLES documented in this encounter Visit Diagnoses Not on filedocumented in this encounter
--- OUTSIDE RECORDS SUMMARY | 2024-03-19 02:43 | XMS_ITS | Encounter Summary ---
Author Organization [facility] [place] [address] Care Team Providers Care Travel Administrator Name Role Phone Ayla Brown MD Primary Care Provider +1- [phone] Encounter Details Date Type Department Care Team (Latest Contact Info) Description 01/21/2019 11:00 AM EDT Office Visit [place]ematology [place] [address] Charla Guerra MD [facility] HEMATOLOGY AND ONCOLOGY [place] [id number] VTE (venous thromboembolism) (Primary Dx); Prothrombin gene mutation; penitentiary current use of anticoagulant Social History Tobacco Use Types Packs/Day Years [...] 36.4 ??C (97.6 ??F) 01/21/2019 10:59 AM E DT Respiratory Rate 18 01/21/2019 10:59 AM EDT Oxygen Saturation 99% 01/21/2019 10:59 AM EDT Inhaled Oxygen Concentration - - Weight 114.3 kg (252 lb) 01/21/2019 10:59 AM EDT Height 168 cm (5' 6.14) 01/21/2019 10:59 AM EDT Body Mass Index 40.5 01/21/2019 10:59 AM EDT documented in this encounter Progress Notes * Charla Guerra MD - 01/21/2019 11:00 AM EDT Images from the original note were not included. [facility] [place] [address] THROMBOSIS FOLLOW-UP DATE OF VISIT 01/21/2019 Patient Carolann Brennan 1945 REFERRING PHYSICIAN Aneudy Cortez MD PRIMARY CARE PHYSICIAN Ayla Brown MD ORTHOPEDIC SURGEON Baljinder Deras MD ORTHOPEDIC SURGEON in [place] Sorin Rojas MD THROMBOSIS PROBLEM LIST 1. [...] due to questionable failure of apixaban - but after reviewing ultrasound - there was no evidence of progression of her VT -> continue on rivaroxaban 20 mg PO daily-> then switch back to apixaban early this year. She thinks that rivaroxaban contributed to her hyperglycemia. 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 At that time she was hospitalized in [place] where she usually spends wintertime there. 6 months prior to her saddle PE she underwent a left TKA which went uncomplicated. She recovered nicely at 6-week postoperative yoly. However, during physical therapy session she injured the posterior cruciate ligament [...] her saddle PE), she travelled to the [facility], first to [facility] by car, and then to [place] by plane (5- hour flight) and returned back to [place] mid Jun 2018 before she developed acute shortness of breath, feeling that she was going to faint around 2014. She was treated with rivaroxaban 20 mg PO daily for 6 months, then to 10 mg PO daily for another 6 months. She was seen by a head coach in [place] who recommended to stop rivaroxaban after 1 year of anticoagulation and switched to low dose aspirin 81 mg PO daily. It was felt that her saddle pulmonary embolism was likely provoked by travel and period of immobility 2nd to her left knee injury. Nothrombophilia testing was performed at that time. She was recommended to use DOAC as needed around travel for VTE prophylaxis. In Jun 2017 she travelled to [place] by car as usual. In Aug 2017 she went to an auction and fell on a hard marble floor and injured her left knee. There was no fracture or dislocation. However, the injury set her back again. She was off cane for several months, then reverted back to use the cane again. After the fall she also noticed that she has had difficulty lifting her right leg up. Recent X-ray of the right hip and knee showed significant osteoarthritis. Her surgeon Dr. Deras has recommended a total hip arthroplasty first, and possible TKA at later point. She was initially scheduledto undergo a TKA, but then was diagnosed [...] to concern of progression of DVT. However, whenI reviewed her ultrasound doppler about 2 weeks after initial ultrasound early January 2018 - ultrasound showed persistent DVT, but not progression. She is currently on rivaroxaban 20 mg PO daily. In interim, she has had another two follow-up ultrasound which showed improvement of DVT. INTERIM HISTORY She returns for follow-up today after returning from [place]. She underwent a right DANYA on 09/17/2018 in [place]. She is pleased with the outcome of her surgery. There was no complication. She held her anticoagulation 3 days before surgery and resume ~ 12 hours after. There was no unexpected bleeding complication except minor bruising. She has recovered quiet well from her surgery. She still has mild residual swelling along her right hip. She does have mild bilateral leg edema, left ankle is slightly worse than right. She has worn compression stocking, [...] was recently seen by Dr. Yoly Sharif, auditor appraiser at [facility] for paroxysmal atrial tachycardia. He recommend [...] for the 01/21/19 encounter (Office Visit) with Charla Guerra MD Medication Sig Dispense Refill ??? 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 She was treated with anticoagulation for a year. 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 She has been on chronic anticoagulation [...] has pre-DM. It will be good to have HgA1c recheck again with her PCP soon regardless of type of anticoagulant that she is on. She is currently on apixaban 5 mg twice daily. She asked if she can reduce the dose to 2.5 mg twicedaily for long-term use. I told her that I would prefer to stay on 5 mg twice daily because her recent diagnosis of atrial tachycardia. Her auditor appraiser has recommended her to stay on apixaban [...] apixaban for at least a week to make sure that she does not have antiphospholipid syndrome. Previously her LA was mildly positive. At that time she held her rivaroxban for 3 days which should generally be adequate. However, I want to make sure that there is no residual apixaban that [...] this encounter Visit Diagnoses Diagnosis VTE (venous thromboembolism)- Primary Embolism and thrombosis of unspecified site Prothrombin gene mutation Primary hypercoagulable state penitentiary current use of anticoagulant Encounter for long-term (current) use of anticoagulants documented in this encounter Care Teams Travel Administrator Relationship Specialty Start Date End Date Ayla Brown MD [address] [address] PCP - General Internal Medicine 02/27/18 03/12/23 documented as of this encounter
--- OUTSIDE RECORDS SUMMARY | 2024-03-19 02:43 | XMS_ITS | Encounter Summary ---
[place] [address] Care Team Providers Care Gate Keeper Name Role Phone Ayla Brown MD Primary Care Provider [phone]- [phone] Reason for Referral * Physical Therapy (Routine) - Closed Specialty Diagnoses / Procedures Referred By Contac t Referred To Contact Physical Therapy Diagnoses Post-thrombotic syndrome Charla Guerra MD [facility] [place] [address] [facility] [place] [address] Referral ID Status Reason Start Date Expiration Date V isits Requested Visits Authorized [id number] Closed Evaluate and Treat 04/26/2018 04/26/2019 1 1 Reason for Visit * Consultation (Routine) - Closed Specialty Diagnoses / Procedures Referred By Contac t Referred To Contact Hematology and Oncology Diagnoses Acute deep vein thrombosis (DVT) of femoral vein of right lower extremity Yasmeen Lezama MD [facility] [place] [address] Charla Guerra MD [facility] [place] [address] Referral ID Status Reason Start Date Expiration Date V isits Requested Visits Authorized [id number] Closed Consult, Test & Treat 04/17/2018 04/17/2019 1 1 Encounter Details Date Type Department Care Team (Late st Contact Info) Description 04/23/2018 9:00 AM EDT Office Visit [place]ematology [place] [address] Charla Guerra MD [facility] [place] [address] VTE (venous thromboembolism) (Primary Dx); Post-thrombotic syndrome Social History Tobacco Use Types Packs/Day Years [...] 36.5 ??C (97.7 ??F) 04/23/2018 9:04 AM ED T Respiratory Rate 17 04/23/2018 9:04 AM EDT Oxygen Saturation 98% 04/23/2018 9:04 AM EDT Inhaled Oxygen Concentration - - Weight 112 kg (247 lb) 04/23/2018 9:04 AM EDT Height 168 cm (5' 6.14) 04/23/2018 9:04 AM EDT Body Mass Index 39.7 04/23/2018 9:04 AM EDT documented in this encounter Progress Notes * Charla Guerra MD - 04/23/2018 9:00 AM EDT Images from the original note were not included. [facility] [place], [place] [address] THROMBOSIS CONSULTATION DATE OF VISIT 04/23/2018 Patient [...] the referring physician and located in the electronicmedical record to fill in gaps in the patient's recollection of events, treatments and outcomes. Mrs. 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 At that time she was hospitalized in [place] where she usually spends wintertime there. 6 [...] of the instability of the knee. Between Jun 2015 (2 month prior to her saddle PE), she travelled to the [facility], first to [facility] by car, and then to [place] by plane (5- hour flight) and returned back to [place] mid Jun 2018 before she developed acute shortness of breath, feeling that she was going to faint around 2014. She was treated with rivaroxaban 20 mg PO daily for 6 months, then to 10 mg PO daily for another 6 months. She was seen by a front facer in [place] who recommended to stop rivaroxaban after 1 [...] prophylaxis. In Jun 2017 she travelled to [place] by car as usual. In Aug 2017 [...] Ultrasound doppler showed DVT in the distal femoralvein, popliteal vein and the calf which is new because she had an interim ultrasound in 2016 of [facility] which showed no evidence of DVT at that time. However, the echogenicity of the clot appeared to be chronic in some part. 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 Therefore, I would estimate her risk for VTE recurrence more like patients with idiopathicVTE. I explained to her that the risk [...] bedridden. I again would consider her recent DVT rather unprovoked. I also reviewed her clinical risk factors for VTE which include obesityand venous insufficiency. We discussed that because of [...] related DVT in her 90s. I told herthat she may have a low risk thrombophilia [...] now. I also reviewed her latest ultrasound doppler of the right leg which showed persistent residual [...] a corticosteroid injection to the hip and kneejoint and delay her DANYA. I told her that she should discuss with Dr. Deras what treatment wouldbe best for her. From hematologic standpoint, she [...] have a different opinion than her previous front facer regarding use of compression stocking. I strongly encourage her to wear them during waking hours to reduce leg edema and for DVT prophylaxis. She can either consider below knee compression stocking or panty hose. (20-30 mmHg) She is leaning toward pantyhose. I will make a referral to PT for compression stocking fitting. Finally I encourage her to watch her diet and weight gain. I reminded her that obesity is associated up to 6-fold risk for VTE. With her overall decreased mobility, she should make sure that she doesnot continue to gain weight. PLAN/RECOMMENDATIONS 1. Thrombophilia [...] syndrome and venous insufficiency and DVT prophylaxis -referral to PT for stocking fitting. 4. Weight [...] Scheduled Referrals Name Type Priority Associated Diagnoses Orde r Schedule Referral to Physical Therapy Outpatient Referral Routine Post-thrombotic syndrome Ordered: 04/26/2018 documented as of this encounter Results * Duplex for DVT, Leg, Unilat (04/23/2018 11:12 AM EDT) VB Text Report Department: Vascular Surgery Lab Patient: [id number] (JUSTYNA DHALIWAL) CPT: 61674 ICD10: M79.89;I82.90;Z86. 718 Referring Physician: CHARLA ODELL ?? Indications: Patient with LEFT leg swelling, h/o right DVT, ? LEFT DVT ICD10 Diagnosis Code: M79.89, I82.90, Z86.718 LEFT: Patent common femoral vein and popliteal vein with spontaneous, respirophasic Doppler waveforms that respond normally to augmentation maneuvers. The common femoral vein, saphenofemoral junction, femoral vein through the thigh and [...] our vascular lab database for comparison. Comment: Consider follow-up exam if signs or symptoms suggestive of DVT persist or worsen. 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
--- OUTSIDE RECORDS SUMMARY | 2024-03-19 02:43 | XMS_ITS | Encounter Summary ---
[place] [address] Care Team Providers Care Chief Warden Name Role Phone Ayla Brown MD Primary Care Provider +1- [phone] Encounter Details Date Type Department Care Team ([facility] st Contact Info) Description 03/11/2019 Telephone Hematology [place] [id number] Ella Loera, RN Social History Tobacco Use [...] 10, 2019 4:09 PM To: Ella Loera < > Subject: Rosalia Brennan [birth year] Hi, Carolann called because she broke her shoulder and has questions on possible bleeding in her shoulder and if she should continue her Eliquis as normal. She can be reached in about a /2hour @ [phone] or [phone] ThanksZahra documented in this encounter Plan of Treatment Not on file documented as of this encounter Visit Diagnoses Not on filedocumented in this encounter Care Teams Chief Warden Relationship Specialty Start Date End Date Ayla Brown MD [address] [address] PCP - General Internal Medicine 02/27/18 03/12/23 documented as of this encounter
--- OUTSIDE RECORDS SUMMARY | 2024-03-19 02:43 | XMS_ITS | Encounter Summary ---
[place] [address] Care Team Providers Care Sap Ppm Consultant Name Role Phone Ayla Brown MD Primary Care Provider +1- [phone] Encounter Details Date Type Department Care Team ([facility] st Contact Info) Description 07/24/2018 Telephone Hematology [place] [id number] Ella Loera, RN Social History Tobacco Use [...] Telephone Encounter - Ella Loera RN - 07/24/2018 1:22 PM EST Images from the original note were not included. TC to PCP office. Spoke with Adriana regarding request and Dr. Guerra's response below. A copy of this note and Dr. Guerra's clinic note was faxed to Dr[facility] @ [phone]. Advised to call back with any questions. Ella WINTERS RN From: Charla Guerra Sent: Tuesday, July 24, 2018 1:31 PM To: Ella Loera <[email or web address]> Subject: RE: Rosalia Brennan claudio 43 Ella, Can you call PCP???s office in [place] and ask if they can initiate apixaban 5 mg PO BID? Apixaban can be started at the next scheduled dose of rivaroxaban. ThanksCharla From: Ella Loera Sent: Tuesday, July 24, 2018 1:26 PM To: Charla Guerra <[email or web address]> Subject: RE: Rosalia Brennan claudio 43 Talked with patient. She has one more tablet for xarelto and wants to swtich to eliquis. Do you want a script called into her pharmacy for eliquis in [place] or speak to PCP? She has some eliquis at home and wants to start taking them tomorrow til next week when a new script calls in. Let me know. Thanks Ella From: Zahra Monson Sent: Sunday, July 22, 2018 12:18 PM To: Ella Loera <[email or web address]> Subject: Rosalia Brennan claudio 43 Hi, Please give Carolann a call tomorrow about her Xorelto. She is currently taking 20mg of Xorelto and isalmost out and would like to switch to Eliquis but would need a script. She has a few sample packs of the Eliquis of different doses and isn???t sure what the equivalent dose would be to the 20mg Xorelto she is currently taking. She can be reached @ [phone]. #[id number] I told her that you were not in today and that you would give her a call when you get in tomorrow. Thanks, Zahra documented in this encounter Plan of Treatment Not on file documented as of this encounter Visit Diagnoses Not on filedocumented in this encounter Care Teams Sap Ppm Consultant Relationship Specialty Start Date End Date Ayla Brown MD [address] [address] PCP - General Internal Medicine 02/27/18 03/12/23 documented as of this encounter
--- OUTSIDE RECORDS SUMMARY | 2024-03-19 02:43 | XMS_ITS | Encounter Summary ---
[place] [address] Care Team Providers Care Mattress Stripper Name Role Phone Ayla Brown MD Primary Care Provider +1- [phone] Encounter Details Date Type Department Care Team (Latest Contact Info) Description 05/22/2018 12:59 PM EDT - 05/22/2018 11:59 PM EDT Hospital Encounter [place]ematology [place] [address] Pre-diabetes Discharge Disposition: Home Social History Tobacco Use Types Packs/Day Years [...] Refills Start Date End Date calcium carbonate/vitamin D3 (VITAMIN D-3 ORAL) Take by mouth. Thyroid, Pork, (Raymond Thyroid) 90 mg tablet Take 90 mg by mouth daily. rivaroxaban (XARELTO) 20 mg TabletIndications:VTE (venous thromboembolism) Take 1 tablet by mouth daily for 90 days. 90 tablet 3 05/22/2018 08/20/2018 rivaroxaban (Xarelto) 20 mg tablet Take 20 mg by mouth daily. 03/13/2023 documented as of this encounter Plan of Treatment Not on file documented as of this encounter Procedures Procedure Name Priority Date/Time Associated Diagnosis Comments HEMOGLOBIN A1C Routine 05/22/2018 1:12 PM EDT Pre-diabetes GLUCOSE, FASTING Routine 05/22/2018 1:12 PM EDT Pre-diabetes documented in this encounter Results * (ABNORMAL) Hemoglobin A1c (05/22/2018 1:12 PM EDT) Hemoglobin A1C 7.3(H) 4.3 - 5.6 % [facility] Comment: Reference Range: 4.3 - 5.6% 5.7 - 6.4% - Increased Risk of Developing Diabetes Mellitus >=6.5% - Consistent with diagnosis of Diabetes Mellitus In the absence of hyperglycemia (i.e. plasma glucose > 200 mg/dL) or classic symptoms of hyperglycemia a repeat measurement of HbA1c should be performed on a separate sample to confirm the diagnosis. Diagnosis and Classification of Diabetes Mellitus, Diabetes Care 2013; 36: Suppl. 1, M97-98 Est Avg Gluc See note mg/dL [facility] Comment: Estimated Average Glucose not appropriate for patients over 70 years of age. eAG equivalents for HbA1c percentages: HbA1c(%) ?eAG(mg/dL) 6.0 ?126 6.5 ?140 7.0 ?154 7.5 ?169 8.0 ?183 8.5 ?197 9.0 ?212 9.5 ?226 10.0 ? 240 Limitations: The eAG calculation has not been validated on women, individuals below 18 years old and above 70 years old, and individuals with hemoglobinopathies. Additional resources are available on the ADA website. Abel WATERS, Jailene J, Sharan R, et al. ??Translating the A1C assay into estimated average glucose values. ??Diabetes Care 2008:31(8):8477-6223. Blood specimen (specimen) 05/22/2018 1:12 PM EDT 05/22/2018 1:21 PM EDT Narrative Resulting Agency Comment Spec In Lab Charla Guerra MD CHEMISTRY ORDERABLES Performing Organization Address [facility] Co de Phone Number [facility] [place] [address] * (ABNORMAL) Glucose, fasting (05/22/2018 1:12 PM EDT) Glucose Fasting 145(H) 65 - 99 mg/dL [facility] Comment: ?Fasting* Glucose Interpretive Criteria Normal ?65-99 mg/dL Impaired Fasting glucose ?100-125 mg/dL Consistent with Diabetes Mellitus ? >or= 126 mg/dL *Fasting is defined as no caloric intake for at least 8 hours In the absence of unequivocal hyperglycemia a plasma glucose value of >or= 126 mg/dL should be repeated on a subsequent day. Diagnosis and Classification of Diabetes Mellitus, Position Statement from the [place] [employer]. ??Diabetes Care, Volume 33, Supplement 1, Aug 2009 Blood specimen (specimen) 05/22/2018 1:12 PM EDT 05/22/2018 1:21 PM EDT Narrative Resulting Agency Comment Spec In Lab Charla Guerra MD CHEMISTRY ORDERABLES Performing Organization Address [facility] Co de Phone Number [facility] [place] [address] documented in this encounter Visit Diagnoses Diagnosis Pre-diabetes Other abnormal glucose documented in this encounter Care Teams Mattress Stripper Relationship Specialty Start Date End Date Ayla Brown MD [address] [place] [address] PCP - General Internal Medicine 02/27/18 03/12/23 documented as of this encounter
--- OUTSIDE RECORDS SUMMARY | 2024-03-19 02:43 | XMS_ITS | Encounter Summary ---
Author Organization [facility] Address [address] [place] [address] Care Team Providers Care [place] Name Role Phone Unavailable Primary Care Provider Unavailabl e Encounter Details Date Type Department Care Team (Latest Contact Info) Description 04/22/1999 10:16 EDT - 04/22/1999 11:59 EDT Hospital Encounter [facility] - Other [address] [place] [address] Claudine Licea MD [address] [facility] [facility] [id number] Unknown, ProviderMD Discharge Disposition: Auto Discharge Social History Tobacco [...]
--- OUTSIDE RECORDS SUMMARY | 2024-03-19 02:43 | XMS_ITS | Encounter Summary ---
[place] [address] Care Team Providers Care Welding Equipment Repairer Name Role Phone Ayla Brown MD Primary Care Provider [phone]- [phone] Encounter Details Date Type Department Care Team (Latest Contact Info) Description 04/23/2018 10:56 AM EDT - 04/23/2018 11:11 AM EDT Hospital Encounter [place] [address] VTE (venous thromboembolism) Discharge Disposition: Home Social History Tobacco Use [...] Refills Start Date End Date Thyroid, Pork, (Sherman Thyroid) 90 mg tablet Take 90 mg by mouth daily. rivaroxaban (Xarelto) 20 mg tablet Take 20 mg by mouth daily. 03/13/2023 documented as of this encounter Plan of Treatment Not on file documented as of this encounter Procedures Procedure Name Priority Date/Time Associated Diagnosis Comments TT Routine 04/23/2018 11:05 AM EDT VTE (venous thromboembolism) PTT Routine 04/23/2018 11:05 AM EDT VTE (venous thromboembolism) PT Routine 04/23/2018 11:05 AM EDT VTE (venous thromboembolism) PLAT Routine 04/23/2018 11:05 AM EDT VTE (venous thromboembolism) FIBR Routine 04/23/2018 11:05 AM EDT VTE (venous thromboembolism) THROMBOSIS SCREEN Routine 04/23/2018 11: 05 AM EDT VTE (venous thromboembolism) THS REPORT Routine 04/23/2018 11:05 AM EDT VTE (venous thromboembolism) PROTEIN S ACTIVITY Routine 04/23/2018 11 :05 AM EDT APC RESISTANCE Routine 04/23/2018 11:05 AM EDT PROTHROMBIN GENE MUTATION Routine 04/23/2018 11:05 AM EDT BETA-2 GLYCOPROTEIN ANTIBODIES Routine 04/23/2018 11:05 AM EDT VTE (venous thromboembolism) PROTEIN C ACTIVITY Routine 04/23/2018 11 :05 AM EDT CARDIOLIPIN ANTIBODY SCREEN Routine 04/23/2018 11:05 AM EDT VTE (venous thromboembolism) ANTITHROMBIN Routine 04/23/2018 11:05 AM EDT HOMOCYSTEINE TOTAL, PLASMA Routine 04/23/2018 11:05 AM EDT VTE (venous thromboembolism) THROMBOSIS SCREEN REPORT Routine 04/23/2018 10:56 AM EDT documented in this encounter Results * Prothrombin gene mutation (04/23/2018 11:05 AM EDT) [facility] Prothrombin Mutation Heterozygous [facility] Prothrombin Mutation Interp RESULT: HETEROZYGOUS POSITIVE for the Factor II 59180I>A variant in the 3' untranslated region of the prothrombin gene INTERPRETATION: The Factor II 06623J>A variant ([id number] 13G>A, [id number]) is associated with elevated prothrombin levels. Heterozygous positive results have been linked with a 2- to 5-fold increased risk for venous thrombosis and increased risk for obstetric complications. 80694C>A heterozygosity has a most a modest effect on recurrence risk after initial treatment of a first VTE, and many studies have shown no increased risk for recurrent venous thromboembolism. The presence or absence of other concomitant risk factors for thrombosis may modify the overall relative risk. Clinical correlation is recommended. METHODS: The region of interest in the Prothrombin gene (06287B>A) is interrogated using a TaqMan allelic discrimination assay. Genomic DNA was isolated from the submitted peripheral blood specimen. Real-time PCR was performed to amplify a short region spanning the variant site, and genotyping was performed by allelic discrimination using a mixture of fluorescently labeled probes, one of which is specific for the reference sequence, the other specific for the variant allele. This test was developed and its performance characteristics determined by the [facility] at [facility]. It has not been cleared or approved by the FDA. The laboratory is regulated under CLIA as qualified to perform high-complexity testing. This test is used for clinical purposes. It should not be regarded as investigational or for research. [facility] Comment: [VERIFIED DATE]04.30.18 Verified By:Rakesh Duran MD Hematopathologist (Electronic Signature) Blood specimen (specimen) Venous Draw / Unknown 04/23/2018 11:05 AM EDT 04/25/2018 8:55 AM EDT Narrative Resulting Agency Comment Spec In Lab Charla Guerra MD HEMATOLOGY ORDERABLE S [facility] [place] [address] * (ABNORMAL) Protein S Activity (04/23/2018 11:05 AM EDT) Protein S Act >150(H) 64 - 149 % activity [facility] Blood specimen (specimen) Venous Draw / Unknown 04/23/2018 11:05 AM EDT 04/23/2018 11:15 AM EDT Narrative Resulting Agency Comment Spec In Lab Charla Guerra MD HEMATOLOGY ORDERABLE S Performing Organization Address City/[facility]/ZIP Co de Phone Number [facility] [place] [address] * (ABNORMAL) Protein C activity (04/23/2018 11:05 AM EDT) Protein C Act >150(H) 70 - 140 % [facility] Blood specimen (specimen) Venous Draw / Unknown 04/23/2018 11:05 AM EDT 04/23/2018 11:15 AM EDT Narrative Resulting Agency Comment Spec In Lab Charla Guerra MD HEMATOLOGY ORDERABLE S Performing Organization Address [facility] Co de Phone Number [facility] [place] [address] * Antithrombin (04/23/2018 11:05 AM EDT) Antithrombin 113 83 - 128 % [facility] Blood specimen (specimen) Venous Draw / Unknown 04/23/2018 11:05 AM EDT 04/23/2018 11:15 AM EDT Narrative Resulting Agency Comment Spec In Lab Charla Guerra MD HEMATOLOGY ORDERABLE S Performing Organization Address City/[facility]/ZIP Co de Phone Number [facility] [place] [address] * APC resistance (04/23/2018 11:05 AM EDT) APC Resistance 3.01 >=2.17 [facility] Blood specimen (specimen) Venous Draw / Unknown 04/23/2018 11:05 AM EDT 04/23/2018 11:15 AM EDT Narrative Resulting Agency Comment Spec In Lab Charla Guerra MD HEMATOLOGY ORDERABLE S Performing Organization Address City/[facility]/ZIP Co de Phone Number [facility] [place] [address] * Beta-2 glycoprotein antibodies (04/23/2018 11:05 AM EDT) Pathologist [facility] B2GPI IgG <9.4 <=20.0 unit(s) [facility] B2GPI IgM <9.4 <=20.0 unit(s) [facility] B2GPI Interp See Thrombosis screen [facility] Blood specimen (specimen) 04/23/2018 11:05 AM EDT 04/23/2018 1:02 PM EDT Narrative Resulting Agency Comment Spec In Lab Charla Guerra MD IMMUNOLOGY ORDERABLE S Performing Organization Address City/[facility]/ZIP Co de Phone Number [facility] [place] [address] * Homocysteine Total, Plasma (04/23/2018 11:05 AM EDT) Pathologist [facility] Homocyst Tot 8 <=15 mcmol/L [facility] Blood specimen (specimen) 04/23/2018 11:05 AM EDT 04/23/2018 11:15 AM EDT Narrative Resulting Agency Comment Spec In Lab Charla Guerra MD CHEMISTRY ORDERABLES Performing Organization Address City/[facility]/ZIP Co de Phone Number [facility] [place] [address] * Cardiolipin Antibody Screen (04/23/2018 11:05 AM EDT) Pathologist [facility] Cardiolipin IgG <9.4 <=14.9 GPL unit(s) [facility] Comment: Ranges ?? GPL ------ ?? --- Negative ?? <=14.9 Indeterminate ??15.0 - 20.0 Low/Medium Positive 20.1 - 80.0 High Positive ??>80.0 Cardiolipin IgM <9.4 <=12.5 MPL unit(s) [facility] Comment: Ranges ?? MPL ------ ?? --- Negative ?? <=12.5 Indeterminate ??12.6 - 20.0 Low/Medium Positive 20.1 - 80.0 High Positive ??>80.0 Blood specimen (specimen) 04/23/2018 11:05 AM EDT 04/23/2018 1:02 PM EDT Narrative Resulting Agency Comment Spec In Lab Charla Guerra MD IMMUNOLOGY ORDERABLE S Performing Organization Address City/[facility]/ZIP Co de Phone Number [facility] [place] [address] * THS Report (04/23/2018 11:05 AM EDT) S Report See Comment [facility] Comment:See Thrombosis Scree n Report [id number] under Hematopathology Reports. Blood specimen (specimen) 04/23/2018 11:05 AM EDT 04/23/2018 11:15 AM EDT Narrative Resulting Agency Comment Spec In Lab Charla Guerra MD HEMATOLOGY ORDERABLE S Performing Organization Address City/[facility]/ZIP Co de Phone Number [facility] [place] [address] * Plat (04/23/2018 11:05 AM EDT) Platelets 226 145 - 357 x10(3)/mc L [facility] Plat Immature % 2.0 0.0 - 7.4 % [facility] Comment: Limitation of the Immature Platelet Fraction (IPF)-May be less reliable when the platelet count is less than 25u376/uL due to statistical imprecision. The IPF value provides an assessment of the Bone Marrow production status. ??It is useful in differentiating Thrombocytopenia caused by platelet destruction/consumption versus decreased production. It also helps to determine the imminent release of platelets and can be therefore a helpful parameter in Chemotherapy and Bone marrow transplant patients. ELEVATED IPF value: ?? When the bone marrow is in a state of over production such as when increased destruction and consumption are the underlying issue. ?? When the marrow is recovering post chemotherapy or bone marrow transplant. LOW to NORMAL IPF value: ?? When the bone marrow in not responding and is in a decreased state of production. References: [employer] The Clinical Value of the Immature Platelet Fraction (IPF) in Cell Recovery Document Number 10-1143 01/2011 [employer] The Role of the Immature Platelet Fraction (IPF) in the Differential Diagnosis of Thrombocytopenia, Document MKT-10-1209 V012/29/13 Blood specimen (specimen) 04/23/2018 11:05 AM EDT 04/23/2018 11:15 AM EDT Narrative Resulting Agency Comment Spec In Lab Charla Guerra MD HEMATOLOGY ORDERABLE S Performing Organization Address [facility] Co de Phone Number [facility] [place] [address] * TT (04/23/2018 11:05 AM EDT) Thrombin Time 12 10 - 17 sec [facility] Comment: A prolongation in the thrombin time (>20 seconds) may be indicative of hypofibrinogenemia or dysfibrinogenemia. The thrombin time will be prolonged, often markedly so, by the presence of heparin or direct thrombin inhibitors (argatroban, bivalirudin, dabigatran) in the specimen. Blood specimen (specimen) 04/23/2018 11:05 AM EDT 04/23/2018 11:15 AM EDT Narrative Resulting Agency Comment Spec In Lab Charla Guerra MD HEMATOLOGY ORDERABLE S Performing Organization Address [facility]/ZIP Co de Phone Number [facility] [place] [address] * FIBR (04/23/2018 11:05 AM EDT) Fibrinogen 353 200 - 393 mg/dL [facility] Comment: A fibrinogen level >100 mg/dL is adequate for hemostasis in most patients without underlying bleeding disorders. Blood specimen (specimen) 04/23/2018 11:05 AM EDT 04/23/2018 11:15 AM EDT Narrative Resulting Agency Comment Spec In Lab Charla Guerra MD HEMATOLOGY ORDERABLE S [facility] [place] [address] * PTT (04/23/2018 11:05 AM EDT) PTT 30 25 - 37 sec [facility] Comment: The PTT is NOT appropriate for heparin monitoring. Use the Anti-Xa level for heparin monitoring (HEP UFH) or LMWH monitoring (HEP LMW). A PTT less than 37 seconds generally indicates adequate hemostasis. Blood specimen (specimen) 04/23/2018 11:05 AM EDT 04/23/2018 11:15 AM EDT Narrative Resulting Agency Comment Spec In Lab Charla Guerra MD HEMATOLOGY ORDERABLE S Performing Organization Address [facility] Co de Phone Number [facility] [place] [address] * PT (04/23/2018 11:05 AM EDT) PT 11.6 9.4 - 12.5 sec [facility] INR 1.0 [facility] Comment: An INR <2.0 indicates adequate procoagulant activity for hemostasis in most patients without underlying bleeding disorders, though the INR may not adequately reflect hemostatic capacity in patients with liver disease and synthetic impairment. The recommended target INR range for therapeutic anticoagulation is 2.0 ? 3.0 for most applications, though lower and higher ranges may be appropriate depending on clinical circumstances. Blood specimen (specimen) 04/23/2018 11:05 AM EDT 04/23/2018 11:15 AM EDT Narrative Resulting Agency Comment Spec In Lab Charla Guerra MD HEMATOLOGY ORDERABLE S Performing Organization Address City/[facility]/ZIP Co de Phone Number [facility] [place] [address] * Thrombosis Screen Report (04/23/2018 10:56 AM EDT) Thrombosis Screen Report [id number] ? Location: 3K The signing pathologist has (i) examined the relevant preparation(s) for the specimen(s) and (ii) rendered or confirmed the diagnosis(es). . ? Thrombosis Screen DIAGNOSIS Heterozygous Prothrombin gene mutation. ?? see discussion Electronically signed by: ??Juan Saunders MD Verified: ??05/06/2018 ?Hematopathologis t Performed at: ??-[facility] Dept. of Pathology, [place], [place] ADDITIONAL STUDIES TEST ?? RESULT ?REFERENCE [...] mcmol/L) if APCR < 2.0 FV Leiden mutation ?NOT DONE ?(negative) Prothrombin (28161 G ? A) mutation heterozygous ? (negative) ??* Functional assay for protein C and protein S DISCUSSION Lupus anticoagulant test not performed as the patient is on rivaroxaban. ? Factor Xa inhibitors such as rivaroxaban, apixaban, and edoxaban can cause a false positive LA test. ??Levels of protein C and protein S may be overestimated in the presence of rivaroxaban or apixaban. If there is strong suspicion for a deficiency of one of these proteins, suggest repeat testing after discontinuation of the potentially interfering medication for at least 48 hours. The screening test for resistance to activated protein C (APC) is normal, DNA assay for Factor V Leiden mutation is not indicated. The heterozygous prothrombin 81516Y mutation is associated with an approximately 4-fold increased risk of venous thromboembolic disease when compared with non- carriers of the mutation. ??Dontae Huerta, et. al. ?Combined Effect of Factor V Leiden and Prothrombin 85245I on the Risk of Venous Thromboembolism ?, Thromb Haemost, 2001; 86; 809 CLINICAL INFORMATION DVT on rivaroxaban [facility] 04/23/2018 10:5 6 AM EDT Charla Guerra MD PATHOLOGY/CYTOLOGY O RDERABLES [facility] [place] [address] documented in this encounter Visit Diagnoses Diagnosis VTE (venous thromboembolism) Embolism and thrombosis of unspecified site documented in this encounter Care Teams Welding Equipment Repairer Relationship Specialty Start Date End Date Ayla Brown MD [address] [address] PCP - General Internal Medicine 02/27/18 03/12/23 documented as of this encounter
--- OUTSIDE RECORDS SUMMARY | 2024-03-19 02:43 | XMS_ITS | Encounter Summary ---
Author Organization [facility] Address [address] [place] [address] Care Team Providers Care Supervisor Ditching Name Role Phone Unavailable Primary Care Provider Unavailabl e Encounter Details Date Type Department Care Team (Latest Contact Info) Description 06/18/2001 7:51 EST - 06/18/2001 11:59 EST Hospital Encounter [facility] - [facility] conversion [address] [place] [address] Phillip Arnold, [facility] [address] [place] [phone] Discharge Disposition: Auto Discharge Social History [...] Name Priority Date/Time Associated Diagnosis Comments MA MAMMOGRAPHIC SCREEN GILDA Routine 06/18/2001 8:21 EST documented in this encounter Results * MA MAMMOGRAPHIC SCREEN GILDA (06/18/2001 8:21 EST) Anatomical Region Laterality Modality Other 06/18/2001 8:21 EST Impressions 06/30/2009 0:56 EST IMPRESSION: BILATERAL BREASTS - Category 1 Negative, no evidence of malignancy. Normal interval follow-up is recommended in 12 months. OVERALL ASSESSMENT - NEGATIVE END OF IMPRESSION Narrative 06/30/2009 0:56 EST ROUTINE ?[PCP PHILLIP ARNOLD] Comparison is made to films from 12-01-1997 (bilateral). Bilateral Breast Findings: There are scattered fibroglandular densities. No masses, significant calcifications or other abnormalities are seen. Procedure Note Jarvis Aguirre MD / Vanessa Ritter MD / Mariela Kent MD - 06/30/2009 ROUTINE [PCP PHILLIP ARNOLD] Comparison is made to films from 12-01-1997 (bilateral). Bilateral Breast Findings: There are scattered fibroglandular densities. No masses, significant calcifications or other abnormalities are seen. IMPRESSION IMPRESSION: BILATERAL BREASTS - Category 1 Negative, no evidence of malignancy. Normal interval follow-up is recommended in 12 months. OVERALL ASSESSMENT - NEGATIVE END OF IMPRESSION Phillip Arnold HEATING UNIT INSTALLER IMG MAMMOGRAPHY ORD ERABLES documented in this encounter Visit Diagnoses Not on filedocumented in this encounter
--- OUTSIDE RECORDS SUMMARY | 2024-03-19 02:43 | XMS_ITS | Encounter Summary ---
Author Organization [facility] Address [address] [place] [address] Care Team Providers Care Ointment Mill Tender Name Role Phone Ankit Bae MD Primary Care Provider Stephan gonzales Encounter Details Date Type Department Care Team (Late st Contact Info) Description 02/11/2008 Results Only [facility] - [place] conversion [address] [place] [address] Oscar Real MD [address] [place] [address] Social History Tobacco Use Types Packs/Day Years Used Date Smoking Tobacco: Never Assessed Sex and Gender Information Value Date Recorded Sex Assigned at Not on file Gender Identity Not on file Sexual Orientation Not on file documented as of this encounter Plan of Treatment Not on file documented as of this encounter Procedures Procedure Name Priority Date/Time Associated Diagnosis Comments SURGICAL PATHOLOGY Routine 02/11/2008 0:00 EDT documented in this encounter Results * SURGICAL PATHOLOGY (02/11/2008 0:00 EDT) Pathology Report: SURGICAL PATHOLOGY REPORT Reports generated via electronic interface contain original data; however they are lacking the format of the original report. Caution should be taken when reading/interpreting unformatted reports. Name: ? JUSTYNA DHALIWAL ? Accession #: ? [id number] ? : ? 1945 (Age: 62) ??F ? Collect Date: ? 02/11/2008 ? Location: ? [facility] ? Receive Date: ? 02/11/2008 ? Provider: OSCAR REAL MD Copy to: ??Kay Navarrete MD [facility] [address] [place] [address] ? Final Pathologic Diagnosis: ? Skin of leg, left lower, shave biopsy: - Seborrheic keratosis, inflamed. ?? Microscopic Description: ? Orthohyperkeratosis and focal parakeratosis thicken the stratum corneum. There is formation of horn pseudocysts. ??The epidermis is hyperplastic with acanthosis and papillomatosis. ??The keratinocytes have a basaloid appearance with squamous eddies in many areas. ??Within the dermis, there is a moderately dense lymphohistiocytic infiltrate. ??The infiltrate extends into the epidermis with concomitant vacuolar change and keratinocyte necrosis. ??(Dr. Hernandez)/[facility] Document reviewed and electronically signed by: Nichole Hernandez MD Report ??Date: 02/12/2008 16:50 By the signature above, the attending physician certifies that he/she has personally conducted a gross and/or microscopic examination of the described specimens and rendered or confirmed the above diagnosis. Specimen(s) Received: ? L lower leg Clinical History: ? R/O SCC; clinical diagnosis code: ??238.2 Gross Description: ? Received in formalin labelled Mika and L lower leg is a 0.5 x 0.3 x 0.1 cm shave biopsy of price-pink firm skin. ??The specimen is bisected and submitted entirely in one cassette. (Dr. Martinez)/[facility] End of Report [facility] 02/11/2008 02/11/2008 13: 42 EDT Oscar Real MD PATHOLOGY ORDERABLES Performing Organization Address City/State/[facility] Co de Phone Number [facility] [address] [place] [address] documented in this encounter Visit Diagnoses Not on filedocumented in this encounter Care Teams Ointment Mill Tender Relationship Specialty Start Date End Date Ankit Bae MD PCP - General 01/15/09 04/06/11 documented as of this encounter
--- OUTSIDE RECORDS SUMMARY | 2024-03-19 02:43 | XMS_ITS | Encounter Summary ---
Author Organization [facility] Address [address] [place] [address] Care Team Providers Care Intelligent Systems Engineer Name Role Phone Ankit Bae MD Primary Care Provider Stephan gonzales Encounter Details Date Type Department Care Team (Late st Contact Info) Description 05/01/2006 Before PRISM Converted Visit (Maple) [facility] - [facility] conversion [address] [place] [address] Karin Freitas MD [address] [place] [address] [address] [place] [address] Social History Tobacco Use Types Packs/Day Years Used Date Smoking Tobacco: Never Assessed Sex and Gender Information Value Date Recorded Sex Assigned at Not on file Gender Identity Not on file Sexual Orientation Not on file documented as of this encounter Consult Notes * Karin Freitas MD - 08/26/2009 0830 EST OF SURGICAL ONCOLOGY - BREAST CARE [...] does not bother her. Consultation is requested byYARON Brooks. The patient noticed this lump about 20 years ago and it has never showed up on her mammogram. Past medical history:Excellent health. Former smoker. Occasional alcohol, 2 red brian a day. Medical problems are hypothyroidism and periodic edema of her ankles. Surgical history: Tonsillectomy as a child. D & C in her 20s. Medications: Somers Thyroid and Synthroid. She uses [facility] in [place]. Allergies: EPINEPHRINE, PENICILLIN and states that she [...] and right hip pain. She also has [id number] thyroid problems. PRODUCTION LEADER history: patient has never been . Menses [...] good, and her skin is warm and dry.Her sclerae are anicteric. She has no cervical, supraclavicular, or axillary lymphadenopathy. Her breasts are examined in the sitting and supine positions. There are no skin or nipple changes. Careful palpation in the right breast upper inner quadrant a firm but mobile lipomatous- type mass. It measures about 2.5 cm. It is not appear clinically worrisome. It is nontender. There are no other areas of palpable concern. Mammography is reviewed and she is noted to have scattered fibroglandular densities. Ultrasound: Office ultrasound is performed using the 12 megahertz transducer. examination in the area of the patients palpable change, upper inner quadrant, right breast, is performed. Here she has a2.7 x 0.8 x 1.9 cm lipomatous mass. 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 It is not viewed with concern. I have reassured the patient that this is a lipoma. Indications for excision would be increase in size. It appears to be stable when compared to 2004 ultrasound in [...] Karin Freitas MD Altaf adan Job ID: [id number] Document ID: [id number] cc: YARON Brooks - Altaf Freitas MD Altaf adan Job ID: [id number] Document ID: [id number] cc: YARON Brooks documented in this encounter Plan of Treatment Not on file documented as of this encounter Visit Diagnoses Not on filedocumented in this encounter Care Teams Intelligent Systems Engineer Relationship Specialty Start Date End Date Ankit Bae MD PCP - General 01/15/09 04/06/11 documented as of this encounter
--- OUTSIDE RECORDS SUMMARY | 2024-03-19 02:43 | XMS_ITS | Encounter Summary ---
Author Organization [facility] Address [address] [place] [address] Care Team Providers Care Forming Press Operator Name Role Phone Unavailable Primary Care Provider Unavailabl e Encounter Details Date Type Department Care Team (Latest Contact Info) Description 03/04/2004 14:52 EDT Hospital Encounter [facility] [address] [place] [address] Janene Arnold, [facility] [address] [place] [address] Discharge Disposition: Auto Discharge Social History [...] Associated Diagnosis Comments MA MAMMO SCREENING DIGITAL Routine 03/04/2004 15:03 EDT documented in this encounter Results * MA MAMMO SCREENING DIGITAL (03/04/2004 15:03 EDT) Anatomical Region Laterality Modality Other 03/04/2004 15:0 3 EDT Impressions 04/30/2009 10:55 EDT IMPRESSION: BILATERAL BREASTS - CATEGORY 1 Negative, no evidence of malignancy. Normal interval follow-up is recommended in 12 months. OVERALL ASSESSMENT - NEGATIVE END OF IMPRESSION Narrative 04/30/2009 10:55 EDT ROUTINE [PCP JOHNATHAN LOPEZ, JB ARNOLD] Comparison is made to films from 06-18-2001 (bilateral) and 06-30-2002 (bilateral). Bilateral Breast Findings (CAD used to interpret routine digital projection): There are scattered fibroglandular densities. No significant masses, calcifications or other abnormalities are seen. Procedure Note Yesica Salmon MD - 04/30/2009 ROUTINE [PCP JOHNATHAN LOPEZ, JB ARNOLD] Comparison is made to films from 06-18-2001 (bilateral) and 06-30-2002 (bilateral). Bilateral Breast Findings (CAD used to interpret routine digital projection): There are scattered fibroglandular densities. No significant masses, calcifications or other abnormalities are seen. IMPRESSION IMPRESSION: BILATERAL BREASTS - CATEGORY 1 Negative, no evidence of malignancy. Normal interval follow-up is recommended in 12 months. OVERALL ASSESSMENT - NEGATIVE END OF IMPRESSION Janene Arnold MASK INSPECTOR IMG MAMMOGRAPHY ORD ERABLES documented in this encounter Visit Diagnoses Not on filedocumented in this encounter
--- OUTSIDE RECORDS SUMMARY | 2024-03-19 02:43 | XMS_ITS | Encounter Summary ---
Author Organization [facility] [place] [address] Care Team Providers Care Grievance Manager Name Role Phone Ayla Brown MD Primary Care Provider +1- [phone] Encounter Details Date Type Department Care Team ([facility] st Contact Info) Description 05/01/2018 Orders Only Hematology [place] [address] Charla Guerra MD [facility] DR HEMATOLOGY [place] [address] Acute deep vein thrombosis (DVT) of femoral vein of right lower extremity (Primary Dx) Social History Tobacco Use Types [...] Diagnosis Acute deep vein thrombosis (DVT) of femoral vein of right lower extremity- Primary documented in this encounter Care Teams Grievance Manager Relationship Specialty Start Date End Date Ayla Brown MD [address] [place] [address] PCP - General Internal Medicine 02/27/18 03/12/23 documented as of this encounter
--- OUTSIDE RECORDS SUMMARY | 2024-03-19 02:43 | XMS_ITS | Encounter Summary ---
[place] [address] Care Team Providers Care Castings Drafter Name Role Phone Mary Ann Ruby MD Primary Care Provider +1 [phone] Encounter Details Date Type Department Care Team ([facility] Contact Info) Description 03/13/2023 11:30 AM EDT Clinical [place] [phone] Social History Tobacco Use Types Packs/Day Years Used Date Smoking Tobacco: Former Cigarettes 0.3 20 0 03/06/1965 - 03/06/1985 Smokeless Tobacco: Never Tobacco Cessation:Counseling Given: Not Answered Alcohol Use Standard Drinks/Week Comments Yes 5 (1 standard drink = 0.6 oz pur e alcohol) Overall Financial Resource Strain (CARDIA) Answe r Date Recorded How hard is it for you to pa y for the very basics like food, housing, medical care, and heating? Not hard at all 03/12/2023 Hunger Vital Sign Answer Date Recorded Within the past 12 months, y ou worried that your food would run out before you got the money to buy more. Never true 03/12/20 23 Within the past 12 months, t he food you bought just didn't last and you didn't have money to get more. Never true 03/12/2023 PRAPARE - Transportation Answer Date Re corded In the past 12 months, has l ack of transportation kept you from medical appointments or from getting medications? No 02/18 In the past 12 months, has l ack of transportation kept you from meetings, work, or from getting things needed for daily living? No 03/12/2023 Housing Stability Vital Sign Answer Ricardo e Recorded In the last 12 months, was t here a time when you were not able to pay the mortgage or rent on time? No 03/12/2023 In the last 12 months, how many places have you lived? 2 03/12/2023 In the last 12 months, was t here a time when you did not have a steady place to sleep or slept in a residential (including now)? No 03/12/2023 DH IPV Inpatient Questions Answer Date Recorded Does Anyone Try to Keep You From Having Contact with Others or Doing Things Outside Your Home? no 03/13/2023 Feels Threatened by Someone no 02/18 Feels Unsafe at Home or Work/School no 03/13/2023 Physical Signs of Abuse Present no 03/13/2023 Sex and Gender Information Value Date Recorded Sex Assigned at Not on file Gender Identity Not on file Sexual Orientation Not on file documented as of this encounter Progress Notes * Steve Najera RN - 03/13/2023 11:30 AM EDT PAT questionnaire reviewed with patient and while in Pre Admission testing. Pre-operative instruction booklet reviewed. Patient verbalizes a good understanding of all information reviewed. PLAN: Testing: None ordered Special medication instructions: Instructions provided by surgeon. Clearfast provided by surgeon. Procedure date: 05/07/23 Dr. Cavazos Patient indicates she had extensive recent bloodwork done and can have more obtained locally if needed. PAT Penicillin Risk Assessment 03/13/2023: Patient currently tolerates penicillin and may receive beta lactams without precautions. Preoperative Geriatric Vulnerability Screen: Surgery Details: Surgeon: Linwood Cavazos MD Planned Procedure: LAPAROSCOPY, REMOVAL OF ADNEXA (WRVU 11.35) Date of Planned Procedure: 05/07/2023 Final Risk Assessment: Is the patient high risk?: Yes Screening Results: Age >= 85: No Impaired Cognition per Mini-Cog: Not assessed Impaired Cognition per AD8: No Frailty Screen: Positive Impaired Mobility: Yes Delirium Risk: Cognitive Impairment / Frailty Screen Positive in Clinic Impaired Functional Status: Yes, partially impaired/dependent (uses cane / wheelchair in hospital) Malnutrition: No Difficulty Swallowing: No Palliative Care Consult may be indicated: Not assessed Additional Notes/Comments: Patient would like to speak with surgeon again: No @[email or web address]@@NOTEBPA([id number])@ documented in this encounter Plan of Treatment Not on file documented as of this encounter Visit Diagnoses Not on filedocumented in this encounter Care Teams Castings Drafter Relationship Specialty Start Date End Date Mary Ann Ruby MD [address] [place] [id number] PCP - General General Internal Medicine 03/13/23 documented as of this encounter
--- OUTSIDE RECORDS SUMMARY | 2024-03-19 02:43 | XMS_ITS | Encounter Summary ---
Author Organization [facility] Address [facility] [place] [address] Care Team Providers Care Senior Network Administrator Name Role Phone Mary Ann Ruby MD Primary Care Provider [phone] [phone] Encounter Details Date Type Department Care Team (Late st Contact Info) Description 03/04/2024 Interpretation Only in [address] [address] Unknown None Social History Tobacco Use Types Packs/Day Years Used Date Smoking Tobacco: Never Assessed Overall Financial Resource Strain (CARDIA) Answe r [...] place to sleep or slept in a usp (including now)? No 03/12/2023 IPV Inpatient Questions Answer Date Recorded Does [...] Procedure Name Priority Date/Time Associated Diagnosis Comments XR SHOULDER 1 VIEW LEFT Routine 03/04/2024 11:42 AM EDT documented in this encounter Results * XR Shoulder 1 view Left (03/04/2024 11:42 AM EDT) PT CLASS O RAD ADMITDTTM [id number] RAD PT [facility] MD INFO [id number]^[place] N^SUDHIR RAD EXAM DESC XRSHDOVL^XR SHOULDER LT 1V^RIS RAD WORKSTATION ID [id number] [facility] Anatomical Region Laterality Modality Shoulder Left Radiographic Maritza ging Impressions 03/04/2024 4:25 PM EDT Single view demonstrates no dislocation of the glenohumeral articulation. No large acute displaced fracture Thank you for letting us participate in the care of this patient. ??If you are a health care provider and have any questions regarding this report, please contact the number below. ??For patients who have questions please contact the health personal caregiver that requested your imaging first. ? Narrative 03/04/2024 4:25 PM EDT EXAMINATION: XR SHOULDER LT 1V CLINICAL HISTORY: REASON: LEFT SHOULDER PAIN, UNSPECIFIED CHRONICITY ADD'L INFO: AXILLARY TECHNIQUE: 1 views LEFT shoulder COMPARISON: None FINDINGS: See impression Procedure Note Gino Martinez MD - 03/04/2024 EXAMINATION: XR SHOULDER LT 1V CLINICAL HISTORY: REASON: LEFT SHOULDER PAIN, UNSPECIFIED CHRONICITY ADD'LINFO: AXILLARY TECHNIQUE: 1 views LEFT shoulder COMPARISON: None FINDINGS: See impression IMPRESSION Single view demonstrates no dislocation of the glenohumeral articulation.No large acute displaced fracture Thank you for letting us participate in the care of this patient. If youare a health care provider and have any questions regarding this report,please contact the number below. For patients who have questions please contactthe health personal caregiver that requested your imaging first. Unknown IMG DX ORDERABLES documented in this encounter Visit Diagnoses Not on filedocumented in this encounter Care Teams Senior Network Administrator Relationship Specialty Start Date End Date Mary Ann Ruby MD [address] [place] [address] PCP - General General Internal Medicine 03/13/23 documented as of this encounter
--- OUTSIDE RECORDS SUMMARY | 2024-03-19 02:43 | XMS_ITS | Encounter Summary ---
Author Organization [facility] Address [facility] [place] [address] Care Team Providers Care Bulb Planter Name Role Phone Ayla Brown MD Primary Care Provider +1- [phone] Reason for Visit * Reason Comments Establish Care Encounter Details Date Type Department Care Team (Late st Contact Info) Description 02/27/2018 1:00 PM EDT Office [place] [address] Brenda Simmons, [place] [facility] [address] Acute deep vein thrombosis (DVT) of femoral vein of right lower extremity Social History Tobacco Use Types Packs/Day Years [...] documented in this encounter Progress Notes * Brenda Simmons PA - 02/27/2018 1:00 PM EDT VASCULAR SURGERY OUTPATIENT NOTE 72 yo female referred to Vascular Surgery for further evaluation and assessment of RLE DVT. Patientreports h/o provoked RLE DVT following L TKA in 2015, complicated by PE, completed 1 year course ofanticoagulation. Provoked RLE DVT following long plane flight in December currently on Xarelto 20mg daily. H/o Eliquis use but was transitioned to Xarelto as it was thought that the clot burden had increased while on Eliquis. Patient reports intermittent swelling of the LE with positional pain. CTA chest r/o PE last month. Anxiety regarding physical activity limitations. 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 PMHx: Past Medical History: Diagnosis Date ??? [...] Take 1 capsule by mouth daily as needed (takes a couple times per week). Allergies: Allergies [...] x2, stable when compared with images from [facility], currently on anticoagulation. Would recommend continuation of anticoagulation; consider lifelong versus 6 months followed by hematologic work up. Elevation and compression hose (scripts provided). Activity as tolerated. Patient requesting records from [facility], referred her to Medical Records/Vascular Lab for actual images. RTC prn. Greater than 50% of this 45 minute visit was spent in patient counseling/education. Case discussed with Dr. Rose. documented in this encounter Plan of Treatment Not on file documented as of this encounter Visit Diagnoses Diagnosis Acute deep vein thrombosis (DVT) of femoral vein of right lower extremity documented in this encounter Care Teams Bulb Planter Relationship Specialty Start Date End Date Ayla Brown MD [address] [address] PCP - General Internal Medicine 02/27/18 03/12/23 documented as of this encounter
--- OUTSIDE RECORDS SUMMARY | 2024-03-19 02:43 | XMS_ITS | Encounter Summary ---
[place] [address] Care Team Providers Care Fire Alarm Technician Name Role Phone Ayla Brown MD Primary Care Provider +1- [phone] Encounter Details Date Type Department Care Team ([facility] st Contact Info) Description 12/03/2018 Telephone Hematology [place] [phone] Ella Loera, RN Social History Tobacco Use [...] 02, 2018 4:47 PM To: Ella Loera <[email or web address]> Subject: RE: Rosalia Brennan 43 Zac Jaramillo recommend to hold eliquis 2 days before colonoscopy and resume the following day. Charla Ramirez From: Zahra Monson Sent: Sunday, December 02, 2018 10:09 AM To: Charla Guerra < > Subject: Rosalia Brennan 43 Hi, Carolann called because she is having a colo on 12/11 and needs to know the protocol for her Eliquis. She can be reached @ [phone] Thanks, Zahra documented in this encounter Plan of Treatment Not on file documented as of this encounter Visit Diagnoses Not on filedocumented in this encounter Care Teams Fire Alarm Technician Relationship Specialty Start Date End Date Ayal Brown MD [address] [address] PCP - General Internal Medicine 02/27/18 03/12/23 documented as of this encounter
--- OUTSIDE RECORDS SUMMARY | 2024-03-19 02:43 | XMS_ITS | Encounter Summary ---
Author Organization [facility] [place] [address] Care Team Providers Care Electroplating Laborer Name Role Phone Ayla Brown MD Primary Care Provider +1- [phone] Reason for Visit * Physical Therapy (Routine) - Closed Specialty Diagnoses / Procedures Referred By Navid bella Referred To Contact Physical Therapy Diagnoses Post-thrombotic syndrome Charla Guerra MD [facility] [place] [address] [facility] [place] [address] Referral ID Status Reason Start Date Expiration Date V isits Requested Visits Authorized [id number] Closed Evaluate and Treat 04/26/2018 04/26/2019 1 1 Encounter Details Date Type Department Care Team (Late st Contact Info) Description 05/07/2018 10:00 AM EDT Office [place] [phone] Cullen Dsouza, PT [facility] PHYSICAL MEDICINE & [place] [address] 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; Swelling of right lower extremity Social History Tobacco [...] as of this encounter Progress Notes * Cullen Dsouza, PT - 05/07/2018 10:00 AM EDT LE LYMPHEDEMA INITIAL EXAMINATION Date of Exam/First treatment: 05/07/18 Date of Onset :unknown Referring Provider: Charla Guerra MD Diagnosis and pertinent co-morbidities: VTE, post-thrombotic syndrome Medicare Cert Period: 05/07/2018 - 05/07/18 G-Code: Mobility Status Modifier CURRENT CI - At least 1 percent but less than 20 percent impaired, limited or restricted PROJECTED CI - At least 1 percent but less than 20 percent impaired, limited or restricted DISCHARGE CI - At least 1 percent but less than 20 percent impaired, limited or restricted G Code Rationale: This G-Code and these disability modifiers were selected as the primary therapy goal based upon the patient's evaluation including the following functional test(s) No Functional Measure Used. Current ability measures, co-morbidities and clinical judgement were also used to select the disability modifier. Ms. Brennan's current G-Code functional level is 5% impaired based upon my evaluation. Medicare Therapy G-Code Date Tracking: (Update G-Code status every 10 visits or when code changes) 1 2 3 4 5 6 7 8 9 10 05/07/18 IE CURRENT HISTORY: Carolann Brennan is a 72 y.o. female with hx of PE and DVT. As per EHD: Mrs. 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 At that time she was hospitalized in [facility] where she usually spends wintertime there. Between May/Jun 2015 (2 month prior to her saddle PE), [place], then [place] by car, and then to [place] (5- hour flight) and returned back to [place] mid Jun 2018 before she developed acute shortness of breath, feeling that she was going to faint around 2014. Recurrent DVT in January 2018-R DVT Pt referred to PT for compression stockings Ultrasound doppler 04/17/2018 RIGHT: Persistent non-occlusive thrombus [...] vein thrombus compared to previous exam (02/27/2018). ?? 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 [place] in [place], benites in [place] Current Exercise: N/E PAIN: none Subjective: pt not interested in thigh highs. Samples of knee high stockings and panty hose provided. Pt didn't think she would wear the panty hose and they would be too warm for travel so interestedin knee highs. Also noted pt awaiting R DANYA FUNCTIONAL LIMITATIONS: On a difficulty scale with 0 being unable to perform an activity, and 10 being able to perform at a pre injury level 10/10. Pt would like stockings just for flying CLINICAL FINDINGS: 1) observation, posture WNL 2) ROM :N/T 3) strength N/T 4) palpation/inspection Tenderness with palpation ant wilson, pitting edema. Less muscle girth R L/E/calf (disuse atrophy likely-from painful R hip. Awaiting R DANYA) 5) LE circumferences (cm) Right Left MTP 25.0 25.25 Mid foot 23.5 23.75 Y 36.0 34.5 Ankle 27.0 26.5 Calf 38.75 41.5 D 36.0 38.0 AD length 42 CLINICAL EVALUATION AND DIAGNOSIS: pt with VTE, post-thrombotic syndrome. Pt would benefit from compression stockings. I recommended 20-30 mmhg. Pt at risk for cellulitis. ? The patient's rehabilitation potential is dair. Clinical presentation: Stable Evolving Unstable x Notes: pt preferred knee high, open toe, Sigvaris, nude color. 20-30 mmgh. Looked at many differentoptions. Declined thigh high or panty hose. Knee high order from [employer] while patient in the office today -size . Pt provide [employer] with payment and mailing info. Clinical decision making of low complexity using standardized patient assessment instrument and measurable assessment of functional outcome. The patient's rehabilitation potential is good GOALS: Therapy Short Term Goals 2 weeks 1.Pt to obtain compression stockings. 2. independent in self care. INITIAL TREATMENT INCLUDED: eval and pt education PLAN: Pt did not want to FU at this time. Contact information provided and pt to contact me with any questions or concerns. Flying to [place]~ May 24 for the winter. The plan has been discussed with the patient and she has agreed with it. 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
--- OUTSIDE RECORDS SUMMARY | 2024-03-19 02:43 | XMS_ITS | Encounter Summary ---
Author Organization [facility] Address [address] [place] [address] Care Team Providers Care Storekeeper Engineering Name Role Phone Unavailable Primary Care Provider Unavailabl e Encounter Details Date Type Department Care Team (Late st Contact Info) Description 05/01/2006 13:20 EDT Hospital Encounter [facility] [address] [place] [address] Karin Freitas MD [address] [place] [phone] Social History Tobacco Use Types Packs/Day [...] Associated Diagnosis Comments MA MAMMO SCREENING DIGITAL 03/07/2007 11:42 EDT documented in this encounter Results * MA MAMMO SCREENING DIGITAL (03/07/2007 11:42 EDT) Anatomical Region Laterality Modality Other 03/07/2007 11:4 2 EDT Narrative 02/17/2009 13:44 EDT routine Comparison is made to films from 03/01/2006 (bilateral) and films from 02/28/2005 (bilateral). Bilateral Breast Findings: (CAD used to interpret routine digital): The breasts are almost entirely fat. No significant masses, calcifications or other abnormalities are seen. IMPRESSION: BILATERAL BREASTS - CATEGORY 1 [...] routine Comparison is made to films from 03/01/2006 (bilateral) and films from 02/28/2005 (bilateral). Bilateral Breast Findings: (CAD used to interpret routine digital): The breasts are almost entirely fat. No significant masses, calcifications or other abnormalities are seen. IMPRESSION: BILATERAL BREASTS - CATEGORY 1 [...] 0) at this time. Ankit Bae MD IMG MAMMOGRAPHY [facility] documented in this encounter Visit Diagnoses Not on filedocumented in this encounter
--- OUTSIDE RECORDS SUMMARY | 2024-03-19 02:43 | XMS_ITS | Encounter Summary ---
[place] [address] Care Team Providers Care Esl Tutor Name Role Phone Ayla Brown MD Primary Care Provider +1- [phone] Reason for Visit * Consultation (Routine) - Closed Specialty Diagnoses / Procedures Referred By Contshirley bella Referred To Contact Vascular Surgery Diagnoses Deep Vein Thrombosis (I82.49) Procedures Deep Vein Thrombosis Ayla Brown MD [address] [place] [address] [facility] [place] [facility] [address] [address] Referral ID Status Reason Start Date Expiration Date V isits Requested Visits Authorized [id number] Closed Consult, Test & Treat 02/06/2018 02/06/2019 3 3 Encounter Details Date Type Department Care Team (Latest Contact Info) Description 02/27/2018 12:25 PM EDT - 02/27/2018 11:59 PM EDT Hospital Encounter [place] [address] Nadege Welch [place] Acute deep vein thrombosis (DVT) of distal vein of right lower extremity Discharge Disposition: Home Social History Tobacco Use [...] Refills Start Date End Date Thyroid, Pork, ([place] Thyroid) 90 mg tablet Take 90 mg by mouth daily. rivaroxaban (Xarelto) 20 mg tablet Take 20 mg by mouth daily. 03/13/2023 documented as of this encounter Plan of Treatment Not on file documented as of this encounter Procedures Procedure Name Priority Date/Time Associated Diagnosis Comments DUPLEX FOR DVT, LEG, UNILAT Routine 02/27/2018 12:26 PM EDT Acute deep vein thrombosis (DVT) of distal vein of right lower extremity documented in this encounter Results * Duplex for DVT, Leg, Unilat (02/27/2018 12:26 PM EDT) VB Text Report Department: Vascular Surgery Lab Patient: [id number] (JUSTYNA DHALIWAL) CPT: 73469 ICD10: I82.4Z1 Referring Physician: RICKEY GOMEZ ?? Indications: ??Recent history right lower extremity DVT from OSH, patient being anticoagulated, reassess clot burden ICD10 Diagnosis Code: I82.4Z1 RIGHT: There is mostly occlusive thrombus identified [...] exclude non-occlusive thrombus. Interpretation: RIGHT Lower extremity DVT of indeterminate age (distal femoral and popliteal veins). Cannot exclude additional non-occlusive DVT in the peroneal veins in the calf due to suboptimal visualization. No evidence of common femoral, proximal to mid femoral or posterior tibial DVT. Comparison: ??No previous study in our vascular lab database for comparison. Comment: Patient is anticoagulated and has a consultation with YARON Richardson in Vascular Clinic immediately following this exam. Electronically Signed by: JOHNATHAN FERRER on 2018-03-01 07:12:13 PM VASCUBASE VB Text Report End of Report VASCUBASE 02/27/2018 12:2 6 PM EDT Rickey Gomez MD VASCULAR ORDERABLES VASCUBASE documented in this encounter Visit Diagnoses Diagnosis Acute deep vein thrombosis (DVT) of distal vein of right lower extremity documented in this encounter Care Teams Esl Tutor Relationship Specialty Start Date End Date Ayla Brown MD [address] [address] PCP - General Internal Medicine 02/27/18 03/12/23 documented as of this encounter
--- OUTSIDE RECORDS SUMMARY | 2024-03-19 02:43 | XMS_ITS | Encounter Summary ---
Author Organization [facility] Address [address] [place] [address] Care Team Providers Care Tool Distributor Name Role Phone Unavailable Primary Care Provider Unavailabl e Encounter Details Date Type Department Care Team (Latest Contact Info) Description 02/28/2005 6:46 EDT - 02/28/2005 11:59 EDT Hospital Encounter [facility] - Other [address] [place] [address] Johnathan Lopez MD Discharge Disposition: Auto Discharge Social History [...] Associated Diagnosis Comments MA MAMMO SCREENING DIGITAL 02/28/2005 9:13 EDT documented in this encounter Results * MA MAMMO SCREENING DIGITAL (02/28/2005 9:13 EDT) Anatomical Region Laterality Modality Other 02/28/2005 9:13 EDT Narrative 03/25/2009 4:05 EDT ROUTINE [PCP JOHNATHAN LOPEZ, REQ PHILLIP BRAN] Comparison is made to films from 03/04/2004 and films from 06/30/2002. Bilateral Breast Findings: (cad used to interpret routine digital): The breasts are almost entirely fat. ??No significant masses, calcifications or other abnormalities are seen. IMPRESSION: BILATERAL BREAST - CATEGORY 1 Negative, no evidence of malignancy. Normal interval follow-up is recommended in 12 months. OVERALL ASSESSMENT - NEGATIVE END OF IMPRESSION Procedure Note Johnathan Min MD - 03/25/2009 ROUTINE [PCP JOHNATHAN LOPEZ, JB BRAN] Comparison is made to films from 03/04/2004 and films from 06/30/2002. Bilateral Breast Findings: (cad used to interpret routine digital): The breasts are almost entirely fat. No significant masses, calcifications or other abnormalities are seen. IMPRESSION: BILATERAL BREAST - CATEGORY 1 Negative, no evidence of malignancy. Normal interval follow-up is recommended in 12 months. OVERALL ASSESSMENT - NEGATIVE END OF IMPRESSION Johnathan Lopez MD IMG MAMMOGRAPHY ORDE JS documented in this encounter Visit Diagnoses Not on filedocumented in this encounter
--- OUTSIDE RECORDS SUMMARY | 2024-03-19 02:43 | XMS_ITS | Clinical Summary ---
Author Organization [facility] Address [facility] [place] [address] Care Team Providers Care Washcoat Wiper Name Role Phone Mary Ann Ruby MD Primary Care Provider [phone] [phone] Allergies Active Allergy Reactions Criticality Noted Date Comments Anesthesia Tray 03/06/2016 States very sensitive, Less is better Clindamycin Rash 12/27/2018 Epinephrine High 03/06/2016 Pass out and needs O2 Penicillins 03/06/2016 Had reaction as a child was told not to take it anymore Medications Medication Sig Dispensed Refills Start Date End Date Status Thyroid, Pork, ([place] Thyroid) 90 mg tablet Take 90 mg by mouth daily. Active calcium carbonate/vitamin D3 (VITAMIN D-3 ORAL) Take by mouth. Ac tive cyanocobalamin, Vitamin B-12, (Vitamin B-12) 1,000 mcg tablet Take 1,000 mcg by mouth daily. Active apixaban (Eliquis) 2.5 mg tablet 2 times daily. 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 03/06/2016 Encounters Date Type Department Care Team Description 03/04/2024 Interpretation Only [facility] in [address] [place] [id number] Unknown 03/04/2024 Interpretation Only [facility] in [facility] [address] [place] [phone] Unknown from Last 3 Months Family History Medical History Relation Comments Lymphoma Mother Cancer Sister Breast Relation Status Comments Mother (Age 99) Sister Social History Tobacco Use Types Packs/Day Years [...] place to sleep or slept in a skilled nursing (including now)? No 03/12/2023 DH IPV Inpatient Questions Answer Date Recorded Does Anyone Try to Keep You From Having Contact with Others or Doing Things Outside Your Home? no 03/13/2023 Feels Threatened by Someone no 02/183 Feels Unsafe at Home or Work/School no 03/13/2023 Physical Signs of Abuse Present no 03/13/2023 Sex and Gender Information Value Date Recorded Sex Assigned at Not on file Gender Identity Not on file Sexual Orientation Not on file Last Filed Vital Signs Vital Sign Reading Time Taken Comments Blood Pressure 136/76 03/13/2023 10:13 AM EDT Pulse 78 03/13/2023 10:13 AM EDT Temperature 36.4 ??C (97.5 ??F) 03/13/2023 10:13 AM E DT Respiratory Rate 24 03/13/2023 10:13 AM EDT Oxygen Saturation 98% 03/13/2023 10:13 AM EDT Inhaled Oxygen Concentration - - Weight 98.7 kg (217 lb 9.5 oz) 03/13/2023 10:13 AM EDT Height 170.6 cm (5' 7.17) 03/13/2023 10:13 AM E DT Body Mass Index 33.91 03/13/2023 10:13 AM EDT Plan of Treatment Health Maintenance Due Date Last Done Comments Hepatitis C Screening 1962 Tdap adult 1963 Tetanus vaccine 1963 Zoster vaccine (1 of 2) 1994 Advance Directive 1999 Bone Density Scan 2009 Pneumoccocal Vaccine: 65+ (1 of 1 - PCV) 2009 Covid-19 Vaccine (1 - season) 2023 Influenza (Flu) vaccine (1 o f 1 - Influenza standard series) 04/20/2024 Procedures Procedure Name Priority Date/Time Associated Diagnosis Comments XR SHOULDER 1 VIEW LEFT Routine 03/04/2024 11:42 AM EDT XR SHOULDER 1 VIEW RIGHT Routine 03/04/2024 11:42 AM EDT from Last 3 Months Results * XR Shoulder 1 view Left (03/04/2024 11:42 AM EDT) PT CLASS O RAD ADMITDTTM [id number] RAD PT RAD MD INFO [id number]^[place] N^SUDHIR RAD EXAM DESC XRSHDOVL^XR SHOULDER LT 1V^RIS [facility] WORKSTATION ID [id number] [facility] Anatomical Region Laterality Modality Shoulder Left [...] who have questions please contact the health coronary care unit nurse that requested your imaging first. ? Narrative [...] patients who have questions please contactthe health coronary care unit nurse that requested your imaging first. Unknown IMG DX ORDERABLES * XR Shoulder 1 view Right (03/04/2024 11:42 AM EDT) PT CLASS O RAD ADMITDTTM [id number] RAD PT RAD INFO [id number]^[place] N^SUDHIR RAD EXAM DESC XRSHDOVR^XR SHOULDER RT 1V^RIS RAD WORKSTATION ID [id number] [facility] Anatomical Region Laterality Modality Shoulder Right Radiographic Maritza ging Impressions 03/04/2024 5:05 PM EDT No dislocation of the glenohumeral articulation on this single image. Thank you for letting us participate in the care of this patient. ??If you are a health care provider and have any questions regarding this report, please contact the number below. ??For patients who have questions please contact the health coronary care unit nurse that requested your imaging first. ? Narrative 03/04/2024 5:05 PM EDT EXAMINATION: XR SHOULDER RT 1V CLINICAL HISTORY: REASON: RIGHT SHOULDER PAIN, UNSPECIFIED CHRONICITY ADD'L INFO: AXILLARY TECHNIQUE: 1 views RIGHT shoulder COMPARISON: None FINDINGS: see impression Procedure Note Gino Martinez MD - 03/04/2024 EXAMINATION: XR SHOULDER RT 1V CLINICAL HISTORY: REASON: RIGHT SHOULDER PAIN, UNSPECIFIED CHRONICITYADD'L INFO: AXILLARY TECHNIQUE: 1 views RIGHT shoulder COMPARISON: None FINDINGS: see impression IMPRESSION No dislocation of the glenohumeral articulation on this single image. Thank you for letting us participate in the care of this patient. If youare a health care provider and have any questions regarding this report,please contact the number below. For patients who have questions please contactthe health coronary care unit nurse that requested your imaging first. Unknown IMG DX ORDERABLES from Last 3 Months Care Teams Washcoat Wiper Relationship Specialty Start Date End Date Mary Ann Ruby MD [facility] [place] [address] PCP - General General Internal Medicine 03/13/23
--- OUTSIDE RECORDS SUMMARY | 2024-03-19 02:43 | XMS_ITS | Encounter Summary ---
Author Organization [facility] Address [address] [place] [address] Care Team Providers Care Biometrics Analyst Name Role Phone Unavailable Primary Care Provider Unavailabl e Encounter Details Date Type Department Care Team (Latest Contact Info) Description 03/01/2006 9:29 EDT - 03/01/2006 11:59 EDT Hospital Encounter [facility] - Other [address] [place] [address] Kasie Ramos, [place] [address] [address] Discharge Disposition: Home or Self Care Social [...] Associated Diagnosis Comments MA MAMMO SCREENING DIGITAL 03/01/2006 9:49 EDT documented in this encounter Results * MA MAMMO SCREENING DIGITAL (03/01/2006 9:49 EDT) Anatomical Region Laterality Modality Other 03/01/2006 9:49 EDT Narrative 03/06/2009 11:22 EDT ROUTINE Comparison is made to films from 02/28/2005 (bilateral) and films from 06/30/2002. Bilateral Breast [...] ROUTINE Comparison is made to films from 02/28/2005 (bilateral) and films from 06/30/2002. Bilateral Breast Findings: (CAD used to interpret routine digital): The breasts are almost entirely fat. No significant masses, calcifications or other abnormalities are seen. IMPRESSION: BILATERAL BREASTS - CATEGORY 1 Negative, no evidence of malignancy. Normal interval follow-up is recommended in 12 months. OVERALL ASSESSMENT - NEGATIVE END OF IMPRESSION Ankit Bae MD IMG MAMMOGRAPHY LAWRENCE WEINSTEIN documented in this encounter Visit Diagnoses Not on filedocumented in this encounter
--- OUTSIDE RECORDS SUMMARY | 2024-03-19 02:43 | XMS_ITS | Encounter Summary ---
[place] [address] Care Team Providers Care Technical Analyst Name Role Phone Ayla Brown MD Primary Care Provider +1- [phone] Encounter Details Date Type Department Care Team ([facility] st Contact Info) Description 05/30/2018 Telephone Hematology [place] [phone] Ella Loera, RN Social History Tobacco Use [...] Dr. Sorin Rojas, patient's orthopedic surgeon in [facility]. Confirmation of fax received. Ella Loera MSN RN ===View-only below this line=== ----- Message ----- From: Charla Guerra MD Sent: 05/30/2018 2:31 PM To: Ella Loera RN PS: f/u in 5-6 months when she returns from [place]. Ella: can you please call her and review lab result? She was concerned about her glucose level. Although hyperglycemia is not a common side effect of rivaroxaban, she has noticed that her glucose level is higher on rivaroxaban. Her fasting glucose is high at 145 and HgA1c is high at 7.3. She should follow- up with her PCP in [place] once she is there regarding her glucose [...] on filedocumented in this encounter Care Teams Technical Analyst Relationship Specialty Start Date End Date Ayla Brown MD [address] [address] PCP - General Internal Medicine 02/27/18 03/12/23 documented as of this encounter
--- OUTSIDE RECORDS SUMMARY | 2024-03-19 02:43 | XMS_ITS | Encounter Summary ---
Author Organization [facility] Address [facility] [place] [address] Care Team Providers Care Grab Jack Man Name Role Phone Ayla Brown MD Primary Care Provider +1- [phone] Reason for Referral * Consultation (Routine) - Closed Specialty Diagnoses / Procedures Referred By Contac t Referred To Contact Hematology and Oncology Diagnoses Acute deep vein thrombosis (DVT) of femoral vein of right lower extremity Yasmeen Lezama MD [facility] [place] [address] Charla Guerra MD [facility] DR HEMATOLOGY [place] [address] Referral ID Status Reason Start Date Expiration Date V isits Requested Visits Authorized [id number] Closed Consult, Test & Treat 04/17/2018 04/17/2019 1 1 Reason for Visit * Reason Comments Deep Vein Thrombosis RT LEG EDEMA AND PA IN F/U PT HAS HX OF SADDLE EMBOLISM IN 2015 WAS IN THE PREOCESS OF TESTING FOR HIP REPLACEMENT WHEN THIS CLOT WAS DISCOVERED * Consultation (Routine) - Closed Specialty Diagnoses / Procedures Referred By Contac t Referred To Contact Vascular Surgery Diagnoses Deep Vein Thrombosis (I82.49) Procedures Deep Vein Thrombosis Ayla Brown MD [address] [address] [facility] [address] [place] [address] Referral ID Status Reason Start Date Expiration Date V isits Requested Visits Authorized [id number] Closed Consult, Test & Treat 02/06/2018 02/06/2019 3 3 Encounter Details Date Type Department Care Team (Late st Contact Info) Description 04/17/2018 9:30 AM EDT Office Visit [place] [address] Matilda Cortez MD [facility] [place] [address] Acute deep vein thrombosis (DVT) of femoral [...] Sign Reading Time Taken Comments Blood Pressure 142/70 04/17/2018 9:40 AM EDT Pulse 81 04/17/2018 9:40 AM EDT Temperature - - Respiratory Rate 18 04/17/2018 9:40 AM EDT Oxygen Saturation - - Inhaled Oxygen Concentration - - Weight 95.3 kg (210 lb) 04/17/2018 9:40 AM EDT Height 172.7 cm (5' 8) 04/17/2018 9:40 AM EDT Body Mass Index 31.93 04/17/2018 9:40 AM EDT documented in this encounter Progress Notes * Yasmeen Lezama MD - 04/17/2018 9:30 AM EDT Vascular Surgery Clinic Note Reason for Visit: follow-up DVT History of Present Illness: Justyna Dhaliwal is a 72 y.o. woman seen in clinic on 02/27/18 for RLE DVT. 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 She was found to have another DVT following a long plane flight in December, currently on Xarelto 20mg daily. She was initially on Eliquis but transitioned to Xarelto as it was throught that the clot burden had increased with on Eliquis. Patient was seen in clinic on 02/27, at which time a DVT study demonstrated a RLE DVT of indeterminate age in the distal femoral and popliteal veins, there was no evidence of common femoral, prox-mid femoral or posterior tibial DVT. She presents today for follow-up since she has planned orthopedic surgery on her hip and knee in the near future and has questions regarding the management of her anticoagulation. She reports some improvement in her symptoms since she was last seen in clinic. Medications: Current Outpatient Prescriptions Medication Sig Dispense Refill ??? Thyroid, Pork, ([place] THYROID) 90 mg Tablet Take 90 mg by mouth daily. ??? rivaroxaban (XARELTO) 20 mg Tablet Take 20 mg by mouth daily. No current facility-administered medications for this visit. Physical Exam: Temp: -- Heart Rate: [81] Resp: [18] BP: (142)/(70) SpO2: -- Heart Rate from SPO2: -- General: NAD, resting comfortably Ext: RLE with minimal edema, palpable tender cord along course of short saphenous vein, no overlying skin changes or erythema, no open wounds Studies: 04/17/18 DVT duplex RIGHT: Non-occlusive thrombus in the popliteal vein with deep venous reflux. Non-occlusive chronic thrombus in the short saphenous vein in the mid calf; this is a new finding, however short saphenous vein was not mentioned in previous exam. Otherwise, patent common femoral vein with spontaneous, respirophasic Doppler waveforms that respond normally to augmentation maneuvers. The common femoral vein, saphenofemoral junction and femoral vein through the thigh are fully compressible. Patent posterior tibial and peroneal veins (mid/distal calf) with no evidence of thrombus. Peroneal veins not well visualized in the proximal calf, cannot exclude non-occlusive [...] vein thrombus compared to previous exam (02/27/2018). Assessment and Plan: Justyna Dhaliwal is a 72 y.o. woman with a history of recurrent DVTs, currently on Xarelto. DVT duplex today demonstrates improvement in the previously seen femoral vein thrombus, persistent non-occlusive thrombus in the popliteal vein unchanged form prior, as well as chronic thrombus in the SSV. Recommend continuation of anticoagulation as well as hematology consultation for hypercoagulable work-up and guidance for management of long-term anticoagulation, especially in the setting of upcoming orthopedic surgery. Patient seen and evaluate with Dr. Cortez. Yasmeen Jenkins Vascular Surgery Fellow Attending: Patient seen and examined with fellow. Agree with note and plan. Recurrent DVT with current xarelto management. I have recommended she seek expert consultation for hypercoaguable workup and terminal supervisor management of her DVT as well as perioperative recommendations for her pending orthopedic interventions in light of her history. documented in this encounter Plan of Treatment Scheduled Referrals Name Type Priority Associated Diagnoses Order Schedule Referral to Hematology and Oncology Outpatient Referral Routine Acute deep vein thrombosis (DVT) of femoral vein of right lower extremity Ordered: 04/17/2018 documented as of this encounter Results * Duplex for DVT, Leg, Unilat (04/17/2018 9:10 AM EDT) VB Text Report Department: Vascular Surgery Lab Patient: [id number] (JUSTYNA DHALIWAL) CPT: 00039 ICD10: I82.431 Referring Physician: MATILDA CORTEZ M.D. ?? Indications: hx right femoral and popliteal DVT, palpable cord in calf, ? DVT ICD10 Diagnosis Code: I82.431 RIGHT: Non-occlusive thrombus in the popliteal vein with deep venous reflux. Non-occlusive chronic thrombus in the short saphenous vein in the mid calf; this is a new finding, however short saphenous vein was not mentioned in previous exam. Otherwise, patent common femoral vein with spontaneous, respirophasic Doppler waveforms that respond normally to augmentation maneuvers. The common femoral vein, saphenofemoral junction and femoral vein through the thigh are fully compressible. Patent posterior tibial and peroneal veins (mid/distal calf) with no evidence of thrombus. Peroneal veins not well visualized in the proximal calf, cannot exclude non-occlusive [...] vein thrombus compared to previous exam (02/27/2018). Electronically Signed by: MATILDA CORTEZ M.D. on 2018-04-17 12:20:33 PM VASCUBASE VB Text Report End of Report VASCUBASE 04/17/2018 9:10 AM EDT Matilda Cortez MD VASCULAR ORDERABLES [facility]ASCUBASE documented in this encounter Visit Diagnoses Diagnosis Acute deep vein thrombosis (DVT) of femoral vein of right lower extremity documented in this encounter Care Teams Grab Jack Man Relationship Specialty Start Date End Date Ayla Brown MD [address] [address] PCP - General Internal Medicine 02/27/18 03/12/23 documented as of this encounter
--- OUTSIDE RECORDS SUMMARY | 2024-03-19 02:43 | XMS_ITS | Encounter Summary ---
[place] [address] Care Team Providers Care Military Cook Name Role Phone Ayla Brown MD Primary Care Provider +1- [phone] Encounter Details Date Type Department Care Team (Latest Contact Info) Description 04/23/2018 11:12 AM EDT - 04/23/2018 11:59 PM EDT Hospital Encounter [place] [address] [place], [place], [place] VTE (venous thromboembolism) Discharge Disposition: Home Social [...] Refills Start Date End Date Thyroid, Pork, ([place] Thyroid) 90 mg tablet Take 90 mg by mouth daily. rivaroxaban (Xarelto) 20 mg tablet Take 20 mg by mouth daily. 03/13/2023 documented as of this encounter Plan of Treatment Not on file documented as of this encounter Procedures Procedure Name Priority Date/Time Associated Diagnosis Comments DUPLEX FOR DVT, LEG, UNILAT Routine 04/23/2018 11:12 AM EDT VTE (venous thromboembolism) documented in this encounter Results * Duplex for DVT, Leg, Unilat (04/23/2018 11:12 AM EDT) VB Text Report Department: Vascular Surgery Lab Patient: [id number] (JUSTYNA DHALIWAL) CPT: 08708 ICD10: M79.89;I82.90;Z86. 718 Referring Physician: CHARLA ODELL [...] site documented in this encounter Care Teams Military Cook Relationship Specialty Start Date End Date Ayla Brown MD [address] [address] PCP - General Internal Medicine 02/27/18 03/12/23 documented as of this encounter
--- OUTSIDE RECORDS SUMMARY | 2024-03-19 02:43 | XMS_ITS | Encounter Summary ---
[place] [address] Care Team Providers Care Clin Tech Name Role Phone Mary Ann Ruby MD Primary Care Provider [phone] [phone] Encounter Details Date Type Department Care Team ([facility] Contact Info) Description 04/18/2023 Telephone [place] [phone] Augustina Selby, RN Social History Tobacco Use Types Packs/Day Years Used Date Smoking Tobacco: Former Cigarettes 0.3 20 0 03/06/1965 - 03/06/1985 Smokeless Tobacco: Never Alcohol Use Standard Drinks/Week [...] place to sleep or slept in a alf (including now)? No 03/12/2023 DH IPV Inpatient [...] encounter Miscellaneous Notes * Telephone Encounter - Augustina Selby RN - 04/18/2023 1:50 PM EDT Returned patient call to answer her questions. Patient was informed that per Dr. Cavazos, cardiology clearance is not necessary for her aneurysm prior to her surgery. This RN gave patient phone number to the billing claims department for her questions regarding insurance coverage for her surgery. Toldpatient to call back with any other questions or concerns. Patient in agreement with plan * Telephone Encounter - Augustina Selby RN - 04/18/2023 1:43 PM EDT ----- Message from Janneth Nova RN sent at 04/17/2023 3:42 PM EDT ----- Regarding: Questions about surgery 3:11: Questions about if she needs cardiology clearance (regarding aneurysm) prior to surgery on 05/07? Will insurance cover surgery? She has received a note that medicare denied consult. [phone] documented in this encounter Plan of Treatment Not on file documented as of this encounter Visit Diagnoses Not on filedocumented in this encounter Care Teams Clin Tech Relationship Specialty Start Date End Date Mary Ann Ruby MD [address] [place] [address] PCP - General General Internal Medicine 03/13/23 documented as of this encounter
--- OUTSIDE RECORDS SUMMARY | 2024-03-19 02:43 | XMS_ITS | Encounter Summary ---
Author Organization [facility] Address [facility] [place] [address] Care Team Providers Care Financial Legal Assistant Name Role Phone Ayla Brown MD Primary Care Provider [phone]- [phone] Reason for Visit * Reason Comments Follow-up Encounter Details Date Type Department Care Team ([facility] st Contact Info) Description 05/22/2018 11:30 AM EDT Office Visit [place] [address] Charla Guerra MD [facility] HEMATOLOGY [place] [address] VTE (venous thromboembolism) (Primary Dx); 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; Pre-diabetes Social History Tobacco Use Types Packs/Day Years [...] Sign Reading Time Taken Comments Blood Pressure 133/78 05/22/2018 11:49 AM EDT Pulse 79 05/22/2018 11:49 AM EDT Temperature 36.6 ??C (97.9 ??F) 05/22/2018 1 1:49 AM EDT Respiratory Rate 19 05/22/2018 11:4 9 AM EDT Oxygen Saturation 98% 05/22/2018 11: 49 AM EDT Inhaled Oxygen Concentration - - Weight 109.3 kg (241 lb) 05/22/2018 11: 49 AM EDT Height 170 cm (5' 6.93) 05/22/2018 11: 49 AM EDT From last visit Body Mass Index 37.83 05/22/2018 11:49 AM EDT documented in this encounter Progress Notes * Charla Guerra MD - 05/22/2018 11:30 AM EDT Images from the original note were not included. [facility] [place] [address] THROMBOSIS FOLLOW-UP DATE OF VISIT 05/22/2018 Patient Carolann Brennan 1945 REFERRING PHYSICIAN Aneudy Cortez MD PRIMARY CARE PHYSICIAN Ayla Brown MD ORTHOPEDIC SURGEON Baljinder Deras MD ORTHOPEDIC SURGEON in [place] Sorin Rojas MD REASON FOR CONSULTATION Evaluation of thrombophilia, duration of anticoagulation and perioperative anticoagulation management prior to DANYA THROMBOSIS PROBLEM LIST 1. Jul 2015 saddle [...] -> continue on rivaroxaban 20 mg PO daily to current date Thrombophilia: prothrombin gene [id number] mutation, heterozygous Mother with history of injury related DVT at 96 Clinical risk factors: obesity, varicosity HISTORY OF THE PRESENT ILLNESS Mrs. 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 At that time she was hospitalized in [place] where she usually spends wintertime there. 6 [...] [place] to [facility] by car, and then to [place] by plane (5- hour flight) and returned back to [place] mid Jun 2018 before she developed acute shortness of breath, feeling that she was going to faint around 2014. She was treated with rivaroxaban 20 mg PO daily for 6 months, then to 10 mg PO daily for another 6 months. She was seen by a flying i instructor in [place] who recommended to stop rivaroxaban after 1 [...] prophylaxis. In Jun 2017 she travelled to [place] by car as usual. In Aug 2017 [...] ultrasound which showed improvement of DVT. Last ultrasoundwas on 04/17/2018 which she was seen by vascular surgery team. INTERIM HISTORY She returns for follow-up. She underwent a corticosteroid injection in her hip and knee with slightimprovement of her pain. She is planning to undergo a left DANYA in Jul in [place]. She is planning to leave to [place], [facility] in 2-3 weeks. Otherwise she is doing fine on rivaroxaban without bleeding issues. No new leg pain,swelling, chest pain, shortness of breath. PAST MEDICAL HISTORY Patient Active Problem List [...] visit. ADVERSE DRUG REACTIONS Allergies as of 05/22/2018 - Review Complete 05/22/2018 Allergen Reaction Noted ??? Epinephrine 03/06/2016 ??? Anesthesia tray 03/06/2016 ??? Penicillins 03/06/2016 FAMILY HISTORY Mother at lymphoma at 99. 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 HEENT: [...] tenderness or palpable cords. MUSCULOSKELETAL: Spine nontender. No acute knee effusion. Using cane SKIN: No ecchymoses, petechiae, ulcers or rashes. LYMPH: No palpable lymph nodes. NEUROLOGIC: Alert, oriented. Speech clear, coherent. No focal deficits noted. PSYCHIATRIC: Appropriate affect, no apparent distress. LABORATORY STUDIES Thrombophilia testing Ref. Range 04/23/2018 11:05 Platelets Latest Ref Range: 145 - 357 x10(3)/mcL 226 Plat Immature % Latest Ref Range: 0.0 - 7.4 % 2.0 PT Latest Ref Range: 9.4 - 12.5 sec 11.6 INR Unknown 1.0 PTT Latest Ref Range: 25 - 37 sec 30 Fibrinogen Latest Ref Range: 200 - 393 mg/dL 353 Thrombin Time Latest Ref Range: 10 - 17 sec 12 THS Report Unknown See Comment APC Resistance Latest Ref Range: >=2.17 3.01 Antithrombin Latest Ref Range: 83 - 128 % 113 Protein C Act Latest Ref Range: 70 - 140 % >150 (H) Protein S Act Latest Ref Range: 64 - 149 % activity >150 (H) Homocyst Tot Latest Ref Range: <=15 mcmol/L 8 B2GPI IgG Latest Ref Range: <=20.0 unit(s) <9.4 B2GPI IgM Latest Ref Range: <=20.0 unit(s) <9.4 Cardiolipin IgG Latest Ref Range: <=14.9 GPL unit(s) <9.4 Cardiolipin IgM Latest Ref Range: <=12.5 MPL unit(s) <9.4 Prothrombin Mutation Unknown Heterozygous Ref. Range 05/07/2018 11:30 dRVVT Latest Ref Range: <=1.20 IU/mL 1.29 (H) Silica Clotting Time Latest Ref Range: <=1.16 ratio 1.04 Thrombosis screen: DIAGNOSIS Heterozygous Prothrombin gene mutation. ?? see discussion Electronically signed by: ??Juan Saunders MD Verified: ??05/06/2018 ?Hematopathologist Performed at: ??-[facility] Dept. of [place]ology, [place], [place] RADIOGRAPHIC STUDIES Ultrasound doppler 01/18/2018 RIGHT: DVT [...] compared to previous exam (02/27/2018). Ultrasound doppler 04/23/2018 LEFT leg: no evidence of DVT IMPRESSION Carolann Brennan is a 72 y.o. woman with history of recurrent VTE who was referred to our Thrombosis clinic for evaluation of thrombophilia, anticoagulation management around upcoming DANYA, and possible TKA, and recommendation regarding duration of anticoagulation. In brief, Mrs. Brennan developed first unprovoked saddle pulmonary embolism & right leg DVT in 2014. She was treated with anticoagulation for a year. Unfortunately she developed a recurrent DVTin the same leg this year. Her second recurrent DVT in the right [...] VTE which include obesity and venous insufficiency. Because of her family history of VTE and recurrent nature of her VTE, we performed thrombophilia testing which revealed heterozygous prothrombin gene mutation and also pos.lupus anticoagulant. I reviewed the implication of having heterozygous prothrombin [id number] mutation. The prothrombin [id number] gene mutation is present in the heterozygous form in up to 2-3% of unselected individuals and is a common cause of hereditary thrombophilia. Heterozygous PT A10033V is associated with 2-3 fold increased risk of VTE for developing a first episode of venous thromboembolic disease (VTE) and possibly for recurrent loss but does not appear to be a significant risk factor for recurrent VTE or for arterial thrombosis in adults under most circumstances. Most individuals with PT [id number] are asymptomatic; however, the thrombotic risk conferred by PT W61883G is amplified in the pr esence of certain other risk factors (e.g., smoking, obesity, contraceptives, ). In her case, her other risk factors for VTE including obesity and venous insufficiency. We also performed lupus anticoagulant as a part of antiphospholipid syndrome. She was off rivaroxaban for 3 days prior to LA testing. Her LA testing was mildly positive. Her other antiphospholipid antibodies were negative. I still think that the mild pos. LA is not clinical significant. I explainedto her that there is a high incidence of pos. LA in asymptomatic elderly. It is hard to conclude ifthis is related to her unprovoked VTE, kristi when other antiphospholipid antibodies were negative. Also in her case, I think that she has enough risk factors to explain her recurrent VTE. Regardless, Iplan to repeat the LA testing when she returns from [place]. This time I asked her to stop rivaroxaban 4 days prior. We again reviewed that her risk for VTE recurrence is about 10-15% without anticoagulation. I strongly recommend her to stay on long-term anticoagulation. Because of her recent pos. LA, I suggest to stay on rivaroxaban 20 mg PO daily. I may consider reducing her dose back down to 10 mg PO daily when she returns for follow-up. Mrs. Brennan is concerned about her glucose level that is elevated due to rivaroxaban. Hyperglycemia is not a common side effect of rivaroxaban that I am aware of. However, if you google it, you may find some patient's report about hyperglycemia. Previously her PCP told her that she has pre-DM. She stated that her previous fasting glucose level prior starting rivaroxaban was low at 68 but she has noticed that her glucose levels went up since being on rivaroxaban. I told her that I am happy torecheck her glucose level and HgA1c today. She did not have her breakfast/lunch today. Her fasting glucose was indeed high at 145 and her axjgorqkxfS9w is high at 7.3. She does not recall the result of her HgA1c in [place], I suggest that she makes a follow-up with her PCP in [place] and discuss DMmanagement. While I am unaware of hyperglycemia as side effect of rivaroxaban, I won't be oppose ifyenifer wants to switch her DOACs to apixaban. She is also concerned that she has previously failed apixaban. I reassured her that she did NOT fail apixaban in the past. At the time when her apixaban wasswitched to rivaroxaban, she did have a persistent thrombus, but there was no sign of progression on the ultrasound. If she would like to switch to apixaban, apixaban at 5 mg PO BID can be initiated at the next scheduled dose of rivaroxaban. For her upcoming trip to [place], I encourage her to wear compression stocking, getting up every 2-3 hours for walk and maintain well hydration. I have made a recommendation regarding anticoagulation management around upcoming DANYA below. PLAN/RECOMMENDATIONS 1. Reading material about prothrombin gene [id number] mutation given to patient 2. Plan to repeat lupus anticoagulant testing when she returns from [place] next year - hold rivaroxaban 4-5 days before lab testing 3. For upcoming DANYA - stop rivaroxaban 3 days before surgery and resume at 8-12 hours after surgery. Consider reducing rivaroxaban dose to 10 mg PO daily for the first 24-48 hours if concern of postoperative bleeding risk. - no indication for prophylactic IVC filter - mechanical thromboprophylaxis including venodyne, compression stocking, early ambulation 4. If she wishes to switch her anticoagulant from rivaroxaban to apixaban, this would be fine. Apixaban 5 mg PO BID can be initiated at the next scheduled dose of rivaroxaban. 5. Defer DM management to PCP. Carolann Brennan had the opportunity to ask questions and indicated that all her questions were answered to her satisfaction. She will follow up with me early next year when she returns from [place]. I will fax my note to Dr. Sorin Rojas, her orthopedic surgeon in [facility]. (tel [phone]) Charla Guerra MD documented in this encounter Plan of Treatment Not on file documented as of this encounter Results * (ABNORMAL) Hemoglobin A1c (05/22/2018 1:12 PM EDT) Hemoglobin A1C 7.3(H) 4.3 - 5.6 % [facility] Comment: Reference Range: [...] S67-74 Est Avg Gluc See note mg/dL [facility] Comment: Estimated Average Glucose not appropriate [...] into estimated average glucose values. ??Diabetes Care 2008:31(8):8285-8994. Blood specimen (specimen) 05/22/2018 1:12 PM EDT 05/22/2018 1:21 PM EDT Narrative Resulting Agency Comment Spec In Lab Charla Guerra MD CHEMISTRY ORDERABLES Performing Organization Address [facility] Co de Phone Number [facility] [place] [address] * (ABNORMAL) Glucose, fasting (05/22/2018 1:12 PM EDT) [facility] Glucose Fasting 145(H) 65 - 99 mg/dL [facility] Comment: ?Fasting* Glucose Interpretive Criteria Normal [...] of Diabetes Mellitus, Position Statement from the [place] [employer]. ??Diabetes Care, Volume 33, Supplement 1, Aug 2009 Blood specimen (specimen) 05/22/2018 1:12 PM EDT 05/22/2018 1:21 PM EDT Narrative Resulting Agency Comment Spec In Lab Charla Guerra MD CHEMISTRY ORDERABLES Performing Organization Address [facility] Co de Phone Number [facility] [place] [address] documented in this encounter Visit Diagnoses Diagnosis VTE (venous thromboembolism)- Primary Embolism and thrombosis of unspecified site Heterozygous for prothrombin [id number] mutation Primary hypercoagulable state Pre-diabetes Other abnormal glucose documented in this encounter Care Teams Financial Legal Assistant Relationship Specialty Start Date End Date Ayla Brown MD [address] [place] [address] PCP - General Internal Medicine 02/27/18 03/12/23 documented as of this encounter
--- OUTSIDE RECORDS SUMMARY | 2024-03-19 02:43 | XMS_ITS | Encounter Summary ---
Author Organization [facility] Address [address] [place] [address] Care Team Providers Care Mobile Nurse Name Role Phone Unavailable Primary Care Provider Unavailabl e Encounter Details Date Type Department Care Team (Latest Contact Info) Description 02/11/2008 8:57 EDT - 02/11/2008 11:59 EDT Hospital Encounter [facility] - [facility] [address] [place] [address] Daniela Real MD [address] [place] [phone] Discharge Disposition: Home or Self Care Social [...]
--- OUTSIDE RECORDS SUMMARY | 2024-03-19 02:43 | XMS_ITS | Encounter Summary ---
[place] [address] Care Team Providers Care Sheriffs Detective Name Role Phone Ayla Brown MD Primary Care Provider [phone]- [phone] Encounter Details Date Type Department Care Team (Late st Contact Info) Description 02/09/2023 Telephone Obstetrics [place] [id number] Mariam Cuellar Social History Tobacco Use Types Packs/Day Years [...] on filedocumented in this encounter Care Teams Sheriffs Detective Relationship Specialty Start Date End Date Ayla Brown MD [address] [place] [address] PCP - General Internal Medicine 02/27/18 03/12/23 documented as of this encounter
--- OUTSIDE RECORDS SUMMARY | 2024-03-19 02:43 | XMS_ITS | Encounter Summary ---
Author Organization [facility] Address [address] [place] [address] Care Team Providers Care Route Delivery Manager Name Role Phone Unavailable Primary Care Provider Unavailabl e Encounter Details Date Type Department Care Team (Latest Contact Info) Description 03/01/2006 9:26 EDT - 03/01/2006 11:59 EDT Hospital Encounter [facility] [address] [place] [address] Kasie Ramos, [place] [address] [place] [address] Discharge Disposition: Auto Discharge Social History Tobacco [...]
--- OUTSIDE RECORDS SUMMARY | 2024-03-19 02:43 | XMS_ITS | Encounter Summary ---
Author Organization [facility] Address [facility] [place] [address] Care Team Providers Care Personnel Officer Name Role Phone Mary Ann Ruby MD Primary Care Provider [phone] [phone] Reason for Visit * Reason Comments Establish Care Encounter Details Date Type Department [facility] Description 03/13/2023 10:00 AM EDT Office Visit [place] [address] Linwood Cavazos MD [facility] [place] [address] BRCA1 gene mutation positive Social History Tobacco Use Types Packs/Day Years [...] Mass Index 33.91 03/13/2023 10:13 AM EDT documented in this encounter Progress Notes * Nika Ramirez MD - 03/13/2023 10:00 AM EDT Division [place] [address] Gynecologic Oncology Clinic New Patient Visit Reason for visit: BRCA1 positive, referred by: No referring provider defined for this encounter. Problem List Patient Active Problem List Diagnosis Code Instability of knee joint M25.369 H/O total knee replacement Z96.659 Acute deep vein thrombosis (DVT) of femoral vein of right lower extremity I82.411 Acute saddle pulmonary embolism I26.92 Osteoarthritis of hip M16.9 Osteoarthritis of knee M17.9 Hypothyroidism E03.9 Prothrombin gene mutation D68.52 History of present illness: Carolann Brennan is a very nice 77 y.o. white female, 1, para 0. She's been menopausal since early 40s. She presents to discuss risk reducing surgery, due to harboring a deleterious BRCA1 mutation. I personally reviewed her genetics report, confirming this deleterious mutation. She has no symptoms concerning for current ovarian/fallopian tube cancer. Currently, she is asymptomatic, denies abd pain, SOB, CP, bloating, changes to bowel and bladder function, vaginal bleeding or discharge. She obtained BRCA testing due to her sister being diagnosed with breast and endometrial cancer. She is currently feeling well and wants to proceed with risk-reducing surgery for ovarian cancer, given her increased risk with the deleterious BRCA1 mutation. She had a recent CA125 check in on 02/13/2023, with a result of 9 units/mL. (Reference value less than 30 units/mL for that particular lab) Gynecologic history: Menarche was approximately age 12, menopause approximately age [age] Number of pregnancies: 1, Spontaneous vaginal deliveries: 0 c-sections:0 Oral contraceptive/ control pill use: 20-years OCPs, higher dose early on. Menopausal hormone therapy use: None Other contraceptive history: IUD, nuva ring Her Paps have been regularly obtained. Last Pap was 5-years ago. Result: NILM Dysplasia history: None Cancer screening 1. Mammography: Yearly, normal 2022 2. Colonoscopy: 2020 or 2021, normal with previous 5-year follow up. Family history: Breast cancer and recurrent endometrial ca in sister. There are no other family members with a history of breast, ovarian, uterine/endometrial, colon, thyroid, pancreatic, gastric, renal/ureteral cancers, or melanoma. 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 Remote history of provoked DVT/P -currently anticoagulated on Eliquis 3. Hypothyroid on [place] Thyroid 4. IBS Past surgical history 1. 2 knee replacements 2. Hip replacement 3. Tonsillectomy Social history: Lives in [place], [place]. In [place], [place] in the [employer] [facility] [employer]. 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 Tobacco history: 20-years smoking history, quit in the 80s Alcohol history: 2-drinks per day Other drugs: None Herbal/alternative therapies: D3 and B12 Performance status: Right hip with muscle weakness and nerve damage in 2018, can't take long walks or play tennis. 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 Climbs stairs with no issues. Medications Prior to Admission medications Medication Sig Start Date End Date Taking? Authorizing Provider amitriptyline (ELAVIL) 10 mg Tablet Take 10 mg by mouth nightly. PROVIDER, HISTORICAL apixaban (ELIQUIS) 5 mg Tablet Take by mouth 2 times daily. PROVIDER, HISTORICAL cyanocobalamin, vitamin B-12, (VITAMIN B-12) 1,000 mcg Tablet Take 1,000 mcg by mouth daily. PROVIDER, HISTORICAL calcium carbonate/vitamin D3 (VITAMIN D-3 ORAL) Take by mouth. PROVIDER, HISTORICAL Thyroid, Pork, (ARMOUR THYROID) 90 mg Tablet Take 90 mg by mouth daily. PROVIDER, HISTORICAL rivaroxaban (XARELTO) 20 mg Tablet Take 20 mg by mouth daily. PROVIDER, HISTORICAL Allergies Allergies Allergen Reactions Epinephrine Pass out and needs O2 Anesthesia Tray States very sensitive, Less is better Clindamycin Rash Penicillins Had reaction as a child was told not to take it anymore Vital signs: BP 136/76 (Patient Position: Sitting) Pulse 78 Temp 36.4 ??C (97.5 ??F) (Temporal) Resp 24 Ht 170.6 cm (5' 7.17) Wt 98.7 kg (217 lb 9.5 oz) SpO2 98% BMI 33.91 kg/m?? Physical examination General: She is alert and oriented, well-groomed and dressed, no obvious distress. She ambulates easily to the examination table. HEENT: Head exam was generally normal. There was no scleral icterus or corneal arcus. Mucus membranes were moist. Neck was supple and without jugular venous distension, thyromegaly, or carotid bruits. Carotids were easily palpable bilaterally. There was no adenopathy. Lungs: CTAB, no wheezes or crackles. Heart:Regular rate and rhythm, no murmurs. Abdomen:Soft, non-tender, non-distended. Pelvic examination: Normal appearing external genitalia. Two 1-2cm areas of raised, pustular and erythematous lesions noted on mons. Normal appearing cervical and vaginal tissue, physiologic discharge, no lesions or bleeding. No masses appreciated on bimanual exam. Extremities: No edema. Laboratory/pathology/imaging studies: As discussed above, in the history of present illness. Impression/plan: Carolann Brennan is a 77 y.o. woman who is BRCA1 positive with a positive family history of breast and endometrial cancer. She presents for evaluation for risk-reducing surgery given increased risk of ovarian cancer. She is asymptomatic and has no personal cancer history. Based on these findings, a decision was made to proceed with surgery for definitive treatment, specifically: Laparoscopic bilateral salpingo-oophorectomy, with potential biopsy/staging and potential open procedure. Her performance status is adequate for surgery. I reviewed the surgical approach, need for general anesthesia, and the expected postoperative recovery. The patient was informed that patient's undergoing this procedure typically are safe to go homeeither the same day, or the day after surgery. Additionally, I discussed the risks of the procedureincluding, but not limited to: infection, bleeding, chronic leg swelling (lymphedema), DVT/PE, , damage to pelvic or abdominal structures such as the bowel, bladder, ureters, blood vessels, nerves, and the possibility of needing to convert to an open surgery. All of her questions were answeredto her satisfaction and she verbalized understanding of the plan of care. Surgical consent was obtained, bowel preparation reviewed and surgery will be scheduled in the near future. She did desire a copy of the consent form. Additional studies/tests/consults ordered before surgery: Labs: CBC and CMP up to date, Cr 1.0. Imaging: None Other: CHG soap and cleansing instructions provided. Patient given diet instructions and ClearFast drink. Surgery date: 05/07/23 (patient's preference to delay surgery until this date due to her preference of not interrupting her summer plans). Incision planned/discussed: Laparoscopic Expected discharge disposition: Same day discharge Appropriate for consideration of epidural neuraxial analgesia?: No Chaya-op Prophylaxis: None SCD's/heparin 5000 U SQ Rx's given today: None Thank you for sending Carolann to see me today. I will keep you informed of our progress in her care. I saw and evaluated the patient with Dr. Ramirez, and I confirmed the history and physical findings as outlined, participated in the critical aspects of the patient's care, formulated the treatment plan, and I agree with the note as written. documented in this encounter Plan of Treatment Not on file documented as of this encounter Visit Diagnoses Diagnosis BRCA1 gene mutation positive documented in this encounter Care Teams Personnel Officer Relationship Specialty Start Date End Date Mary Ann Ruby MD [address] [place] [id number] PCP - General General Internal Medicine 03/13/23 documented as of this encounter
--- OUTSIDE RECORDS SUMMARY | 2024-03-19 02:43 | XMS_ITS | Encounter Summary ---
Author Organization [facility] Address [address] [place] [address] Care Team Providers Care Flight Communications Specialist Name Role Phone Unavailable Primary Care Provider Unavailabl e Encounter Details Date Type Department Care Team (Latest Contact Info) Description 05/23/2000 11:12 EDT - 05/23/2000 11:59 EDT Hospital Encounter [facility] - Maple conversion [address] [place] [address] Thelma Licea MD [address] [place] [phone] Discharge Disposition: Auto Discharge Social History Tobacco [...] Diagnosis Comments MA MAMMOGRAPHIC SCREEN GILDA Routine 05/23/2000 11:45 EDT documented in this encounter Results * MA MAMMOGRAPHIC SCREEN GILDA (05/23/2000 11:45 EDT) Anatomical Region Laterality Modality Other 05/23/2000 11:4 5 EDT Impressions 06/29/2009 15:13 EST IMPRESSION: BILATERAL BREASTS - Category 1 Negative, no evidence of malignancy. Normal interval follow-up is recommended in 12 months. OVERALL ASSESSMENT - NEGATIVE END OF IMPRESSION Narrative 06/29/2009 15:13 EST ROUTINE GILDA SCREEN. ??(PCP THELMA LICEA) Comparison is made to films from 11-26-1996 (bilateral). Bilateral Breast Findings: There are scattered fibroglandular densities. No masses, significant calcifications or other abnormalities are seen. Procedure Note Estefanía Ro PT / Arianna Ham MD - 06/29/2009 ROUTINE GILDA SCREEN. (PCP THELMA LICEA) Comparison is made to films from 11-26-1996 (bilateral). Bilateral Breast Findings: There are scattered fibroglandular densities. No masses, significant calcifications or other abnormalities are seen. IMPRESSION IMPRESSION: BILATERAL BREASTS - Category 1 Negative, no evidence of malignancy. Normal interval follow-up is recommended in 12 months. OVERALL ASSESSMENT - NEGATIVE END OF IMPRESSION Thelma Beatty MD IMG MAMMOGRAPHY [facility] documented in this encounter Visit Diagnoses Not on filedocumented in this encounter
--- OUTSIDE RECORDS SUMMARY | 2024-03-19 02:43 | XMS_ITS | Encounter Summary ---
[place] [address] Care Team Providers Care Noteman Name Role Phone Mary Ann Ruby MD Primary Care Provider [phone] [phone] Encounter Details Date Type Department Care Team ([facility] Contact Info) Description 04/25/2023 Telephone [place] [phone] Augustina Selby, RN Social History Tobacco Use [...] place to sleep or slept in a long-term (including now)? No 03/12/2023 DH IPV Inpatient [...] Telephone Encounter - Augustina Selby RN - 04/25/2023 2:12 PM EDT Returned call to patient due to her concerns about insurance coverage. Patient reports she is having trouble with insurance coverage for her consult and upcoming procedure. Informed patient that thisRN would look into the issue. Informed optometrist/practice owner of patient's insurance problem. Billing team to be contacted documented in this encounter Plan of Treatment Not on file documented as of this encounter Visit Diagnoses Not on filedocumented in this encounter Care Teams Noteman Relationship Specialty Start Date End Date Mary Ann Ruby MD [address] [place] [id number] PCP - General General Internal Medicine 03/13/23 documented as of this encounter
--- OUTSIDE RECORDS SUMMARY | 2024-03-19 02:43 | XMS_ITS | Encounter Summary ---
[place] [address] Care Team Providers Care Cad Designer Name Role Phone Ayla Brown MD Primary Care Provider [phone]- [phone] Reason for Visit * Consultation (Routine) - Closed Specialty Diagnoses / Procedures Referred By Contshirley bella Referred To Contact Vascular Surgery Diagnoses Deep Vein Thrombosis (I82.49) Procedures Deep Vein Thrombosis Ayla Brown MD [address],[place] [address] [place] [address] [facility] Vascular Surg [address] [address] Referral ID Status Reason Start Date Expiration Date V isits Requested Visits Authorized [id number] Closed Consult, Test & Treat 02/06/2018 02/06/2019 3 3 Encounter Details Date Type Department Care Team (Latest Contact Info) Description 04/17/2018 9:00 AM EDT - 04/17/2018 11:59 PM EDT Hospital Encounter [place] [address] Kelley Driver, RVT Acute deep vein thrombosis (DVT) of femoral vein of right lower extremity Discharge Disposition: [...] Refills Start Date End Date Thyroid, Pork, ([place] Thyroid) 90 mg tablet Take 90 mg by mouth daily. rivaroxaban (Xarelto) 20 mg tablet Take 20 mg by mouth daily. 03/13/2023 documented as of this encounter Plan of Treatment Not on file documented as of this encounter Procedures Procedure Name Priority Date/Time Associated Diagnosis Comments DUPLEX FOR DVT, LEG, UNILAT Routine 04/17/2018 9:10 AM EDT Acute deep vein thrombosis (DVT) of femoral vein of right lower extremity documented in this encounter Results * Duplex for DVT, Leg, Unilat (04/17/2018 9:10 AM EDT) VB Text Report Department: Vascular Surgery Lab Patient: [id number] (JUSTYNA DHALIWAL) CPT: 71865 ICD10: I82.431 Referring Physician: MATILDA CORTEZ M.D. [...] extremity documented in this encounter Care Teams Cad Designer Relationship Specialty Start Date End Date Ayla Brown MD [address] [address] PCP - General Internal Medicine 02/27/18 03/12/23 documented as of this encounter
--- OUTSIDE RECORDS SUMMARY | 2024-03-19 02:43 | XMS_ITS | Encounter Summary ---
Author Organization [facility] Address [address] [place] [address] Care Team Providers Care Gate Cutter Name Role Phone Ankit Bae MD Primary Care Provider Stephan gonzales Encounter Details Date Type Department Care Team (Late st Contact Info) Description 04/13/2000 Results Only [facility] - Maple conversion [address] [place] [address] Thelma Licea MD [address] [place] [phone] Social History Tobacco Use Types Packs/Day Years Used Date Smoking Tobacco: Never Assessed Sex and Gender Information Value Date Recorded Sex Assigned at Not on file Gender Identity Not on file Sexual Orientation Not on file documented as of this encounter Plan of Treatment Not on file documented as of this encounter Procedures Procedure Name Priority Date/Time Associated Diagnosis Comments CYTOPATHOLOGY Routine 04/13/2000 0:00 EDT documented in this encounter Results * CYTOPATHOLOGY (04/13/2000 0:00 EDT) Pathology Report: CYTOPATHOLOGY REPORT Reports generated via electronic interface contain original data; however they are lacking the format of the original report. Caution should be taken when reading/interpreti ng unformatted reports. Name: ? JUSTYNA DHALIWAL ? Accession #: ? [id number] : ? 1945 (Age: 54) ??F ?Collect Date: ? 04/13/2000 Location: ? [facility] ? Receive Date: ? 04/17/2000 Provider: ?THELMA LICEA MD Copy to: ? Specimen/Source: ?ThinPrep Pap Test, Cervix/Endocervix Last Menstrual Period: ? 1994 Other: ? HPVL - HPV testing requested if LSIL/ASCUS/YOHANNES on the current ThinPrep Pap test. Client ID#: [id number] ? SPECIMEN ADEQUACY ? Satisfactory for evaluation but limited by an absence of a transformation zone component. GENERAL CATEGORIZATION ? Within Normal Limits ? Document reviewed and electronically signed by: ? GIO Friedman(ASCP) ? Report Date: ??04/18/2000 12:54 End of Report BETSY LINDO 04/13/2000 04/17/2000 Thelma Beatty MD PATHOLOGY ORDERABLES Performing Organization Address City/State/[facility] Co de Phone Number BETSY LINDO [address] [place] [address] documented in this encounter Visit Diagnoses Not on filedocumented in this encounter Care Teams Gate Cutter Relationship Specialty Start Date End Date Ankit Bae MD PCP - General 01/15/09 04/06/11 documented as of this encounter
--- OUTSIDE RECORDS SUMMARY | 2024-03-19 02:43 | XMS_ITS | Encounter Summary ---
Author Organization [facility] Address [facility] [address] Care Team Providers Care Automatic Print Developer Name Role Phone Ayla Brown MD Primary Care Provider +1- [phone] Encounter Details Date Type Department Care Team (Latest Contact Info) Description 03/12/2023 Travel Social History Tobacco Use Types Packs/Day Years [...] place to sleep or slept in a care home (including now)? No 03/12/2023 DH IPV Inpatient [...] filedocumented in this encounter Care Teams Automatic Print Developer Relationship Specialty Start Date End Date Ayla Brown MD [address] [address] PCP - General Internal Medicine 02/27/18 03/12/23 documented as of this encounter
--- OUTSIDE RECORDS SUMMARY | 2024-03-19 02:43 | XMS_ITS | Encounter Summary ---
Author Organization [facility] Address [facility] [place] [address] Care Team Providers Care Helmet Hat Brim Cutter Name Role Phone Mary Ann Ruby MD Primary Care Provider [phone] -[phone] Encounter Details Date Type Department Care Team (Late st Contact Info) Description 03/04/2024 Interpretation Only [facility] in [address] [phone] Unknown None Social History Tobacco [...] place to sleep or slept in a detention (including now)? No 03/12/2023 IPV Inpatient Questions [...] Associated Diagnosis Comments XR SHOULDER 1 VIEW RIGHT Routine 03/04/2024 11:42 AM EDT documented in this encounter Results * XR Shoulder 1 view Right (03/04/2024 11:42 AM EDT) PT CLASS O RAD ADMITDTTM [id number] RAD PT [facility] INFO [id number]^[place] N^SUDHIR RAD EXAM DESC XRSHDOVR^XR SHOULDER RT 1V^RIS [facility] WORKSTATION ID [id number] [facility] Anatomical Region Laterality Modality Shoulder Right Radiographic [...] who have questions please contact the health healthcare marketer that requested your imaging first. ? Narrative [...] patients who have questions please contactthe health healthcare marketer that requested your imaging first. Unknown IMG DX ORDERABLES documented in this encounter Visit Diagnoses Not on filedocumented in this encounter Care Teams Helmet Hat Brim Cutter Relationship Specialty Start Date End Date Mary Ann Ruby MD [address] [place] [address] PCP - General General Internal Medicine 03/13/23 documented as of this encounter
--- OUTSIDE RECORDS SUMMARY | 2024-03-19 02:43 | XMS_ITS | Encounter Summary ---
Author Organization [facility] Address [address] [place] [address] Care Team Providers Care Police Stenographer Name Role Phone Unavailable Primary Care Provider Unavailabl e Encounter Details Date Type Department Care Team (Latest Contact Info) Description 06/30/2002 10:28 EST - 06/30/2002 11:59 EST Hospital Encounter [facility] - Maple conversion [address] [place] [address] Phillip Arnold, [facility] [address] [place] [phone] Discharge Disposition: Auto Discharge Social History [...] Diagnosis Comments MA MAMMOGRAPHIC SCREEN GILDA Routine 06/30/2002 10:58 EST documented in this encounter Results * MA MAMMOGRAPHIC SCREEN GILDA (06/30/2002 10:58 EST) Anatomical Region Laterality Modality Other 06/30/2002 10:5 8 EST Impressions 05/17/2009 2:13 EDT IMPRESSION: BILATERAL BREASTS - Category 1 Negative, no evidence of malignancy. Normal interval follow-up is recommended in 12 months. OVERALL ASSESSMENT - NEGATIVE END OF IMPRESSION Narrative 05/17/2009 2:13 EDT ROUTINE ?? [PCP JOHNATHAN LOPEZ, JB ??PHILLIP ARNOLD] Comparison is made to films from 01-11-1999 (bilateral). Bilateral Breast Findings: There are scattered fibroglandular densities. No significant masses, calcifications or other abnormalities are seen. Procedure Note Johnathan Min MD - 05/17/2009 ROUTINE [PCP JOHNATHAN LOPEZ, JB ARNOLD] Comparison is made to films from 01-11-1999 (bilateral). Bilateral Breast Findings: There are scattered fibroglandular densities. No significant masses, calcifications or other abnormalities are seen. IMPRESSION IMPRESSION: BILATERAL BREASTS - Category 1 Negative, no evidence of malignancy. Normal interval follow-up is recommended in 12 months. OVERALL ASSESSMENT - NEGATIVE END OF IMPRESSION Phillip Arnold SUBSTATION ELECTRICIAN IMG MAMMOGRAPHY ORD ERABLES documented in this encounter Visit Diagnoses Not on filedocumented in this encounter
--- OUTSIDE RECORDS SUMMARY | 2024-03-19 02:43 | XMS_ITS | Encounter Summary ---
[place] [address] Care Team Providers Care Hunter Guide Name Role Phone Ayla Brown MD Primary Care Provider +1- [phone] Encounter Details Date Type Department Care Team (Latest Contact Info) Description 05/07/2018 11:22 AM EDT - 05/07/2018 11:59 PM EDT Hospital Encounter [place]ology [place] [address] Acute deep vein thrombosis (DVT) of femoral [...] Refills Start Date End Date Thyroid, Pork, ([place] Thyroid) 90 mg tablet Take 90 mg by mouth daily. rivaroxaban (Xarelto) 20 mg tablet Take 20 mg by mouth daily. 03/13/2023 documented as of this encounter Plan of Treatment Not on file documented as of this encounter Procedures Procedure Name Priority Date/Time Associated Diagnosis Comments LUPUS ANTICOAGULANT Routine 05/07/2018 1 1:30 AM EDT Acute deep vein thrombosis (DVT) of femoral vein of right lower extremity SILICA CLOTTING TIME Routine 05/07/2018 11:30 AM EDT Acute deep vein thrombosis (DVT) of femoral vein of right lower extremity DRVVT Routine 05/07/2018 11:30 AM EDT Acute deep vein thrombosis (DVT) of femoral vein of right lower extremity documented in this encounter Results * Silica Clotting Time (05/07/2018 11:30 AM EDT) Silica Clotting Time 1.04 <=1.16 ratio [facility] Comment: A result greater than 1.16 TR is consistent with the presence of lupus anticoagulant. Values of 1.16 to 1.24 in this assay are not definitively positive or negative for the presence of a lupus anticoagulant. The SCT ratio may be falsely elevated in patients on anticoagulants, especially heparins and direct oral anticoagulants. An abnormal test result in an anticoagulated patient must therefore be interpreted with caution, and repeat testing after discontinuing anticoagulation may be appropriate. Blood specimen (specimen) 05/07/2018 11:30 AM EDT 05/07/2018 11:56 AM EDT Narrative Resulting Agency Comment Spec In Lab Charla Guerra MD HEMATOLOGY ORDERABLE S [facility] [place] [address] * (ABNORMAL) dRVVT (05/07/2018 11:30 AM EDT) dRVVT 1.29(H) <=1.20 IU/mL [facility] Comment: A result greater than 1.20 TR is consistent with the presence of lupus anticoagulant. Values of 1.20 to 1.30 in this assay are not definitively positive or negative for the presence of a lupus anticoagulant. The DRVVT ratio may be falsely elevated in patients on anticoagulants, especially heparins and direct oral anticoagulants. An abnormal test result in an anticoagulated patient must therefore be interpreted with caution, and repeat testing after discontinuing anticoagulation may be appropriate. Blood specimen (specimen) 05/07/2018 11:30 AM EDT 05/07/2018 11:56 AM EDT Narrative Resulting Agency Comment Spec In Lab Charla Guerra MD HEMATOLOGY ORDERABLE S [facility] [place] [address] documented in this encounter Visit Diagnoses Diagnosis Acute deep vein thrombosis (DVT) of femoral vein of right lower extremity documented in this encounter Care Teams Hunter Guide Relationship Specialty Start Date End Date Ayla Brown MD [address] [address] PCP - General Internal Medicine 02/27/18 03/12/23 documented as of this encounter
--- OUTSIDE RECORDS SUMMARY | 2024-03-19 02:43 | XMS_ITS | Encounter Summary ---
Author Organization [facility] Address [address] [place] [address] Care Team Providers Care Stage Producer Name Role Phone Ankit Bae MD Primary Care Provider Stephan gonzales Encounter Details Date Type Department Care Team (Late st Contact Info) Description 03/01/2006 Results Only [facility] - [facility] conversion [address] [place] [address] Vivian Ramos, YARON [address] [address] Social History Tobacco Use Types Packs/Day Years Used Date Smoking Tobacco: Never Assessed Sex and Gender Information Value Date Recorded Sex Assigned at Not on file Gender Identity Not on file Sexual Orientation Not on file documented as of this encounter Plan of Treatment Not on file documented as of this encounter Procedures Procedure Name Priority Date/Time Associated Diagnosis Comments FUNGUS CULTURE Routine 03/01/2006 14:30 EDT CYTOPATHOLOGY Routine 03/01/2006 0:00 EDT documented in this encounter Results * FUNGUS CULTURE, OTHER (03/01/2006 14:30 EDT) Specimen Description Vagina Specimen submitted on a swab [facility] Result No fungi isolated [facility] Report Status Final [id number] [facility] 03/01/2006 14:3 0 EDT 03/01/2006 20:18 EDT Vivian MARRUFO MICROBIOLOGY - NERAL ORDERABLES [facility] [address] [place] [address] * CYTOPATHOLOGY (03/01/2006 0:00 EDT) Pathology Report: CYTOPATHOLOGY REPORT Reports generated via electronic interface contain original data; however they are lacking the format of the original report. Caution should be taken when reading/interpreti ng unformatted reports. Name: ? JUSTYNA DHALIWAL ? Accession #: ? [id number] : ? 1945 (Age: 60) ??F ?Collect Date: ? 03/01/2006 Location: ? [facility] ? Receive Date: ? 03/02/2006 Provider: ?VIVIAN MARRUFO Copy to: ? Specimen/Source: ?ThinPrep Pap Test, Cervix/Endocervix, processed on [employer] ThinPrep Imaging System, with manual evaluation Last Menstrual Period: ? Other: ? HPVA - HPV testing requested if ASC-US on the current ThinPrep Pap test. ? SPECIMEN ADEQUACY ? Satisfactory for Evaluation - transformation zone component absent GENERAL CATEGORIZATION ? Negative for Intraepithelial Lesion or Malignancy ? Document reviewed and electronically signed by: ? RHYS Hyatt(ASCP) ? Report Date: ??03/06/2006 12:39 End of Report [facility] 03/01/2006 03/02/2006 Vivian MARRUFO PATHOLOGY ORDERAB [facility] [address] [place] [address] documented in this encounter Visit Diagnoses Not on filedocumented in this encounter Care Teams Stage Producer Relationship Specialty Start Date End Date Ankit Bae MD PCP - General 01/15/09 04/06/11 documented as of this encounter
--- OUTSIDE RECORDS SUMMARY | 2024-03-19 02:43 | XMS_ITS | Encounter Summary ---
Author Organization [facility] Address [address] [place] [address] Care Team Providers Care Sammying Machine Operator Name Role Phone Unavailable Primary Care Provider Unavailabl e Encounter Details Date Type Department Care Team (Late st Contact Info) Description 02/01/2005 19:33 EDT Hospital Encounter [facility] - Other [address] [place] [address] Kasie Ramos, PA [address] [address] Social History Tobacco Use Types Packs/Day Years [...]
--- OUTSIDE RECORDS SUMMARY | 2024-03-19 02:43 | XMS_ITS | Encounter Summary ---
Author Organization [facility] [place] [address] Care Team Providers Care River Boat Captain Name Role Phone Ayla Brown MD Primary Care Provider [phone] Encounter Details Date Type Department Care Team ([facility] st Contact Info) Description 04/29/2018 Telephone [place]ematology [place] [phone] Ella Loera, RN Social History Tobacco Use [...] Telephone Encounter - Ella Loera RN - 04/29/2018 10:43 AM EDT TC to residence. Detailed message left with instructions and contact information to return call to review plan. Ella Loera MSN RN 04/30/[address] Guerra talked with her surgeon and relayed Anticoagulation (AC) recommendations for surgery. Decision if she should have a steroid injection done first and then have the surgery ([place] in [place] or [place] this winter) needs to be further discussed [...] per Dr Guerra request and RTC on or a f/u shira't with Dr. Guerra to discuss lab findings. Ella Loera MSN RN Thrombosis Attending Physician I have reviewed this patient's care with Ella Loera, RN, MSN and concur with the recommendations and plan as outlined in her note above. Charla Guerra MD [facility] From: Charla Guerra Sent: Sunday, April 29, 2018 10:18 AM To: Ella Loera < > Subject: Regarding NICOLASA Jaramillo, Actually she is coming next week or so to see PT.- She can also hold rivaroxaban 2 days before and walk in for the Lupus anticoagulant testing and resume rivaroxaban after lab draw. That way I have her final result by the time I see her back. MikaCarolann choe Female, 72 y.o., 1945 documented in this encounter Plan of Treatment Not on file documented as of this encounter Visit Diagnoses Not on filedocumented in this encounter Care Teams River Boat Captain Relationship Specialty Start Date End Date Ayla Brown MD [address] [place] [address] PCP - General Internal Medicine 02/27/18 03/12/23 documented as of this encounter
--- OUTSIDE RECORDS SUMMARY | 2024-03-19 02:44 | XMS_ITS | Encounter Summary ---
Author Organization [facility] Address [facility] [place] [address] Care Team Providers Care Blending Tank Tender Name Role Phone Karin Vasquez MD Primary Care Provider [phone] Encounter Details Date Type Department Care Team (Latest Contact Info) Description 03/26/2017 - 03/26/2017 11:59 PM EDT Hospital Encounter [place] [address] Anuedy Cortez MD [facility] [place] [address] Discharge Disposition: Home Social History Tobacco Use [...] Refills Start Date End Date Thyroid, Pork, ([place] Thyroid) 90 mg tablet Take 90 mg by mouth daily. rivaroxaban (Xarelto) 20 mg tablet Take 20 mg by mouth daily. 03/13/2023 documented as of this encounter Plan of Treatment Not on file documented as of this encounter Procedures Procedure Name Priority Date/Time Associated Diagnosis Comments FILM LIBRARY STORAGE ONLY ULTRASOUND STUDY Routine 03/26/2017 12:00 AM EDT documented in this encounter Results * Film Library- Storage Only Ultrasound Study (03/26/2017 12:00 AM EDT) Narrative CAT TAYLOR - 02/27/2018 3:20 PM EDT This exam is for storage only and is auto-finalizing. Aneudy Cortez MD IMG FILM LIBRARY ORD ERABLES Performing Organization Address City/State/[facility] Co de Phone Number [place], [place] documented in this encounter Visit Diagnoses Not on filedocumented in this encounter Care Teams Blending Tank Tender Relationship Specialty Start Date End Date Karin Vasquez MD [address] [place] [address] PCP - General Gerontology 03/06/16 02/26/18 documented as of this encounter
--- OUTSIDE RECORDS SUMMARY | 2024-03-19 02:44 | XMS_ITS | Encounter Summary ---
Author Organization [facility] Address [facility] [place] [address] Care Team Providers Care Batch Roller Operator Name Role Phone Karin Vasquez MD Primary Care Provider [phone] Encounter Details Date Type Department Care Team (Latest Contact Info) Description 03/06/2016 9:15 AM EDT - 03/06/2016 11:59 PM EDT Hospital Encounter XRay at [address] [place] [address] Bob Shields MD [facility] [address] History of total knee arthroplasty, left Discharge Disposition: Home Social History Tobacco Use [...] Refills Start Date End Date Thyroid, Pork, ([place] Thyroid) 90 mg tablet Take 90 mg by mouth daily. rivaroxaban (Xarelto) 20 mg tablet Take 20 mg by mouth daily. 03/13/2023 documented as of this encounter Plan of Treatment Not on file documented as of this encounter Procedures Procedure Name Priority Date/Time Associated Diagnosis Comments XR KNEE STANDING ALIGNMENT AP LAT [place] SKYLINE LEFT Routine 03/06/2016 10:03 AM EDT History of total knee arthroplasty, left documented in this encounter Results * XR Joint Team Alignment AP Lat [place] Left (03/06/2016 10:03 AM EDT) Anatomical Region Laterality Modality Left Digital Radiogra phy Impressions 03/06/2016 10:29 AM EDT 1. ??Left knee prosthesis without complication. 2. ??Osteoarthritis of the right knee. Narrative 03/06/2016 10:29 AM EDT EXAMINATION: XR JOINT TEAM ALIGNMENT AP LAT [place]USS SKYLINE LEFT CLINICAL HISTORY: L KNEE INSTABILITY S/P TKA TECHNIQUE: Separate images of the pelvis, knees and feet were acquired in the AP projection with the patient standing. These images were stitched together to form a composite image of the pelvis and legs allowing for evaluation of lower extremity alignment in the weight bearing position. Four additional views were obtained. COMPARISON: September 03, 2015 FINDINGS: A left knee total prosthesis is present. The prosthesis is well-positioned without periprosthetic lucency or fracture. A small metallic foreign body projecting anterior to the proximal left tibia is unchanged The lateral compartment of the right knee is narrowed and associated osteophytes are present. Standing alignment There is normal alignment of the left leg and moderate lateral deviation of the weightbearing axis of the right leg. Procedure Note Dayo Carlson MD - 03/06/2016 EXAMINATION: XR JOINT TEAM ALIGNMENT AP LAT SCHUSS SKYLINE LEFT CLINICAL HISTORY: L KNEE INSTABILITY S/P TKA TECHNIQUE: Separate images of the pelvis, knees and feet were acquired inthe AP projection with the patient standing. These images were stitched togetherto form a composite image of the pelvis and legs allowing for evaluation oflower extremity alignment in the weight bearing position. Four additional viewswere obtained. COMPARISON: September 03, 2015 FINDINGS: A left knee total prosthesis is present. The prosthesis iswell-positioned without periprosthetic lucency or fracture. A small metallic foreignbody projecting anterior to the proximal left tibia is unchanged The lateral compartment of the right knee is narrowed and associatedosteophytes are present. Standing alignment There is normal alignment of the left leg and moderate lateral deviationof the weightbearing axis of the right leg. IMPRESSION 1. Left knee prosthesis without complication. 2. Osteoarthritis of the right knee. Bob Shields MD IMG DX ORDERABLES documented in this encounter Visit Diagnoses Diagnosis History of total knee arthroplasty, left documented in this encounter Care Teams Batch Roller Operator Relationship Specialty Start Date End Date Karin Vasquez MD [address] [place] [address] PCP - General Gerontology 03/06/16 02/26/18 documented as of this encounter
--- OUTSIDE RECORDS SUMMARY | 2024-03-19 02:44 | XMS_ITS | Encounter Summary ---
Author Organization [facility] [place] [address] Care Team Providers Care Entertainment Lawyer Name Role Phone Karin Vasquez MD Primary Care Provider [phone] Encounter Details Date Type Department Care Team (Latest Contact Info) Description 05/09/2016 1:47 PM EDT - 05/09/2016 11:59 PM EDT Hospital [place] [address] Discharge Disposition: Home Social History Tobacco Use [...] Refills Start Date End Date Thyroid, Pork, ([place] Thyroid) 90 mg tablet Take 90 mg by mouth daily. rivaroxaban (Xarelto) 20 mg tablet Take 20 mg by mouth daily. 03/13/2023 documented as of this encounter Plan of Treatment Not on file documented as of this encounter Procedures Procedure Name Priority Date/Time Associated Diagnosis Comments SURGICAL PATHOLOGY REPORT Routine 05/09/2016 12:00 PM EDT documented in this encounter Results * Surgical Pathology Report (05/09/2016 12:00 PM EDT) FINAL DIAGNOSIS (AP) [id number] ?Location: [facility] The signing pathologist has (i) examined the relevant preparation(s) for the specimen(s) and (ii) rendered or confirmed the diagnosis(es). . ?Surgical Pathology DIAGNOSIS A - Skin, right anterior thigh, shave biopsy: ?? 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 B - Skin, presternal chest, shave biopsy: ?? Erosion with mixed inflammation, dermal fibrosis, adjacent epidermal changes of actinic keratosis and lichen simplex chronicus. ?Basal cell carcinoma is not seen with multiple deeper levels examined. Electronically signed by: ??Ayan SOLANO, PhD, Maicol Verified: ??05/16/2016 ?Dermatopathol ogist CLINICAL INFORMATION Specimen Submitted: A - Skin, R anterior thigh, shave, (1) B - Skin, presternal chest, shave, (1) Clinical History: A - 8mm keratotic nodule B - 6 mm pearly nodule Clinical Diagnosis: A - SCC? B - BCC? Referring Identifier: ?(not provided) SPECIMEN PROCESSING A - Labeled/Fixativ e: R. Thigh, formalin. Quantity/Size: Single, 1.2 x 1.0 x 0.1 cm. Tissue Description: Centrally nodular, crusted price-white skin. Sections/Proces sing: Inked and quadrisected. (T1) B - Labeled/Fixativ e: Presternal chest, formalin. Quantity/Size: Single, 0.8 x 0.7 x 0.1 cm. Tissue Description: Shave of yellow-price skin. Sections/Proces sing: Inked and trisected. (T1) ??ejr 05/16/2016 2:25 PM EDT [facility] SPECIMEN FROM SKIN / Unknown 05/09/2016 12:00 PM EDT 05/09/2016 12:00 PM EDT SPECIMEN FROM SKIN / Unknown 05/09/2016 12:00 PM EDT 05/09/2016 12:00 PM EDT Angelique Last MD PATHOLOGY/CYTOLOGY O RDERABLES [facility] [place] [address] documented in this encounter Visit Diagnoses Not on filedocumented in this encounter Care Teams Entertainment Lawyer Relationship Specialty Start Date End Date Karin Vasquez MD [facility] [address] [place] [address] PCP - General Gerontology 03/06/16 02/26/18 documented as of this encounter
--- OUTSIDE RECORDS SUMMARY | 2024-03-19 02:44 | XMS_ITS | Patient Health Record ---
Author Organization [facility] Address [address] [address] Care Team Providers Care Emergency Nurse Name Role Phone Flori SOLANO, Mary Ann Primary Care Provider Unavailtona Pickard MD, James Unavailable [phone] ALLERGIES Allergen (clinical drug ingredient) Drug/Non Drug Allergy documented on EMR Reaction Allergy Type Onset Date Status Epinephrine (uncoded) Unknown Allergy Active REASON FOR REFERRAL No Information MEDICATIONS Medication SIG (Take, Route, Frequency, Duration) Notes Start Date End Date Status Suprep Bowel Prep Kit 17.5-3.13-1.6 GM/177ML ml Orally as directed for 1 days 10/26/2021 Active Vitamin D3 Active Eliquis 5 MG as directed Orally Active [place] Thyroid 90 MG 1 tablet on an empt y stomach Orally Once a day for 30 day(s) Active SOCIAL HISTORY Tobacco Use: Social History Observation Description Date Details (start date - stop date) Former Smoker NA - NA Sex Assigned At : Social History Observation Description Sex Assigned At Unknown Tobacco Use/Smoking Question Answer Notes Are you a? former smoker How long has it been since you last smoked? > 10 years Additional Findings: Tobacco Non-User Ex-cigaret te smoker Alcohol Screen (Audit-C) Question Answer Notes Did you have a drink contain ing alcohol in the past year? Yes How often did you have a dri nk containing alcohol in the past year? Monthly or less (1 point) How many drinks did you have on a typical day when you were drinking in the past year? 1 or 2 drinks (0 point) How often did you have 6 or more drinks on one occasion in the past year? Never (0 point) Points 1 Interpretation Negative PROBLEMS Problem Type ICD Code Onset Dates Problem Status W/U Status Risk SNOMED Code Notes Problem Personal history of colonic polyps (Z86.010) Active confirmed History of polyp of colon (462190645) Problem History of pulmonary embolism (Z86.711) Active confirmed History of pulmonary embolus (216400042) PLAN OF TREATMENT Future Test Test Name Order Date Colonoscopy 12/02/2018 STOOL CALPROTECTIN 12/13/2020 OVA AND PARASITES WITH GIARDIA ANTIGEN 0 12/15/2020 SALMONELLA AND SHIGELLA, CULTURE 021 CLOSTRIDIUM DIFFICILE TOXIN/GDH W/REFL T O PCR 12/15/2020 PANCREATIC ELASTASE-1 12/15/2020 Stool Culture 12/15/2020 Colonoscopy 11/02/2021 Insurance Providers Payer Name Payer Address Payer Phone Subscriber Number Group Number Insured Name Patient Relationship to Insured Coverage Start Date Coverage End Date [place] B [place] [employer] [address] [address] [place] [address] [id number] JUSTYNA MALDONADO Self - patient is the insured 0 [facility] [employer] MEDICARE SUPPLE [address] [place] [address] [id number] JUSTYNA MALDONADO Self - patient is the insured 4 MEDICAL (GENERAL) HISTORY Medical History History ICD Code Arthritis Blood clots Colon polyps Pneumonia Pulmonary embolus Thyroid disease Surgical History Surgery Date(Month/Year) Colonoscopy Hip and knee replacement
--- OUTSIDE RECORDS SUMMARY | 2024-03-19 02:44 | XMS_ITS | Encounter Summary ---
Author Organization [facility] Address [facility] [place] [address] Care Team Providers Care Finishing Range Feeder Name Role Phone Karin Vasquez MD Primary Care Provider [phone] Encounter Details Date Type Department Care Team (Latest Contact Info) Description 02/05/2018 - 02/05/2018 11:59 PM EDT Hospital Encounter [place] [address] Aneudy Cortez MD [facility] [place] [address] Discharge Disposition: Home Social History Tobacco Use [...] Refills Start Date End Date Thyroid, Pork, ([place] Thyroid) 90 mg tablet Take 90 mg by mouth daily. rivaroxaban (Xarelto) 20 mg tablet Take 20 mg by mouth daily. 03/13/2023 documented as of this encounter Plan of Treatment Not on file documented as of this encounter Procedures Procedure Name Priority Date/Time Associated Diagnosis Comments FILM LIBRARY STORAGE ONLY CT CHEST Routine 02/05/2018 12:00 AM EDT documented in this encounter Results * Film Library- Storage Only CT Chest (02/05/2018 12:00 AM EDT) Narrative CAT TAYLOR - 02/27/2018 3:23 PM EDT This exam is for storage only and is auto-finalizing. Aneudy Cortez MD IMG FILM LIBRARY ORD ERABLES Performing Organization Address City/State/[facility] Co de Phone Number [place], [place] documented in this encounter Visit Diagnoses Not on filedocumented in this encounter Care Teams Finishing Range Feeder Relationship Specialty Start Date End Date Karin Vasquez MD [address] [place] [address] PCP - General Gerontology 03/06/16 02/26/18 documented as of this encounter
--- OUTSIDE RECORDS SUMMARY | 2024-03-19 02:44 | XMS_ITS ---
Author Organization Unknown Address [address] [place] [phone] Phone Care Team Providers Care Door Trimmer Name Role Phone EDGAR PEGUERO Attending Unavailable Results XR SHOULDER LT 1V* - Complet ed: 03/04/2024 11:42 LOINC: [facility] RADIOLOGY [place], [place] [address] RADIOLOGY PACS DROSS PULLER REPORT Patient Name: JUSTYNA DHALIWAL MRN: Sex: : Age: [id number] F 1945 78 Account: Accession: Admit: StayType: [id number] 03/04/2024 O Ordered: Order ID: Submitted: Ordering Provider: 03/04/2024 11:26 [id number] SUDHIR HERNÁNDEZ Completed: Technologist: Resulted: 03/04/2024 11:32 03/04/2024 16:25 FINAL REPORT EXAMINATION: XR SHOULDER LT 1V CLINICAL HISTORY: REASON: LEFT SHOULDER PAIN, UNSPECIFIED CHRONICITY ADD'L INFO: AXILLARY TECHNIQUE: 1 views LEFT shoulder COMPARISON: None FINDINGS: See impression IMPRESSION: Single view demonstrates no dislocation of the glenohumeral articulation. No large acute displaced fracture Thank you for letting us participate in the care of this patient. If you are a health care provider and have any questions regarding this report, please contact the number below. For patients who have questions please contact the health direct care supervisor that requested your imaging first. SHOULDER RT 1V* - Complet ed: 03/04/2024 11:42 LOINC: [facility] RADIOLOGY [place], [place] [address] RADIOLOGY PACS DROSS PULLER REPORT Patient Name: JUSTYNA DHALIWAL MRN: Sex: : Age: [id number] F 1945 78 Account: Accession: Admit: StayType: [id number] 03/04/2024 O Ordered: Order ID: Submitted: Ordering Provider: 03/04/2024 11:26 [id number] SUDHIR HERNÁNDEZ Completed: Technologist: Resulted: 03/04/2024 11:38 03/04/2024 17:05 FINAL REPORT EXAMINATION: XR SHOULDER RT 1V CLINICAL HISTORY: REASON: RIGHT SHOULDER PAIN, UNSPECIFIED CHRONICITY ADD'L INFO: AXILLARY TECHNIQUE: 1 views RIGHT shoulder COMPARISON: None FINDINGS: see impression IMPRESSION: No dislocation of the glenohumeral articulation on this single image. Thank you for letting us participate in the care of this patient. If you are a health care provider and have any questions regarding this report, please contact the number below. For patients who have questions please contact the health direct care supervisor that requested your imaging first. Social History Type Status Start Date End Date Code Code Syst em Sex Female Hospital Discharge Instructions Should you have any questions prior to discharge, please contact a member of your healthcare team. If you have left the hospital and have any questions, please contact your primary care physician. Reason For Referral No Data Found Plan of Treatment No Data Found Encounters Encounter Diagnosis Start Date Code Code Sys tem Idiopathic osteoarthritis 03/04/2024 [id number] SN OMED-CT Personal Care Team Section Performer Name Performer Role Active Date Inactive Da te Imaging Narrative Notes [facility] RADIOLOGY [place], [place] [address] RADIOLOGY PACS DROSS PULLER REPORT Patient Name: JUSTYNA DHALIWAL MRN: Sex: : Age: [id number] F 1945 78 Account: Accession: Admit: StayType: [id number] 03/04/2024 O Ordered: Order ID: Submitted: Ordering Provider: 03/04/2024 11:26 [id number] SUDHIR VELIZ Completed: Technologist: Resulted: 03/04/2024 11:32 03/04/2024 16:25 FINAL REPORT EXAMINATION: XR SHOULDER LT 1V CLINICAL HISTORY: REASON: LEFT SHOULDER PAIN, UNSPECIFIED CHRONICITY ADD'L INFO: AXILLARY TECHNIQUE: 1 views LEFT shoulder COMPARISON: None FINDINGS: See impression IMPRESSION: Single view demonstrates no dislocation of the glenohumeral articulation. No large acute displaced fracture Thank you for letting us participate in the care of this patient. If you are a health care provider and have any questions regarding this report, please contact the number below. For patients who have questions please contact the health direct care supervisor that requested your imaging first. . [facility] RADIOLOGY [place], [place] [address] RADIOLOGY PACS DROSS PULLER REPORT Patient Name: JUSTYNA DHALIWAL MRN: Sex: : Age: [id number] F 1945 78 Account: Accession: Admit: StayType: [id number] 03/04/2024 O Ordered: Order ID: Submitted: Ordering Provider: 03/04/2024 11:26 [id number] SUDHIR VELIZ Completed: Technologist: Resulted: 03/04/2024 11:38 03/04/2024 17:05 FINAL REPORT EXAMINATION: XR SHOULDER RT 1V CLINICAL HISTORY: REASON: RIGHT SHOULDER PAIN, UNSPECIFIED CHRONICITY ADD'L INFO: AXILLARY TECHNIQUE: 1 views RIGHT shoulder COMPARISON: None FINDINGS: see impression
--- OUTSIDE RECORDS SUMMARY | 2024-03-19 02:44 | XMS_ITS | Encounter Summary ---
[place] [address] Care Team Providers Care Welder Oxyhydrogen Name Role Phone Ankit Bae MD Primary Care Provider [phone] Encounter Details Date Type Department Care Team (Latest Contact Info) Description 04/20/2015 - 04/20/2015 11:59 PM EDT Hospital Encounter [place] [address] Bob Shields MD [facility] [place] [address] Pain Discharge Disposition: Home Social History Tobacco Use [...] Associated Diagnosis Comments FILM LIBRARY STORAGE ONLY DX KNEE Routine 04/20/2015 12:00 AM EDT Pain documented in this encounter Results * Film Library- Storage only DX Knee (04/20/2015 12:00 AM EDT) Narrative [facility] - 01/25/2016 3:29 PM EDT This exam is for storage only and is auto-finalizing. Bob Shields MD IMG FILM LIBRARY OR DERABLES DH RAD [place], [place] documented in this encounter Visit Diagnoses Diagnosis Pain Generalized pain documented in this encounter Care Teams Welder Oxyhydrogen Relationship Specialty Start Date End Date Ankit Bae MD [address] [place] [id number] PCP - General 07/12/10 03/05/16 documented as of this encounter
--- OUTSIDE RECORDS SUMMARY | 2024-03-19 02:44 | XMS_ITS | Encounter Summary ---
[place] [address] Care Team Providers Care Auto Body Customizer Name Role Phone Ankit Bae MD Primary Care Provider [phone] Encounter Details Date Type Department Care Team (Latest Contact Info) Description 01/20/2015 - 01/20/2015 11:59 PM EDT Hospital Encounter [place] [address] Bob Shields MD [facility] [address] ORTHOPAEDIC [place] [address] Pain Discharge Disposition: Home Social History Tobacco [...] FILM LIBRARY STORAGE ONLY DX KNEE Routine 01/20/2015 12:00 AM EDT Pain documented in this encounter Results * Film Library- Storage only DX Knee (01/20/2015 12:00 AM EDT) Narrative [facility] - 01/25/2016 3:28 PM EDT This exam is for storage only and is auto-finalizing. Bob Shields MD IMG FILM LIBRARY OR DERABLES DH RAD [place], [place] documented in this encounter Visit Diagnoses Diagnosis Pain Generalized pain documented in this encounter Care Teams Auto Body Customizer Relationship Specialty Start Date End Date Ankit Bae MD [address] [place] [id number] PCP - General 07/12/10 03/05/16 documented as of this encounter
--- OUTSIDE RECORDS SUMMARY | 2024-03-19 02:44 | XMS_ITS | Encounter Summary ---
Author Organization [facility] Address [facility] [place] [address] [address] Team Prov[address] Care Ct Tech Name Role Phone Karin Vasquez MD Primary Care Provider [phone] Encounter Details Date Type Department Care Team (Latest Contact Info) Description 01/28/2018 - 01/28/2018 11:59 PM EDT Hospital Encounter [place] [address] Aneudy Cortez MD [facility] [place] [address] Discharge Disposition: Home Social History Tobacco Use [...] Refills Start Date End Date Thyroid, Pork, ([place] Thyroid) 90 mg tablet Take 90 mg by mouth daily. rivaroxaban (Xarelto) 20 mg tablet Take 20 mg by mouth daily. 03/13/2023 documented as of this encounter Plan of Treatment Not on file documented as of this encounter Procedures Procedure Name Priority Date/Time Associated Diagnosis Comments FILM LIBRARY STORAGE ONLY ULTRASOUND STUDY Routine 01/28/2018 12:00 AM EDT documented in this encounter Results * Film Library- Storage Only Ultrasound Study (01/28/2018 12:00 AM EDT) Narrative [facility] - 02/27/2018 3:22 PM EDT This exam is for storage only and is auto-finalizing. Aneudy Cortez MD IMG FILM LIBRARY ORD ERABLES Performing Organization Address City/State/[facility] Co de Phone Number [place], [place] documented in this encounter Visit Diagnoses Not on filedocumented in this encounter Care Teams Ct Tech Relationship Specialty Start Date End Date Karin Vasquez MD [address] [place] [address] [place] [address] PCP - General Gerontology 03/06/16 02/26/18 documented as of this encounter
--- OUTSIDE RECORDS SUMMARY | 2024-03-19 02:44 | XMS_ITS | Encounter Summary ---
Author Organization [facility] Address [facility] [place] [address] Care Team Providers Care Warehouse Helper Name Role Phone Karin Vasquez MD Primary Care Provider [phone] Encounter Details Date Type Department Care Team (Latest Contact Info) Description 01/18/2018 - 01/18/2018 11:59 PM EDT Hospital Encounter [place] [address] Aneudy Cortez MD [facility] [place] [address] Discharge Disposition: Home Social History Tobacco Use [...] Refills Start Date End Date Thyroid, Pork, ([place] Thyroid) 90 mg tablet Take 90 mg by mouth daily. rivaroxaban (Xarelto) 20 mg tablet Take 20 mg by mouth daily. 03/13/2023 documented as of this encounter Plan of Treatment Not on file documented as of this encounter Procedures Procedure Name Priority Date/Time Associated Diagnosis Comments FILM LIBRARY STORAGE ONLY ULTRASOUND STUDY Routine 01/18/2018 12:00 AM EDT documented in this encounter Results * Film Library- Storage Only Ultrasound Study (01/18/2018 12:00 AM EDT) Narrative [facility] - 02/27/2018 3:21 PM EDT This exam is for storage only and is auto-finalizing. Aneudy Cortez MD IMG FILM LIBRARY ORD ERABLES Performing Organization Address City/State/[facility] Co de Phone Number [place], [place] documented in this encounter Visit Diagnoses Not on filedocumented in this encounter Care Teams Warehouse Helper Relationship Specialty Start Date End Date Karin Vasquez MD [address] [place] [address] [place] [id number] PCP - General Gerontology 03/06/16 02/26/18 documented as of this encounter
--- OUTSIDE RECORDS SUMMARY | 2024-03-19 02:44 | XMS_ITS | Encounter Summary ---
Author Organization [facility] [place] [address] Care Team Providers Care Internet Media Planner Name Role Phone Karin Vasquez MD Primary Care Provider [phone] Reason for Visit * Reason Comments Left Knee Pain S/P Lt TKA DOS 5 * Consultation (Routine) - Closed Specialty Diagnoses / Procedures Referred By Contshirley t Referred To Contact Orthopaedics Diagnoses s/p left total knee instability Baljinder Deras MD [address] [place] [address] Bob Shields MD [facility] [place] [address] Referral ID Status Reason Start Date Expiration Date V isits Requested Visits Authorized [id number] Closed Connection Center PCP Updated and/or Approved 01/27/2016 01/26/2017 1 1 Encounter Details Date Type Department Care Team (Late st Contact Info) Description 03/06/2016 10:00 AM EDT Office [place] [address] Bob Shields MD [facility] [place] [address] H/O total knee replacement, left; Instability of knee joint, left Social History Tobacco Use Types Packs/Day Years [...] - Weight 90.7 kg (200 lb) 03/06/2016 10:2 8 AM EDT verbal, Pt declined Height 172.7 cm (5' 8) 03/06/2016 10:2 8 AM EDT verbal, Pt declined Body Mass Index 30.41 03/06/2016 10:28 AM EDT documented in this encounter Progress Notes * Sorin Marie PA - 03/06/2016 10:00 AM EDT Patient Name: Carolann Brennan : 1945 MR#: [id number] Case Date: 01/19/15 Surgeon: Baljinder Burleson Procedure: left total knee replacement HPI: Carolann Brennan is a very pleasant 70 y.o. year-old female who presents for knee instabilitys/p TKA. The patient has been doing very well and her pain is markedly improved over preoperative status. No fevers, chills, nausea, vomiting, or symptoms of infection. Carolann has been ambulating witha cane and working with PT. Patient stated [...] inclined to waiting tillnexsummer. She lives in [place] in the summer and [place] in the winter months. Signed: YARON Zuniga 03/06/2016 * Bob Shields MD - 03/06/2016 10:00 AM [...] [address] Deras in [facility]. She has what sounds like a [...] the fall after traveling both out to [place] and then to [place] she ended up with profound shortness of breath for several days. She was seen by her primary care doctor in [place] and subsequently sent to the emergency department after some EKG changes were identified. She was noted to have a large saddle emboli after presentation to the ED and was bridged with what sounds like heparin to Xarelto. She is now maintained on Xarelto for anticoagulation and follows with a uniform maker in [place]. On the CT of her chest she was also noted to have a thoracic aortic aneurysm and this is being followed by a vascular doctor down in [place] as well. She is scheduled for a [...] with coordination of her anticoagulation from her uniform maker. She only lives in [place] for the summer and heads back to [place] around so the timing of surgery would also be an issue. I outlined she would need at least 4 to 6 weeks to recover before she would feel like traveling and I would like to see her at her first postoperative visit before she headed back to [place]. She would like to think things over with her and talk with her uniform maker before scheduling surgery. Certainly if she had to wait to the spring I do not think this is totally unreasonable, but I did caution her about falling and having an injury should the knee give out. At this point all questions were answered and she was given the contact information for my surgical supply assistant if she would like to proceed with surgery. Bob Shields MD, MS Chief, Division of Adult Reconstructive Skin DiverOutpatient Clerk of Orthopaedics Department of Orthopaedics [facility] [address] [email or web address] documented in this encounter Plan of Treatment Not on file documented as of this encounter Visit Diagnoses Diagnosis H/O total knee replacement, left Instability of knee joint, left documented in this encounter Care Teams Internet Media Planner Relationship Specialty Start Date End Date Karin Vasquez MD [facility][note 3] [address] [place] [id number] PCP - General Gerontology 03/06/16 02/26/18 documented as of this encounter
--- OUTSIDE RECORDS SUMMARY | 2024-03-19 02:44 | XMS_ITS | Encounter Summary ---
Author [place] [address] Care Team Providers Care [employer] Name Role Phone Ankit Bae MD Primary Care Provider [phone] Encounter Details Date Type Department Care Team (Latest Contact Info) Description 09/03/2015 - 09/03/2015 11:59 PM EST Hospital Encounter [place] [address] Bob Shields MD [facility] [place] [address] Pain Discharge Disposition: Home Social History Tobacco [...] FILM LIBRARY STORAGE ONLY DX KNEE Routine 09/03/2015 12:00 AM EST Pain documented in this encounter Results * Film Library- Storage only DX Knee (09/03/2015 12:00 AM EST) Narrative [facility] - 03/06/2016 9:14 AM EDT This exam is for storage only and is auto-finalizing. Bob Shields MD IMG FILM LIBRARY OR DERABLES DH [place], [place] documented in this encounter Visit Diagnoses Diagnosis Pain Generalized pain documented in this encounter Care Teams [employer] Relationship Specialty Start Date End Date Ankit Bae MD [address] [place] [address] PCP - General 07/12/10 03/05/16 documented as of this encounter
--- OUTSIDE RECORDS SUMMARY | 2024-03-19 02:44 | XMS_ITS | Encounter Summary ---
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 [...] extremity documented in this encounter Care Teams Facility Manager Histology Relationship Specialty Start Date End Date Ayla Brown MD [address] [address] PCP - General Internal Medicine 02/27/18 03/12/23 documented as of this encounter
[2024-03-19 11:56] LABS: TSH (W/Ref FT4) 0.71 uIU/mL (0.36-3.74)
[2024-03-19 13:42] LABS: Iron 66 ug/dL (50-170)
== END 2024-03-19 02:40 | disposition home or self-care (01) ==
LOC: LBO 02:39
PROVIDERS: PCP Internal Medicine; Visit Provider Family Medicine
DX: D64.9 Anemia, unspecified (principal); E03.9 Hypothyroidism, unspecified
CPT/HCPCS: 36415; 83540; 84443

== ENCOUNTER 2024-05-13 13:07 | Outpatient (CLI) | payer MEDICARE, SELFPAY ==
--- NOTE | 2024-05-13 13:00 | RT.EKG_ITS ---
APPROVED REPORT Exam: Resting ECG Reason for Exam: Pre Op Patient Location: O HR:83 bpm ECG Measurements Heart Rate 83 AXIS MN 168 P 52 QRSd 87 QRS 47 QT 357 T 26 QTc 420 Conclusion Sinus rhythm...normal P axis, V-rate 50- 99 Normal Electrocardiogram
== END 2024-05-13 13:08 | disposition home or self-care (01) ==
LOC: DI.CM 13:08
PROVIDERS: PCP Internal Medicine; Visit Provider Family Medicine
DX: Z01.818 Encounter for other preprocedural examination (principal)
CPT/HCPCS: 93010

== ENCOUNTER 2024-05-26 02:29 | Outpatient (CLI) | payer MEDICARE, SELFPAY ==
[2024-05-26 16:01] LABS: Bilirubin Negative (Negative); Blood Negative (Negative); Clarity Clear (Clear); Glucose Negative (Negative); Ketones Negative (Negative); Leukocyte Esterase Negative (Negative); Nitrite Negative (Negative); Specific Gravity >= 1.030 (1.005-1.025); Urobilinogen 0.2 mg/dL (Up to 0.2); pH 5.5 (5-8)
[2024-05-26 16:09] LABS: Abs Immature Grans 0.02 10^3/uL (0.0-0.06); Absolute Basophil Count 0.02 10^3/uL (0.0-0.2); Absolute Eosinophil Count 0.11 10^3/uL (0.0-0.7); Absolute Lymphocyte Count 1.87 10^3/uL (1.2-3.4); Absolute Monocyte Count 0.53 10^3/uL (0.1-0.8); Absolute Neutrophil Count 4.92 10^3/uL (1.2-6.7); Basophils % 0.3 %; Eosinophils % 1.5 %; HGB 13.9 g/dL (11.2-15.7); Immature Grans % 0.3 %; MCH 32.6 pg (27.0-33.0); MCHC 33.9 % (32.0-36.0); MCV 96 fL (80-95); MPV 9.8 fL (8.0-11.0); Monocytes % 7.1 %; Neutrophils % 65.8 %; Platelet Count 218 10^3/uL (130-400); RBC 4.27 10^6/uL (3.93-5.22); RDW 11.9 % (11.7-14.6); RDW-SD 41.6 fL; WBC 7.47 10^3/uL (4.4-10.8)
[2024-05-26 16:22] LABS: Hemoglobin A1C 7.1 % (<5.7)
[2024-05-26 17:20] LABS: ALT 24 U/L (14-59); AST 16 U/L (15-37); Albumin 3.9 g/dL (3.4-5.0); Alkaline Phosphatase 87 U/L (46-116); Anion Gap 10.4 mmol/L (3-11); BUN 11 mg/dL (7-18); CO2 28.6 mmol/L (21.0-32.0); CREATININE 0.8 mg/dL (0.55-1.02); Calcium 9.4 mg/dL (8.5-10.1); Calculated LDL 120 mg/dL (<100); Chloride 106 mmol/L (98-107); Cholesterol 241 mg/dL (<200); Glucose 138 mg/dL (74-106); HDL Cholesterol 90 mg/dL (40-60); Sodium 145 mmol/L (136-145); TSH (W/Ref FT4) 2.22 uIU/mL (0.36-3.74); Total Protein 7.2 g/dL (6.4-8.2); Triglyceride 157 mg/dL (<150)
[2024-05-27 10:57] LABS: CA 125 9 U/mL (<30)
== END 2024-05-26 02:30 | disposition home or self-care (01) ==
LOC: LBO 02:29
PROVIDERS: PCP Internal Medicine; Visit Provider Family Medicine
DX: D64.9 Anemia, unspecified (principal); R10.9 Unspecified abdominal pain; C56.9 Malignant neoplasm of unspecified ovary; E11.51 Type 2 diabetes mellitus with diabetic peripheral angiopathy without gangrene; I70.209 Unspecified atherosclerosis of native arteries of extremities, unspecified extremity; E03.9 Hypothyroidism, unspecified; C57.01 Malignant neoplasm of right fallopian tube; E78.49 Other hyperlipidemia; E11.9 Type 2 diabetes mellitus without complications
CPT/HCPCS: 36415; 80053; 80061; 86304; 81003; 83036; 84443; 85025

== ENCOUNTER 2025-01-13 01:30 | Outpatient (CLI) | payer MEDICARE, SELFPAY ==
--- NOTE | 2025-01-13 | DI.MRI_ITS ---
Exam(s) MR LUMBAR SPINE WO EXAM: MR LUMBAR SPINE WO CLINICAL HISTORY: M48.061 Lumbar spinal stenosis. TECHNIQUE: Multiplanar multisequence MRI of the Lumbar spine was performed. COMPARISON: CR XR LUMBAR SPINE AP, LAT from 04/04/2021 MR MR LUMBAR SPINE WO from 04/21/[address] CHEST/ABD/PEL W from 02/08/2024 FINDINGS: Conus medullaris is at the L2 level. There is no evidence of conus mass nor subjacent clumping of in trathecal nerve roots to suggest arachnoiditis. The distal thecal sac appears unremarkable.There is no evidence of Tarlov intrasacral cysts nor other significant findings within the sacral canal Bones:There is a degenerative scoliosis convex left having its epicenter on the right side of L3-4 le prince, previously present. There are no fractures nor ominous osseous lesions in the lumbar vertebral b odies and visualized sacrum. Small benign intraosseous hemangioma in the T11 vertebral body is uncha nged from MRI scan of 2020. With respect to the individual levels... T12-L1: Unremarkable L1-2: This level exhibits advanced asymmetric disc space narrowing severe disc space narrowing on the left side and moderate disc space narrowing on the right side of this disc space.. This is similar t o previous and there also again noted lateral left side osteophytes at this level. Also mild retrolis thesis of L1 relative to L2 on the mid-left side of the disc space and there is also asymmetric left- sided annular bulging at this space which extends into the floor of the exiting left neural foramen. There is mild-moderate left-sided foraminal stenosis at this level again noted. There is no foraminal stenosis on the opposite-right side. Central canal dimensions are lower normal. There is moderate bi lateral facet arthropathy again noted. L2-3: This level again exhibits asymmetric disc space narrowing on the right-sided, similar to previo us. There is posterior annular bulging and a small posterolateral left disc protrusion which extends posteriorly 4 mm and is approximately 10 mm wide. This has slightly increased in size from 2020. Ther e is also again noted some annular bulging into the floor of the exiting left neural foramen. There i s mild left-sided foraminal stenosis. No right-sided foraminal stenosis. There is mild central canal stenosis evident, similar to previous. Mild degenerative changes in both facet joints. L3-4: This level again exhibits asymmetric disc space narrowing on the right side where there is actu al fusion of the right-side of this disc space at the right-side of L3 and L4 vertebral bodies and br idging osteophyte on the lateral right-sided this level. This is the epicenter of the levoscoliosis i n the lumbar spine. There is no significant disc herniation posteriorly at this level. There is mild central canal stenosis. There is some annular bulging into the floor of the exiting left neural chata en again noted at this level but without significant foraminal stenosis on either side at this level. Mild-moderate degenerative changes in both facet joints. L4-5: This level again exhibits advanced disc space narrowing right more so than left but significant on both sides and similar to previous. There is broad annular bulging again noted at this level. Mod erate-severe central spinal canal stenosis again noted, unchanged. No focal disc herniation. Bilatera l foraminal stenosis at this level more so on the left side and milder on the right side. Moderate-ad vanced degenerative changes in both facet joints. L5-S1: There is relative fusion across the clinician disc space at this level again noted. There is n o evidence of disc herniation nor central spinal canal stenosis at this level. There is some foramina l stenosis on the left side again noted. No foraminal stenosis on the right side. There is no facet a rthropathy at this level. Soft tissues: There appears to be a possible mass in the anterior cortex of the superior pole of the right kidney measuring approximately 3.5 x 3.6 cm. Difficult to determine if this is a true mass or bulbous renal parenchyma but requires further imaging. This was not evident on CT scan of January 2024 . IMPRESSION: 1. Compared to the prior MRI scan of April 2021 there is again noted multilevel chronic degenerat fercho disc disease as described per individual level above compound by asymmetric disc space narrowing at multiple levels resulting in degenerative scoliosis convex left, this unchanged from the previous study and also resulting in asymmetric foraminal stenosis at multiple levels. Fusion across the right L3-4 vertebral bodies is unchanged and is the epicenter of the convex left degenerative scoliosis he re. 2. There is multilevel mild central canal stenosis. There is, however, again noted moderate-severe ce ntral canal stenosis at the L4-5 level, as was previously present. Basically, there is minimal change in the lumbar spine when compared to the prior MRI scan of Septemb er 2020 3. There is a possible 3.5 cm non-cystic right kidney mass. Recommend further kidney imaging to rule out malignancy of the right kidney DATA REPOSITORY:
== END 2025-01-13 01:50 ==
LOC: DI 01:31
PROVIDERS: PCP Internal Medicine; Visit Provider Internal Medicine
DX: M48.061 Spinal stenosis, lumbar region without neurogenic claudication (principal)
CPT/HCPCS: 72148

== ENCOUNTER 2025-02-12 00:25 | Outpatient (CLI) | payer MEDICARE, SELFPAY ==
--- NOTE | 2025-02-12 12:15 | DI.US_ITS ---
Exam(s) US RENAL EXAM: US RENAL CLINICAL HISTORY: RENAL MASS, N28.89. TECHNIQUE: Pablo scale imaging and color doppler were used. COMPARISON: MR MR LUMBAR SPINE WO from 01/13/2025 FINDINGS: Exam is limited by patient body habitus. There is a large amount of fat surrounding both kidneys. Right kidney: 11.3cm Echogenicity: Normal Hydronephrosis: No Cyst or mass: No visible mass. Nephrolithiasis: No Left kidney: 9.1cm Echogenicity: Normal Hydronephrosis: No Cyst or mass: No visible mass. Nephrolithiasis: No Bladder:Unremarkable Prevoid vol:57 cc Postvoid vol:Not performed cc IMPRESSION: The exam is limited by patient body habitus. No mass is identified. A renal mass protocol CT could be performed for further evaluation. DATA REPOSITORY:
== END 2025-02-12 00:45 ==
LOC: DI 00:25
PROVIDERS: PCP Internal Medicine; Visit Provider Internal Medicine
DX: N28.89 Other specified disorders of kidney and ureter (principal)
CPT/HCPCS: 76770

== ENCOUNTER 2025-02-16 15:16 | Emergency (ER) | payer MEDICARE, SELFPAY ==
[2025-02-16 15:27] VITALS: BP 108/72; PULSE 98; RESP 18; TEMP 36.6; O2SAT 96
--- NOTE | 2025-02-16 15:45 | RT.EKG_ITS ---
APPROVED REPORT Exam: Resting ECG Reason for Exam: lightheaded, SOB Patient Location: E HR:81 bpm ECG Measurements Heart Rate 81 AXIS TN 171 P 53 QRSd 83 QRS 36 QT 347 T 19 QTc 402 Conclusion Sinus rhythm, rate 81 No STEMI No interval abnormalities Q wave and T wave inversion lead III unchanges from prior
--- NOTE | 2025-02-16 16:12 | W.ED.GENAD ---
Discharge Plan Disposition Patient Disposition: Home Condition: Stable Discharge Details Clinical Impression: Dizzinesses, Recurrent instability of left knee prosthesis Primary Care Provider: Mary Ann Ruby ED Provider: Fatoumata Thomas Home Meds and New Rx's Prescriptions: No Action magnesium salicylate 325 mg tablet 580 mg PO DAILY triamterene-hydrochlorothiazid 37.5-25 mg tablet 1 tab PO DAILY Qty: 30 1RF midodrine 5 mg tablet 2.5 mg PO BID-TID Qty: 30 1RF Rx Instructions: do not give last dose of day after 6PM or within 4 hrs of bedtime thyroid (pork) [Dragoon Thyroid] 90 mg tablet 90 mg PO DAILY Qty: 90 3RF Eliquis 5 mg tablet 2.5 mg PO BID Qty: 60 0RF cholecalciferol (vitamin D3) [Vitamin D3] 1,000 unit Capsule 1,000 unit PO DAILY cyanocobalamin (vitamin B-12) 1,000 mcg Tablet, Sublingual 5,000 mcg Sublingual DAILY celecoxib 100 mg capsule 100 mg PO BID Patient Comments: TAKE 1 CAPSULE BY MOUTH TWO TIMES DAILY NEEDED FOR PAIN. Mounjaro 5 mg/0.5 mL pen injector 5 mg SUBCUT .weekly Patient Comments: INJECT 5 MG UNDER THE SKIN ONE DAY A WEEK oxycodone 5 mg tablet 5 mg PO Q6H PRN Patient Comments: TAKE ONE TABLET BY MOUTH EVERY 6 HOURS NEEDED FOR PAIN meloxicam 7.5 mg tablet 7.5 mg PO BID PRN Patient Comments: TAKE ONE TABLET BY MOUTH TWICE A DAY NEEDED FOR PAIN Discharge Instructions Instructions: Dealing with Dizziness from the Drugs You Take Additional Instructions: You were seen in the emergency department today for dizziness, shortness of breath, nausea, and ongoing knee pain. In our department you had a full physical examination performed and had reassuring laboratory studies. Your D-dimer was elevated, and you had a CT scan of your chest that showed no blood clot in your lungs. You had no blood clot in your legs on your ultrasound. It is possible that you are experiencing some symptoms due to the medications that you are taking and I recommend that you reach out to your primary care provider tomorrow to discuss these medications and any changes. Please return to the emergency department any concerns and thank you for allowing us to be part of your care. Discharge Data Discharge Date/Time-TO BE ENTERED AT DEPARTURE: 02/16/25 20:46 HPI General Mode of arrival: ambulatory. Date/Time Provider Initiated Documentation: 02/16/25 15:22. Limitations to Documentation: no limitations. Information obtained by: patient, family and old records reviewed. HPI Narrative: This is an 79-year-old female patient with a past medical history significant for chronic anticoagulation in the setting of recurrent DVT and saddle pulmonary embolus, history of tachycardia, diabetes, and hypothyroidism who is presenting for evaluation of weakness and dizziness for 1 week. The patient had knee surgery approximately 3 weeks ago and has been recovering quite well, though she has had some persistent pain most notable in the left lateral aspect radiating up into her lateral thigh. She reports that she feels very short of breath on exertion and like she has to take very shallow breaths. She states that she feels very similar to how she did when she had her saddle pulmonary embolism. She reports that she has been taking her Eliquis, is on a 2.5 dose rather than 5. She has not noted any swelling or pain in her calves, but does have a history of recurrent DVT after surgery. She reports that she has been taking more medication for pain management than his typical, including Tylenol, Celebrex, and oxycodone. Related Data Home Medications ?Medication ?Instructions ?Recorded ?Confirmed cholecalciferol (vitamin D3) 25 1,000 unit PO DAILY 05/09/18 02/16/25 mcg (1,000 unit) capsule (Vitamin D3) cyanocobalamin (vitamin B-12) 5,000 mcg sublingual DAILY 05/13/18 02/16/25 1,000 mcg sublingual tablet thyroid (pork) 90 mg tablet 90 mg PO DAILY #90 tabs 07/02/20 02/16/25 (Dragoon Thyroid) magnesium salicylate 325 mg tablet 580 mg PO DAILY 03/06/24 02/16/25 triamterene 37.5 1 tab PO DAILY #30 tabs 03/06/24 02/16/25 mg-hydrochlorothiazide 25 mg tablet midodrine 5 mg tablet 2.5 mg (1/2 x 5 mg) PO BID-TID #30 05/13/24 02/16/25 tabs apixaban 5 mg tablet (Eliquis) 2.5 mg (1/2 x 5 mg) PO BID #60 tabs 06/10/24 02/16/25 celecoxib 100 mg capsule 100 mg PO BID 02/16/25 02/16/25 meloxicam 7.5 mg tablet 7.5 mg PO BID PRN 02/16/25 02/16/25 oxycodone 5 mg tablet 5 mg PO Q6H PRN 02/16/25 02/16/25 tirzepatide 5 mg/0.5 mL 5 mg subcut .weekly 02/16/25 02/16/25 subcutaneous pen injector (John) Previous Rx's ?Medication ?Instructions ?Recorded thyroid (pork) 90 mg tablet 90 mg PO DAILY #90 tabs 07/02/20 (Dragoon Thyroid) triamterene 37.5 1 tab PO DAILY #30 tabs 03/06/24 mg-hydrochlorothiazide 25 mg tablet midodrine 5 mg tablet 2.5 mg (1/2 x 5 mg) PO BID-TID #30 05/13/24 tabs apixaban 5 mg tablet (Eliquis) 2.5 mg (1/2 x 5 mg) PO BID #60 tabs 06/10/24 Allergies Allergy/AdvReac Type Severity Reaction Status Date / Time lidocaine Allergy Intermediate Dizziness/L Verified 05/13/24 13:15 ighthead Penicillins Allergy Other (See Verified 05/13/24 13:15 Comment) epinephrine AdvReac Dizziness/L Verified 05/13/24 13:15 ighthead General Stated Complaint: GenMedical LORETO: 3 Exam Narrative Exam Narrative: Gen: awake and alert, in no apparent distress. Appears well nourished. HEENT: PERRL. Neck: Supple, full range of motion, no observable masses Lungs: No increased work of breathing, lung sounds clear and equal bilaterally without wheezes, rhonchi, or rales. CV: Heart with regular rate and rhythm, no murmurs auscultated. Strong and symmetrical radial pulses. Abdomen: Soft, nondistended, non-tender MSK: The patient has full range of motion of her affected left knee, with a dressed surgical incision without surrounding visible skin changes such as erythema, induration, nor obvious drainage. She does not have any unilateral calf swelling or tenderness. She has preserved CSM's of the bilateral lower extremities Skin: No rashes or lesions to visualized skin. Normal color, warm, and dry. Neuro: Preserved strength and sensation x 4 extremities, symmetrical face, no sensory deficits, clear speech, ambulates with a walker consistent with postoperative status Psych: Appropriate for situation. Course Vital Signs Vital signs: Vital Signs Temperature 36.6 C 02/16/25 15: Pulse 98 H 02/16/25 15: Respiratory Rate 18 02/16/25 15: Blood Pressure 108/72 02/16/25 15:27 Pulse Oximetry 96 02/16/25 15: Temperature 36.6 C 02/16/25 15: Pulse 98 H 02/16/25 15: Respiratory Rate 18 02/16/25 15: Blood Pressure 108/72 02/16/25 15: Pulse Oximetry 96 02/16/25 15:27 Medical Decision Making This is an 79-year-old female patient presenting for evaluation of left knee pain after recent surgery, and 1 week of weakness, shortness of breath on exertion and dizziness. My differential includes but is not limited to thromboembolic disease including pulmonary embolism, DVT, certainly consider cardiac abnormalities including ACS, arrhythmia, and considered anemia, metabolic electrolyte derangement, dehydration, kidney liver disease. I obtained an EKG which shows a sinus rhythm without evidence of ischemia, interval abnormality, or ectopy. Will obtain laboratory studies to include CBC, CMP, magnesium, troponin. With the patient's significant thromboembolic history I feel that it would be reasonable to proceed with CT pulmonary embolism study at this time without a D-dimer. The patient reports that she has a history of vomiting with IV contrast, and is desiring to avoid this if possible. For this reason we will obtain a D-dimer to risk stratify, as a negative test would be quite reassuring. I have provided the patient with a dose of Tylenol, she is not desiring of any other medications at this time. - I independently interpreted the laboratory studies, which show no significant leukocytosis, anemia, or thrombocytopenia. The chemistry panel is without evidence of electrolyte abnormality, kidney dysfunction, or liver injury. Troponin is negative and without interval increase on 1 hour delta recheck. Her D-dimer is quite elevated to 2700, and for this reason we proceeded with CT pulmonary embolism study. She did receive a dose of Zofran and had a brief episode of nausea and vomiting which resolved spontaneously. She did not experience any true allergic symptoms such as shortness of breath, stridor, hives. CT pulmonary embolism study was negative for pulmonary embolism, she has a stable aortic dilatation, and is otherwise without acute findings to explain her symptoms. I did perform a bedside ultrasound on her bilateral lower extremities that did not show any evidence of DVT from her inguinal crease to her popliteal fossa. I discussed the results of today's workup with the patient, as many emergent causes of her symptoms have been appropriately ruled out. The patient is most concerned that her medications could be causing some of the symptoms, and will trial decreasing them, and I counseled her to do so in coordination with her orthopedic doctor and primary care provider. She was also counseled to return to care with any acute concerns. At this time, the patient has had a full medical evaluation and is safe for discharge to home. They are hemodynamically stable, ambulatory, and tolerating PO. They are understanding of the follow-up plan and return precautions. They left our facility without incident. Fatoumata Thomas MD [facility] All Active Problems (Updated 02/16/25 @ 20:39 by Fatoumata Thomas MD) Dizzinesses (Acute) Recurrent instability of left knee prosthesis (Acute) Overweight (Acute) Fatigue (Acute) Recurrent deep vein thrombosis (DVT) (Acute) BRCA gene mutation test positive (Acute) Arthritis of left shoulder region (Acute) Rupture of hip abductor tendon (Acute) History of total right knee replacement (TKR) (Acute 04/26/21) Chronic knee pain (Acute) Primary osteoarthritis of right knee (Acute 05/16/17) Lumbar degenerative disc disease (Acute) Lumbar scoliosis (Acute) Aortic valve regurgitation (Chronic) Echo: 12/2018: EF 68%, Mild AR, Trace TR/MR/WA, Ascending Aneurysm 4.8 cm followed by [facility] Lower extremity edema (Acute) Colon polyps (Acute) Degenerative joint disease (DJD) of hip (Acute) SVT (supraventricular tachycardia) (Chronic) Saddle pulmonary embolus (Acute) Osteoarthritis (Chronic) DVT (deep venous thrombosis) (Chronic) Diabetes mellitus (Chronic) Diet Controlled 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 ACUÑA Family History Mother , 99 No problems noted. Sister No problems noted. Maternal Grandfather , 20+ No problems noted. Paternal Grandfather , 85 No problems noted. Maternal Grandmother , age 97 No problems noted. Paternal Grandmother , 45? No problems noted. Father , 86 No problems noted. Social History Smoking/Tobacco Use Status: Former Tobacco Use Quit Date: 08/20/89 Tobacco: How many years used: 20 Second Hand Exposure: No Smoking risk assessment performed?: Yes Alcohol Intake: current Alcohol Intake frequency: 0-2 drinks per day Alcohol type: wine Drug use: Rarely Substance use type: marijuana Caregiver/Support person: No Household members: spouse Housing: house Do you need help understanding health information?: Never Pets and animals: Yes Pets and animals: cat(s) Do you think of yourself as: straight/heterosexual Current gender identity: female What is your relationship status?: How often do you talk on the phone with friends or family?: three or more times per week How often do you get together with friends or relatives?: three or more times per week How often do you attend sabianist or latter-day services?: decline to answer Do you belong to any clubs or organized social groups?: decline to answer Panel score (0-1 are the most socially isolated patients): 2 What type of physical activity do you participate in: swimming and other Duration: 45-60 minutes/day Frequency: daily Joanne/Confucianism: Restorationism Special joanne needs: No Seatbelt use: always Drive intox or ride w/intox party bus driver: No Do you feel safe at home: Yes Do you feel safe in your relationship?: Yes POCUS Exam (ED) Limited Vascular Exam DATE OF EXAM: 02/16/25 TIME OF EXAM: 18:44 PROVIDER THAT PERFORMED THE STUDY: Fatoumata Thomas Vascular Exam: Left lower extremity REASON FOR EXAM: Concern for DVT left lower extremity VISUALIZED STRUCTURES: Left common femoral vein and Left popliteal vein PERTINENT FINDINGS/IMPRESSION: Compressible veins left leg and No apparent abnormalities Exam Complete and Right lower extremity REASON FOR EXAM: Concern for DVT right lower extremity VISUALIZED STRUCTURES: Right common femoral vein, Right popliteal vein and Right superficial femoral vein PERTINENT FINDINGS/IMPRESSION: Compressible veins right leg and No apparent abnormalities Exam Complete
[2025-02-16 16:19] VITALS: RESP 14
[2025-02-16] MEDS: Acetaminophen 500 MG TAB 1000 MG PO (16:19)
[2025-02-16 16:24] LABS: Abs Immature Grans 0.02 10^3/uL (0.0-0.06); Absolute Basophil Count 0.02 10^3/uL (0.0-0.2); Absolute Lymphocyte Count 1.12 10^3/uL (1.2-3.4); Absolute Monocyte Count 0.45 10^3/uL (0.1-0.8); Absolute Neutrophil Count 4.16 10^3/uL (1.2-6.7); Basophils % 0.3 %; Eosinophils % 1.7 %; HCT 37.2 % (36.0-46.0); HGB 11.9 g/dL (11.2-15.7); Immature Grans % 0.3 %; Lymphocytes % 19.1 %; MCH 30.9 pg (27.0-33.0); MCV 97 fL (80-95); MPV 9.3 fL (8.0-11.0); Monocytes % 7.7 %; Neutrophils % 70.9 %; Platelet Count 265 10^3/uL (130-400); RBC 3.85 10^6/uL (3.93-5.22); RDW 13.7 % (11.7-14.6); RDW-SD 48.8 fL; WBC 5.87 10^3/uL (4.4-10.8)
[2025-02-16 16:49] LABS: ALT 18 U/L (14-59); AST 13 U/L (15-37); Albumin 3.6 g/dL (3.4-5.0); Alkaline Phosphatase 116 U/L (46-116); Anion Gap 8.8 mmol/L (3-11); BUN 17 mg/dL (7-18); Bilirubin, Total 0.4 mg/dL (0.2-1.0); CO2 28.2 mmol/L (21.0-32.0); CREATININE 0.8 mg/dL (0.55-1.02); Calcium 8.9 mg/dL (8.5-10.1); Chloride 103 mmol/L (98-107); Estimated GFR 74.44 (mL/min/1.73m2); Glucose 139 mg/dL (74-106); Magnesium 2.1 mg/dL (1.8-2.4); Potassium 4.1 mmol/L (3.5-5.1); Sodium 140 mmol/L (136-145); Total Protein 6.9 g/dL (6.4-8.2); Troponin I 12 ng/L (<or=51)
[2025-02-16 17:02] LABS: D-Dimer 2774 ng/mlFEU (<500)
--- NOTE | 2025-02-16 17:45 | DI.CT_ITS ---
Exam(s) CT CHEST PE CTA EXAM: CT CHEST PE CTA CLINICAL HISTORY: Hx PE, elevated dimer, recent surg. TECHNIQUE: Imaging Protocol: Axial CT angiography was performed with multi- slice acquisition and multi-planar reconstructions as well as axial, coronal and sagittal MIP reconstructions. Computer aided detection (CAD) was utilized. CONTRAST MATERIAL: Intravenous: Omnipaque 350 Contrast volume:80 ml COMPARISON: CT CT CHEST/ABD/PEL W from 02/08/2024 FINDINGS: Pulmonary Arteries: No evidence of filling defect to suggest pulmonary emboli. Mediastinum and Olivia: No dominant adenopathy or fluid collection. Pulmonary parenchyma: Mild motion and expiratory changes. No consolidation or dominant measurable mass. Pleura: No effusion or pneumothorax. Heart: The heart is not dilated. Coronary artery calcifications are seen. Aorta: Ascending aorta measures 5.2 cm comment unchanged from prior. No dissection. Upper abdomen: No acute findings. Bones: Right shoulder prosthesis. Degenerative changes in the left shoulder and spine Tubes, Catheters, and Lines: None Soft tissues: Unremarkable. IMPRESSION: No evidence of pulmonary embolism. Stable ascending aortic aneurysm 5.2 cm. No dissection. The preliminary [facility] report was reviewed. RADIATION DOSE DELIVERED: 169.43mGy.cm Total DLP DATA REPOSITORY: All CT scans at this facility are submitted to the National Radiology Data Registry (NRDR) Dose Index Registry (DIR) with the [employer] (ACR). RADIATION OPTIMIZATION: All CT scans at this facility use at least one of these dose optimization techniques: automated exposure control; mA and/or kV adjustment per patient size (includes targeted exams where dose is matched to clinical indication); or iterative reconstruction.
[2025-02-16 17:54] LABS: Troponin I 13 ng/L (<or=51)
[2025-02-16] MEDS: Ondansetron 4 MG/2 ML VIAL IVP (18:09)
[2025-02-16] MEDS: Normal Saline - Diluent 50 ML VIAL IJ (18:15)
[2025-02-16] MEDS: Omnipaque 350 MG/ML 100 ML BTL IJ (18:16)
[2025-02-16 19:49] LABS: Troponin I 14 ng/L (<or=51)
--- NOTE | 2025-02-16 20:17 | DI.[facility]_ITS ---
PROCEDURE INFORMATION: Exam: CTA Chest With Contrast Exam date and time: 02/16/2025 6:17 PM Age: 79 years old Clinical indication: Other: HX pe, elevated dimer, recent surg; PT sts lt knee surg x 01/28 TECHNIQUE: Imaging protocol: Computed tomographic angiography of the chest with contrast. Exam focused on the arteries. 3D rendering (Not supervised by radiologist): MIP and/or 3D reconstructed images were created by the technologist. Contrast material: OMNI 350; Contrast volume: 80 ml; Contrast route: INTRAVENOUS (IV); COMPARISON: CT CHEST/ABD/PEL W 02/08/2024 2:31 PM FINDINGS: Pulmonary arteries: No acute pulmonary emboli. Aorta: Aneurysmal dilation of the ascending thoracic aorta, measuring up to 5.2 cm in maximal diameter at the mid ascending level, similar to comparison study. No evidence of leakage or rupture. Lungs: Unremarkable. No consolidation. No masses. Pleural spaces: Unremarkable. No pneumothorax. No pleural effusion. Heart: Unremarkable. No cardiomegaly. No pericardial effusion. Coronary arteries: Atherosclerotic disease of the left anterior descending coronary artery. Lymph nodes: Unremarkable. No enlarged lymph nodes. Bones/joints: Partially visualized right glenohumeral arthroplasty. Severe degenerative changes of the left glenohumeral joint, with joint space loss, subchondral sclerosis, and osteophyte formation. Multilevel thoracic spine degenerative disc space narrowing and osteophyte formation, with mild dextroscoliosis. Soft tissues: Unremarkable. IMPRESSION: 1. No acute pulmonary emboli. 2. Aneurysmal dilation of the ascending thoracic aorta, measuring up to 5.2 cm in maximal diameter at the mid ascending level, similar to comparison study. No evidence of leakage or rupture. Dictated and Authenticated by: Alejo Vargas MD. Orderin [facility] MD
[2025-02-16 20:45] VITALS: RESP 14
== END 2025-02-16 20:46 | disposition home or self-care (01) ==
PROVIDERS: Emergency Provider Emergency Medicine; PCP Internal Medicine
DX: R42 Dizziness and giddiness (principal); T84.023D Instability of internal left knee prosthesis, subsequent encounter; E11.9 Type 2 diabetes mellitus without complications; Z79.85 Long-term (current) use of injectable non-insulin antidiabetic drugs; Z87.891 Personal history of nicotine dependence
CPT/HCPCS: 36415; 71275; 80053; 93005; 93971; 96374; 99285; 83735; 84484; 85025; 85379; 93010; J2405; J3490

== ENCOUNTER 2025-05-26 01:37 | Outpatient (CLI) | payer MEDICARE, SELFPAY ==
[2025-05-26 13:27] LABS: Abs Immature Grans 0.03 10^3/uL (0.0-0.06); HCT 43.7 % (36.0-46.0); HGB 14.1 g/dL (11.2-15.7); Immature Grans % 0.4 %; MCH 30.1 pg (27.0-33.0); MCHC 32.3 % (32.0-36.0); MCV 93 fL (80-95); MPV 9.9 fL (8.0-11.0); Platelet Count 241 10^3/uL (130-400); RBC 4.69 10^6/uL (3.93-5.22); RDW 13.2 % (11.7-14.6); RDW-SD 45.1 fL; WBC 7.79 10^3/uL (4.4-10.8)
[2025-05-26 13:38] LABS: Glucose Negative (Negative)
[2025-05-26 14:16] LABS: Hemoglobin A1C 5.5 % (<5.7)
[2025-05-26 14:21] LABS: ALT 19 U/L (14-59); AST 14 U/L (15-37); Albumin 3.9 g/dL (3.4-5.0); Alkaline Phosphatase 76 U/L (46-116); Anion Gap 10.0 mmol/L (3-11); BUN 12 mg/dL (7-18); Bilirubin, Total 0.5 mg/dL (0.2-1.0); CO2 29.0 mmol/L (21.0-32.0); Calcium 9.2 mg/dL (8.5-10.1); Calculated LDL 118 mg/dL (<100); Chloride 104 mmol/L (98-107); Cholesterol 209 mg/dL (<200); Estimated GFR 74.44 (mL/min/1.73m2); Glucose 105 mg/dL (74-106); HDL Cholesterol 69 mg/dL (>or=50); Potassium 4.4 mmol/L (3.5-5.1); Sodium 143 mmol/L (136-145); TSH 1.16 uIU/mL (0.36-3.74); Total Protein 7.5 g/dL (6.4-8.2); Triglyceride 111 mg/dL (<150)
[2025-05-27 07:39] LABS: T3,Free 3.3 pg/mL (2.8-5.3)
== END 2025-05-26 01:38 | disposition home or self-care (01) ==
LOC: LBO 01:37
PROVIDERS: PCP Internal Medicine; Visit Provider Internal Medicine
DX: E78.49 Other hyperlipidemia (principal); E11.9 Type 2 diabetes mellitus without complications; Z01.818 Encounter for other preprocedural examination
CPT/HCPCS: 36415; 80053; 80061; 81003; 83036; 84439; 84443; 84481; 85025

== ENCOUNTER 2025-06-01 11:28 | Outpatient (CLI) | payer MEDICARE, SELFPAY ==
--- NOTE | 2025-06-01 11:15 | RT.EKG_ITS ---
APPROVED REPORT Exam: Resting ECG Reason for Exam: Pre-op testing Patient Location: O HR:76 bpm ECG Measurements Heart Rate 76 AXIS LA 163 P 47 QRSd 82 QRS 33 QT 346 T 27 QTc 390 Conclusion Sinus rhythm...normal P axis, V-rate 50- 99 , early transition...QRS area>0 in V2 Atrial premature beats Artifact
== END 2025-06-01 11:29 | disposition home or self-care (01) ==
LOC: DI.CM 11:29
PROVIDERS: PCP Internal Medicine; Visit Provider Nurse Practitioner Family
DX: Z01.818 Encounter for other preprocedural examination (principal)
CPT/HCPCS: 93010

== ENCOUNTER 2025-06-04 08:43 | Outpatient (CLI) | payer MEDICARE, SELFPAY ==
--- NOTE | 2025-06-04 08:30 | RT.EKG_ITS ---
APPROVED REPORT Exam: Resting ECG Reason for Exam: SVT Patient Location: O HR:91 bpm ECG Measurements Heart Rate [address] 159 P 29 QRSd 88 QRS 20 QT 340 T 3 QTc 419 Conclusion Sinus rhythm...normal P axis, V-rate 50- 99 Atrial premature complexes...SV complexes w/ short R-R intvls
== END 2025-06-04 08:44 | disposition home or self-care (01) ==
LOC: DI.CARD 08:44
PROVIDERS: PCP Family Medicine; Visit Provider Internal Medicine Cardiovascular Disease
DX: Z01.818 Encounter for other preprocedural examination (principal)
CPT/HCPCS: 93010

== ENCOUNTER → 2025-06-04 11:05 | Outpatient (BNVA) | payer MEDICARE, SELFPAY | PROVIDERS: PCP Family Medicine; Referring Provider Family Medicine; Visit Provider Internal Medicine Cardiovascular Disease | DX: Z01.810 Encounter for preprocedural cardiovascular examination (principal); I47.10 Supraventricular tachycardia, unspecified | CPT/HCPCS: 99214; 93005 ==